=== PATIENT | female | born 1935 | race Caucasian/White ===

== ENCOUNTER → 2017-07-26 13:53 | Outpatient (CLI) | payer MEDICARE, OTHER, SELFPAY ==
--- NOTE | 2017-07-26 | DI.ECHO.S_ITS ---
[facility] +---------+ : : [address] : [address] : : : : [id number] : : : : Phone: [phone]+ Echocardiogram Report + + :Name: FREIDA VILLALBA Study Date: 07/26/2017 Height: 64 in : :[facility] Weight: 195 lb : : Gender: Female BSA: 1.9 m2 : :: 1935 Age: 81 yrs BP: 136/74 mmHg: :Reason For Study: Aortic valve stenosis : :Ordering Physician: Kwame : :Carter Performed By: Xochitl Hunt : :Referring: SUBHA Ohara : + + Interpretation Summary The left ventricle is normal in size, wall thickness, and systolic function without any focal wall motion abnormalities. The ejection fraction is estimated to be 60-65%. The right ventricle grossly appears normal in size with probable normal systolic function. The right ventricular systolic pressure is estimated at 40 mmHg assuming a right atrial pressure of 3 mm Hg. The left atrium is moderately dilated. Right atrial size is normal. The calculated aortic valve area is 1.1 cm2. The peak aortic velocity is 3.3 m/sec. The peak aortic velocity on the previous exam was 3.0 m/sec. There is no other significant valvular heart disease. The ascending aorta is mildly enlarged. Procedure: A two-dimensional transthoracic echocardiogram with color flow and Doppler was performed. The study quality was technically adequate. Comparison is made with the echocardiogram of 11-13-15. The patient was in normal sinus rhythm during the exam. Left Ventricle: The left ventricle is normal in size, wall thickness, and systolic function without any focal wall motion abnormalities. The ejection fraction is estimated to be 60-65%. Right Ventricle: The right ventricle grossly appears normal in size with probable normal systolic function. Atria: The left atrium is moderately dilated. Right atrial size is normal. The interatrial septum is intact with no evidence for an atrial septal defect. Mitral Valve: The mitral valve leaflets appear mildly thickened, but open well. There is trace mitral regurgitation. Aortic Valve: The calculated aortic valve area is 1.1 cm2. The peak aortic velocity is 3.3 m/sec. The peak aortic velocity on the previous exam was 3.0 m/sec. The aortic valve mean gradient is 23 mmHg. Severity ratio is 0.31. There is trace aortic regurgitation. Tricuspid Valve: The tricuspid valve leaflets are thin and pliable. There is mild tricuspid regurgitation. The right ventricular systolic pressure is estimated at 40 mmHg assuming a right atrial pressure of 3 mm Hg. Pulmonic Valve: The pulmonic valve is not well seen, but is grossly normal. There is no pulmonic valvular regurgitation. There is no other significant valvular heart disease. Great Vessels: The aortic root is normal size. The ascending aorta is mildly enlarged. The IVC is of normal diameter and collapses greater than 50% with a sniff. This suggests a low right atrial pressure of 3 mm Hg. Pericardium/ Pleura There is no pericardial effusion. There is no pleural effusion. MMode/2D Measurements & Calculations LVIDd: 4.3 cm LVOT diam: 2.0 cm LVIDs: 2.9 cm Ao root diam: 3.1 cm FS: 31.9 % Aortic Jxn: 2.6 cm IVSd: 0.91 cm asc Aorta Diam: 3.7 cm LVPWd: 0.97 cm Ao Arch Diam (Prox Trans): 2.6 cm LV moody. diameter/BSA (cm/m^2): 2.2 LV sys. diameter/BSA (cm/m^2): 1.5 LA dimension: 4.1 cm RA long axis: 5.0 cm LA A2 area: 24.8 cm2 RA area: 14.8 cm2 LA A4 area: 26.8 cm2 RA vol: 37.5 ml LA length (vol): 6.1 cm RA : 19.4 ml/m2 LA vol: 92.0 ml IVC diam: 1.5 cm LA vol index: 47.5 ml/m2 RVDd major: 4.5 cm RVD1 (basal): 4.0 cm CASSANDRA (plan): 1.2 cm2 Doppler Measurements & Calculations Ao V2 max: 327.4 cm/sec LVOT Max Matt: 107.4 cm/sec Ao V2 mean: 222.5 cm/sec LV V1 max P.9 mmHg Ao max P.9 mmHg LV V1 VTI: 24.2 cm Ao mean P.8 mmHg CASSANDRA(I,D): 1.0 cm2 Ao V2 VTI: 77.7 cm CASSANDRA(V,D): 1.1 cm2 sev ratio: 0.31 CASSANDRA indexed to BSA (cm^2/m^2): 0.52 TR max matt: 303.0 cm/sec TR max P.7 mmHg PA Accel Time: 0.13 sec Reading Physician:KRISTINE
== END ==
PROVIDERS: Family Provider Physician Assistant; PCP Physician Assistant; Visit Provider Internal Medicine Cardiovascular Disease
DX: I35.0 Nonrheumatic aortic (valve) stenosis (principal)
CPT/HCPCS: 93306

== ENCOUNTER → 2017-07-28 12:30 | Outpatient (CLI) | payer MEDICARE, OTHER, SELFPAY ==
[2017-07-28 12:53] LABS: Hematocrit 38.4 % (36-46); Hemoglobin 13.2 g/dL (12.0-16.0)
[2017-07-28 13:47] LABS: BUN Creatinine Ratio 23.6 (6-22); Blood Urea Nitrogen 33 mg/dL (7-17); Calcium 9.6 mg/dL (8.4-10.2); Carbon Dioxide 25 mmol/L (22-32); Chloride 105 mmol/L (98-107); Estimated Glomerular Filt Rate 36.3 mL/min (>60); Glucose 121 mg/dL (80-110); HEMOLYSIS < 15 (0-50); Potassium 4.8 mmol/L (3.4-5.1); Sodium 143 mmol/L (137-145)
[2017-07-28 14:17] LABS: Ferritin 99.7 ng/mL (11.1-264)
[2017-07-28 14:37] LABS: HEMOLYSIS < 15 (0-50); Iron 83 ug/dL (37-170)
[2017-07-28 14:48] LABS: Percent Iron Saturation 24 % (15-50); Total Iron Binding Capacity 347 ug/mL (265-497); Transferrin 271 mg/dL (206-381)
[2017-07-28 15:46] LABS: Creatinine Urine Random 90.9 mg/dL; Protein (Total) Urine Random 9 mg/dL (0-12); Protein Creatinine Ratio Urine 0.09 GRAM/24H
[2017-07-30 15:45] LABS: Parathyroid Hormone Int 44 pg/mL (14-64)
== END ==
PROVIDERS: Family Provider Physician Assistant; PCP Physician Assistant; Visit Provider Student in an Organized Health Care Education/Training Program
DX: N05.9 Unspecified nephritic syndrome with unspecified morphologic changes (principal); D50.0 Iron deficiency anemia secondary to blood loss (chronic); D64.9 Anemia, unspecified; N25.81 Secondary hyperparathyroidism of renal origin; R80.9 Proteinuria, unspecified
CPT/HCPCS: 36415; 80048; 82570; 82728; 83540; 83550; 83970; 84156; 85014; 85018

== ENCOUNTER 2017-09-05 07:32 | Day surgery (SDC) | payer MEDICARE, OTHER, SELFPAY ==
--- NOTE | 2017-09-05 | PATH_ITS ---
[facility] Accession Number: [id number] . 01 Material submitted: . COLON POLYP AT 60CM . 02 Diagnosis: Colon Polyp at 60 cm: Hyperplastic polyp. Additional step sections examined. V/09/08/2017 . 02 Electronically signed: . Akash Meyer MD, PhD, Pathologist NPI- [id number] . 01 Gross description: . COLON POLYP AT 60CM: Received in formalin is 1 fragment(s) of nascimento, soft tissue measuring 0.4 x 0.3 x 0.3 cm submitted entirely in 1 cassette(s) /CKI /CKI . 02 Pathologist provided ICD-10: K63.5 . 02 CPT . 488844 Performed at: 01 [facility] [address] [place] [address], [place], [place] [id number] MD Joseph Liz MD Phone: [phone] Performed at: 02 [facility] [address] [place], [place] [id number] MD Stephen Georges MD Phone: [phone]
[2017-09-05 07:45] VITALS: BMI 32.5
[2017-09-05 07:58] VITALS: BP 129/80; PULSE 87; RESP 16; TEMP 36; O2SAT 95
--- NOTE | 2017-09-05 08:01 | PM.HP.1 ---
History of Present Illness Date Patient Seen: 09/05/17 Time Patient Seen: 08:01 Chief complaint: [id number] Narrative: 82-year-old female with personal history of colon cancer status post right colectomy 3-4 years ago who presents now for colorectal screening. On further history today, she denies any recent change in bowel habits or other issues. She has no nausea, vomiting, abdominal pain, loss of appetite, unexplained weight loss, distention, change in bowel habits, diarrhea, constipation, melena, hematochezia, or bright red blood per rectum. Patient History Medical History Anxiety (Acute) Chronic edema (Acute) Chronic renal insufficiency (Acute) Chronic sinusitis (Acute) Diverticulosis (Acute) Gastroesophageal reflux disease (Acute) Heart murmur (Acute) History of anemia (Acute) History of colon cancer (Acute) History of diverticulitis (Acute) History of hysterectomy (Acute) Hypercholesterolemia (Acute) Hypertension (Acute) Osteoarthritis (Acute) Peripheral neuropathy (Acute) Surgical History History of carpal tunnel release of both wrists (Acute) History of left hip replacement (Acute) History of left knee replacement (Acute) History of right hip replacement (Acute) History of tonsillectomy (Acute) S/P left colectomy (Acute) S/P right colectomy (Acute) S/P tendon repair (Acute) Family & Social History Family History: Reviewed 09/05/17 by Homer Watters MD Social History: household members spouse Meds Home Medications Medication Instructions Recorded Confirmed Type oxcarbazepine [Trileptal] 300 mg PO BID #0 05/26/11 History spironolactone 25 mg PO QDAY #0 05/26/11 History diltiazem HCl 180 mg PO DAILY 09/05/17 09/05/17 History lorazepam 0.5 mg BUCCAL BID-TID PRN 09/05/17 09/05/17 History Allergies Allergy/AdvReac Type Severity Reaction Status Date / Time DEEDEE Inhibitors Allergy Severe ANGIOEDEMA Unverified 09/05/17 07:40 [DEDEEE INHIBITORS] Sulfa (Sulfonamide Allergy Severe RASH Unverified 09/05/17 07:40 Antibiotics) [SULFA (SULFONAMIDE ANTIBIOTICS)] hydromorphone [From DILAUDID] Allergy Mild HALLUCINATI Unverified 09/05/17 07:40 ONS codeine [CODEINE] AdvReac Mild FEELING Unverified 09/05/17 07:40 OF DROP IN BP/WEAKNESS pseudoephedrine AdvReac Mild FEELS LIKE Unverified 09/05/17 07:40 [PSEUDOEPHEDRINE] BP GOES OUT FROM UNDERNEATH ME. Review of Systems Review of Systems All systems reviewed & are unremarkable except as noted in HPI and below Exam Vital Signs (past 8 hours): - 09/05/17 07:58 Temperature 96.8 F L Pulse Rate 87 Respiratory Rate 16 Blood Pressure 129/80 H Pulse Oximetry 95 Oxygen Delivery Method Room Air Narrative Exam Narrative: Well-nourished well-developed elderly female in no acute distress who actually appears somewhat younger than her stated age. Alert oriented x3 Sclera nonicteric Neck supple Chest clear to auscultation bilaterally without crackles or wheezes. Regular rate and rhythm. Grade 2 systolic ejection murmur is present. No rubs Abdomen is soft, nondistended, nontender, no masses Extremities show no clubbing or cyanosis. +1 bipedal edema Objective Labs Labs: No recent laboratory radiographic studies review Assessment & Plan Plan: Assessment/Plan Narrative: 82-year-old female with personal history of colon cancer who requires colorectal surveillance for such. Her surgery was nearly 4 years ago now. Recommend colonoscopy currently. Risks, benefits, and alternatives were explained. Technical details of the operation were also discussed at length. Risks including but not limited to sedation, aspiration, bleeding, pain, missed lesion, incomplete examination, need for further radiographic studies, colonic perforation, need for major abdominal surgery, and all attendant risks of major surgery were explained in detail. All questions were answered to her satisfaction, and consent was placed on the chart. We will proceed as above.
--- NOTE | 2017-09-05 08:10 | PM.PREOP ---
Pre-operative Note Interval Note Pre-op Check: History & Physical Reviewed by Physician, Exam Performed and History & Physical exam performed today H&P completed within 30 days and has changed as indicated here:: Patient seen and examined today. History physical examination placed on the chart. Patient has personal history of colon cancer. Proceed with colonoscopy today as planned. ASA Class (for procedural sedation): II
[2017-09-05] MEDS: SODIUM CHLORIDE 0.9% 1,000 ML 200 ML IV (08:14)
[2017-09-05] MEDS: MIDAZOLAM 5 MG/5 ML VIAL IV (08:27)
[2017-09-05] MEDS: fentaNYL 250 MCG/5 ML INJ IV (08:28)
[2017-09-05] MEDS: ONDANSETRON 4 MG/2 ML INJ IV (08:30)
--- NOTE | 2017-09-05 08:32 | PM.OP.ENDO ---
Operative Date/Time/Diagnoses Date of procedure: 09/05/17 Time of procedure: 08:32 Pre-op diagnosis: Personal history of colon cancer Post-op diagnosis: other (Colon polyp and diverticulosis) Procedure & Clinicians Study performed: 1. Sedation per surgeon 2. Colonoscopy with cold forceps polypectomy Same procedure as scheduled: Yes Indications: 82-year-old female with personal history of colon cancer status post right colectomy who presented for colorectal screening. Colonoscopy is once again recommended. Surgeon: Homer Watters Procedure Notes SCOAP/Timeout: Yes Procedure in detail: After obtaining informed consent, the patient was brought to the GI suite and placed in the left lateral decubitus position on the examination table. After placement of appropriate monitors, the patient was given incremental doses of Versed and Fentanyl until an appropriate level of sedation was achieved. A time out was held per SCOAP protocol. A digital rectal examination was performed and did not reveal any masses or obstructing lesions. External hemorrhoids were enlarged but not inflamed or thrombosed. The colonoscope was gently passed into the patient's anus and the entire colon navigated to the level of the ileocolic anastomosis with minimal difficulty. Once in the anastomosis, the terminal ileum was intubated and noted to be grossly normal. Anastomosis was located at 70 cm from the anal verge. The scope was withdrawn being sure to go before and beyond all mucosal folds and prominences and get an excellent examination. The findings are noted above. Bowel preparation was excellent. At the level of the rectal vault, the scope was retroflexed and the internal anal canal was examined. Internal hemorrhoids were normal. The scope was straightened and air aspirated from the colon. The instrument was removed from the patient's body and the procedure was concluded. The patient was allowed to awaken from sedation without difficulty and taken to the post-anesthesia care unit in good condition. Scope withdrawal time: 9:37 min Sedation minutes: 14 Findings: diverticulosis, polyp (Colon polyp at 60 cm) and other findings (1. Ileocolic anastomosis at 70 cm widely patent 2. Colocolonic anastomosis at 35 cm widely patent) Specimen(s): other (Colon polyp at 60 cm) Complications: none Recommendations: Colonscopy in 3 years, High fiber diet and Will call with biopsy results Plan for aftercare: 1. Discharge to home Follow up: as needed Disposition: same day surgery
[2017-09-05 08:35] VITALS: BP 140/70; PULSE 96; RESP 15; TEMP 36.2; O2SAT 93
[2017-09-05 08:40] VITALS: BP 113/68; PULSE 78; RESP 16; TEMP 36.2; O2SAT 94
[2017-09-05 08:45] VITALS: BP 113/68; PULSE 77; RESP 16; TEMP 36.2; O2SAT 92
[2017-09-05 08:51] VITALS: BP 116/69; PULSE 79; RESP 16; TEMP 36.3; O2SAT 95
[2017-09-05 09:20] VITALS: BP 110/70; PULSE 80; RESP 16; TEMP 36.3; O2SAT 95
== END 2017-09-05 09:25 | disposition home or self-care (01) ==
PROVIDERS: Family Provider Physician Assistant; PCP Physician Assistant; Visit Provider Surgery
PROC: 0DJD8ZZ Inspection of Lower Intestinal Tract, Via Natural or Artificial Opening Endoscopic (ICD-10-PCS; CPT 45378; principal; 2017-09-05 08:45)
DX: Z85.038 Personal history of other malignant neoplasm of large intestine (principal); K57.30 Diverticulosis of large intestine without perforation or abscess without bleeding; Z90.49 Acquired absence of other specified parts of digestive tract; F41.9 Anxiety disorder, unspecified; R01.1 Cardiac murmur, unspecified; N18.9 Chronic kidney disease, unspecified; I12.9 Hypertensive chronic kidney disease with stage 1 through stage 4 chronic kidney disease, or unspecified chronic kidney disease; G62.9 Polyneuropathy, unspecified; K63.5 Polyp of colon
CPT/HCPCS: 45380; 88305; 99152; J2250; J2405; J3010

== ENCOUNTER → 2018-04-24 12:15 | Outpatient (CLI) | payer MEDICARE, OTHER, SELFPAY ==
--- NOTE | 2018-04-24 | DI.US.S_ITS ---
PROCEDURE: US RENAL COMPLETE INDICATIONS: COMPLEX RIGHT RENAL CYST CKD III TECHNIQUE: Real-time scanning was performed of the kidneys and bladder, with image documentation. COMPARISON: [facility], US, ABDOMEN COMPLETE, 06/17/2016, 14:57. [facility], MR, ABDOMEN WITHOUT CONTRAST, 10/14/2016, 14:20. FINDINGS: Kidneys: Kidneys are normal in size. Right kidney measures 12.6 cm long; left kidney measures 9.3 cm long. Right renal cortical thickness is 1.7 cm; left renal cortical thickness is 1.4 cm. Renal cortical echotexture is normal. No hydronephrosis or nephrolithiasis. No suspicious solid mass lesions. Several bilateral renal cysts are seen. The largest cyst on the right is seen at the inferior pole the right kidney, with internal septations seen that measures 4.1 x 3.5 x 2.9 cm, which previously measured 4.5 x 3.2 x 3.5 cm. The largest cyst on the left measures 4.9 x 5 x 5.3 cm it demonstrates a simple appearance. Bladder: The bladder is not well prepped and not well seen. Miscellaneous: No free pelvic fluid. IMPRESSION: A septated cyst is again seen at the inferior pole of the right kidney, which is similar to the prior ultrasound. Numerous simple cysts are seen elsewhere within both kidneys. Dictated by: Roque Estrella M.D. on 04/24/2018 at 12:02 Approved by: Roque Estrella M.D. on 04/24/2018 at 12:05
[2018-04-24 13:56] LABS: HEMOLYSIS < 15 (0-50); Iron 83 ug/dL (37-170)
[2018-04-24 14:07] LABS: Percent Iron Saturation 24 % (15-50); Total Iron Binding Capacity 340 ug/dL (265-497); Transferrin 259 mg/dL (206-381)
[2018-04-24 15:29] LABS: Creatinine Urine Random 64.5 mg/dL; Protein (Total) Urine Random 10 mg/dL (0-12); Protein Creatinine Ratio Urine 0.15 GRAM/24H
[2018-04-26 15:35] LABS: Parathyroid Hormone Int 76 pg/mL (14-64)
== END ==
PROVIDERS: Family Provider Physician Assistant; PCP Physician Assistant; Visit Provider Student in an Organized Health Care Education/Training Program
DX: N28.1 Cyst of kidney, acquired (principal); N18.3 Chronic kidney disease, stage 3 (moderate); D50.0 Iron deficiency anemia secondary to blood loss (chronic); R80.9 Proteinuria, unspecified; N25.81 Secondary hyperparathyroidism of renal origin
CPT/HCPCS: 36415; 76770; 82570; 82728; 83540; 83550; 83970; 84156

== ENCOUNTER → 2018-10-16 12:30 | Outpatient (CLI) | payer MEDICARE, OTHER, SELFPAY ==
--- NOTE | 2018-10-16 | DI.RAD.S_ITS ---
PROCEDURE: XR CHEST 2V INDICATIONS: ACTIVITY INTOLERANCE RELATED OT FATIGUE TECHNIQUE: 2 views of the chest were acquired. COMPARISON: [facility], , CHEST 1 VIEW, 10/28/2016, 13:24. FINDINGS: Surgical changes and devices: None. Lungs and pleura: Mild prominent interstitial markings similar to the prior exam from 2017. No consolidation. No pleural effusions or pneumothorax. Mediastinum: Mediastinal contours are normal. Trace aortic arch calcification. Heart size is normal. Bones and chest wall: No suspicious bony abnormalities. Soft tissues appear unremarkable. IMPRESSION: No acute cardiopulmonary abnormality. Mild prominence of the interstitial markings which may be related to emphysematous change. Dictated by: Vargas Cobb M.D. on 10/16/2018 at 12:59 Approved by: Vargas Cobb M.D. on 10/16/2018 at 13:14
== END ==
PROVIDERS: PCP Internal Medicine; Visit Provider Internal Medicine
DX: R53.83 Other fatigue (principal)
CPT/HCPCS: 71046

== ENCOUNTER → 2018-11-13 15:03 | Outpatient (CLI) | payer MEDICARE, OTHER, SELFPAY ==
--- NOTE | 2018-11-13 | DI.ECHO.S_ITS ---
[facility]---------+ [facility] +---------+ : : [address] : : : : [phone] : : : : Phone: [phone]+ Echocardiogram Report + + :Name: FREIDA VILLALBA Study Date: 11/13/2018 Height: 64 in : :[facility] Weight: 182 lb : : Gender: Female BSA: 1.9 m2 : :: 1935 Age: 83 yrs BP: 110/60 mmHg: :Reason For Study: : :Ordering Physician: Gretchen : :Carter Rodriguez Performed By: Karen Maurer : :Referring: GRETCHEN MACHADO : + + Interpretation Summary The left ventricle is normal in size, wall thickness, and systolic function without any focal wall motion abnormalities. The ejection fraction is estimated to be 60-65%. The right ventricle is normal in size and function. The right ventricular systolic pressure is estimated to be at least 30 mmHg based on an estimated right atrial pressure of 3 mm Hg. The left atrium is severely dilated. Right atrial size is normal. The aortic valve is moderately calcified. There is mild to moderately reduced leaflet mobility. There is moderate aortic stenosis. The calculated aortic valve area is 1.00 cm2. The peak aortic velocity is 3.7 m/sec. The peak aortic velocity on the previous exam was 3.3 m/sec. The aortic valve mean gradient is 29 mmHg. There is no other significant valvular heart disease. The aortic root is normal size. Procedure: A two-dimensional transthoracic echocardiogram with color flow and Doppler was performed. The study quality was technically adequate. Comparison is made with the echocardiogram of 07/26/17. SSS. Left Ventricle: The left ventricle is normal in size, wall thickness, and systolic function without any focal wall motion abnormalities. The ejection fraction is estimated to be 60-65%. Diastolic function could not be accurately assessed due to unobtainable data. Right Ventricle: The right ventricle is normal in size and function. Atria: The left atrium is severely dilated. Right atrial size is normal. There is no Doppler evidence for an interatrial shunt. Mitral Valve: The mitral valve leaflets appear mildly thickened, but open well. There is mild mitral annular calcification. There is mild mitral regurgitation. Aortic Valve: The aortic valve is trileaflet. The aortic valve is moderately calcified. There is mild to moderately reduced leaflet mobility. There is moderate aortic stenosis. The calculated aortic valve area is 1.00 cm2. The peak aortic velocity is 3.7 m/sec. The peak aortic velocity on the previous exam was 3.3 m/sec. The aortic valve mean gradient is 29 mmHg. There is trace aortic regurgitation. Tricuspid Valve: The tricuspid valve is normal. There is mild tricuspid regurgitation. The right ventricular systolic pressure is estimated to be at least 30 mmHg based on an estimated right atrial pressure of 3 mm Hg. Pulmonic Valve: The pulmonic valve is not well visualized. There is a trace or physiologic amount of pulmonic regurgitation. There is no other significant valvular heart disease. Great Vessels: The aortic root is normal size. The ascending aorta is normal in size. The aortic arch is normal in size. The pulmonary is not well visualized. The IVC is of normal diameter and collapses greater than 50% with a sniff. This suggests a low right atrial pressure of 3 mm Hg. Pericardium/ Pleura There is no pericardial effusion. There is no pleural effusion. MMode/2D Measurements & Calculations LVIDd: 4.7 cm LVOT diam: 2.0 cm LVIDs: 2.7 cm Ao root diam: 3.1 cm FS: 42.9 % asc Aorta Diam: 3.5 cm EPSS: 0.40 cm Ao Arch Diam (Prox Trans): 2.9 cm IVSd: 0.70 cm LVPWd: 1.0 cm LV moody. diameter/BSA (cm/m^2): 2.5 LV sys. diameter/BSA (cm/m^2): 1.4 LA A2 area: 24.8 cm2 RA long axis: 4.7 cm LA A4 area: 24.7 cm2 RA area: 16.5 cm2 LA length (vol): 5.5 cm RA vol: 49.0 ml LA vol: 94.4 ml RA : 26.1 ml/m2 LA vol index: 50.2 ml/m2 IVC diam: 1.9 cm RVD1 (basal): 3.7 cm RVD2 (mid): 2.3 cm TAPSE: 1.4 cm Doppler Measurements & Calculations Ao V2 max: 371.1 cm/sec LVOT Max Matt: 116.7 cm/sec Ao V2 mean: 252.9 cm/sec LV V1 max P.5 mmHg Ao max P.2 mmHg LV V1 VTI: 24.9 cm Ao mean P.1 mmHg CASSANDRA(I,D): 0.99 cm2 Ao V2 VTI: 78.4 cm CASSANDRA(V,D): 0.98 cm2 sev ratio: 0.32 CASSANDRA indexed to BSA (cm^2/m^2): 0.53 MV E max matt: 109.7 cm/sec TR max matt: 260.1 cm/sec Med Peak E' Matt: 5.9 cm/sec TR max P.1 mmHg E/E' med: 18.6 PA V2 max: 102.6 cm/sec Lat Peak E' Matt: 8.9 cm/sec PA V2 mean: 68.7 cm/sec E/E' lat: 12.3 PA mean P.1 mmHg E/e' average: 15.4 PA Accel Time: 0.09 sec SV(LVOT): 77.5 ml Reading Physician:05:02 PM
== END ==
PROVIDERS: PCP Internal Medicine; Visit Provider Internal Medicine Cardiovascular Disease
DX: I08.3 Combined rheumatic disorders of mitral, aortic and tricuspid valves (principal)
CPT/HCPCS: 93306

== ENCOUNTER → 2018-11-20 11:40 | Outpatient (CLI) | payer MEDICARE, OTHER, SELFPAY ==
--- NOTE | 2018-11-20 | DI.US.S_ITS ---
PROCEDURE: US RENAL COMPLETE INDICATIONS: CYST OF KIDNEY, ACQUIRED TECHNIQUE: Real-time scanning was performed of the kidneys and bladder, with image documentation. COMPARISON: [facility], , US RENAL COMPLETE, 04/24/2018, 12:28. FINDINGS: Kidneys: Kidneys are normal in size. Right kidney measures 11.1 cm long; left kidney measures 11.2 cm long. Right renal cortical thickness is 1.2 cm; left renal cortical thickness is 1.0 cm. Renal cortical echotexture is normal. No hydronephrosis or nephrolithiasis. No suspicious solid mass lesions. Multiple bilateral complex appearing renal cysts are seen and measures up to 4.2 x 3.1 x 3 cm in size in lower pole of right kidney. Not significantly changed in size from previous study. Bladder: Pre-void bladder volume is 198 mL. Post-void residual is 0 mL. Pre-void images demonstrate no intraluminal masses or stones. On pre-void images, right ureteral jets are noted with color Doppler interrogation. (Of note, ureteral jets may not be detectable in up to 25% of cases due to insufficient differences in specific gravity between ureteral and bladder urine). Miscellaneous: No free pelvic fluid. IMPRESSION: 1. Stable appearing bilateral renal cysts with complex appearing right renal cyst unchanged in size and appearance from previous study. No gross solid-appearing renal lesion. No hydronephrosis. 2. Normal appearing urinary bladder. Dictated by: Orlin Doherty M.D. on 11/20/2018 at 13:45 Approved by: Orlin Doherty M.D. on 11/20/2018 at 13:47
== END ==
PROVIDERS: PCP Internal Medicine; Visit Provider Student in an Organized Health Care Education/Training Program
DX: N28.1 Cyst of kidney, acquired (principal)
CPT/HCPCS: 76770

== ENCOUNTER → 2018-12-14 09:48 | Outpatient (CLI) | payer MEDICARE, OTHER, SELFPAY ==
--- NOTE | 2018-12-14 | DI.RAD.S_ITS ---
PROCEDURE: FL FLUOROSCOPY >1HR COMPARISON: None. INDICATIONS: R94.2 FINDINGS: There is normal diaphragmatic excursion bilaterally with symmetric appearance during real time fluoroscopic observation. No abnormal or paradoxical motion identified IMPRESSION: Normal examination. No evidence of diaphragmatic paralysis/paradoxical motion. Dictated by: Jasbir Morales M.D. on 12/14/2018 at 14:40 Approved by: Jasbir Morales M.D. on 12/14/2018 at 14:41
== END ==
PROVIDERS: PCP Internal Medicine; Visit Provider Internal Medicine
DX: R94.2 Abnormal results of pulmonary function studies (principal)
CPT/HCPCS: 76000

== ENCOUNTER → 2018-12-20 10:56 | Outpatient (CLI) | payer MEDICARE, OTHER, SELFPAY ==
--- NOTE | 2018-12-22 16:15 | PM.PFT.1 ---
Pulmonary Function Test Referral & Results Date Patient Seen: 12/20/18 Requesting provider: Candido Minaya Results: The spirometry demonstrates an FVC of 1.78 L which is 69% of predicted. The FEV1 was measured at 1.42 L which is 75% of predicted. The FEV1/FVC ratio was 80 which is 108 % of predicted. Following the administration of bronchodilator there was no appreciable change. Lung volumes show an SVC of 2.11 L which is 80% of predicted. The diffusing capacity was measured at 15.26 which is 62% of predicted. No hemoglobin value was provided, so no correction for potential anemia could be made, if appropriate. The maximum voluntary ventilation was reduced Interpretation: This study demonstrates moderate obstructive lung disease with no evidence of benefit following bronchodilator There is also mild- restrictive lung disease based on slight reduction in lung volumes There is also a moderate reduction in diffusing capacity suggesting some element of disease at the capillary alveolar level Clinical correlation suggested
== END ==
PROVIDERS: PCP Internal Medicine; Visit Provider Internal Medicine
DX: R94.2 Abnormal results of pulmonary function studies (principal)
CPT/HCPCS: 94060; 94726; 94729

== ENCOUNTER → 2019-03-12 11:37 | Outpatient (CLI) | payer MEDICARE, OTHER, SELFPAY ==
--- NOTE | 2019-03-12 11:40 | DI.RAD.S_ITS ---
PROCEDURE: XR LUMBAR SPINE MIN 4V INDICATIONS: L4-5 spondylolisthesis TECHNIQUE: 5 views of the lumbar spine were acquired. COMPARISON: None. FINDINGS: Bones: 5 nonrib-bearing vertebrae are present. There is abnormal bony alignment with grade 1 anterolisthesis of L4 on L5 associated with moderately severe degenerative disc disease and moderate facet osteoarthritis at this level allowing ligamentous laxity. No vertebral body compression fractures. No suspicious bony lesions. In addition to the L4-L5 degenerative changes there is a slightly less prominent degree of degenerative disc disease and facet osteoarthritis at L5-S1, without subluxation. Soft tissues: Overlying bowel gas pattern is normal. No suspicious soft tissue calcifications. Oblique images: No pars defects. IMPRESSION: Moderately severe degenerative disc disease and facet osteoarthritis and L4-L5, with secondary grade one anterolisthesis of L4 on L5 due to ligamentous laxity. No compression fracture found. Dictated by: Barrett Cadena M.D. on 03/12/2019 at 12:36 Approved by: Barrett Cadena M.D. on 03/12/2019 at 12:38
--- NOTE | 2019-03-12 11:40 | DI.MRI.S_ITS ---
PROCEDURE: MR LUMBAR SPINE WO CON INDICATIONS: L4-5 spondylolisthesis .. TECHNIQUE: Noncontrast sagittal T1 spin echo and T2 fast echo, sagittal STIR, axial T1 and T2 fast spin echo through the lumbar spine. In cases with scoliosis, additional coronal T2 fast spin echo may be performed. COMPARISON: [facility], MR, L-SPINE WITHOUT CONTRAST, 06/06/2013, 14:39. [facility], CR, XR LUMBAR SPINE MIN 4V, 03/12/2019, 11:39. [facility], MR, L-SPINE WITHOUT CONTRAST, 01/01/2008, 12:48. FINDINGS: Image quality: Excellent. Alignment and Curvature: Mild grade 1 anterolisthesis is seen at the L4-L5 level. The degree of displacement is slightly worsened compared to the 2014 examination. Bone Marrow: Marrow is of normal overall signal. No acute vertebral body compression fractures. Spinal Cord: Conus medullaris terminates at the L1 level. Visualized cord demonstrates normal signal and size. Paraspinous Soft Tissues: No paravertebral masses. Bilateral kidney cysts are partially seen. T12-L1: Normal appearance. L1-L2: Normal appearance. L2-L3: The disc height is well-preserved. Loss of disc signal is seen at this level. Mild to moderate disc bulge is seen, which is eccentric to the right. Mild bilateral neural foraminal narrowing is seen. These imaging findings have progressed compared to the prior study. L3-L4: Mild loss of disc height is seen. Loss of disc signal is seen. Moderate generalized disc bulge is seen. Moderate bilateral neural foraminal narrowing can be seen, left worse than right. Moderate central canal narrowing is seen. These imaging findings have progressed compared to the prior study. L4-L5: Moderate loss of disc height is seen. Loss of disc signal is seen. Arch carotid disc bulge is seen. Moderate to prominent facet hypertrophy is seen. There is moderate to severe bilateral neural foraminal narrowing seen. There is a degree of compression seen upon the exiting nerve roots. Moderate to severe central canal narrowing is seen. These changes have progressed compared to 2014. L5-S1: The disc height is well-preserved. Loss of disc signal is seen at this level. There is a faintly seen annular fissure present posteriorly, as on series 4 image 8. Mild to moderate disc bulge is seen, which is eccentric to the right side. There is moderate left-sided and moderate to severe right-sided neural foraminal narrowing seen. There is compression seen upon the exiting right L5 nerve root. Moderate central canal narrowing is seen. These imaging findings have progressed compared to the prior study. IMPRESSION: Lumbar spine degenerative changes are seen, which are most prominent at L4-L5. These degenerative changes have progressed compared to 2014. Dictated by: Roque Estrella M.D. on 03/12/2019 at 14:08 Approved by: Roque Estrella M.D. on 03/12/2019 at 14:13
== END ==
PROVIDERS: Family Provider Internal Medicine; PCP Internal Medicine; Visit Provider Physical Medicine & Rehabilitation
DX: M43.16 Spondylolisthesis, lumbar region (principal); M47.816 Spondylosis without myelopathy or radiculopathy, lumbar region; M47.817 Spondylosis without myelopathy or radiculopathy, lumbosacral region; M51.36 Other intervertebral disc degeneration, lumbar region; M51.37 Other intervertebral disc degeneration, lumbosacral region
CPT/HCPCS: 72110; 72148

== ENCOUNTER 2019-04-26 10:00 | Outpatient (RCR) | payer MEDICARE, OTHER, SELFPAY ==
[2019-03-27 10:54] VITALS: BP 124/60; BP 134/64; RESP 12; O2SAT 96; BMI 30.9
--- NOTE | 2019-03-27 14:04 | PR.IEVALNOTE ---
Current Diagnoses Chronic obstructive pulmonary disease, unspecified (03/13/19) Past Medical History (Last Updated 03/05/19 @ 09:14 by Joey Willingham DO) Anxiety (Acute) Chronic edema (Acute) Chronic renal insufficiency (Acute) Chronic sinusitis (Acute) Diverticulosis (Acute) Facet arthropathy, lumbar (Acute) Gastroesophageal reflux disease (Acute) Heart murmur (Acute) History of anemia (Acute) History of colon cancer (Acute) History of diverticulitis (Acute) Hypercholesterolemia (Acute) Hypertension (Acute) Osteoarthritis (Acute) Peripheral neuropathy (Acute) Visit Care Team Role Provider Type Candido Minaya MD Attending Provider Physician Family Provider Primary Care Provider Specialty: Internal Medicine Address: [address] [place] [address], [facility] Email: Pulmonary Rehab Initial Evaluation [place] Pulmonary Rehab Inital Assessment Start: 03/27/19 10:53 Freq: Status: Active Protocol: Document 03/27/19 10:54 ALESSANDRA (Rec: 03/27/19 14:04 ALESSANDRA [id number]) NH Exercise Assessment Dx: COPD Comment reduced DLCO Primary Language LATVIAN Shoe Cleaner Required No Hearing Ability Normal Visual Impairment No Limitations Visual Difficutly None Musculoskeletal Symptoms Numbness Comment peripheral neuropathy uses braces with foot pad d/t foot drop History of Falling (Immediate or Yes Previous) Secondary Diagnosis (More Than 2 Medical Yes Diagnoses) Ambulatory Aid Crutches/cane/walker Gait/Transfer Weak Mental Status Oriented to own ability Plan to Decrease Fall Risk resistance exercise on stability balls for balance and core muscle strength Comment no current exercise NH Vital Signs Pulse Oximetry (91-100 %) 96 Nasal Cannula No Respiratory Rate (12-24 breaths/min) 12 Respiratory Effort Non-Labored Respiratory Depth Normal Assessment clear to auscultations no wheezes rales or rhonchi patient reports audible wheezes in evening-clears with cough Right Arm Blood Pressure (90/60-140/90 mmHg) 124/60 Blood Pressure Method Manual Cuff/Auscultation Blood Pressure Position Sitting Left Arm Blood Pressure (90/60-140/90 mmHg) 134/64 Blood Pressure Method Manual Cuff/Auscultation Blood Pressure Position Sitting Ankle Comment +1 NH Six Minute Walk Test Oxygen Delivery Method Room Air Respiratory Rate (breaths/min) 14 Pulse Rate (beats/min) 76 O2 Saturation by Pulse Oximetry (%) 96 Pulse Rate (beats/min) 86 Ambulation Distance (feet) 150 O2 Saturation by Pulse Oximetry (%) 96 Pulse Rate (beats/min) 94 Ambulation Distance (feet) 150 O2 Saturation by Pulse Oximetry (%) 96 Pulse Rate (beats/min) 103 Ambulatory Distance (feet) 100 O2 Saturation by Pulse Oximetry (%) 96 Pulse Rate (beats/min) 99 Ambulation Distance (feet) 105 O2 Saturation by Pulse Oximetry (%) 96 Pulse Rate (beats/min) 99 Ambulation Distance (feet) 150 O2 Saturation by Pulse Oximetry (%) 96 PUlse Rate (beats/min) 106 Ambulation Distance (feet) 160 O2 Saturation by Pulse Oximetry (%) 96 Respiratory Rate (breaths/min) 14 Pulse Rate (beats/min) 77 O2 Saturation by Pulse Oximetry (%) 96 Activity Tolerance Fair Adverse Reactions Increased Shortness of Breath Distance 860 Naeem RPE Scale 12 Oriented to RPE Scale Yes Dyspnea 3.5 Oriented to Dyspnea Scale Yes NH Exercise Goals Exercise Goals progression of exercise training volume will result from increases in time, intensity, and frequency. Initial emphasis will be on increasing time. Exercise Goals improve strength and balance DASI Number and Comment 4.39 Short Term learn breathing techniques to prevent early onset of dyspnea and fatigue Inventory Specialist Manager develop exercise routine and skills to maintain regular exercise regimen NH Pulmonary Rehab Orientation Complete Complete Yes NH Nutrition Assessment PFT Date 12/20/18 Forced Vital Capacity (FVC) 1.78 69% Slow Vital Capacity (SVC) 1.42 75% Forced Exp. Volume/Forced Vital Cap 80 108% Ratio (FEV1/FVC Ratio) Forced Expiratory Volume in 1 sec. 1.42 75% Diffusing Capacity of the Lung (DLCO) 62% History of Diabetes No Admit Height 162.56 cm Admit Weight 81.647 kg Admit Body Mass Index (BMI) 30.9 NH Education Pre-Test Score 93% Tobacco Use Former, Quit >6 Months Tobacco Product Used cigarettes Total Years Used 8 Packs Per Day 1 Use Yes Type wine, oscar Amount 2 Frequency monthly Concerns None Education Topics Breathing Retraining Discussed Education Requirements on Yes Intake NH Psychosocial Initial Assess HADS Score 5 HADS Score 2 Marital Status Referral Needed No Target Goals patient will meet or exceed DASI score at completion of Pulmonary rehab Physician Comment Ready for Pulmonary Rehabilitation Cooperative,Motivated
--- NOTE | 2019-04-26 15:29 | PR.REVALNOTE ---
Current Diagnoses Chronic obstructive pulmonary disease, unspecified (04/26/19) Past Medical History (Last Updated 04/10/19 @ 11:32 by SUAD Tavarez) Anxiety (Acute) Chronic edema (Acute) Chronic renal insufficiency (Acute) Chronic sinusitis (Acute) Diverticulosis (Acute) Facet arthropathy, lumbar (Acute) Gastroesophageal reflux disease (Acute) Heart murmur (Acute) History of anemia (Acute) History of colon cancer (Acute) History of diverticulitis (Acute) Hypercholesterolemia (Acute) Hypertension (Acute) Osteoarthritis (Acute) Peripheral neuropathy (Acute) Renal insufficiency (Chronic) Visit Care Team Role Provider Type Candido Minaya MD Attending Provider Physician Family Provider Primary Care Provider Specialty: Internal Medicine Address: [address] [place] [address], [facility] Email: [email or web address] Pulmonary Rehab Re-Evaluation [place] Pulmonary Rehab. Re-Assessment Start: 03/27/19 10:53 Freq: Status: Active Protocol: Document 04/26/19 15:18 [facility] (Rec: 04/26/19 15:29 [facility] [id number]) [place] Exercise Re-Assessment New Session Number 1-12 Type Nustep,BioDex METs (resistance level) NS 2.90 STRDR 4.60 % Improvement NS 10% STRDR 67% Interval Training No Shortness of Breath with Exercise Yes Desaturation with Exercise No Free Weight Yes: 3# 12R 2S Band Level Yes: #3 BAND Intervention Pt requires frequent reminders to initiate PLB Toward Target Goals Increased participation in physical activities including domestic activities Improved functional activities with improved endurance and strength HI Nutrition Re-Assessment Goals Pt will continue focusing on weight loss,Pt will continue to learn tips HI Education Re-Assessment Topics Benefits of Exercise, Activities of daily living/ Leisure Activities,Eating Right,Irritant Avoidance/ Prevention of Respiratory Infections Goals Pt will Master PLB and Diaphragmatic Breathing,Pt will Master Energy Conserving Techniques,Pt will learn exercise safety,Pt will continue ED topics until completion HI Psychosocial Re-Assessment Patient in Class Regularly Yes Interventions Pt attending class regularly Goals Pt will continue to attend classes 3x wk,Participate in social and educational discussion,Received emotional support from family/friends
== END 2019-04-26 11:00 ==
LOC: PUL 10:00
PROVIDERS: Family Provider Internal Medicine; PCP Internal Medicine; Visit Provider Internal Medicine
DX: J44.9 Chronic obstructive pulmonary disease, unspecified (principal)
CPT/HCPCS: G0424

== ENCOUNTER → 2019-05-10 11:29 | Outpatient (CLI) | payer MEDICARE, OTHER, SELFPAY ==
[2019-03-27 10:54] VITALS: BMI 30.9
[2019-05-10 12:33] LABS: Influenza A - CEPHEID Flu A NEGATIVE (NEGATIVE); Influenza B - CEPHEID Flu B NEGATIVE (NEGATIVE)
[2019-05-17 04:36] LABS: COVID19 Sendout Not Detected (Not Detected)
--- NOTE | 2019-05-23 11:21 | PR.REVALNOTE ---
Current Diagnoses Cough (05/10/19) Other general symptoms and signs (05/10/19) Past Medical History (Last Updated 04/10/19 @ 11:32 by SUAD Tavarez) Anxiety (Acute) Chronic edema (Acute) Chronic renal insufficiency (Acute) Chronic sinusitis (Acute) Diverticulosis (Acute) Facet arthropathy, lumbar (Acute) Gastroesophageal reflux disease (Acute) Heart murmur (Acute) History of anemia (Acute) History of colon cancer (Acute) History of diverticulitis (Acute) Hypercholesterolemia (Acute) Hypertension (Acute) Osteoarthritis (Acute) Peripheral neuropathy (Acute) Renal insufficiency (Chronic) Visit Care Team Role Provider Type Candido Minaya MD Family Provider Physician Primary Care Provider Specialty: Internal Medicine Address: [address] [place] [address], [id number] Email: [email or web address] SUAD Conley Attending Provider Advanced Dishwasher Preparer Specialty: EM Address: [address] [place] [address], [id number] Email: Pulmonary Rehab Re-Evaluation [place] Pulmonary Rehab. Re-Assessment Start: 05/23/19 11:18 Freq: Status: Active Protocol: Document 05/23/19 11:19 ALESSANDRA (Rec: 05/23/19 11:21 ALESSANDRA [id number]) [place] Psychosocial Re-Assessment Additional Comment unable to assess patient at this time due to closure of Pulmonary Rehabilitation due to Covid-19 pandemic.
== END ==
PROVIDERS: Family Provider Internal Medicine; PCP Internal Medicine; Visit Provider Nurse Practitioner
DX: R68.89 Other general symptoms and signs (principal); R05 Cough
CPT/HCPCS: 87502; DELETED

== ENCOUNTER 2019-05-30 00:43 | Inpatient (IN) | payer MEDICARE, OTHER, SELFPAY ==
[2019-03-27 10:54] VITALS: BMI 30.9
[2019-05-30] VITALS (12 sets, daily range): BP systolic 114–153; BP diastolic 60–101; PULSE 61–92; RESP 16–24; TEMP 36.1–37.7; O2SAT 93–99; BMI 32.4
--- NOTE | 2019-05-30 00:40 | ED_ITS ---
HPI - Abdominal Pain General Chief Complaint: Abdominal Pain Stated Complaint: ABD Pain Time Seen by Provider: 05/30/19 00:54 Source: patient and EMS Mode of arrival: EMS Limitations: no limitations History of Present Illness HPI narrative: This is a 83-year-old female who comes to the emergency department with complaint of abdominal that started this evening about an hour prior to arrival. Patient states that she has recently had pneumonia. She was seen on 05/09 she was evaluated for wilson virus and had a negative swab as well as influenza swab at that time and is on her 2nd round of antibiotics. She stat es she has not had fevers. She has had a productive cough. She does not have any chest pain currently. She has had shortness of breath which has been improving. She states that her abdominal pain is sort of epigastric bright also a little bit lower. She states that it does radiate around towards the. She does have a history of chronic back pain but states that this feels different and does not feel like her back pain. She denies any nausea or vomiting. She states she has IBS and has had intermittent diarrhea and constipation regularly. She has not had new changes to her bowel movements and denies any black or bloody stools. She denies any frequency, dysuria urgency. She denies any flank pain. She denies any fevers or chills. Patient states she does take medication for blood pressure, dyslipidemia, hypothyroid, she states she has sick sinus syndrome. She states she does take a blood thinner. She denies any history of cardiac stents, heart attacks or strokes. She was told she had COPD or asthma saw a professional poker player and was told that she does not but was sent to pulmonary rehab because she had abnormalities in some of her tests. Related Data Home Medications Medication Instructions Recorded Confirmed oxcarbazepine [Trileptal] 300 mg PO BID #0 05/26/11 05/30/19 spironolactone 25 mg PO QDAY #0 05/26/11 05/10/19 diltiazem HCl 180 mg PO DAILY 09/05/17 05/30/19 lorazepam 0.5 mg BUCCAL BID-TID PRN 09/05/17 05/30/19 levothyroxine PO 03/05/19 05/10/19 multivitamin 1 cap PO DAILY 03/05/19 05/30/19 vitamin A & D PO DAILY 03/05/19 05/10/19 rosuvastatin 5 mg tablet 5 mg PO DAILY 04/10/19 05/10/19 Previous Rx's Medication Instructions Recorded albuterol sulfate 90 mcg/actuation 2 puff INHALATION Q4-6H PRN #8.5 05/10/19 aerosol inhaler gram inhalational spacing device #1 each 05/10/19 Allergies Allergy/AdvReac Type Severity Reaction Status Date / Time DEEDEE Inhibitors Allergy Severe ANGIOEDEMA Verified 05/10/19 10:54 [DEEDEE INHIBITORS] Sulfa (Sulfonamide Allergy Severe RASH Verified 05/10/19 10:54 Antibiotics) [SULFA (SULFONAMIDE ANTIBIOTICS)] hydromorphone [From DILAUDID] Allergy Mild HALLUCINATI Verified 05/10/19 10:54 ONS codeine [CODEINE] AdvReac Mild FEELING Verified 05/10/19 10:54 OF DROP IN BP/WEAKNESS pseudoephedrine AdvReac Mild FEELS LIKE Verified 05/10/19 10:54 [PSEUDOEPHEDRINE] BP GOES OUT FROM UNDERNEATH ME. Review of Systems Review of Systems ROS Unobtainable: All systems reviewed & are unremarkable except as noted in HPI and below Patient History Medical History Anxiety (Acute) Chronic edema (Acute) Chronic renal insufficiency (Acute) Chronic sinusitis (Acute) Diverticulosis (Acute) Facet arthropathy, lumbar (Acute) Gastroesophageal reflux disease (Acute) Heart murmur (Acute) History of anemia (Acute) History of colon cancer (Acute) History of diverticulitis (Acute) Hypercholesterolemia (Acute) Hypertension (Acute) Osteoarthritis (Acute) Peripheral neuropathy (Acute) Renal insufficiency (Chronic) Surgical History History of carpal tunnel release of both wrists (Acute) History of hysterectomy (Acute) History of left hip replacement (Acute) History of left knee replacement (Acute) History of right hip replacement (Acute) History of tonsillectomy (Acute) S/P left colectomy (Acute) S/P right colectomy (Acute) S/P tendon repair (Acute) Family History Father Heart attack Brother Heart attack Social History household members: none Smoking Status: Former smoker Tobacco: How many years used: 8 Smoking Status: Former smoker Exam Narrative Exam Narrative: GENERAL: Alert and oriented x three, moderately obese female in moderate distress. HEENT: Head normocephalic, atraumatic, EOMI, pupils reactive, face symmetric, moist mucous membranes NECK: Supple, full range of motion CARDIOVASCULAR: Regular rate and rhythm without murmurs, rubs or gallops. RESPIRATORY: Breath sounds equal bilaterally, no wheezes rales or rhonchi. ABDOMEN: Soft, positive for epigastric tenderness and left upper quadrant tenderness. Normoactive bowel sounds all 4 quadrants. No guarding or rebound, rigidity, no mass, no bruit or pulsatile mass. : No CVA tenderness EXTREMITIES: Normal range of motion, no clubbing or edema. 2+ pulses bilateral lower extremities. Neurovascularly intact NEUROLOGICAL: Cranial nerves II through XII grossly intact. Moving all extremities SKIN: Warm, dry, no petechiae, no rashes or lesions. Initial Vital Signs Initial Vital Signs: Vital Signs Pulse Rate 66 05/30/19 00:50 Respiratory Rate 24 05/30/19 00:50 Blood Pressure 124/97 H 05/30/19 00:50 Pulse Oximetry 97 05/30/19 00:50 Course Orders Ordered: ED Orders 05/30/19 00:48 EKG-12 Lead Stat 05/30/19 00:49 CT abdomen pelvis wo con Stat 05/30/19 00:50 Complete Blood Count AUTO DIFF Stat Comprehensive Metabolic Panel Stat Lipase Stat Troponin & CK Cardiac Panel Stat Discontinued Medications Sodium Chloride (Normal Saline 0.9%) 1,000 mls @ 1,000 mls/hr IV BOLUS ONE Stop: 05/30/19 01:47 Last Infusion: 05/30/19 04:05 Dose: 0 mls/hr Documented by: Infusion: 05/30/19 02:01 Dose: 1,000 mls/hr Documented by: Admin: 05/30/19 01:04 Dose: 1,000 mls/hr Documented by: GRACIA Morphine Sulfate (Morphine) 2 mg IV NOW ONE Stop: 05/30/19 00:49 Last Admin: 05/30/19 01:06 Dose: 2 mg Documented by: CTR.VERNA Morphine Sulfate (Morphine) 2 mg IV NOW ONE Stop: 05/30/19 02:39 Last Admin: 05/30/19 03:17 Dose: 2 mg Documented by: [email or web address] Morphine Sulfate (Morphine) 2 mg IV NOW ONE Stop: 05/30/19 04:13 Last Admin: 05/30/19 04:17 Dose: 2 mg Documented by: [email or web address] Ondansetron HCl (Zofran) 4 mg IV NOW ONE Stop: 05/30/19 00:49 Last Admin: 05/30/19 01:04 Dose: 4 mg Documented by: CTR.VERNA Vital Signs Vital signs: Vital Signs - 8 hr 05/30/19 00:50 05/30/19 00:52 05/30/19 01:10 Temperature 97 F L Pulse Rate 66 66 69 Respiratory Rate 24 18 20 Blood Pressure 135/101 H Blood Pressure [Right Arm] 124/97 H 127/60 Pulse Oximetry 97 99 97 05/30/19 01:34 05/30/19 02:49 05/30/19 03:03 Temperature 97.8 F Pulse Rate 61 77 86 Respiratory Rate 18 21 16 Blood Pressure Blood Pressure [Right Arm] 149/67 H 140/73 153/76 H Pulse Oximetry 99 93 97 05/30/19 03:42 Temperature Pulse Rate 77 Respiratory Rate 22 Blood Pressure Blood Pressure [Right Arm] 141/64 H Pulse Oximetry 94 MDM - Abdominal Pain Lab Data Attestation: I reviewed the patient's lab results. Result diagrams: 05/30/19 00:50 05/30/19 00:50 Labs: Lab Results 05/30/19 05/30/19 Range/Units 00:50 00:50 WBC 11.4 H (4.5-11.0) X10^3/uL RBC 4.33 (4.0-5.2) X10^6/uL Hgb 12.9 (12.0-16.0) g/dL Hct 38.8 (36-46) % MCV 89.7 (80-100) fL MCH 29.8 (26-34) PG MCHC 33.3 (30-36) % RDW 13.0 (11.6-14.8) % Plt Count 215 (150-400) X10^3/uL Neut % (Auto) 70.9 (50-75) % Lymph % (Auto) 14.2 L (25-40) % [place] % (Auto) 9.0 (3-14) % Eos % (Auto) 3.6 (2-4) % Baso % (Auto) 2.3 H (0-2) % Neut # (Auto) 8100 H (4942-4661) /uL Lymph # (Auto) 1600 (4974-1115) /uL [place] # (Auto) 1000 H (0-900) /uL Eos # (Auto) 400 (0-450) /uL Baso # (Auto) 300 H (0-100) /uL Sodium 139 (137-145) mmol/L Potassium 4.6 (3.4-5.1) mmol/L Chloride 105 (98-107) mmol/L Carbon Dioxide 25 (22-32) mmol/L BUN 46 H (7-17) mg/dL Creatinine 1.55 H (0.52-1.04) mg/dL Estimated GFR 32.1 L (>60) mL/min BUN/Creatinine Ratio 29.7 H (6-22) Glucose 107 (80-110) mg/dL Calcium 9.7 (8.4-10.2) mg/dL Total Bilirubin 0.4 (0.2-1.3) mg/dL AST 33 (14-36) IU/L ALT 22 (<35) IU/L Alkaline Phosphatase 214 H (38-126) U/L Total Creatine Kinase 82 (30-135) U/L CK-MB (CK-2) TNP CK-MB (CK-2) Rel Index TNP Troponin I < 0.012 (0.01-0.034) ng/mL Total Protein 7.9 (6.3-8.2) g/dL Albumin 4.4 (3.5-5.0) g/dL Globulin 3.5 (1.7-4.1) g/dL Albumin/Globulin Ratio 1.3 (1.0-2.8) Lipase 167 (23-300) U/L ECG Data Attestation: I personally reviewed and interpreted this ECG as follows: Prior ECG tracings: available for review Interpretation: AFib with a rate of 61, QRS 88, QTC of 438. No ST elevation appreciated. No depression. Q-wave in lead 2. I and avL as well as avR appear changed from prior from 10/28/16. MDM Narrative Medical decision making narrative: Patient's labs show an elevation in her c reatinine, priors were at 1.4 with a GFR today of 32 and prior at 36 in 2018. BUN is elevated as well at 46 although typically in the 30s to 40s and the past 4 years. Electrolytes and LFTs are normal except for an alk-phos that is 214 and appears to be chronically elevated the highest in the past was 201 in 2016 and most recently 177 in September of 2016. Lipase is negative with a normal troponin. EKG shows AFib with no new ST elevation or depression but does have some nonspecific changes from prior EKGs from 3 years ago. Patient is feeling better after some pain medication and Zofran. Plan for oral contrast to skip the IV contrast with her renal function. She is receiving fluids and feeling much better at this time. CT shows possible bowel obstruction, patient did have some vomiting here in the department. On re-evaluation she states she has not had a bowel movements from yesterday and has had decreased flatus over the last 12 hours. Discussed this could be a very early bowel obstruction. She did have some improvement in her pain but then recurrence and was given a 2nd dose of pain medication. I did discuss the case with Dr. Crooks when she is going to review images plan for admission to the hospitalist. Spoke with Dr. Huddleston who accepts. We did discuss that patient has had a recent pneumonia she did have Covid testing on May 09 has not had any worsening symptoms but has not had resolution and defers any additional testing at this time. Discharge Plan Departure Patient Disposition: Admitted as Observation Clinical Impression: Partial bowel obstruction Discharge Date/Time: 05/30/19 04:05 Referrals: Candido Minaya MD [Primary Care Provider] - Admit Date/Time: 05/30/19 03:57 Admit Provider: Khoi Huddleston
--- NOTE | 2019-05-30 00:49 | DI.CT.S_ITS ---
PROCEDURE: CT ABDOMEN PELVIS WO CON INDICATIONS: epigastric, Left upper quadrant pain, acute onset. recent pneumonia, covid neg3/12 TECHNIQUE: Noncontrast 5 mm thick sections acquired from the diaphragms to the symphysis. 5 mm coronal and sagittal reformats were then performed. For radiation dose reduction, the following was used: automated exposure control, adjustment of mA and/or kV according to patient size. COMPARISON: [facility], , ABDOMEN WITHOUT CONTRAST, 10/14/2016, 14:20. FINDINGS: Image quality: There is metallic streak artifact from bilateral hip prostheses and multiple surgical clips in the pelvis. ABDOMEN: Lung bases: There is subpleural scarring and atelectasis in the lung bases. Heart size is mildly enlarged. Solid organs: Noncontrast evaluation of the liver demonstrates no focal hepatic lesions. There is a calcified gallstone without wall thickening or pericholecystic fluid. Pancreas is normal in contours without peripancreatic fat stranding or fluid collections. Spleen is normal in size. No adrenal nodules. Kidneys demonstrate no hydronephrosis. Multiple bilateral renal cysts are demonstrated. Peritoneum and bowel: There is mild fluid distention of multiple small bowel loops with air-fluid levels. An associated relative transition point is demonstrated anteriorly in the lower abdomen with a small bowel feces sign. Findings are compatible with a small bowel obstruction. There is colonic diverticulosis. No free fluid or air. Nodes and vessels: No retroperitoneal or mesenteric adenopathy by size criteria. Aorta and inferior vena cava are normal in caliber. Miscellaneous: No ventral hernias. PELVIS: Genitourinary: Bladder wall thickness is normal. Miscellaneous: No inguinal hernias or adenopathy. Bones: There are bilateral hip prostheses with associated streak artifact. No suspicious bony lesions. No vertebral body compression fractures. IMPRESSION: 1. Findings compatible with a small bowel obstruction with a transition point in the anterior lower abdomen. 2. Cholelithiasis. 3. Colonic diverticulosis. Concordant with preliminary report. Dictated by: Joseph Lagunas M.D. on 05/30/2019 at 9:01 Approved by: Joseph Lagunas M.D. on 05/30/2019 at 9:52
[2019-05-30] MEDS: SODIUM CHLORIDE 0.9% 1,000 ML 1000 ML IV (01:04)
[2019-05-30] MEDS: ONDANSETRON 4 MG/2 ML INJ IV ×2 (01:04→10:25)
[2019-05-30 01:06] LABS: Add Manual Diff / Slide Review NO; Basophils Absolute Auto 300 /uL (0-100); Basophils Percent Auto 2.3 % (0-2); Eosinophils Absolute Auto 400 /uL (0-450); Eosinophils Percent Auto 3.6 % (2-4); Hematocrit 38.8 % (36-46); Hemoglobin 12.9 g/dL (12.0-16.0); Lymphocytes Absolute Auto 1600 /uL (1100-4500); Lymphocytes Percent Auto 14.2 % (25-40); Mean Corpuscular HGB Conc 33.3 % (30-36); Mean Corpuscular Hemoglobin 29.8 PG (26-34); Mean Corpuscular Volume 89.7 fL (80-100); Monocytes Absolute Auto 1000 /uL (0-900); Neutrophils Absolute Auto 8100 /uL (1500-7000); Neutrophils Percent Auto 70.9 % (50-75); Platelet Count 215 X10^3/uL (150-400); Red Blood Cell Count 4.33 X10^6/uL (4.0-5.2); White Blood Cell Count 11.4 X10^3/uL (4.5-11.0)
[2019-05-30] MEDS: MORPHINE 2 MG/ML INJ IV ×6 (01:06→17:31)
[2019-05-30 01:13] LABS: Alanine Aminotransferase 22 IU/L (<35); Albumin 4.4 g/dL (3.5-5.0); Albumin Globulin Ratio 1.3 (1.0-2.8); Alkaline Phosphatase 214 U/L (38-126); Aspartate Aminotransferase 33 IU/L (14-36); BUN Creatinine Ratio 29.7 (6-22); Bilirubin Total 0.4 mg/dL (0.2-1.3); Blood Urea Nitrogen 46 mg/dL (7-17); Calcium 9.7 mg/dL (8.4-10.2); Carbon Dioxide 25 mmol/L (22-32); Chloride 105 mmol/L (98-107); Creatine Kinase 82 U/L (30-135); Estimated Glomerular Filt Rate 32.1 mL/min (>60); Globulin 3.5 g/dL (1.7-4.1); Glucose 107 mg/dL (80-110); HEMOLYSIS 31 (0-50); Lipase 167 U/L (23-300); Potassium 4.6 mmol/L (3.4-5.1); Sodium 139 mmol/L (137-145); Total Protein 7.9 g/dL (6.3-8.2)
[2019-05-30 01:25] LABS: Troponin I < 0.012 ng/mL (0.01-0.034)
--- NOTE | 2019-05-30 01:40 | PC.NURSE ---
special systems technician here to give pt oral contrast for CT.
--- NOTE | 2019-05-30 04:19 | PC.NURSE ---
As She was being prepared to transport to floor,she c/o her abd. pain returning,I notified DR Kat,received new order and medicated her for pain.I notified her RN Kayli before she was taken to her room about the new pain medication I just gave her.
--- NOTE | 2019-05-30 05:38 | PC.NURSE ---
Pt. admitted to room 206 diagnosed with partial SBO. Alert & oriented x4, oriented to her room call light. TV & bed controls. Requested to turn off bed for now the bed is pumping air to the mattress & every time it does that it makes me sick. Bed is unplugged at this time. Pain level 2/10 & she vomited x1. Will cont. POC & monitor.
[2019-05-30] MEDS: DEXTROSE 5%-0.9% NS 1,000 ML 100 ML IV ×2 (05:52→17:31)
--- NOTE | 2019-05-30 06:15 | PC.NURSE ---
Pt. also reported taking some antibiotics but not sure what kind of antibiotics she's taking. Will reprot to day RN to followup with MD.
[2019-05-30 08:11] LABS: Appearance Urine UA CLEAR; Bilirubin Urine UA NEGATIVE (NEGATIVE); Color Urine UA YELLOW; Glucose Urine UA NEGATIVE (Negative); Ketones Urine UA NEGATIVE (NEGATIVE); Leukocyte Esterase Urine UA NEGATIVE (NEGATIVE); Nitrite Urine UA NEGATIVE (Negative); Occult Blood Urine UA NEGATIVE (Negative); Protein Urine UA TRACE (Negative); Urobilinogen Urine UA 0.2 E.U./dL (0.2)
[2019-05-30 08:28] LABS: Bacteria Urine Few (2-10); Culture Indicated Urine Cult Not Indicated; RBC Urine 0-1/HPF (0-5/HPF); Squamous Epithelial Cell Urine 1-5 /HPF (0-5/HPF); WBC Urine 1-5/HPF (0-5/HPF)
[2019-05-30 08:47] LABS: Procalcitonin 0.14 ng/mL (<0.5)
--- NOTE | 2019-05-30 09:04 | DI.RAD.S_ITS ---
PROCEDURE: XR CHEST 1V INDICATIONS: Resolving pneumonia TECHNIQUE: One view of the chest was acquired. COMPARISON: [facility], CT, CT ABDOMEN PELVIS WO CON, 05/30/2019, 1:49. [facility], CR, XR CHEST 2V, 10/16/2018, 12:34. [facility], CR, CHEST 1 VIEW, 10/28/2016, 13:24. FINDINGS: Surgical changes and devices: None. Lungs and pleura: Lungs appear clear and unchanged. No consolidation. Mild prominence of the pulmonary markings which could be due to emphysematous change. No pleural effusions or pneumothorax. Mediastinum: Mediastinal contours appear normal. Aortic arch atherosclerotic calcifications. Heart size is within normal limits. Bones and chest wall: No suspicious bony lesions. Overlying soft tissues appear unremarkable. IMPRESSION: No acute cardiopulmonary abnormality. Question of emphysematous change. Dictated by: Vargas Cobb M.D. on 05/30/2019 at 9:25 Approved by: Vargas Cobb M.D. on 05/30/2019 at 9:27
--- NOTE | 2019-05-30 09:35 | P.CONS_ITS ---
History of Present Illness Consult details Date Patient Seen: 05/30/19 Time Patient Seen: 08:36 Chief complaint: ABD Pain Requesting provider: Kalpana Magana Narrative: This is an 83 yo woman with history of obesity (BMI 32), sick sinus syndrome, LE edema, CRI, diverticulosis, diverticulitis s/p sigmoid colectomy, colon cancer s/p right hemicolectomy, HTN, OA, peripheral neuropathy, and hypothyroid. The patient came to the emergency department during the night and was admitted to the hospitalist service. She c/o about one day of abdominal pain, obstipation, and nausea. She says her last BM was yesterday, and she does not remember her last flatus. She denies any history of bowel obstruction. She c/o pain in her mid abdomen which is sharp and crampy in nature. She denies melena or hematochezia. Looks like her last colonoscopy may have been in 2013, but I will have to request her records. ROS: Recently treated for pneumonia and still has a persistent cough. On 05/09 she was evaluated for wilson virus and had a negative swab as well as influenza swab at that time and is on her 2nd round of antibiotics. Denies fevers. Reports a productive cough. Denies chest pain currently. Reports shortness of breath, improving. Reports chronic back pain. Reports that she has IBS and has had intermittent diarrhea and constipation regularly. Denies any urinary frequency, dysuria, or urgency. Denies any flank pain. Denies any fevers or chills. She denies any history of cardiac stents, heart attacks or strokes. She was told she had COPD or asthma and was sent to pulmonary rehab. Thirteen system review is otherwise negative other than as mentioned below and in HPI. PE: GENERAL: Alert, mild distress due to abdominal pain and persistent cough. Appears younger than stated age. Answers questions promptly and appropriately. Vital signs noted. HENT: Normocephalic, atraumatic. Hearing intact. Oral mucosa is pink and moist. EYES: Conjunctiva pink, sclera white, no periorbital swelling. CARDIOVASCULAR: Regular rate. No pedal edema. RESPIRATORY: Non-tachypneic, breathing comfortably on room air. Dry cough, coarse breath sounds BL. GASTROINTESTINAL: Abdomen soft, mildly distended, focally tender in the supraumbilical/mid espigastrium; no masses or hernias felt; well healed midline incisional scar GENITALURINARY: No flank tenderness. MUSCULOSKELETAL: Equal tone and mass bilaterally. SKIN: Warm, dry, soft, appropriate color for ethnicity. No other lesions, rashes, or wounds. NEURO: Alert and Oriented X 3. No gross sensory deficits, or cognitive issues. PSYCH: Appropriate affect and mood. Meds Home Medications and Allergies Home Medications Medication Instructions Recorded Confirmed Type oxcarbazepine [Trileptal] 300 mg PO BID #0 05/26/11 05/30/19 History spironolactone 25 mg PO QDAY #0 05/26/11 05/30/19 History diltiazem HCl 180 mg PO DAILY 09/05/17 05/30/19 History lorazepam 0.5 mg BUCCAL BID-TID PRN 09/05/17 05/30/19 History levothyroxine PO 03/05/19 05/10/19 History multivitamin 1 cap PO DAILY 03/05/19 05/30/19 History vitamin A & D 1 PO DAILY 03/05/19 05/10/19 History rosuvastatin 5 mg tablet 5 mg PO DAILY 04/10/19 05/30/19 History albuterol sulfate 90 mcg/actuation 2 puff INHALATION Q4-6H PRN #8.5 05/10/19 05/30/19 Rx aerosol inhaler gram inhalational spacing device #1 each 05/10/19 05/10/19 Rx Allergies Allergy/AdvReac Type Severity Reaction Status Date / Time DEEDEE Inhibitors Allergy Severe ANGIOEDEMA Verified 05/10/19 10:54 [DEEDEE INHIBITORS] Sulfa (Sulfonamide Allergy Severe RASH Verified 05/10/19 10:54 Antibiotics) [SULFA (SULFONAMIDE ANTIBIOTICS)] hydromorphone [From DILAUDID] Allergy Mild HALLUCINATI Verified 05/10/19 10:54 ONS codeine [CODEINE] AdvReac Mild FEELING Verified 05/10/19 10:54 OF DROP IN BP/WEAKNESS pseudoephedrine AdvReac Mild FEELS LIKE Verified 05/10/19 10:54 [PSEUDOEPHEDRINE] BP GOES OUT FROM UNDERNEATH ME. Exam Vital Signs (past 8 hours): - 05/30/19 02:49 05/30/19 03:03 05/30/19 03:42 Temperature 97.8 F Pulse Rate 77 86 77 Respiratory Rate 21 16 22 Blood Pressure Blood Pressure [Right Arm] 140/73 153/76 H 141/64 H Pulse Oximetry 93 97 94 05/30/19 04:52 05/30/19 07:45 Temperature 97.6 F 98.4 F Pulse Rate 90 89 Respiratory Rate 16 17 Blood Pressure 114/68 141/69 H Blood Pressure [Right Arm] Pulse Oximetry 95 96 Oxygen Delivery Method Room Air Oxygen Flow Rate [address] scan - abdomen: My impression: mild to moderately dilated small bowel loops; fecalized small bowel; gas and stool in colon Radiologist's impression: Night read: SBO, transition point mid abdomen; fecalization of small bowel Over read pending. Labs Result Diagrams: 05/30/19 00:50 05/30/19 00:50 Labs: Laboratory Results - last 24 hr 05/30/19 05/30/19 05/30/19 00:50 00:50 00:59 WBC 11.4 H RBC 4.33 Hgb 12.9 Hct 38.8 MCV 89.7 MCH 29.8 MCHC 33.3 RDW 13.0 Plt Count 215 Neut % (Auto) 70.9 Lymph % (Auto) 14.2 L [place] % (Auto) 9.0 Eos % (Auto) 3.6 Baso % (Auto) 2.3 H Neut # (Auto) 8100 H Lymph # (Auto) 1600 [place] # (Auto) 1000 H Eos # (Auto) 400 Baso # (Auto) 300 H Sodium 139 Potassium 4.6 Chloride 105 Carbon Dioxide 25 BUN 46 H Creatinine 1.55 H Estimated GFR 32.1 L BUN/Creatinine Ratio 29.7 H Glucose 107 Calcium 9.7 Total Bilirubin 0.4 AST 33 ALT 22 Alkaline Phosphatase 214 H Total Creatine Kinase 82 CK-MB (CK-2) TNP CK-MB (CK-2) Rel Index TNP Troponin I < 0.012 Total Protein 7.9 Albumin 4.4 Globulin 3.5 Albumin/Globulin Ratio 1.3 Lipase 167 Procalcitonin 0.14 Urine Color Urine Appearance Urine pH Ur Specific [place] Urine Protein Urine Glucose (UA) Urine Ketones Urine Occult Blood Urine Nitrate Urine Bilirubin Urine Urobilinogen Ur Leukocyte Esterase Urine RBC Urine WBC Ur Squamous Epith Cells Urine Bacteria Ur Culture Indicated? 05/30/19 06:50 WBC RBC Hgb Hct MCV MCH MCHC RDW Plt Count Neut % (Auto) Lymph % (Auto) [place] % (Auto) Eos % (Auto) Baso % (Auto) Neut # (Auto) Lymph # (Auto) [place] # (Auto) Eos # (Auto) Baso # (Auto) Sodium Potassium Chloride Carbon Dioxide BUN Creatinine Estimated GFR BUN/Creatinine Ratio Glucose Calcium Total Bilirubin AST ALT Alkaline Phosphatase Total Creatine Kinase CK-MB (CK-2) CK-MB (CK-2) Rel Index Troponin I Total Protein Albumin Globulin Albumin/Globulin Ratio Lipase Procalcitonin Urine Color Yellow Urine Appearance Clear Urine pH 5.0 Ur Specific [place] 1.020 Urine Protein Trace H Urine Glucose (UA) Negative Urine Ketones Negative Urine Occult Blood Negative Urine Nitrate Negative Urine Bilirubin Negative Urine Urobilinogen 0.2 Ur Leukocyte Esterase Negative Urine RBC 0-1/hpf Urine WBC 1-5/hpf Ur Squamous Epith Cells 1-5 /hpf Urine Bacteria Few (2-10) H Ur Culture Indicated? Cult not indicated Assessment & Plan Assessment and plan (1) Partial bowel obstruction: Current visit: Yes Status: Acute (2) Bronchitis: Current visit: No Status: Acute (3) Renal insufficiency: Current visit: No Status: Chronic (4) Transient atrial fibrillation or flutter: Current visit: No Status: Acute (5) Atypical chest pain: Current visit: No Status: Acute (6) Persistent dry cough: Current visit: Yes Status: Acute Assessment & Plan narrative: This is an 83 yo woman with history of colon resection x 2 for diverticulitis and for colon cancer. She is now presenting with symptoms and imaging consistent with early SBO. She also has a persistent cough, and has been treated with two rounds of antibiotics for pneumonia. She was reportedly tested negative for CV19, but that was at least two weeks ago. She is symptomatic and actively coughing even after two rounds of antibiotics. 15 minutes were spent face to face with the patient. Both the patient and I wore masks. More than 50% of the time was spent in counseling and co-ordination of care regarding her bowel obstruction symptoms, treatment recommendations, and expected outcomes. Explained to her that looks like she has an early/partial SBO, and while she may recover from this with simple hydration and bowel rest, as well as repletion of her electrolytes, she may ultimately need surgery in order to remove adhesions, or to remove a threatened segment of bowel should her symptoms progress. We will watch her closely, and recommend NG tube if she has intractable vomiting. Plan: NG tube if intractable vomiting occurs NPO except for sips of water and ice chips for comfort, around 4 oz per shift Ambulate 20 minutes t.i.d. or more as tolerated, patient may need PT consult as she has peripheral neuropathy which limits her mobility Correct electrolytes to keep potassium greater than 4 and magnesium greater than 2 Hydrate with IV fluids I do not see any need for antibiotics right now Daily labs including BMP, and magnesium level Time Spent With Patient Time with patient: 15-24 minutes
--- NOTE | 2019-05-30 09:37 | P.HP_ITS ---
History of Present Illness History of Present Illness Date Patient Seen: 05/30/19 Chief complaint: ABD Pain Narrative: Clara Delatorre is an 83-year-old female with a past medical history significant for hypertension, hyperlipidemia, chronic kidney disease stage 3, chronic atrial fibrillation (patient unaware of diagnosis but EKGs that date back to 2012 appear to be atrial fibrillation), sick sinus syndrome, aortic stenosis, mild interstitial restrictive lung disease, hypothyroidism, diverticulitis and colon cancer status post partial colon resections x2, trigeminal neuralgia, anxiety, and peripheral neuropathy with bilateral footdrop who presented to the ED with abrupt onset sharp crampy abdominal pain. The patient reports that she ate a yogurt late last night and approximately 1 hour later had sharp crampy abdominal pain. The abdominal pain was located in her mid abdomen and radiated to low abdomen. She reports that the pain was progressive and gradually worsened becoming quite severe. She has never had a pain like this before. She tried calling her doctor's office and was instructed that it would be approximately 1 hour wait time and decided to call 911 due to significant pain. She had an episode of nausea with vomiting in the ED but believes this was related to narcotic administration. She reports her pain is now controlled with morphine. She recently had pneumonia and was treated as an outpatient by her PCP with 2 courses of antibiotics including Augmentin and levofloxacin. She was tested for COVID19 on 05/10/2019 which was negative. She continues to have dry nonproductive cough. Plan to recheck for COVID19. She endorses IBS and has intermittent constipation and loose stool. She has no other complaints and denies headache, chest pain, shortness of breath, nausea, vomiting, fever, chills, dysuria, diarrhea or constipation. CT abdomen and pelvis with contrast demonstrated small bowel obstruction with a transition point in the anterior low er abdomen. She was admitted inpatient for small-bowel obstruction with bowel rest and pain control. PCP Dr. Minaya Patient History Medical History Anxiety (Acute) Chronic edema (Acute) Chronic renal insufficiency (Acute) Chronic sinusitis (Acute) Diverticulosis (Acute) Facet arthropathy, lumbar (Acute) Gastroesophageal reflux disease (Acute) Heart murmur (Acute) History of anemia (Acute) History of colon cancer (Acute) History of diverticulitis (Acute) Hypercholesterolemia (Acute) Hypertension (Acute) Osteoarthritis (Acute) Peripheral neuropathy (Acute) Renal insufficiency (Chronic) Surgical History (Updated 05/30/19 @ 19:00 by Kalpana Magana DO) History of carpal tunnel release of both wrists (Acute) History of hysterectomy (Acute) History of left hip replacement (Acute) History of left knee replacement (Acute) History of right hip replacement (Acute) History of tonsillectomy (Acute) Hx of appendectomy (Acute) S/P left colectomy (Acute) S/P right colectomy (Acute) S/P tendon repair (Acute) Family & Social History Family History Father Heart attack Brother Heart attack Social History: household members none Prior Living Arrangements House Safety & Behavioral: Feels Safe in Current Yes Environment Been Physically Hurt or No Threatened By a Person Suicidal Ideation Description None Suicide Plan Description No Plan Tobacco & Substance use: Smoking Status Former smoker, 0.5 ppd x 15 years alcohol intake frequency holiday/special occasion Substance Use Type does not use Patient is and was to her for 39 years. She has 3 children total and 2 of which are biological. 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 Meds Home Medications and Allergies Home Medications Medication Instructions Recorded Confirmed Type oxcarbazepine [Trileptal] 300 mg PO BID #0 05/26/11 05/30/19 History spironolactone 25 mg PO QDAY #0 05/26/11 05/30/19 History diltiazem HCl 180 mg PO DAILY 09/05/17 05/30/19 History lorazepam 0.5 mg BUCCAL BID-TID PRN 09/05/17 05/30/19 History levothyroxine 25 mcg PO 0700 03/05/19 05/30/19 History multivitamin 1 cap PO DAILY 03/05/19 05/30/19 History vitamin A & D 1 PO DAILY 03/05/19 05/10/19 History rosuvastatin 5 mg tablet 5 mg PO DAILY 04/10/19 05/30/19 History albuterol sulfate 90 mcg/actuation 2 puff INHALATION Q4-6H PRN #8.5 05/10/19 05/30/19 Rx aerosol inhaler gram inhalational spacing device #1 each 05/10/19 05/30/19 Rx amoxicillin-pot clavulanate 1 tab PO BID 05/30/19 05/30/19 History Allergies Allergy/AdvReac Type Severity Reaction Status Date / Time DEEDEE Inhibitors Allergy Severe ANGIOEDEMA Verified 05/10/19 10:54 [DEEDEE INHIBITORS] Sulfa (Sulfonamide Allergy Severe RASH Verified 05/10/19 10:54 Antibiotics) [SULFA (SULFONAMIDE ANTIBIOTICS)] hydromorphone [From DILAUDID] Allergy Mild HALLUCINATI Verified 05/10/19 10:54 ONS codeine [CODEINE] AdvReac Mild FEELING Verified 05/10/19 10:54 OF DROP IN BP/WEAKNESS pseudoephedrine AdvReac Mild FEELS LIKE Verified 05/10/19 10:54 [PSEUDOEPHEDRINE] BP GOES OUT FROM UNDERNEATH ME. Review of Systems Review of Systems Narrative: A 10 system comprehensive review of systems was conducted with the patient and found to be negative except as above in the History of Present Illness. Exam Vital Signs (past 8 hours): - 05/30/19 02:49 05/30/19 03:03 05/30/19 03:42 Temperature 97.8 F Pulse Rate 77 86 77 Respiratory Rate 21 16 22 Blood Pressure Blood Pressure [Right Arm] 140/73 153/76 H 141/64 H Pulse Oximetry 93 97 94 05/30/19 04:52 05/30/19 07:45 Temperature 97.6 F 98.4 F Pulse Rate 90 89 Respiratory Rate 16 17 Blood Pressure 114/68 141/69 H Blood Pressure [Right Arm] Pulse Oximetry 95 96 Oxygen Delivery Method Room Air Oxygen Flow Rate 0 Narrative Exam Narrative: General: Elderly female sitting in bed and in no acute distress, appears ill, well-developed, well-nourished, appropriately interactive HEENT: Normocephalic, atraumatic. External ears without defect. Pupils equal, ro und, and reactive to light . Anicteric sclerae, moist conjunctivae, and no lid lag. Oropharynx free of erythema and cobble stoning with moist mucosa. Neck: Supple with full range of motion. Submandibular lymphadenopathy. No thyromegaly. Cardiovascular: Irregularly irregular with holosystolic murmur at LSB. No rubs or gallops appreciated. Pulmonary: Clear to auscultation bilaterally without crackles, wheezes, or rhonchi. Normal respiratory effort with no use of accessory muscles. Abdomen: Soft, mild tenderness to palpation in mid abdomen, mild distention, bowel sounds present. No hepatosplenomegaly or masses appreciated. Extremities: No clubbing, cyanosis, or edema. Skin: Normal temperature, turgor, and texture; no rash, ulcers, or subcutaneous nodules appreciated. Neurological: Cranial nerves grossly intact. Psychiatric: Normal mood and affect. Alert and oriented to person, place, and time. Mild cognitive impairment. Objective Labs Result Diagrams: 05/30/19 00:50 05/30/19 00:50 Labs: Laboratory Results - last 24 hr 05/30/19 05/30/19 05/30/19 00:50 00:50 00:59 WBC 11.4 H RBC 4.33 Hgb 12.9 Hct 38.8 MCV 89.7 MCH 29.8 MCHC 33.3 RDW 13.0 Plt Count 215 Neut % (Auto) 70.9 Lymph % (Auto) 14.2 L [place] % (Auto) 9.0 Eos % (Auto) 3.6 Baso % (Auto) 2.3 H Neut # (Auto) 8100 H Lymph # (Auto) 1600 [place] # (Auto) 1000 H Eos # (Auto) 400 Baso # (Auto) 300 H Sodium 139 Potassium 4.6 Chloride 105 Carbon Dioxide 25 BUN 46 H Creatinine 1.55 H Estimated GFR 32.1 L BUN/Creatinine Ratio 29.7 H Glucose 107 Calcium 9.7 Total Bilirubin 0.4 AST 33 ALT 22 Alkaline Phosphatase 214 H Total Creatine Kinase 82 CK-MB (CK-2) TNP CK-MB (CK-2) Rel Index TNP Troponin I < 0.012 Total Protein 7.9 Albumin 4.4 Globulin 3.5 Albumin/Globulin Ratio 1.3 Lipase 167 Procalcitonin 0.14 Urine Color Urine Appearance Urine pH Ur Specific [place] Urine Protein Urine Glucose (UA) Urine Ketones Urine Occult Blood Urine Nitrate Urine Bilirubin Urine Urobilinogen Ur Leukocyte Esterase Urine RBC Urine WBC Ur Squamous Epith Cells Urine Bacteria Ur Culture Indicated? 05/30/19 06:50 WBC RBC Hgb Hct MCV MCH MCHC RDW Plt Count Neut % (Auto) Lymph % (Auto) [place] % (Auto) Eos % (Auto) Baso % (Auto) Neut # (Auto) Lymph # (Auto) [place] # (Auto) Eos # (Auto) Baso # (Auto) Sodium Potassium Chloride Carbon Dioxide BUN Creatinine Estimated GFR BUN/Creatinine Ratio Glucose Calcium Total Bilirubin AST ALT Alkaline Phosphatase Total Creatine Kinase CK-MB (CK-2) CK-MB (CK-2) Rel Index Troponin I Total Protein Albumin Globulin Albumin/Globulin Ratio Lipase Procalcitonin Urine Color Yellow Urine Appearance Clear Urine pH 5.0 Ur Specific [place] 1.020 Urine Protein Trace H Urine Glucose (UA) Negative Urine Ketones Negative Urine Occult Blood Negative Urine Nitrate Negative Urine Bilirubin Negative Urine Urobilinogen 0.2 Ur Leukocyte Esterase Negative Urine RBC 0-1/hpf Urine WBC 1-5/hpf Ur Squamous Epith Cells 1-5 /hpf Urine Bacteria Few (2-10) H Ur Culture Indicated? Cult not indicated Assessment & Plan Assessment & Plan narrative: Clara Delatorre is an 83-year-old female with a past medical history significant for hypertension, hyperlipidemia, chronic kidney disease stage 3, chronic atrial fibrillation (patient unaware of diagnosis but EKGs that date back to 2012 appear to be atrial fibrillation), sick sinus syndrome, aortic stenosis, mild interstitial restrictive lung disease, hypothyroidism, diverticulitis and colon cancer status post partial colon resections x2, trigeminal neuralgia, anxiety, and peripheral neuropathy with bilateral footdrop who presented to the ED with abrupt onset sharp crampy abdominal pain. 1. Small-bowel obstruction, present on admission. Active. -Patient presented after abrupt onset progressive severe sharp and crampy abdominal pain. Patient has history of multiple abdominal surgeries including colon resection x2, hysterectomy, and appendectomy making her high risk for SBO. -CT abdomen and pelvis with contrast demonstrated small bowel obstruction with a transition point in the anterior lower abdomen. -Continue IV fluids with D5 normal saline at 100 mL/hr. -Continue bowel rest and NPO status except for medications. If patient begins to have vomiting will need to place NG tube. -Continue pain control with morphine 2 mg every 2 hours as needed for moderate pain. -Ordered Zofran 4 mg every 4 hours and Reglan 10 mg every 6 hours as needed for nausea. -Encourage ambulation 3 times daily with nursing staff as patient is high fall risk due to peripheral neuropathy with bilateral footdrop. 2. Chronic atrial fibrillation and sick sinus syndrome, chronic, present on admission. Stable. -Patient is followed by Cardiology, Dr. Machado. -Patient is not on anticoagulation. 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 -Continue diltiazem 180 mg daily. 3. Hypertension, chronic, present on admission. Stable. -Continue diltiazem 180 mg daily and spironolactone 25 mg daily. 4. Hyperlipidemia, chronic, present on admission. Stable. -Held rosuvastatin 5 mg daily. 5. Trigeminal neuralgia, chronic, present on admission. Stable. -Continue oxcarbazepine 300 mg daily in the morning and 150 mg daily in the evening. 6. Hypothyroidism, chronic, present on admission. Stable. -Ordered TSH with reflex, pending. -Continue levothyroxine 25 mcg daily. 7. Anxiety, chronic, present on admission. Stable. -Continue lorazepam 0.5 mg 3 times daily as needed for anxiety. 8. Mild interstitial restrictive lung disease, chronic, present on admission. Stable. -Chest x-ray did not demonstrate any acute cardiopulmonary process. -Patient was recently treated outpatient by her PCP with a course of Augmentin and another course of levofloxacin for pneumonia. -Patient was tested for COVID19 on 05/10/2019 which was negative. Re-sent COVID19 as this was several weeks ago and pending. Continue droplet isolation precautions. -Continue albuterol inhaler 2 puffs every 4 hours as needed for shortness of breath or wheezing. Code status: Full code VTE prophylaxis: SQ Heparin Patient is admitted under inpatient status with expected length of stay greater than 2 midnights due to severity of presenting symptoms, risk of adverse event, and complexity of treatment plan. Quality VTE Deep Vein Thrombosis/Pulmonary Embolism Present on Admission: No
[2019-05-30] MEDS: dilTIAZem CD 180 MG CAP PO (09:55)
[2019-05-30] MEDS: OXcarbazepine 150 MG TABLET 300 MG PO (09:55)
--- NOTE | 2019-05-30 10:19 | CM.DANOTE ---
DCP: Case received, EMR reviewed. Have not met with patient at this time, she is on droplet precautions and rule out for COVID-19. Obtained some information from patient's EMR, as well as history. DCP assessment completed with information currently available. Patient is an 83 year old female who admitted early this morning to the care of the hospitalist team. PCP: Dr. Minaya. Payer: confirmed: Medicare/[employer]. Patient came to the hospital via ambulance secondary to abdominal pain and vomiting. Patient had been seen on 05/09 with primary provider and diagnosed with pneumonia. She was evaluated at that time for COVID-19, which turned out to be negative. Patient holds current diagnosis of small bowel obstruction, and may be getting a surgery consult. She is also being tested again for COVID-19, for patient has been continuing to cough. Did not meet with patient, but looking at chart notes, patient resides alone, is a , and resides in [place]. She is alert and oriented x3, according to ER notes. She has a daughter that lives in [place], and a son that lives in [place] as well. P: DCP to continue to follow closely. Patient does have an order for P.T. Will see how she functions with therap team. Patient does have Medicare, and if she is inpatient, can qualify for a [facility] facility if needed. Vanessa Smith RN/Home Health Physical Therapist
--- NOTE | 2019-05-30 12:09 | PC.NURSE ---
Pt continued to cough, wore her own mask in the room. Swabbed pt for covid-19. Pt moved to room 223, placed on contact/droplet precautions.
--- NOTE | 2019-05-30 12:45 | PC.NURSE ---
Addendum entered by Sabrina Selby R.N. 05/30/19 15:12: Patient given 2mg of IV morphine around 1415, helpful for abdominal pain. Patient up to commode again and is a 1 person assist. Original Note: Patient given morphine and zofran for nausea and discomfort. She is resting comfortably and denies pain or discomfort. Pain medication working for abdominal pain. Up to void, pt is incontinent of urine after she coughs. Voices no complains at this time.
--- NOTE | 2019-05-30 16:16 | PT.IIE ---
Current Diagnoses Bronchitis, not specified as acute or chronic (05/30/19) Partial intestinal obstruction, unspecified as to cause (05/30/19) Disorder of kidney and ureter, unspecified (05/30/19) Cough (05/30/19) Other chest pain (05/30/19) Surgical History (Last Reviewed 05/30/19 @ 09:46 by Sobeida Crooks MD) History of carpal tunnel release of both wrists (Acute) History of hysterectomy (Acute) History of left hip replacement (Acute) History of left knee replacement (Acute) History of right hip replacement (Acute) History of tonsillectomy (Acute) S/P left colectomy (Acute) S/P right colectomy (Acute) S/P tendon repair (Acute) Medical History (Last Reviewed 05/30/19 @ 09:46 by Sobeida Crooks MD) Anxiety (Acute) Chronic edema (Acute) Chronic renal insufficiency (Acute) Chronic sinusitis (Acute) Diverticulosis (Acute) Facet arthropathy, lumbar (Acute) Gastroesophageal reflux disease (Acute) Heart murmur (Acute) History of anemia (Acute) History of colon cancer (Acute) History of diverticulitis (Acute) Hypercholesterolemia (Acute) Hypertension (Acute) Osteoarthritis (Acute) Peripheral neuropathy (Acute) Renal insufficiency (Chronic) Physical Therapy Inpatient Evaluation/Re-Eval M1 PT/OT-IP Prior Functional Status Start: 05/30/19 15:37 Freq: NEEDED Status: Active Protocol: Document 05/30/19 15:38 [facility] (Rec: 05/30/19 16:16 [facility] [id number]) Medical Review Prior Functional Status Medical History Reviewed Yes Communication communication with nursing prior to starting PT Mobility and Gait pt has history of perpherial neuropath, she wears AFO's bilaterally and uses a cane for house hold ambulation. For community ambulation she uses a walker. Social History Household Members none Living Arrangements House Number of Floors (Floors) One Floor Home Equipment Front Wheel Walker,Straight Cane M2 PT-IP Current Condition Start: 05/30/19 15:37 Freq: NEEDED Status: Active Protocol: Document 05/30/19 15:38 [facility] (Rec: 05/30/19 16:16 [facility] [id number]) Physical Therapy Current Condition Current Condition Evaluation Date 05/30/19 Treatment Diagnosis abdominal pain with early partial small bowel obstruction Onset Date 3/31/20 Precautions Other Precautions pt does not have her AFO's with her for ambulation Weight Bearing Status Weight Bearing Status Full Weight Bearing M3 PT-IP Subjective Start: 05/30/19 15:37 Freq: NEEDED Status: Active Protocol: Document 05/30/19 15:38 [facility] (Rec: 05/30/19 16:16 [facility] [id number]) Subjective Physical Therapy Visit Type Type Initial Evaluation Visit Start Time 15:00 Visit Stop Time 15:30 Total Visit Minutes 30 Physical Therapy Visit Comments Patient Comments Dr. Magana was present discussing care with patient and encouraging her to walk. She did agree to PT although states she really doesn't feel up to it. Reports she needs to use the commode Patient Goals Pt's goals include reducing abdominal pain and returning home. Therapy Pain Assessment Pain When Pain Assessed At Rest Pain Present Pain Present Pain Reported Location abd. Intensity 4 Scale Used Numeric (1 - 10) M4 PT-IP Mobility and Gait Start: 05/30/19 15:37 Freq: NEEDED Status: Active Protocol: Document 05/30/19 15:38 [facility] (Rec: 05/30/19 16:16 [facility] [id number]) PT-Bed Mobility Assessment Rolling Type of Rolling Bilateral Level of Assist Independent Supine to Sit Supine to Sit Standby Assistance Sit to Supine Sit to Supine Standby Assistance Scooting Scooting to Edge of Bed Standby Assistance Scooting Up and Down in Bed Independent PT-Transfer Assessment Sit to and From Stand Sit to and from Stand Contact Guard Assistance Equipment Transfer Assistive Device Gait Belt,Front Wheeled Walker Orthotic/Prosthetic Devices or Brace: No Transfers Transfer Destination Bedside Commode Transfer Technique pt ambulated 6 feet to beside commode Transfer Ability Level of Assist Contact Guard Assistance Comments Mobility Comments pt has bilateral AFO's which are not with her today for her history of perpherial neuropathy. She was able to use the fww for ambulation with CGA. She does present with limited DF and decreased strength B ankles. She requires use of the fww for balance. Gait Assessment Gait Gait Assistance Required: Contact Guard Assist Distance (Feet) 12 Able to Maintain Weight Bearing Status Yes During Gait Assistive Devices Assistive Device Gait Belt,Front Wheeled Walker Orthotic/Prosthetic Devices or Brace: No Gait Deviations General Gait Pattern Decreased Stride Length,Step- to Gait Factors Limiting Gait Function Factors Limiting Gait Function Decreased Strength,Limited Range of Motion,Pain,Poor Balance Comments Gait Comments after using the commode the patient stated that she needed to go back to bed due to abdominal pain and feeling shakey. She ambulated 12 feet total to the commode and back . Pt does not have her AFO's with her so gait is antalgic due to loss of DF and ankle strength as well as neuropathy . She requires use of fww and CGA. PT-Balance Assessment Sitting Balance and Reactions Static Sitting Balance Ability Good Dynamic Sitting Balance Ability Good Standing Balance and Reactions Static Standing Balance Ability Good Dynamic Standing Balance Ability Fair Device Used FWW M5 PT-IP Objective Assessments Start: 05/30/19 15:37 Freq: NEEDED Status: Active Protocol: Document 05/30/19 15:38 [facility] (Rec: 05/30/19 16:16 [facility] [id number]) Orientation Orientation/Cognition Level of Alertness Alert Orientation Name,Age,Birthday,Month,Date, Year,Day of Week,Place, Situation Language Function Ability No Deficits Noted Safety Awareness Understands Safety Issues Memory Description No Deficits Noted Gross Range of Motion Upper Extremity ROM Assessment Within Functional Limits Lower Extremity ROM Assessment Bilaterally Impaired Impairments impaired ankle AROM B, DF limited to a few degrees only AROM Strength Upper Extremity Strength Assessment Within Functional Limits Lower Extremity Strength Assessment Within Functional Limits Comments Strength Comments DF 2+/5, PF 3/5, eversion 3/5, inversion 3/5 B Coordination Assessment Gross Coordination Gross Coordination WNL Sensation Assessment Sensation Gross Sensation Right LE Impaired,Left LE Impaired Light Touch Impaired Proprioception (Position) Impaired Comments Sensation Comments perpherial neuropathy bilateral LE Muscle Tone Muscle Tone WNL Yes M7 PT-IP Assessment and Plan Start: 05/30/19 15:37 Freq: NEEDED Status: Active Protocol: Document 05/30/19 15:38 [facility] (Rec: 05/30/19 16:16 [facility] [id number]) PT Summary Assessment and Plan Potential Rehabilitation Potential Good Status of Condition at Evaluation Stable Summary Impairments Pain,ROM,Strength,Balance, Transfers,Gait Assessment Summary Clara is a 83 year old female with new onset of abdominal pain and most likely a partial small bowel obstruction. She has history of colon resection x 2 for diverticulitis and colon cancer, B perpherial neuropathy and uses AFO's B for ambulation. She was admitted to the ER today with nausea and abdominal pain. She was tested for Covid 19 and had a negative test May 09 but due to her persistant cough and treatment for pneumonia she has been re- tested today and awaiting results. With examination today Clara agrees to PT. She ambulated to the bed side commode with fww and CGA, she noted while sitting that she was becoming shaky and didn't feel she could ambulate further than back to bed at this time. I discussed the importance of walking with her and that PT would be in again in the am for mobility. Goals Bed Mobility Goal Independent Transfer Goal Standby Assistance Gait Goal Standby Assistance Gait Distance 50 feet Other Goals If the patient can have her AFO's brought in it would help her walking distance Days to Meet Goals 2 Frequency of Treatment Frequency Of Treatment Once a Day Treatment Plan Physical Therapy Treatment Plan Transfer Training,Gait Training,Therapeutic Exercise Recommendations To Nursing Amount of Assist Needed 1 Person Assist Discharge Recommendations PT Discharge Recommendations Home
[2019-05-30] MEDS: METOCLOPRAMIDE 10 MG/2 ML INJ IV (17:31)
[2019-05-30] MEDS: OXcarbazepine 150 MG TABLET PO (20:40)
[2019-05-30] MEDS: HEPARIN 5,000 UNIT/ML VIAL 5000 UNIT SUBCUT (20:40)
[2019-05-31] VITALS (7 sets, daily range): BP systolic 111–153; BP diastolic 58–76; PULSE 63–83; RESP 16–18; TEMP 36.4–37.6; O2SAT 92–98
--- NOTE | 2019-05-31 02:04 | PC.NURSE ---
Covid-19 report: negative. Report in patient's red chart, special precautions removed.
--- NOTE | 2019-05-31 02:09 | PC.NURSE ---
Results from [facility] SARS-Co-2 { COVID-19} results are NEGATIVE. Patient removed from isolation.
[2019-05-31] MEDS: DEXTROSE 5%-0.9% NS 1,000 ML 100 ML IV ×3 (03:31→23:37)
[2019-05-31 05:25] LABS: Add Manual Diff / Slide Review NO; Basophils Absolute Auto 0 /uL (0-100); Basophils Percent Auto 0.5 % (0-2); Eosinophils Absolute Auto 300 /uL (0-450); Eosinophils Percent Auto 2.7 % (2-4); Hematocrit 35.5 % (36-46); Hemoglobin 11.8 g/dL (12.0-16.0); Lymphocytes Absolute Auto 1400 /uL (1100-4500); Lymphocytes Percent Auto 13.8 % (25-40); Mean Corpuscular HGB Conc 33.2 % (30-36); Mean Corpuscular Hemoglobin 29.9 PG (26-34); Mean Corpuscular Volume 90.3 fL (80-100); Monocytes Absolute Auto 1000 /uL (0-900); Monocytes Percent Auto 10.3 % (3-14); Neutrophils Absolute Auto 7100 /uL (1500-7000); Neutrophils Percent Auto 72.7 % (50-75); Platelet Count 190 X10^3/uL (150-400); Red Blood Cell Count 3.94 X10^6/uL (4.0-5.2); Red Cell Distribution Width 12.9 % (11.6-14.8); White Blood Cell Count 9.8 X10^3/uL (4.5-11.0)
[2019-05-31 05:36] LABS: Blood Urea Nitrogen 26 mg/dL (7-17); Calcium 9.1 mg/dL (8.4-10.2); Carbon Dioxide 27 mmol/L (22-32); Chloride 108 mmol/L (98-107); Estimated Glomerular Filt Rate 39.3 mL/min (>60); Glucose 127 mg/dL (80-110); HEMOLYSIS < 15 (0-50); Magnesium 1.9 mg/dL (1.6-2.3); Potassium 4.7 mmol/L (3.4-5.1); Sodium 139 mmol/L (137-145)
[2019-05-31] MEDS: LEVOTHYROXINE 25 MCG TABLET PO (06:03)
[2019-05-31 06:05] LABS: TSH w/ Reflex to FT4 4.45 uIU/mL (0.47-4.68)
[2019-05-31] MEDS: SPIRONOLACTONE 25 MG TABLET PO (08:21)
[2019-05-31] MEDS: HEPARIN 5,000 UNIT/ML VIAL 5000 UNIT SUBCUT ×2 (08:21→20:53)
[2019-05-31] MEDS: OXcarbazepine 150 MG TABLET 300 MG PO (08:21)
[2019-05-31] MEDS: dilTIAZem CD 180 MG CAP PO (08:21)
--- NOTE | 2019-05-31 08:58 | DI.RAD.S_ITS ---
PROCEDURE: XR KUB INDICATIONS: Bowel obstruction, interval change TECHNIQUE: One view of the abdomen acquired. COMPARISON: [facility], CR, XR LUMBAR SPINE MIN 4V, 03/12/2019, 11:39. [facility], CT, CT ABDOMEN PELVIS WO CON, 05/30/2019, 1:49. FINDINGS: Surgical changes and devices: Surgical clips project in the pelvis. Bilateral hip arthroplasties. Bowel: Scattered air-fluid levels. There are dilated appearing small bowel loops. No specific transition point. The appearance is compatible with small bowel obstruction and grossly unchanged since the bed machine operator image on the CT from yesterday.. Soft tissues: No suspicious abdominal calcifications. Visualized solid organ contours appear normal in size. Diffuse spondylosis and facet arthropathy. IMPRESSION: Overall, no definite change in bowel gas pattern since yesterday accounting for differences in imaging modality Dictated by: aJsbir Morales M.D. on 05/31/2019 at 9:29 Approved by: Jasbir Morales M.D. on 05/31/2019 at 9:32
--- NOTE | 2019-05-31 08:59 | P.PN_ITS ---
Subjective Subjective Date Patient Seen: 05/31/19 Time Patient Seen: 08:59 Interval history: Pt tested negative for CV19, has a persistent cough which is her main complaint. Denies flatus. Denies vomiting. Reports burping and nausea. Reports a decrease in her pain. Exam Vital Signs (past 8 hours): - 05/31/19 05:07 05/31/19 08:00 Temperature 97.5 F L 99.2 F Pulse Rate 68 83 Respiratory Rate 16 18 Blood Pressure 132/66 153/73 H Pulse Oximetry 92 94 Oxygen Delivery Method Room Air Oxygen Flow Rate 0 Narrative Exam Narrative: GENERAL: Alert, uncomfortable. Appears stated age. Answers questions promptly and appropriately. Vital signs noted. HENT: Normocephalic, atraumatic. Hearing intact. Oral mucosa is pink and moist. EYES: Conjunctiva pink, sclera white, no periorbital swelling. CARDIOVASCULAR: Regular rate. No pedal edema. RESPIRATORY: Non-tachypneic, breathing comfortably on room air. Persistent nonproductive cough GASTROINTESTINAL: Abdomen soft, mildly distended, well-healed midline incisional scar, focal tenderness in the supraumbilical midline, no peritonitis GENITALURINARY: No flank tenderness. MUSCULOSKELETAL: Equal tone and mass bilaterally. SKIN: Warm, dry, soft, appropriate color for ethnicity. No other lesions, rashes, or wounds. NEURO: Alert and Oriented X 3. No gross sensory deficits, or cognitive issues. PSYCH: Appropriate affect and mood. Objective Labs Result Diagrams: 05/31/19 05:00 05/31/19 05:00 Labs: Laboratory Results - last 24 hr 05/31/19 05/31/19 05/31/19 05:00 05:00 05:00 WBC 9.8 RBC 3.94 L Hgb 11.8 L Hct 35.5 L MCV 90.3 MCH 29.9 MCHC 33.2 RDW 12.9 Plt Count 190 Neut % (Auto) 72.7 Lymph % (Auto) 13.8 L [place] % (Auto) 10.3 Eos % (Auto) 2.7 Baso % (Auto) 0.5 Neut # (Auto) 7100 H Lymph # (Auto) 1400 [place] # (Auto) 1000 H Eos # (Auto) 300 Baso # (Auto) 0 Sodium 139 Potassium 4.7 Chloride 108 H Carbon Dioxide 27 BUN 26 H Creatinine 1.30 H Estimated GFR 39.3 L BUN/Creatinine Ratio 20.0 Glucose 127 H Calcium 9.1 Magnesium 1.9 TSH 4.45 Assessment & Plan Assessment and plan (1) Partial bowel obstruction: Current visit: Yes Status: Acute (2) Bronchitis: Current visit: No Status: Acute (3) Renal insufficiency: Current visit: No Status: Chronic (4) Transient atrial fibrillation or flutter: Current visit: No Status: Acute (5) Atypical chest pain: Current visit: No Status: Acute (6) Persistent dry cough: Current visit: Yes Status: Acute Assessment & Plan narrative: This is an 83 yo woman with history of colon resection x 2 for diverticulitis and for colon cancer. She is now presenting with symptoms and imaging consistent with early SBO. She also has a persistent cough, and has been treated with two rounds of antibiotics for pneumonia. She has been ruled out twice for CV 19. 15 minutes were spent face to face with the patient. More than 50% of the time was spent in counseling and co-ordination of care regarding her bowel obstruction symptoms, treatment recommendations, and expected outcomes. We discussed the risks and benefits of an NG tube, and the possible need for surgery. I explained that she really needs to ambulate as much as possible. We will get an x-ray today to see if there is any indication of an improvement. Plan: NG tube if intractable vomiting occurs NPO except for sips of water and ice chips for comfort, around 4 oz per shift Ambulate 20 minutes t.i.d. or more as tolerated Correct electrolytes to keep potassium greater than 4 and magnesium greater than 2 Hydrate with IV fluids I do not see any need for antibiotics right now Daily labs including BMP, and magnesium level Upright and flat KUB, ordered Time Spent With Patient Time with patient: 15-24 minutes Quality VTE Deep Vein Thrombosis/Pulmonary Embolism Present on Admission: No
[2019-05-31] MEDS: METOCLOPRAMIDE 10 MG/2 ML INJ IV (09:23)
[2019-05-31] MEDS: MORPHINE 2 MG/ML INJ IV ×2 (09:23→14:35)
[2019-05-31 09:26] LABS: COVID19 Sendout Not Detected
--- NOTE | 2019-05-31 11:26 | P.PN_ITS ---
Subjective Subjective Date Patient Seen: 05/31/19 Interval history: Clara Delatorre is an 83-year-old female with a past medical history significant for hypertension, hyperlipidemia, chronic kidney disease stage 3, chronic atrial fibrillation (patient unaware of diagnosis but EKGs that date back to 2012 appear to be atrial fibrillation), sick sinus syndrome, aortic stenosis, mild interstitial restrictive lung disease, hypothyroidism, diverticulitis and colon cancer status post partial colon resections x2, trigeminal neuralgia, anxiety, and peripheral neuropathy with bilateral footdrop who presented to the ED with abrupt onset sharp crampy abdominal pain. The patient is resting in bed comfortably. The patient denies significant abdominal pain and her abdominal pain has been amenable to pain medication. She has had no nausea or vomiting. She has not passed any flatus. Her last BM was the day prior to admission. She now has NG tube in place with approximately 250 cc bilious drainage. Her cough has improved since NG tube placement. She has no other complaints and denies headache, shortness of breath, chest pain, abdominal pain, nausea, vomiting, fever, chills, dysuria, diarrhea or constipation. She is voiding without difficulty. She is up ambulating with assistance. Exam Vital Signs (past 8 hours): - 05/31/19 05:07 05/31/19 08:00 Temperature 97.5 F L 99.2 F Pulse Rate 68 83 Respiratory Rate 16 18 Blood Pressure 132/66 153/73 H Pulse Oximetry 92 94 Oxygen Delivery Method Room Air Oxygen Flow Rate 0 Narrative Exam Narrative: General: Elderly female sitting in bed and in no acute distress, appears ill, well-developed, well-nourished, appropriately interactive. HEENT: Normocephalic, atraumatic. External ears without defect. Pupils equal, round, and reactive to light . Anicteric sclerae, moist conjunctivae, and no lid lag. NG tube in place. Neck: Supple with full range of motion. Submandibular lymphadenopathy. No thyromegaly. Cardiovascular: Irregularly irregular with holosystolic murmur at LSB. No rubs or gallops appreciated. Pulmonary: Clear to auscultation bilaterally without crackles, wheezes, or rhonchi. Normal respiratory effort with no use of accessory muscles. Abdomen: Soft, nontender, mild distention in upper abdomen, hypoactive but present bowel sounds. Extremities: No clubbing, cyanosis, or edema. Skin: Normal temperature, turgor, and texture; no rash, ulcers, or subcutaneous nodules appreciated. Neurological: Cranial nerves grossly intact. Psychiatric: Normal mood and affect. Alert and oriented to person, place, and t migue. Mild cognitive impairment. Objective Labs Result Diagrams: 05/31/19 05:00 05/31/19 05:00 Labs: Laboratory Results - last 24 hr 05/30/19 05/31/19 05/31/19 11:56 05:00 05:00 WBC 9.8 RBC 3.94 L Hgb 11.8 L Hct 35.5 L MCV 90.3 MCH 29.9 MCHC 33.2 RDW 12.9 Plt Count 190 Neut % (Auto) 72.7 Lymph % (Auto) 13.8 L [place] % (Auto) 10.3 Eos % (Auto) 2.7 Baso % (Auto) 0.5 Neut # (Auto) 7100 H Lymph # (Auto) 1400 [place] # (Auto) 1000 H Eos # (Auto) 300 Baso # (Auto) 0 Sodium Potassium Chloride Carbon Dioxide BUN Creatinine Estimated GFR BUN/Creatinine Ratio Glucose Calcium Magnesium TSH 4.45 COVID-19 PCR Not detected 05/31/19 05:00 WBC RBC Hgb Hct MCV MCH MCHC RDW Plt Count Neut % (Auto) Lymph % (Auto) [place] % (Auto) Eos % (Auto) Baso % (Auto) Neut # (Auto) Lymph # (Auto) [place] # (Auto) Eos # (Auto) Baso # (Auto) Sodium 139 Potassium 4.7 Chloride 108 H Carbon Dioxide 27 BUN 26 H Creatinine 1.30 H Estimated GFR 39.3 L BUN/Creatinine Ratio 20.0 Glucose 127 H Calcium 9.1 Magnesium 1.9 TSH COVID-19 PCR Assessment & Plan Assessment & Plan narrative: Clara Delatorre is an 83-year-old female with a past medical history significant for hypertension, hyperlipidemia, chronic kidney disease stage 3, chronic atrial fibrillation (patient unaware of diagnosis but EKGs that date back to 2012 appear to be atrial fibrillation), sick sinus syndrome, aortic stenosis, mild interstitial restrictive lung disease, hypothyroidism, diverticulitis and colon cancer status post partial colon resections x2, trigeminal neuralgia, anxiety, and peripheral neuropathy with bilateral footdrop who presented to the ED with abrupt onset sharp crampy abdominal pain. 1. Small-bowel obstruction, present on admission. Active. -Patient presented after abrupt onset progressive severe sharp and crampy abdominal pain. Patient has history of multiple abdominal surgeries including colon resection x2, hysterectomy, and appendectomy making her high risk for SBO. -CT abdomen and pelvis with contrast demonstrated small bowel obstruction with a transition point in the anterior lower abdomen. -KUB x-ray did not demonstrate any change in bowel gas pattern. -Continue IV fluids with D5 normal saline at 100 mL/hr. -Continue bowel rest and NPO status except for medications. If patient begins to have vomiting will need to place NG tube. -Continue pain control with morphine 2 mg every 2 hours as needed for moderate pain. -Ordered Zofran 4 mg every 4 hours and Reglan 10 mg every 6 hours as needed for nausea. -Encourage ambulation 3 times daily with nursing staff as patient is high fall risk due to peripheral neuropathy with bilateral footdrop. Continue physical therapy evaluation and treatment. -Consulted general surgery, Dr. Garcia, and we appreciate her time and care of the patient. 2. Chronic atrial fibrillation and sick sinus syndrome, chronic, present on admission. Stable. -Patient is followed by Cardiology, Dr. Machado. -Patient is not on anticoagulation. 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 -Continue diltiazem 180 mg daily. 3. Hypertension, chronic, present on admission. Stable. -Continue diltiazem 180 mg daily and spironolactone 25 mg daily. 4. Hyperlipidemia, chronic, present on admission. Stable. -Held rosuvastatin 5 mg daily. 5. Trigeminal neuralgia, chronic, present on admission. Stable. -Continue oxcarbazepine 300 mg daily in the morning and 150 mg daily in the evening. 6. Hypothyroidism, chronic, present on admission. Stable. -Ordered TSH with reflex, pending. -Continue levothyroxine 25 mcg daily. 7. Anxiety, chronic, present on admission. Stable. -Continue lorazepam 0.5 mg 3 times daily as needed for anxiety. 8. Mild interstitial restrictive lung disease, chronic, present on admission. Stable. -Chest x-ray did not demonstrate any acute cardiopulmonary process. -Patient was recently treated outpatient by her PCP with a course of Augmentin and another course of levofloxacin for pneumonia. -Patient was tested for COVID19 on 05/10/2019 which was negative. Re-sent COVID19 as this was several weeks ago and pending. Continue droplet isolation precautions. -Continue albuterol inhaler 2 puffs every 4 hours as needed for shortness of breath or wheezing. Code status: Full code VTE prophylaxis: SQ Heparin Disposition: Patient remains hospitalized pending resolution of SBO. Quality VTE Deep Vein Thrombosis/Pulmonary Embolism Present on Admission: No
[2019-05-31] MEDS: MAGNESIUM SULFATE 2 GM/50 ML PIGGYBACK IV (12:20)
[2019-05-31 12:31] LABS: Adenovirus Not Detected (Not Detect); Bordetella pertussis Not Detected (Not Detect); Chlamydophila pneumoniae Not Detected (Not Detect); Coronavirus 229E Not Detected (Not Detect); Coronavirus HKU1 Not Detected (Not Detect); Coronavirus NL 63 Not Detected (Not Detect); Coronavirus OC43 Not Detected (Not Detect); Human Metapneumovirus Not Detected (Not Detect); Human Rhinovirus/Enterovirus Not Detected (Not Detect); Influenza A Not Detected (Not Detect); Influenza B Not Detected (Not Detect); Mycoplasma pneumoniae Not Detected (Not Detect); Parainfluenza Virus 1 Not Detected (Not Detect); Parainfluenza Virus 2 Not Detected (Not Detect); Parainfluenza Virus 3 Not Detected (Not Detect); Parainfluenza Virus 4 Not Detected (Not Detect); Respiratory Syncytial Virus Not Detected (Not Detect)
--- NOTE | 2019-05-31 14:28 | DI.RAD.S_ITS ---
PROCEDURE: XR ABDOMEN 1V INDICATIONS: ng tube placement TECHNIQUE: One view of the abdomen acquired. COMPARISON: [facility], CT, CT ABDOMEN PELVIS WO CON, 05/30/2019, 1:49. [facility], CR, XR KUB, 05/31/2019, 8:53. FINDINGS: Surgical changes and devices: A gastric tube is seen, with the tip overlying the mid to distal stomach. The sidehole is seen below the level of the diaphragm. Bowel: Mild prominence of upper abdominal bowel loops can be seen. Soft tissues: No suspicious abdominal calcifications. Visualized solid organ contours appear normal in size. No amilcar pulmonary abnormality can be seen. Bones: No suspicious bony lesions. Age-appropriate bony degenerative changes are seen. IMPRESSION: The tip of the gastric tube is seen overlying the mid to distal stomach. Dictated by: Roque Estrella M.D. on 05/31/2019 at 14:02 Approved by: Roque Estrella M.D. on 05/31/2019 at 14:03
[2019-05-31] MEDS: ONDANSETRON 4 MG/2 ML INJ IV (14:34)
[2019-05-31] MEDS: LIDOCAINE JELLY 2% 5 ML 1 APPLIC TOP (14:36)
--- NOTE | 2019-05-31 14:37 | PT.IPTN ---
Current Diagnoses Bronchitis, not specified as acute or chronic (05/30/19) Partial intestinal obstruction, unspecified as to cause (05/30/19) Disorder of kidney and ureter, unspecified (05/30/19) Cough (05/30/19) Other chest pain (05/30/19) Physical Therapy Treatment Note M2 PT-IP Current Condition Start: 05/30/19 15:37 Freq: NEEDED Status: Active Protocol: Document 05/30/19 15:38 [facility] (Rec: 05/30/19 16:16 [facility] [id number]) Physical Therapy Current Condition Current Condition Evaluation Date 05/30/19 Treatment Diagnosis abdominal pain with early partial small bowel obstruction Onset Date 05/29/19 Precautions Other Precautions pt does not have her AFO's with her for ambulation Weight Bearing Status Weight Bearing Status Full Weight Bearing M3 PT-IP Subjective Start: 05/30/19 15:37 Freq: NEEDED Status: Active Protocol: Document 05/31/19 14:27 [facility] (Rec: 05/31/19 14:37 [facility] [id number]) Subjective Physical Therapy Visit Type Type Treatment Note Visit Start Time 11:50 Visit Stop Time 12:15 Total Visit Minutes 25 Physical Therapy Visit Comments Patient Comments Pt is resting in bed when I arrived but agrees to PT and ambulation Patient Goals Pt's goals include reducing abdominal pain and returning home. Therapy Pain Assessment Pain When Pain Assessed At Rest Pain Present Pain Present Pain Reported Location abd. Intensity 4 Scale Used Numeric (1 - 10) M4 PT-IP Mobility and Gait Start: 05/30/19 15:37 Freq: NEEDED Status: Active Protocol: Document 05/30/19 15:38 [facility] (Rec: 05/30/19 16:16 [facility] [id number]) PT-Bed Mobility Assessment Rolling Type of Rolling Bilateral Level of Assist Independent Supine to Sit Supine to Sit Standby Assistance Sit to Supine Sit to Supine Standby Assistance Scooting Scooting to Edge of Bed Standby Assistance Scooting Up and Down in Bed Independent PT-Transfer Assessment Sit to and From Stand Sit to and from Stand Contact Guard Assistance Equipment Transfer Assistive Device Gait Belt,Front Wheeled Walker Orthotic/Prosthetic Devices or Brace: No Transfers Transfer Destination Bedside Commode Transfer Technique pt ambulated 6 feet to beside commode Transfer Ability Level of Assist Contact Guard Assistance Comments Mobility Comments pt has bilateral AFO's which are not with her today for her history of perpherial neuropathy. She was able to use the fww for ambulation with CGA. She does present with limited DF and decreased strength B ankles. She requires use of the fww for balance. Gait Assessment Gait Gait Assistance Required: Contact Guard Assist Distance (Feet) 12 Able to Maintain Weight Bearing Status Yes During Gait Assistive Devices Assistive Device Gait Belt,Front Wheeled Walker Orthotic/Prosthetic Devices or Brace: No Gait Deviations General Gait Pattern Decreased Stride Length,Step- to Gait Factors Limiting Gait Function Factors Limiting Gait Function Decreased Strength,Limited Range of Motion,Pain,Poor Balance Comments Gait Comments after using the commode the patient stated that she needed to go back to bed due to abdominal pain and feeling shakey. She ambulated 12 feet total to the commode and back . Pt does not have her AFO's with her so gait is antalgic due to loss of DF and ankle strength as well as neuropathy . She requires use of fww and CGA. PT-Balance Assessment Sitting Balance and Reactions Static Sitting Balance Ability Good Dynamic Sitting Balance Ability Good Standing Balance and Reactions Static Standing Balance Ability Good Dynamic Standing Balance Ability Fair Device Used FWW M5 PT-IP Objective Assessments Start: 05/30/19 15:37 Freq: NEEDED Status: Active Protocol: Document 05/30/19 15:38 [facility] (Rec: 05/30/19 16:16 [facility] [id number]) Orientation Orientation/Cognition Level of Alertness Alert Orientation Name,Age,Birthday,Month,Date, Year,Day of Week,Place, Situation Language Function Ability No Deficits Noted Safety Awareness Understands Safety Issues Memory Description No Deficits Noted Gross Range of Motion Upper Extremity ROM Assessment Within Functional Limits Lower Extremity ROM Assessment Bilaterally Impaired Impairments impaired ankle AROM B, DF limited to a few degrees only AROM Strength Upper Extremity Strength Assessment Within Functional Limits Lower Extremity Strength Assessment Within Functional Limits Comments Strength Comments DF 2+/5, PF 3/5, eversion 3/5, inversion 3/5 B Coordination Assessment Gross Coordination Gross Coordination WNL Sensation Assessment Sensation Gross Sensation Right LE Impaired,Left LE Impaired Light Touch Impaired Proprioception (Position) Impaired Comments Sensation Comments perpherial neuropathy bilateral LE Muscle Tone Muscle Tone WNL Yes M6 PT-IP Treatment Start: 05/30/19 15:37 Freq: NEEDED Status: Active Protocol: Document 05/31/19 14:27 [facility] (Rec: 05/31/19 14:37 [facility] [id number]) Physical Therapy Treatment Exercises Exercises Ankle Pumps,Short Arc Quads Other Treatments Other Treatment Performed The patient sat at the EOB x 4 minutes for seated exercises, she then ambulated with fww in the hallway SBA with a mask on ( after getting clearance to do this from nursing). PT ambulated 150 feet in hallway. She did become fatigued mostly due to her ankles as she usually has AFO's on but does not have them here at the hospital. Pt then returned to bed. M7 PT-IP Assessment and Plan Start: 05/30/19 15:37 Freq: NEEDED Status: Active Protocol: Document 05/31/19 14:27 [facility] (Rec: 05/31/19 14:37 [facility] [id number]) PT Summary Assessment and Plan Potential Rehabilitation Potential Good Status of Condition at Evaluation Stable Summary Impairments Pain,ROM,Strength,Balance, Transfers,Gait Assessment Summary The patient was more willing to ambulate this afternoon. She sat at the edge of bed for exercises prior to ambulating in the hallway with SBA and fww. I had clearance to walk with her in the hallway and the patient and I both wore masks. She tolerated 150 feet of ambulation prior to her ankles becoming sore. She wears B AFO's and without them here it is much more difficult for her to walk. I did talk to her about having her daughter bring in her AFO' s so that we could use them during gait. Goals Bed Mobility Goal Independent Transfer Goal Standby Assistance Gait Goal Standby Assistance Gait Distance 50 feet Other Goals If the patient can have her AFO's brought in it would help her walking distance Days to Meet Goals 2 Frequency of Treatment Frequency Of Treatment Once a Day Treatment Plan Physical Therapy Treatment Plan Transfer Training,Gait Training,Therapeutic Exercise Recommendations To Nursing Amount of Assist Needed 1 Person Assist Discharge Recommendations PT Discharge Recommendations Home
--- NOTE | 2019-05-31 14:50 | PC.NURSE ---
NGT TUBE PLACED IN LEFT NARE TO LIS , OBVIOUS GREEN BILE DRAINING- CXR PENDING AT PRESENT
[2019-05-31] MEDS: OXcarbazepine 150 MG TABLET PO (16:15)
[2019-05-31] MEDS: TETRACAINE/BENZOCAINE/BUTAMBEN (CETACAINE) BOTTLE 1 SPRAY TOP (18:58)
--- NOTE | 2019-05-31 23:46 | PC.NURSE ---
Patient is alert and oriented. Breath sounds with inspiratory crackles in bilateral bases; RA sat 92%. States she does get SOB with exertion which is chronic. Has persistent moist/congested sounding cough with clear sputum production. HR irregular; hx of afib and last tele reading was afib CVR. Has heart murmur. BP elevated at 142/75. Denies nausea. NG patent and to LIS with bile colored contents returning. BT hypoactive; denies flatus. Denies pain. Stress incontinence but denies dysuria, frequency or urgency. Able to turn self in bed. Reportedly gets up to [facility] with walker and 1 assist. Has chronic neuropathy in bilateral LE mid calf down. Also has chronic bilateral foot drop. Fall risk score is high (reports fall in past 3 months) and bed alarm is activated.
--- NOTE | 2019-06-01 | PATH_ITS ---
[facility] Accession Number: [id number] . 01 Material submitted: . small bowel - SMALL BOWEL . 01 Clinical history: . ABD PAIN . 02 Diagnosis: Small Bowel, Resection: Self-adherent segment of small bowel with active mural inflammation and serositis. Negative for features of chronic enteritis. Negative for granulomata, dysplasia or malignancy. [facility] 06/06/2019 1211 Local . 02 Electronically signed: . Akash Meyer MD, PhD, Pathologist NPI- [id number] . 01 Gross description: . Received in formalin, labeled small bowel, is an unoriented densely adhesed and twisted segment of small bowel (13.5 x 8.0 x 6.0 cm, resection margin #1 diameter-3.0 cm, resection margin #2 diameter-3.6 cm) with attached adipose tissue (up to 2.2 cm in depth). The resection margins are received stapled. The serosa is edward-nascimento, smooth and shiny. The mucosa is nascimento with normal folds. No nodules, masses or lesions are identified. The resection margins are inked blue and the serosa is green. Section code: (A1) resection margin #1, longitudinal product sales representative; (A2) resection margin #2, longitudinal product sales representative; (A3-A8) product sales representative serial sections submitted from resection margin #1 to #2. ([id number]) /MRV 06/05/2019 1345 Local . 02 Pathologist provided ICD-10: K56.50 . 02 CPT . 136309 Performed at: [address], [place], [place] [id number] MD Joseph Liz MD Phone: [phone] Performed at: 02 [facility] [place] [address] [address] [place] [id number] MD Olga Arreola MD Phone: [phone]
[2019-06-01] MEDS: TETRACAINE/BENZOCAINE/BUTAMBEN (CETACAINE) BOTTLE 1 SPRAY TOP ×2 (01:32→15:20)
[2019-06-01 04:47] VITALS: BP 140/78; PULSE 62; RESP 16; TEMP 36.9; O2SAT 92
[2019-06-01 05:07] LABS: Add Manual Diff / Slide Review NO; Basophils Absolute Auto 100 /uL (0-100); Basophils Percent Auto 0.7 % (0-2); Eosinophils Absolute Auto 400 /uL (0-450); Hematocrit 34.1 % (36-46); Hemoglobin 11.2 g/dL (12.0-16.0); Lymphocytes Absolute Auto 1400 /uL (1100-4500); Lymphocytes Percent Auto 18.5 % (25-40); Mean Corpuscular HGB Conc 32.9 % (30-36); Mean Corpuscular Hemoglobin 29.8 PG (26-34); Mean Corpuscular Volume 90.8 fL (80-100); Monocytes Absolute Auto 800 /uL (0-900); Monocytes Percent Auto 11.1 % (3-14); Neutrophils Absolute Auto 4800 /uL (1500-7000); Neutrophils Percent Auto 64.7 % (50-75); Platelet Count 168 X10^3/uL (150-400); Red Blood Cell Count 3.75 X10^6/uL (4.0-5.2); White Blood Cell Count 7.5 X10^3/uL (4.5-11.0)
[2019-06-01 05:09] LABS: BUN Creatinine Ratio 14.6 (6-22); Blood Urea Nitrogen 18 mg/dL (7-17); Calcium 8.8 mg/dL (8.4-10.2); Carbon Dioxide 28 mmol/L (22-32); Chloride 108 mmol/L (98-107); Estimated Glomerular Filt Rate 41.9 mL/min (>60); Glucose 120 mg/dL (80-110); HEMOLYSIS < 15 (0-50); Magnesium 2.1 mg/dL (1.6-2.3); Potassium 4.1 mmol/L (3.4-5.1); Sodium 140 mmol/L (137-145)
[2019-06-01] MEDS: LEVOTHYROXINE 25 MCG TABLET PO (05:28)
--- NOTE | 2019-06-01 07:57 | PM.PN.1 ---
Subjective Subjective Date Patient Seen: 06/01/19 Interval history: Clara Delatorre is an 83-year-old female with a past medical history significant for hypertension, hyperlipidemia, chronic kidney disease stage 3, chronic atrial fibrillation (patient unaware of diagnosis but EKGs that date back to 2012 appear to be atrial fibrillation), sick sinus syndrome, aortic stenosis, mild interstitial restrictive lung disease, hypothyroidism, diverticulitis and colon cancer status post partial colon resections x2, trigeminal neuralgia, anxiety, and peripheral neuropathy with bilateral footdrop who presented to the ED with abrupt onset sharp crampy abdominal pain. The patient is resting in bed comfortably. She is tearful and reports that she is scared. Discussed small-bowel follow-through and the possibility of surgical intervention in detail. The patient has had no significant change in her abdominal exam and does not have abdominal pain unless palpated in mid abdomen. The patient has not passed any flatus. She does have bowel tones. Her NG tube had approximately 200 cc out overnight and is now rust colored. Plan to start IV PPI twice daily. She has no other complaints and denies headache, shortness of breath, chest pain, abdominal pain, nausea, vomiting, fever, chills, dysuria, diarrhea or constipation. She is voiding without difficulty. She is up ambulating with assistance. Exam Vital Signs (past 8 hours): - 06/01/19 04:47 Temperature 98.4 F Pulse Rate 62 Respiratory Rate 16 Blood Pressure 140/78 Pulse Oximetry 92 Oxygen Delivery Method Room Air Oxygen Flow Rate 0 Narrative Exam Narrative: General: Elderly female sitting in bed and in no acute distress, appears ill, well-developed, well-nourished, appropriately interactive. HEENT: Normocephalic, atraumatic. External ears without defect. Pupils equal, round, and reactive to light . Anicteric sclerae, moist conjunctivae, and no lid lag. NG tube in place. Neck: Supple with full range of motion. Submandibular lymphadenopathy. No thyromegaly. Cardiovascular: Regular rhythm and rate with holosystolic murmur at LSB. No rubs or gallops appreciated. Pulmonary: Clear to auscultation bilaterally without crackles, wheezes, or rhonchi. Normal respiratory effort with no use of accessory muscles. Abdomen: Soft, mild point tenderness to palpation in mid left abdomen, mild distention in upper abdomen, bowel sounds present. Extremities: No clubbing, cyanosis, or edema. Skin: Normal temperature, turgor, and texture; no rash, ulcers, or subcutaneous nodules appreciated. Neurological: Cranial nerves grossly intact. Psychiatric: Depressed mood and affect. Alert and oriented to person, place, and time. Mild cognitive impairment. Objective Labs Result Diagrams: 06/01/19 04:45 06/01/19 04:45 Labs: Laboratory Results - last 24 hr 05/30/19 05/31/19 06/01/19 11:56 10:55 04:45 WBC 7.5 RBC 3.75 L Hgb 11.2 L Hct 34.1 L MCV 90.8 MCH 29.8 MCHC 32.9 RDW 13.0 Plt Count 168 Neut % (Auto) 64.7 Lymph % (Auto) 18.5 L [place] % (Auto) 11.1 Eos % (Auto) 5.0 H Baso % (Auto) 0.7 Neut # (Auto) 4800 Lymph # (Auto) 1400 [place] # (Auto) 800 Eos # (Auto) 400 Baso # (Auto) 100 Sodium Potassium Chloride Carbon Dioxide BUN Creatinine Estimated GFR BUN/Creatinine Ratio Glucose Calcium Magnesium Chlamy pneumoniae PCR Not detected Adenovirus (PCR) Not detected B.parapertussis DNA PCR Not detected Coronavirus OC43 (PCR) Not detected Coronavirus HKU1 (PCR) Not detected Coronavirus 229E (PCR) Not detected COVID-19 PCR Not detected Coronavirus NL63 (PCR) Not detected Human Metapneumovir PCR Not detected Influenza Type A (PCR) Not detected Influenza Type B (PCR) Not detected M. pneumoniae (PCR) Not detected Parainfluenza 1 (PCR) Not detected Parainfluenza 2 (PCR) Not detected Parainfluenza 3 (PCR) Not detected Parainfluenza 4 (PCR) Not detected RSV (PCR) Not detected Entero/Rhino (PCR) Not detected 06/01/19 04:45 WBC RBC Hgb Hct MCV MCH MCHC RDW Plt Count Neut % (Auto) Lymph % (Auto) [place] % (Auto) Eos % (Auto) Baso % (Auto) Neut # (Auto) Lymph # (Auto) [place] # (Auto) Eos # (Auto) Baso # (Auto) Sodium 140 Potassium 4.1 Chloride 108 H Carbon Dioxide 28 BUN 18 H Creatinine 1.23 H Estimated GFR 41.9 L BUN/Creatinine Ratio 14.6 Glucose 120 H Calcium 8.8 Magnesium 2.1 Chlamy pneumoniae PCR Adenovirus (PCR) B.parapertussis DNA PCR Coronavirus OC43 (PCR) Coronavirus HKU1 (PCR) Coronavirus 229E (PCR) COVID-19 PCR Coronavirus NL63 (PCR) Human Metapneumovir PCR Influenza Type A (PCR) Influenza Type B (PCR) M. pneumoniae (PCR) Parainfluenza 1 (PCR) Parainfluenza 2 (PCR) Parainfluenza 3 (PCR) Parainfluenza 4 (PCR) RSV (PCR) Entero/Rhino (PCR) Assessment & Plan Assessment & Plan narrative: Clara Delatorre is an 83-year-old female with a past medical history significant for hypertension, hyperlipidemia, chronic kidney disease stage 3, chronic atrial fibrillation (patient unaware of diagnosis but EKGs that date back to 2012 appear to be atrial fibrillation), sick sinus syndrome, aortic stenosis, mild interstitial restrictive lung disease, hypothyroidism, diverticulitis and colon cancer status post partial colon resections x2, trigeminal neuralgia, anxiety, and peripheral neuropathy with bilateral footdrop who presented to the ED with abrupt onset sharp crampy abdominal pain. 1. Small-bowel obstruction, present on admission. Active. -Patient presented after abrupt onset progressive severe sharp and crampy abdominal pain. Patient has history of multiple abdominal surgeries including colon resection x2, hysterectomy, and appendectomy making her high risk for SBO. -CT abdomen and pelvis with contrast demonstrated small bowel obstruction with a transition point in the anterior lower abdomen. -KUB x-ray did not demonstrate any change in bowel gas pattern. -Continue IV fluids with D5 normal saline at 100 mL/hr. -Continue bowel rest and NPO status except for medications. Continue NG tube to suction unless administering medications. Clamp NG tube for 1 hour after medications. -Continue pain control with morphine 2 mg every 2 hours as needed for moderate pain. -Ordered Zofran 4 mg every 4 hours and Reglan 10 mg every 6 hours as needed for nausea. -Encourage ambulation 3 times daily with nursing staff as patient is high fall risk due to peripheral neuropathy with bilateral footdrop. Continue physical therapy evaluation and treatment. -Consulted general surgery, Dr. Garcia, and we appreciate her time and care of the patient. Plan for small-bowel follow-through today. 2. Chronic atrial fibrillation and sick sinus syndrome, chronic, present on admission. Stable. -Patient is followed by Cardiology, Dr. Machado. -Patient is not on anticoagulation. 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 -Continue diltiazem 180 mg daily. 3. Hypertension, chronic, present on admission. Stable. -Continue diltiazem 180 mg daily and spironolactone 25 mg daily. 4. Hyperlipidemia, chronic, present on admission. Stable. -Held rosuvastatin 5 mg daily. 5. Trigeminal neuralgia, chronic, present on admission. Stable. -Continue oxcarbazepine 300 mg daily in the morning and 150 mg daily in the evening. 6. Hypothyroidism, chronic, present on admission. Stable. -TSH normal at 4.45. -Continue levothyroxine 25 mcg daily. 7. Anxiety, chronic, present on admission. Stable. -Continue lorazepam 0.5 mg 3 times daily as needed for anxiety. 8. Mild interstitial restrictive lung disease, chronic, present on admission. Stable. -Chest x-ray did not demonstrate any acute cardiopulmonary process. -Patient was recently treated outpatient by her PCP with a course of Augmentin and another course of levofloxacin for pneumonia. -Patient was tested for COVID19 on 05/10/2019 which was negative. Re-sent COVID19 as this was several weeks ago and pending. Continue droplet isolation precautions. -Continue albuterol inhaler 2 puffs every 4 hours as needed for shortness of breath or wheezing. Code status: Full code VTE prophylaxis: SQ Heparin Disposition: Patient remains hospitalized pending resolution of SBO. Quality VTE Deep Vein Thrombosis/Pulmonary Embolism Present on Admission: No
[2019-06-01 08:00] VITALS: BP 146/67; PULSE 68; RESP 18; TEMP 36.7; O2SAT 92
--- NOTE | 2019-06-01 09:07 | DI.RAD.S_ITS ---
PROCEDURE: FL SMALL BOWEL FOLLOW THROUGH INDICATIONS: SBO COMPARISON: [facility], CR, XR ABDOMEN 1V, 05/31/2019, 14:39. [facility], CR, XR KUB, 05/31/2019, 8:53. [facility], CR, XR CHEST 1V, 05/30/2019, 9:12. [facility], CT, CT ABDOMEN PELVIS WO CON, 05/30/2019, 1:49. FINDINGS: KUB: Preprocedural president and chief operating officer film demonstrates a normal bowel gas pattern. No suspicious abdominal calcifications. Visualized solid organ contours appear normal. No suspicious bony abnormalities. Small bowel: There is abnormally prolonged transit time of oral contrast through the small bowel. Small bowel loops are of abnormally increased caliber throughout that opacified. The ileocecal valve is not seen. Contrast within the colon is not identified. No transit over the last 2 hours. Mucosal folds are smooth and of normal thickness. No strictures, intraluminal masses, or extrinsic mass effects are noted. The terminal ileum is identified, and is normal in morphology. IMPRESSION: High-grade small bowel obstruction at the level of the upper pelvis, with no opacification of colon loops identified, in this patient with esophagogastric tube in place. Given the absence of transit further within the small bowel over the prior 2 hours the study would be terminated and the patient will be placed to suction through the pre-existing esophagogastric tube. Dictated by: Barrett Cadena M.D. on 06/01/2019 at 14:43 Approved by: Barrett Cadena M.D. on 06/01/2019 at 14:45
--- NOTE | 2019-06-01 09:07 | PM.PN.1 ---
Subjective Subjective Date Patient Seen: 06/01/19 Time Patient Seen: 09:08 Interval history: Pt had NGT placed last evening, with nearly 1L output since then. Pt denies flatus. Says her pain is better. Exam Vital Signs (past 8 hours): - 06/01/19 04:47 06/01/19 08:00 Temperature 98.4 F 98.1 F Pulse Rate 62 68 Respiratory Rate 16 18 Blood Pressure 140/78 146/67 H Pulse Oximetry 92 92 Oxygen Delivery Method Room Air Oxygen Flow Rate 0 Narrative Exam Narrative: GENERAL: Alert, comfortable. Appears stated age. Answers questions promptly and appropriately. Vital signs noted. HENT: Normocephalic, atraumatic. Hearing intact. Oral mucosa is pink and moist. NGT in place with rust colored output, actively sumping air and fluid EYES: Conjunctiva pink, sclera white, no periorbital swelling. CARDIOVASCULAR: Regular rate. No pedal edema. RESPIRATORY: Non-tachypneic, breathing comfortably on room air. Persistent nonproductive cough GASTROINTESTINAL: Abdomen soft, mildly distended, well-healed midline incisional scar, focal tenderness in the supraumbilical midline, no gross peritonitis GENITALURINARY: No flank tenderness. MUSCULOSKELETAL: Equal tone and mass bilaterally. SKIN: Warm, dry, soft, appropriate color for ethnicity. No other lesions, rashes, or wounds. NEURO: Alert and Oriented X 3. No gross sensory deficits, or cognitive issues. PSYCH: Appropriate affect and mood. Objective Labs Result Diagrams: 06/01/19 04:45 06/01/19 04:45 Labs: Laboratory Results - last 24 hr 05/30/19 05/31/19 06/01/19 11:56 10:55 04:45 WBC 7.5 RBC 3.75 L Hgb 11.2 L Hct 34.1 L MCV 90.8 MCH 29.8 MCHC 32.9 RDW 13.0 Plt Count 168 Neut % (Auto) 64.7 Lymph % (Auto) 18.5 L [place] % (Auto) 11.1 Eos % (Auto) 5.0 H Baso % (Auto) 0.7 Neut # (Auto) 4800 Lymph # (Auto) 1400 [place] # (Auto) 800 Eos # (Auto) 400 Baso # (Auto) 100 Sodium Potassium Chloride Carbon Dioxide BUN Creatinine Estimated GFR BUN/Creatinine Ratio Glucose Calcium Magnesium Chlamy pneumoniae PCR Not detected Adenovirus (PCR) Not detected B.parapertussis DNA PCR Not detected Coronavirus OC43 (PCR) Not detected Coronavirus HKU1 (PCR) Not detected Coronavirus 229E (PCR) Not detected COVID-19 PCR Not detected Coronavirus NL63 (PCR) Not detected Human Metapneumovir PCR Not detected Influenza Type A (PCR) Not detected Influenza Type B (PCR) Not detected M. pneumoniae (PCR) Not detected Parainfluenza 1 (PCR) Not detected Parainfluenza 2 (PCR) Not detected Parainfluenza 3 (PCR) Not detected Parainfluenza 4 (PCR) Not detected RSV (PCR) Not detected Entero/Rhino (PCR) Not detected 06/01/19 04:45 WBC RBC Hgb Hct MCV MCH MCHC RDW Plt Count Neut % (Auto) Lymph % (Auto) [place] % (Auto) Eos % (Auto) Baso % (Auto) Neut # (Auto) Lymph # (Auto) [place] # (Auto) Eos # (Auto) Baso # (Auto) Sodium 140 Potassium 4.1 Chloride 108 H Carbon Dioxide 28 BUN 18 H Creatinine 1.23 H Estimated GFR 41.9 L BUN/Creatinine Ratio 14.6 Glucose 120 H Calcium 8.8 Magnesium 2.1 Chlamy pneumoniae PCR Adenovirus (PCR) B.parapertussis DNA PCR Coronavirus OC43 (PCR) Coronavirus HKU1 (PCR) Coronavirus 229E (PCR) COVID-19 PCR Coronavirus NL63 (PCR) Human Metapneumovir PCR Influenza Type A (PCR) Influenza Type B (PCR) M. pneumoniae (PCR) Parainfluenza 1 (PCR) Parainfluenza 2 (PCR) Parainfluenza 3 (PCR) Parainfluenza 4 (PCR) RSV (PCR) Entero/Rhino (PCR) Assessment & Plan Assessment and plan (1) Partial bowel obstruction: Current visit: Yes Status: Acute (2) Bronchitis: Current visit: No Status: Acute (3) Renal insufficiency: Current visit: No Status: Chronic (4) Transient atrial fibrillation or flutter: Current visit: No Status: Acute (5) Atypical chest pain: Current visit: No Status: Acute (6) Persistent dry cough: Current visit: Yes Status: Acute Assessment & Plan narrative: This is an 83 yo woman with history of colon resection x 2 for diverticulitis and for colon cancer. She is now presenting with symptoms and imaging consistent with early SBO. She also has a persistent cough, and has been treated with two rounds of antibiotics for pneumonia. She has been ruled out twice for CV 19. 15 minutes were spent face to face with the patient. More than 50% of the time was spent in counseling and co-ordination of care regarding her bowel obstruction symptoms, treatment recommendations, and expected outcomes. We discussed the risks and benefits of a small bowel follow through, and the possible need for surgery. She is not improving with non surgical interventions. We will go ahead with SBFT. It may be therapeutic. If not, we will likely go ahead with surgical intervention. Plan: SBFT today, ordered PPI BID ordered for rust colored NGT output NGT to LIWS; clamp for SBFT NPO except for sips of water and ice chips for comfort, around 4 oz per shift Ambulate 20 minutes t.i.d. or more as tolerated Continue to correct electrolytes to keep potassium greater than 4 and magnesium greater than 2 Hydrate with IV fluids I do not see any need for antibiotics right now Daily labs including BMP, and magnesium level Time Spent With Patient Time with patient: 15-24 minutes Quality VTE Deep Vein Thrombosis/Pulmonary Embolism Present on Admission: No
[2019-06-01] MEDS: LORazepam 2 MG/ML INJ 0.5 MG IV (09:32)
[2019-06-01] MEDS: HEPARIN 5,000 UNIT/ML VIAL 5000 UNIT SUBCUT (09:33)
[2019-06-01] MEDS: OXcarbazepine 150 MG TABLET 300 MG PO (09:33)
[2019-06-01] MEDS: PANTOPRAZOLE 40 MG VIAL IV (09:33)
[2019-06-01] MEDS: SPIRONOLACTONE 25 MG TABLET PO (09:33)
[2019-06-01] MEDS: dilTIAZem CD 180 MG CAP PO (09:33)
[2019-06-01] MEDS: ONDANSETRON 4 MG/2 ML INJ IV (11:25)
[2019-06-01] MEDS: MORPHINE 2 MG/ML INJ IV (11:25)
[2019-06-01 12:32] VITALS: BP 140/72; PULSE 84; RESP 18; TEMP 37; O2SAT 93
--- NOTE | 2019-06-01 14:10 | PT-IP ANOTE ---
Attempted to see patient at 14:10, pt refused therapy and then imaging arrived to look at small bowel obstruction. Will attempt to see pt again tomorrow.
[2019-06-01 16:07] VITALS: BP 147/79; PULSE 88; RESP 17; TEMP 37.2; O2SAT 93
[2019-06-01] MEDS: OXcarbazepine 150 MG TABLET PO (16:13)
[2019-06-01 18:32] VITALS: BP 163/89; PULSE 93; RESP 15; TEMP 37.4; O2SAT 95; BMI 32.4
[2019-06-01] MEDS: LACTATED RINGERS 1,000 ML 42 ML IV ×2 (18:36→21:39)
[2019-06-01 18:42] VITALS: BMI 32.4
[2019-06-01] MEDS: PIPERACILLIN-TAZO 3.375 GM/50 ML FROZ.PIGGY IV (19:07)
--- NOTE | 2019-06-01 19:21 | SUR.OPER ---
Supine on padded OR bed, head on pillow, arms secured on padded arm boards at <90 degrees abduction, legs uncrossed, safety belt at thigh, tape over blanket over lower legs.
[2019-06-01] MEDS: BUPIVACAINE LIPOSOME 266 MG/20 ML VIAL INJ (19:44)
[2019-06-01] MEDS: BUPIVACAINE 0.25% W/ EPI 30 ML VIAL INJ (19:45)
--- NOTE | 2019-06-01 23:24 | PM.OP.1 ---
Operative Date/Time/Diagnoses Date of procedure: 06/01/19 Time of procedure: 23:25 Pre-op diagnosis: Small bowel obstruction Post-op diagnosis: same Procedure & Clinicians Procedure: 1) Small bowel resection 2) Small bowel strictureoplasty 3) Exploratory laparotomy 4) Extensive lysis of adhesions for three hours Same procedure as scheduled: Yes Indications: 83 yo woman with bowel obstruction not responding to non-surgical management Surgeon: Sobeida Crooks Click Yes if Unassisted: Yes Anesthesia Type: General Operative Notes Findings: Congested 8 inch segment of mid small bowel which was twisted on itself and densely adhered together; second area of tightly narrowed segment of distal ileum Specimen(s): other (mid small bowel) Blood products transfused: none Procedure in detail: The patient was brought into the operating room, and placed in supine position on the OR table. Sequential compression devices were placed on both legs and turned on. Appropriate pre operative antibiotics were given. General anesthesia was induced and the patient was intubated by Dr. Mayo. Jarquin catheter was placed in the bladder sterilely by the nurse. The abdomen was then prepped and draped in sterile fashion. Surgical timeout was conducted. Local anesthetic was given in the midline overlying the healed prior midline scar. Incision was made in the midline using a 10 blade. Dissection was carried down through the dermis and subcutaneous tissue using a 10 blade. The fascia was opened sharply. I then extended the fascial opening proximal and distal for the full length of the skin incision, approximately 25cm. Dense adhesions of the omentum were seen to the abdominal wall. Tedious dissection was undertaken to lyse adhesions of omentum to the abdominal wall and intra-loop adhesions of bowel to bowel. It took nearly three hours to take down all of the adhesions and identify the obstructing area. A 22 modifier should be included for increased level of difficulty, and increased risk, as well as increased operative time to double the normal operative time. This was due to the severity of the patient's disease. In the mid abdomen there was a densely adhesed and twisted segment of mid small bowel. These adhesions were not easily divided without injury to the bowel. Several attempts to divided the adhesions from multiple directions resulted in serosal injury and ultimately the decision was made to resect this segment of bowel. I continued to divide adhesions until the entire small bowel was freed. There was a clear transition point between the dilated bowel and decompressed bowel, just proximal to the twisted segment of bowel. The twisted segment of small bowel was then resected using two loads of blue BRANDO stapler, and the associated mesentery was divided using Ligasure. The bowel was anastomosed side by side with an additional blue load, and the ends were oversewn with PDS, and a second layer of Lembert sutures. The anastomsis was tested by compressing each side of the anastomosis and pushing bowel contents and air across the anastomosis, and it was found to be without leak. Distal to the anastomosis in the distal ileum there was a tightly narrowed area. I took down all of the associated adhesions and found that there was a scar at this location causing a tight stenosis. Rather than resecting another segment of bowel, I decided to do a stricturoplasty in order to open the lumen. A 2cm longitudinal incision was then made on the antimesenteric side of the bowel using cautery. This was then closed transversely using 3-0 PDS, and a second layer of 3-0 silk Lemberts. The stricturoplasty anastomosis was checked and was found to be widely patent. Bowel contents and air were pressed across the anastomosis with good patency and no leak. The bowel was all decompressed at this point. Hard stool was seen in the colon without obstruction. The small bowel was then replaced in the abdomen. Omentum was then used to cover the bowel again. The fascia was injected with 60mL of 0.25% marcaine with epinephrine, and 20mL of Exparel. The fascia was closed with runing 0 Prolene suture and a second layer of interrupted 0 vicryl. The skin was closed with skin abi and monocryl at the umbilicus. The incision was dressed with 4x4 gauze secured with tape. Needle, sponge and instrument counts were correct x 2 at the end of the procedure. The patient remained stable throughout the procedure. Per the anesthesiologist she was not passing parameters to extubate, and so the decision was made to transfer her to the ICU on a ventilator. The patient was transferred to the ICU in stable condition. Complications: none Post-operative Condition: stable Disposition: ICU
[2019-06-02] VITALS (31 sets, daily range): BP systolic 98–179; BP diastolic 51–84; PULSE 61–106; RESP 9–20; TEMP 36.5–37.2; O2SAT 92–98
--- NOTE | 2019-06-02 00:10 | DI.RAD.S_ITS ---
PROCEDURE: XR CHEST 1V INDICATIONS: Intubated patient TECHNIQUE: One view of the chest was acquired. COMPARISON: [facility], CR, XR CHEST 1V, 05/30/2019, 9:12. FINDINGS: Surgical changes and devices: The endotracheal tube is identified with the tip positioned approximately 4 cm above the level of the alhaji. A nasogastric tube is seen extending below the diaphragm. Lungs and pleura: Subtle developing areas of consolidation are seen within the right infrahilar region in the left lung base. There may also be an area of consolidation developing within the left hilar region. No large effusion or pneumothorax is evident. Mediastinum: Mediastinal contours appear normal. Heart size is normal. There is aortic atherosclerosis. Bones and chest wall: No suspicious bony lesions. Overlying soft tissues appear unremarkable. IMPRESSION: 1. Tubes and lines, as described. 2. Developing areas of bibasilar consolidation are suspicious for atelectasis versus pneumonia. Dictated by: Nereaj Estrada M.D. on 06/02/2019 at 7:46 Approved by: Neeraj Estrada M.D. on 06/02/2019 at 7:47
[2019-06-02] MEDS: propofoL 1,000 MG/100 ML VIAL 7.47 MG IV (00:40)
--- NOTE | 2019-06-02 00:56 | PM.EVENT ---
Event Note Date Patient Seen: 06/02/19 Time Patient Seen: 12:15 Event Note: Received call from Dr. Crooks. Patient is status post surgery for a bowel obstruction. Patient is being transferred to the ICU due to her not being able to be weaned off the vent in the PACU. Patient was started on a propofol and fentanyl drip. Prior to the propofol taking effect the patient became more awake as she was being wheeled into the room and started to attempt to pull out lines. So I have had order soft restraints on her. Recheck on her and she seems more comfortable and somnolent at this point. Oxygenating well on the vent, 97%. Patient has a history of atrial fibrillation and normally takes diltiazem as a home medication. EKG indicated atrial flutter though it appears more like AFib to me. Patient will need to be started on a weaning trial on the morning. I will monitor overnight.
[2019-06-02] MEDS: fentaNYL 1,000 MCG in DEXTROSE 5% IN WATER 250 ML 15.687 ML IV (01:20)
[2019-06-02 01:54] LABS: Fractionated Inspired Oxygen 35; HCO3 ABG 24 mmol/L (22-26); Oxygen Saturation ABG 96 % (95-100); PCO2 ABG 35.7 mmHg (35-45); PO2 ABG 79 mmHg (80-100); TCO2 ABG 25 mmol/L (21-31); pH ABG 7.44 (7.35-7.45)
--- NOTE | 2019-06-02 02:05 | PC.NURSE ---
Addendum entered by Pearl Hendricks R.N. 06/02/19 05:31: Patient moved up in bed and attempted to turn. Did not tolerate well. RASS +2 attempting to pull at ETT, sitting straight up in bed biting the ETT. Desaturations down to 85%. 02 breathes given, RT at bedside. Suction for minimal secretions. Propofol increased to 15 mcg/kg/min. Restraints continued to maintain airway. Original Note: Patient arrived from OR around 0000 intubated. Patient in NAD, VSS (initially hypertensive), afebrile. Tele Afib CVR. Sp02 maintained with vent settings Fi02 35% initially now at 25%, PEEP 5, TV 450, Rate 14. Sp02 96%. Propofol and fentanyl GTT's initiated per orders and protocol. Wrist restraint initiated due to increased agitation with multiple attempts to pull at ETT despite sedation and reorientation. NGT connected to LIWS per verbal order from Dr. Crooks. Jarquin patent with adequate UO in bag. IVF D5NS @ 100mL/hour infusing. Dressing to ML ABD CDI. Plan to extubate later today.
[2019-06-02 05:29] LABS: Add Manual Diff / Slide Review NO; Basophils Absolute Auto 0 /uL (0-100); Basophils Percent Auto 0.1 % (0-2); Eosinophils Absolute Auto 0 /uL (0-450); Hematocrit 33.3 % (36-46); Hemoglobin 11.3 g/dL (12.0-16.0); Lymphocytes Absolute Auto 400 /uL (1100-4500); Lymphocytes Percent Auto 3.6 % (25-40); Mean Corpuscular HGB Conc 33.8 % (30-36); Mean Corpuscular Hemoglobin 30.6 PG (26-34); Mean Corpuscular Volume 90.5 fL (80-100); Monocytes Absolute Auto 700 /uL (0-900); Monocytes Percent Auto 6.3 % (3-14); Neutrophils Absolute Auto 9500 /uL (1500-7000); Platelet Count 166 X10^3/uL (150-400); Red Blood Cell Count 3.69 X10^6/uL (4.0-5.2); Red Cell Distribution Width 13.1 % (11.6-14.8); White Blood Cell Count 10.6 X10^3/uL (4.5-11.0)
[2019-06-02 06:13] LABS: BUN Creatinine Ratio 14.3 (6-22); Blood Urea Nitrogen 20 mg/dL (7-17); Calcium 8.6 mg/dL (8.4-10.2); Carbon Dioxide 24 mmol/L (22-32); Chloride 108 mmol/L (98-107); Estimated Glomerular Filt Rate 36.1 mL/min (>60); Glucose 196 mg/dL (80-110); HEMOLYSIS < 15 (0-50); Magnesium 1.8 mg/dL (1.6-2.3); Potassium 3.9 mmol/L (3.4-5.1); Sodium 140 mmol/L (137-145)
[2019-06-02] MEDS: PANTOPRAZOLE 40 MG VIAL IV ×2 (08:13→21:22)
[2019-06-02] MEDS: MAGNESIUM SULFATE 2 GM/50 ML PIGGYBACK IV (08:13)
[2019-06-02] MEDS: HEPARIN 5,000 UNIT/ML VIAL 5000 UNIT SUBCUT ×2 (08:20→21:22)
[2019-06-02 11:10] LABS: Hemoglobin A1C% w Est Avg Glu 5.7 % (4.0-6.0)
--- NOTE | 2019-06-02 11:40 | PM.PN.1 ---
Subjective Subjective Date Patient Seen: 06/02/19 Interval history: Patient is a 83-year-old female with history of chronic AFib, hypertension, trigeminal neuralgia postop day 1. Exploratory laparotomy with small-bowel resection and lysis of extensive adhesions for SBO. She was unable to extubate in PACU and was kept on vent overnight. We have stopped sedation and she is slowly starting to wake up to participate with CPAP trial. Likely will be able to extubate today. Exam Vital Signs (past 8 hours): - 06/02/19 04:00 06/02/19 04:40 06/02/19 04:57 Temperature Pulse Rate 76 66 Respiratory Rate 14 14 Blood Pressure 124/61 124/60 118/58 L Pulse Oximetry 95 94 06/02/19 05:31 06/02/19 06:30 06/02/19 06:56 Temperature 99.0 F Pulse Rate 101 H 67 62 Respiratory Rate 14 14 14 Blood Pressure 143/65 H 101/55 L 98/51 L Pulse Oximetry 95 94 94 06/02/19 06:59 06/02/19 07:00 06/02/19 08:00 Temperature 97.8 F 97.8 F Pulse Rate 73 65 75 Respiratory Rate 14 16 16 Blood Pressure 104/52 L 100/55 L 142/63 H Pulse Oximetry 94 94 96 06/02/19 09:00 06/02/19 10:00 06/02/19 10:29 Temperature 97.8 F 97.9 F Pulse Rate 61 85 86 Respiratory Rate 16 14 14 Blood Pressure 109/55 L 128/60 Pulse Oximetry 94 96 92 06/02/19 11:00 Temperature Pulse Rate 104 H Respiratory Rate Blood Pressure 144/70 H Pulse Oximetry 98 Fraction of Inspired Oxygen 25 Oxygen Delivery Method Mechanical Ventilation Oxygen Flow Rate 0 Narrative Exam Narrative: General: Drowsy female appearing comfortable Lungs: Clear to auscultate Heart: Regular rhythm Extremities: No edema, SCDs on Objective Labs Result Diagrams: 06/02/19 05:02 06/02/19 05:02 Labs: Laboratory Results - last 24 hr 06/02/19 06/02/19 06/02/19 01:00 01:30 05:02 WBC 10.6 RBC 3.69 L Hgb 11.3 L Hct 33.3 L MCV 90.5 MCH 30.6 MCHC 33.8 RDW 13.1 Plt Count 166 Neut % (Auto) 90.0 H D Lymph % (Auto) 3.6 L [place] % (Auto) 6.3 Eos % (Auto) 0.0 L Baso % (Auto) 0.1 Neut # (Auto) 9500 H Lymph # (Auto) 400 L [place] # (Auto) 700 Eos # (Auto) 0 Baso # (Auto) 0 ABG pH 7.44 ABG pCO2 35.7 ABG pO2 79 L ABG HCO3 24 ABG Total CO2 25 ABG O2 Saturation 96 ABG Base Excess 0.0 FiO2 35 Sodium Potassium Chloride Carbon Dioxide BUN Creatinine Estimated GFR BUN/Creatinine Ratio Glucose Hemoglobin A1c Calcium Magnesium Nasal Screen MRSA (PCR) Negative for mrsa 06/02/19 06/02/19 05:02 05:02 WBC RBC Hgb Hct MCV MCH MCHC RDW Plt Count Neut % (Auto) Lymph % (Auto) [place] % (Auto) Eos % (Auto) Baso % (Auto) Neut # (Auto) Lymph # (Auto) [place] # (Auto) Eos # (Auto) Baso # (Auto) ABG pH ABG pCO2 ABG pO2 ABG HCO3 ABG Total CO2 ABG O2 Saturation ABG Base Excess FiO2 Sodium 140 Potassium 3.9 Chloride 108 H Carbon Dioxide 24 BUN 20 H Creatinine 1.40 H Estimated GFR 36.1 L BUN/Creatinine Ratio 14.3 Glucose 196 H Hemoglobin A1c 5.7 Calcium 8.6 Magnesium 1.8 Nasal Screen MRSA (PCR) Assessment & Plan Assessment & Plan narrative: Patient is a 83-year-old female with history of chronic AFib, hypertension, trigeminal neuralgia postop day 1. Exploratory laparotomy with small-bowel resection and lysis of extensive adhesions for SBO 1. Partial small-bowel obstruction, present on admission, active -status post exploratory laparotomy with small-bowel resection and lysis of extensive adhesions on 06/01/[address] Crooks -extubate today -continue bowel rest and NPO except for medications -surgery follow-up 2. Chronic atrial fibrillation and sick sinus syndrome, chronic, present on admission. Stable. -Patient is followed by Cardiology, Dr. Machado. -Patient is not on anticoagulation. 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 -Continue diltiazem 180 mg daily. 3. Hypertension, chronic, present on admission. Stable. -Continue diltiazem 180 mg daily and spironolactone 25 mg daily. 4. Hyperlipidemia, chronic, present on admission. Stable. -Held rosuvastatin 5 mg daily. 5. Trigeminal neuralgia, chronic, present on admission. Stable. -Continue oxcarbazepine 300 mg daily in the morning and 150 mg daily in the evening. 6. Hypothyroidism, chronic, present on admission. Stable. -TSH normal at 4.45. -Continue levothyroxine 25 mcg daily. 7. Anxiety, chronic, present on admission. Stable. -Continue lorazepam 0.5 mg 3 times daily as needed for anxiety. 8. Mild interstitial restrictive lung disease, chronic, present on admission. Stable. -Chest x-ray did not demonstrate any acute cardiopulmonary process. -Patient was recently treated outpatient by her PCP with a course of Augmentin and another course of levofloxacin for pneumonia. -COVID-19 negative on 05/31/2019 -Continue albuterol inhaler 2 puffs every 4 hours as needed for shortness of breath or wheezing. 9. Chronic kidney disease stage 3, stable -admit creatinine 1.30, lytes stable -monitor renal function periodically Code status: Full code VTE prophylaxis: SQ Heparin Quality VTE Deep Vein Thrombosis/Pulmonary Embolism Present on Admission: No
--- NOTE | 2019-06-02 12:31 | P.PN_ITS ---
Subjective Subjective Date Patient Seen: 06/02/19 Time Patient Seen: 12:32 Interval history: The patient is a woman who underwent an adhesiolysis and small-bowel resection in stricture plasty last night. She was left intubated and has been weaned to an FiO2 25%. She is presently alert and wide awake. She is drawing good tidal volumes and will probably be extubated soon. Her O2 sats are in the upper 90s. Exam Vital Signs (past 8 hours): - 06/02/19 04:40 06/02/19 04:57 06/02/19 05:31 Temperature 99.0 F Pulse Rate 66 101 H Respiratory Rate 14 14 Blood Pressure 124/60 118/58 L 143/65 H Pulse Oximetry 94 95 06/02/19 06:30 06/02/19 06:56 06/02/19 06:59 Temperature Pulse Rate 67 62 73 Respiratory Rate 14 14 14 Blood Pressure 101/55 L 98/51 L 104/52 L Pulse Oximetry 94 94 94 06/02/19 07:00 06/02/19 08:00 06/02/19 09:00 Temperature 97.8 F 97.8 F 97.8 F Pulse Rate 65 75 61 Respiratory Rate 16 16 16 Blood Pressure 100/55 L 142/63 H 109/55 L Pulse Oximetry 94 96 94 06/02/19 10:00 06/02/19 10:29 06/02/19 11:00 Temperature 97.9 F Pulse Rate 85 86 104 H Respiratory Rate 14 14 Blood Pressure 128/60 144/70 H Pulse Oximetry 96 92 98 06/02/19 11:58 Temperature Pulse Rate 92 H Respiratory Rate 14 Blood Pressure Pulse Oximetry 95 Fraction of Inspired Oxygen 25 Oxygen Delivery Method Mechanical Ventilation Oxygen Flow Rate 0 Narrative Exam Narrative: Lungs good effort. No rales or rhonchi. Heart irregularly irregular. Little tachycardic. Abdomen is distended and her dressing is dry and intact Objective Labs Result Diagrams: 06/02/19 05:02 06/02/19 05:02 Labs: Laboratory Results - last 24 hr 06/02/19 06/02/19 06/02/19 01:00 01:30 05:02 WBC 10.6 RBC 3.69 L Hgb 11.3 L Hct 33.3 L MCV 90.5 MCH 30.6 MCHC 33.8 RDW 13.1 Plt Count 166 Neut % (Auto) 90.0 H D Lymph % (Auto) 3.6 L [place] % (Auto) 6.3 Eos % (Auto) 0.0 L Baso % (Auto) 0.1 Neut # (Auto) 9500 H Lymph # (Auto) 400 L [place] # (Auto) 700 Eos # (Auto) 0 Baso # (Auto) 0 ABG pH 7.44 ABG pCO2 35.7 ABG pO2 79 L ABG HCO3 24 ABG Total CO2 25 ABG O2 Saturation 96 ABG Base Excess 0.0 FiO2 35 Sodium Potassium Chloride Carbon Dioxide BUN Creatinine Estimated GFR BUN/Creatinine Ratio Glucose Hemoglobin A1c Calcium Magnesium Nasal Screen MRSA (PCR) Negative for mrsa 06/02/19 06/02/19 05:02 05:02 WBC RBC Hgb Hct MCV MCH MCHC RDW Plt Count Neut % (Auto) Lymph % (Auto) [place] % (Auto) Eos % (Auto) Baso % (Auto) Neut # (Auto) Lymph # (Auto) [place] # (Auto) Eos # (Auto) Baso # (Auto) ABG pH ABG pCO2 ABG pO2 ABG HCO3 ABG Total CO2 ABG O2 Saturation ABG Base Excess FiO2 Sodium 140 Potassium 3.9 Chloride 108 H Carbon Dioxide 24 BUN 20 H Creatinine 1.40 H Estimated GFR 36.1 L BUN/Creatinine Ratio 14.3 Glucose 196 H Hemoglobin A1c 5.7 Calcium 8.6 Magnesium 1.8 Nasal Screen MRSA (PCR) Assessment & Plan Post-op Postoperative Procedures: Procedures Operation Date: 06/01/19 18:30 Actual Procedures Side Surgeon p Exploratory Laparotomy, Stricturoplasty, Small bowel resection Sobeida Crooks MD Postoperative day: 1 Postoperative status narrative: Patient doing very well this soon after operation. Postoperative plan narrative: Continue IV fluids. Ventilator management per her hospitalist. NPO when extubated Quality VTE Deep Vein Thrombosis/Pulmonary Embolism Present on Admission: No
[2019-06-02] MEDS: DEXTROSE 5%-0.9% NS 1,000 ML 100 ML IV (12:41)
--- NOTE | 2019-06-02 14:07 | PT-IP ANOTE ---
Checked with nurse and stated that pt is still on ventilation and will attempt extubation within 30 min. Checked on pt after ~ 1 hour but RT stated that pt is still on ventilation and they will be trying to extubate soon. PT on hold at the moment until pt is extubated.
--- NOTE | 2019-06-02 15:02 | CM.DPC ---
DCP: continued: case discussed in Team Rounds. Pt is now post op day one for small bowel resection, extensive WHIT (3 hours) and remains on ventilator support. Surgeon: Dr. Crooks. Hospitalist is consulting. Weaning will be attempted later today. Dr. Lind is following for surgery team this weekend. PT is on hold for now until pt is weaned from ventilator support. DCP team will be following.
--- NOTE | 2019-06-02 15:22 | PC.NURSE ---
Am shift Pt is on propofol and fentanyl gtt, alert and able to answer questions with nod. Denies pain. RT following closely for extubation plan for today. Turned off sedation at 1000. Pt finally able to extubate at 1400. 2L nc, Tolerated well and able to vocalize needs, ice chips allowed per Dr Lind, limit to 2 cups/shift. Update to Daughter x2 this shift. Pt declines any phone calls this afternoon, fatigued. Resting comfortably at end of shift. Ice pack given for pain, Pt lorrie reported 100mls at end of shift. Repositioned, with additional 50mls immediately. Update to Agueda RUSSO. d5ns @ 100. PIV x2. Using call light for needs. BT remain absent, NG to LIS 150mls out.
[2019-06-02] MEDS: LACTATED RINGERS 1,000 ML 500 ML IV (16:00)
[2019-06-02] MEDS: MORPHINE 2 MG/ML INJ IV ×3 (16:01→21:22)
[2019-06-02] MEDS: ONDANSETRON 4 MG/2 ML INJ IV (16:01)
[2019-06-02] MEDS: OXcarbazepine 150 MG TABLET PO (18:04)
[2019-06-02] MEDS: LACTATED RINGERS 1,000 ML 150 ML IV (18:39)
--- NOTE | 2019-06-02 23:06 | PC.NURSE ---
2100 - Pt out of bed. Ambulate around bed. Pre-medicated prior to activity. Sat up on edge of bed to perform self care. Sat up for approximately 45mins. Assist back to bed. Dr. Lind called to check patient status, I and O reviewed. 250cc urine output. Order obtained for gentle fluid bolus. Monitor. Call light in reach.
[2019-06-02] MEDS: LACTATED RINGERS 250 ML IV (23:22)
[2019-06-03] VITALS (8 sets, daily range): BP systolic 143–177; BP diastolic 63–86; PULSE 70–87; RESP 16–18; TEMP 36.2–37.6; O2SAT 94–100
[2019-06-03] MEDS: LORazepam 2 MG/ML INJ 0.5 MG IV (02:29)
[2019-06-03] MEDS: LACTATED RINGERS 1,000 ML 150 ML IV ×2 (02:29→08:48)
[2019-06-03] MEDS: HEPARIN 5,000 UNIT/ML VIAL 5000 UNIT SUBCUT ×2 (08:41→20:20)
[2019-06-03] MEDS: PANTOPRAZOLE 40 MG VIAL IV ×2 (08:41→20:20)
--- NOTE | 2019-06-03 10:22 | PC.NURSE ---
Addendum entered by Blanca Cunha R.N. 06/03/19 13:54: Pt up ambulating in [place] for 2nd time this shift. 1PA Fww. Reports pain is managed with ice and splinting. No nausea, BT remain hypoactive. No flatus. NG to LIS when in bed. Productive cough. Using call light for needs. BA active. Update provided to Daughter re: improved status to acute care and d/c planning progress. Original Note: Am shift Pt is A/ox4 this AM. Transitioned to RA without difficulty. Lungs are clear, dim to both bases, productive cough, splinting with pillow to ABD. Midline incision in CDI. Denies nausea, denies flatus. BT hypoactive. 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 Pt denies pain, except with coughing, but that is managable. Discussed options for pain control, ice pack applied. Afebrile. Up to chair. Ice chips per request. NG to LIS. PIV X2. LR @ 150mls/hr.
--- NOTE | 2019-06-03 10:59 | PT.IPTN ---
Current Diagnoses Bronchitis, not specified as acute or chronic (05/30/19) Partial intestinal obstruction, unspecified as to cause (05/30/19) Disorder of kidney and ureter, unspecified (05/30/19) Cough (05/30/19) Other chest pain (05/30/19) Surgery Performed Operation Date: 06/01/19 18:30 Actual Procedures p Exploratory Laparotomy, Stricturoplasty, Small bowel resection - Sobeida Crooks MD Physical Therapy Treatment Note M2 PT-IP Current Condition Start: 05/30/19 15:37 Freq: NEEDED Status: Active Protocol: Document 05/30/19 15:38 [facility] (Rec: 05/30/19 16:16 [facility] [id number]) Physical Therapy Current Condition Current Condition Evaluation Date 05/30/19 Treatment Diagnosis abdominal pain with early partial small bowel obstruction Onset Date 05/29/19 Precautions Other Precautions pt does not have her AFO's with her for ambulation Weight Bearing Status Weight Bearing Status Full Weight Bearing M3 PT-IP Subjective Start: 05/30/19 15:37 Freq: NEEDED Status: Active Protocol: Document 06/03/19 12:46 [facility] (Rec: 06/03/19 12:53 [facility] [id number]) Subjective Physical Therapy Visit Type Type Treatment Note Visit Start Time 10:31 Visit Stop Time 10:59 Total Visit Minutes 28 Number of MANAGER REIMBURSEMENT Visits 0 Physical Therapy Visit Comments Patient Comments Pt excited to work with PT Patient Goals To get home [facility] Therapy Pain Assessment Pain When Pain Assessed During Mobility Pain Present Pain Present Pain Reported Location abd. Pain Management Techniques Apply Cold,Re-positioning M4 PT-IP Mobility and Gait Start: 05/30/19 15:37 Freq: NEEDED Status: Active Protocol: Document 06/03/19 12:46 [facility] (Rec: 06/03/19 12:53 [facility] [id number]) PT-Transfer Assessment Sit to and From Stand Sit to and from Stand Contact Guard Assistance,Use of Upper Extremities Equipment Transfer Assistive Device Gait Belt,Front Wheeled Walker Comments Mobility Comments Pt was seated in chair upon PT arrival. Pt was able to do sit<>stand with CGA. Gait Assessment Gait Gait Assistance Required: Contact Guard Assist Distance (Feet) 200 Able to Maintain Weight Bearing Status Yes During Gait Assistive Devices Assistive Device Gait Belt,Front Wheeled Walker Orthotic/Prosthetic Devices or Brace: No Gait Deviations General Gait Pattern Antalgic,Decreased Stride Length,Flexed Trunk Factors Limiting Gait Function Factors Limiting Gait Function Decreased Activity Tolerance, Decreased Strength,Pain,Poor Balance Comments Gait Comments Pt did well with ambulation today and was able to ambulate with smaller steps and slight trunk flex likely d/t pain. PT-Balance Assessment Sitting Balance and Reactions Static Sitting Balance Ability Good Dynamic Sitting Balance Ability Good Standing Balance and Reactions Static Standing Balance Ability Fair Dynamic Standing Balance Ability Fair Device Used FWW M5 PT-IP Objective Assessments Start: 05/30/19 15:37 Freq: NEEDED Status: Active Protocol: Document 06/03/19 12:46 [facility] (Rec: 06/03/19 12:53 [facility] [id number]) Orientation Orientation/Cognition Level of Alertness Alert Language Function Ability No Deficits Noted Safety Awareness Understands Safety Issues Memory Description No Deficits Noted Strength Lower Extremity Strength Assessment Bilaterally Impaired M6 PT-IP Treatment Start: 05/30/19 15:37 Freq: NEEDED Status: Active Protocol: Document 06/03/19 12:46 [facility] (Rec: 06/03/19 12:53 [facility] [email or web address]) Physical Therapy Treatment Education Education Provided Safety M7 PT-IP Assessment and Plan Start: 05/30/19 15:37 Freq: NEEDED Status: Active Protocol: Document 06/03/19 12:46 [facility] (Rec: 06/03/19 12:53 [place] [id number]) PT Summary Assessment and Plan Summary Impairments Pain,ROM,Strength,Balance, Transfers,Gait Assessment Summary Pt was very motivated to participate in PT and for ambulation. She will require assistance at home and is aware of this so discussed pt talking to family and friends that can assist her. Today was the first days hew as able to amb since surgery and since removal of vent and pt did well with all activities. Goals Bed Mobility Goal Independent Transfer Goal Standby Assistance Gait Goal Standby Assistance Gait Distance 250 feet Other Goals If the patient can have her AFO's brought in it would help her walking distance Days to Meet Goals 5 Frequency of Treatment Frequency Of Treatment Once a Day Treatment Plan Physical Therapy Treatment Plan Bed Mobility Training,Transfer Training,Gait Training, Therapeutic Exercise,Balance Retraining,Post Op Education, Discharge Planning, Neuromuscular Re-ed Recommendations To Nursing Amount of Assist Needed 1 Person Assist Discharge Recommendations PT Discharge Recommendations Home with Assistance
[2019-06-03] MEDS: OXcarbazepine 150 MG TABLET 300 MG PO (11:02)
[2019-06-03] MEDS: dilTIAZem CD 180 MG CAP PO (11:02)
[2019-06-03] MEDS: SPIRONOLACTONE 25 MG TABLET PO (11:03)
--- NOTE | 2019-06-03 11:27 | CM.DPC ---
DCP: continued: Case discussed in Team Rounds, PT and OT ordered. Dr. Queen confirmed that pt has successfully weaned off of the vent. She is currently doing well on room air. EMR reviewed. Met then with pt and introduced self and role. Pt was found lying in bedside chair, resting after mobilizing about unit with PT. NG to Suction in place. Ice chips on tray. 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 She plans to talk with her daughter about having family stay with her for about a week while she recovers from the surgery. She also can utilize a caregiver who helped when her was ill (she is now .) Pt used a walker with PT today and does have a FWW and a 4ww at home if she needs this. KARAN Rios confirms surgical wound/midline incision is clean, dry and intact. Covered with a dry dressing. P: at this point: home when stable from a hospitalist and a surgical standpoint. and GI function has returned. Family to provide supportive care prn. Pt says she will talk with her family and make these arrangements herself. DCP team will follow prn as pt continues her recovery.
--- NOTE | 2019-06-03 12:55 | PM.PN.1 ---
Subjective Subjective Date Patient Seen: 06/03/19 Interval history: Patient is a 83-year-old female with history of chronic AFib, hypertension, trigeminal neuralgia who is postop day 2 s/p exploratory laparotomy with small-bowel resection and lysis of extensive adhesions for SBO. Patient states only has abdominal pain if she coughs. She did well walking with PT standby assist. Exam Vital Signs (past 8 hours): - 06/03/19 06:37 06/03/19 08:00 06/03/19 08:08 Temperature 98.8 F 97.2 F L Pulse Rate 81 85 Respiratory Rate 16 16 Blood Pressure 169/77 H 156/86 H Pulse Oximetry 100 98 95 06/03/19 12:00 Temperature 97.7 F Pulse Rate 87 Respiratory Rate 16 Blood Pressure 177/80 H Pulse Oximetry 94 Fraction of Inspired Oxygen 25 Oxygen Delivery Method Room Air Oxygen Flow Rate 0 Narrative Exam Narrative: General: Alert interacting female in no acute distress Lungs: Clear to auscultate Heart: Regular rhythm Extremities: No edema, SCDs on Neurological: Sensorium intact, nonfocal Objective Labs Result Diagrams: 06/02/19 05:02 06/02/19 05:02 Assessment & Plan Assessment & Plan narrative: Patient is a 83-year-old female with history of chronic AFib, hypertension, trigeminal neuralgia postop day 1. Exploratory laparotomy with small-bowel resection and lysis of extensive adhesions for SBO 1. Partial small-bowel obstruction, present on admission, active -patient is stable -status post exploratory laparotomy with small-bowel resection and lysis of extensive adhesions on 06/01/[address] Crooks -extubated following day on 06/02/2019 -continue bowel rest and NPO except for medications -surgery following 2. Chronic atrial fibrillation and sick sinus syndrome, chronic, present on admission. Stable. -Patient is followed by Cardiology, Dr. Machado. -Patient is not on anticoagulation. 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 -Continue diltiazem 180 mg daily. 3. Hypertension, chronic, present on admission. Stable. -Continue diltiazem 180 mg daily and spironolactone 25 mg daily. 4. Hyperlipidemia, chronic, present on admission. Stable. -Held rosuvastatin 5 mg daily. 5. Trigeminal neuralgia, chronic, present on admission. Stable. -Continue oxcarbazepine 300 mg daily in the morning and 150 mg daily in the evening. 6. Hypothyroidism, chronic, present on admission. Stable. -TSH normal at 4.45. -Continue levothyroxine 25 mcg daily. 7. Anxiety, chronic, present on admission. Stable. -Continue lorazepam 0.5 mg 3 times daily as needed for anxiety. 8. Mild interstitial restrictive lung disease, chronic, present on admission. Stable. -Chest x-ray did not demonstrate any acute cardiopulmonary process. -Patient was recently treated outpatient by her PCP with a course of Augmentin and another course of levofloxacin for pneumonia. -COVID-19 negative on 05/31/2019 -Continue albuterol inhaler 2 puffs every 4 hours as needed for shortness of breath or wheezing. 9. Chronic kidney disease stage 3, stable -admit creatinine 1.30, lytes stable -monitor renal function periodically Code status: Full code VTE prophylaxis: SQ Heparin Quality VTE Deep Vein Thrombosis/Pulmonary Embolism Present on Admission: No
[2019-06-03] MEDS: DEXTROSE 5%-LACTATED RINGERS 1,000 ML 125 ML IV ×2 (14:58→22:06)
[2019-06-03] MEDS: MORPHINE 2 MG/ML INJ IV (15:07)
--- NOTE | 2019-06-03 15:17 | PM.PNPO.1 ---
Subjective Subjective Date Patient Seen: 06/03/19 Time Patient Seen: 15:17 Interval history: Pt feels OK. Working on breathing. Mild abdominal complaints of pain. First pain med in 24 hrs just given Exam Vital Signs (past 8 hours): - 06/03/19 08:00 06/03/19 08:08 06/03/19 12:00 Temperature 97.2 F L 97.7 F Pulse Rate 85 87 Respiratory Rate 16 16 Blood Pressure 156/86 H 177/80 H Pulse Oximetry 98 95 94 Fraction of Inspired Oxygen 25 Oxygen Delivery Method Room Air Oxygen Flow Rate 0 Narrative Exam Narrative: Lungs moving air in bases. No rales or rhonchi. abdomen: dressing dry and intact. No unusual tenderness. Objective Labs Result Diagrams: 06/02/19 05:02 06/02/19 05:02 Assessment & Plan Post-op Postoperative Procedures: Procedures Operation Date: 06/01/19 18:30 Actual Procedures Side Surgeon p Exploratory Laparotomy, Stricturoplasty, Small bowel resection Sobeida Crooks MD Postoperative status narrative: doing as expected. Urine output is up. Postoperative plan narrative: adjusted IV fluids. xrays in AM. Depending upon gas pattern may be abloe to D/C NGTube Quality VTE Deep Vein Thrombosis/Pulmonary Embolism Present on Admission: No
[2019-06-03] MEDS: OXcarbazepine 150 MG TABLET PO (18:03)
--- NOTE | 2019-06-03 20:51 | PC.NURSE ---
2030 -Pt up ambulate around the [place]. Ambulate to the bathroom and then back to bed. Pt NGT with 0 measurable output this shift. Taking minimal ice. BT hypoactive. Denies flatus. Denies nausea. Reports pain 3 of 10 and declines intervention beyond repositioning. Assist back to bed. SCD's in place. Call light in reach. 1800 - Pt out of bed. Ambulate to bathroom and then down the hallway. Reports increased pain with cough, splinting with pillow, declines Medication intervention. Set up in chair. Reinforced IS use. Call light in reach.
[2019-06-04 02:00] VITALS: BP 154/70; PULSE 78; RESP 16; TEMP 37.1
[2019-06-04] MEDS: MORPHINE 2 MG/ML INJ IV (02:59)
[2019-06-04 05:18] LABS: Add Manual Diff / Slide Review NO; Basophils Absolute Auto 0 /uL (0-100); Basophils Percent Auto 0.4 % (0-2); Eosinophils Absolute Auto 100 /uL (0-450); Eosinophils Percent Auto 1.8 % (2-4); Hematocrit 28.1 % (36-46); Hemoglobin 9.5 g/dL (12.0-16.0); Lymphocytes Absolute Auto 900 /uL (1100-4500); Lymphocytes Percent Auto 11.8 % (25-40); Mean Corpuscular HGB Conc 33.8 % (30-36); Mean Corpuscular Hemoglobin 30.4 PG (26-34); Mean Corpuscular Volume 90.2 fL (80-100); Monocytes Absolute Auto 1000 /uL (0-900); Monocytes Percent Auto 12.9 % (3-14); Neutrophils Absolute Auto 5600 /uL (1500-7000); Neutrophils Percent Auto 73.1 % (50-75); Platelet Count 144 X10^3/uL (150-400); Red Blood Cell Count 3.12 X10^6/uL (4.0-5.2); White Blood Cell Count 7.7 X10^3/uL (4.5-11.0)
[2019-06-04 05:30] LABS: Blood Urea Nitrogen 18 mg/dL (7-17); Calcium 8.3 mg/dL (8.4-10.2); Carbon Dioxide 28 mmol/L (22-32); Chloride 105 mmol/L (98-107); Estimated Glomerular Filt Rate 39.7 mL/min (>60); Glucose 139 mg/dL (80-110); HEMOLYSIS < 15 (0-50); Potassium 3.6 mmol/L (3.4-5.1); Sodium 139 mmol/L (137-145)
[2019-06-04] MEDS: DEXTROSE 5%-LACTATED RINGERS 1,000 ML 125 ML IV (05:44)
[2019-06-04 06:00] VITALS: BP 144/67; PULSE 63; RESP 16; TEMP 37.3; O2SAT 93
[2019-06-04 08:00] VITALS: BP 146/72; PULSE 59; RESP 15; TEMP 37.1; O2SAT 93
--- NOTE | 2019-06-04 08:00 | DI.RAD.S_ITS ---
PROCEDURE: XR ABDOMEN MIN 2V INDICATIONS: evaluate gas pattern TECHNIQUE: 2 views of the abdomen were acquired. COMPARISON: [facility], CR, XR KUB, 05/31/2019, 8:53. [facility], CR, XR ABDOMEN 1V, 05/31/2019, 14:39. FINDINGS: Surgical changes and devices: Nasogastric tube is present. Bilateral hip arthroplasties and pelvic clips are noted. Bowel: No pneumoperitoneum. Contrast is noted within a small portion of the colon. No contrast is identified within the rectum. Remaining bowel loops remain unopacified. There is overall improvement of previously dilated fluid-filled small bowel loops. Soft tissues: No masses; visualized solid organ contours appear normal in size. No suspicious abdominal calcifications. Bones: No suspicious bony abnormalities. IMPRESSION: Improved appearance of previous partial small bowel obstruction. Dictated by: Dorothea Greene M.D. on 06/04/2019 at 8:48 Approved by: Dorothea Greene M.D. on 06/04/2019 at 8:49
[2019-06-04] MEDS: LEVOTHYROXINE 25 MCG TABLET PO (09:24)
[2019-06-04] MEDS: OXcarbazepine 150 MG TABLET 300 MG PO (09:25)
[2019-06-04] MEDS: dilTIAZem CD 180 MG CAP PO (09:25)
[2019-06-04] MEDS: SPIRONOLACTONE 25 MG TABLET PO (09:31)
[2019-06-04] MEDS: PANTOPRAZOLE 40 MG VIAL IV ×2 (09:31→20:26)
[2019-06-04] MEDS: HEPARIN 5,000 UNIT/ML VIAL 5000 UNIT SUBCUT ×2 (09:31→20:26)
--- NOTE | 2019-06-04 10:10 | PC.NURSE ---
Addendum entered by Perlita Ordonez R.N. 06/04/19 12:59: DR JANE ROUNDED AND REMOVED NGT AT APPROX 1045- TOLERATING CLEAR LIQUID DIET WITHOUT COMPLAINTS OF N/V Original Note: pt denies need for pain rx- she says pain is worse upon movement - like standing up but then it decreases to approx 2-3/10 - very few bowel tones heard bilat lower quads - she denies flatus but does report rumblings in her lower abd- she got up from chair and went to br and then she ambulated around the nurses desk- ngt clamped from 0830 ( to go to xr) and then after taking po rx - denies nausea
--- NOTE | 2019-06-04 11:11 | OT.IP.TRT ---
Current Diagnoses Bronchitis, not specified as acute or chronic (05/30/19) Partial intestinal obstruction, unspecified as to cause (05/30/19) Disorder of kidney and ureter, unspecified (05/30/19) Cough (05/30/19) Other chest pain (05/30/19) Surgery Performed Operation Date: 06/01/19 18:30 Actual Procedures p Exploratory Laparotomy, Stricturoplasty, Small bowel resection - Sobeida Crooks MD Occupational Therapy Treatment Note M3 OT- IP Subjective and Pain Start: 06/04/19 11:20 Freq: Status: Active Protocol: Document 06/04/19 12:52 [facility] (Rec: 06/04/19 13:02 [facility] [id number]) OT- Subjective Occupational Therapy Visit Type Type Treatment Note Visit Start Time 11:03 Visit Stop Time 11:11 Total Visit Minutes 8 Occupational Therapy Visit Comments Patient Comments Pt not wanting to get up at this time and does not feel that she needs OT at this time as looking to have family member stay with her to assist . OT able to answer some of pt's questions and give suggestions for OT needs at home. Patient/Caregiver Goals To go home. OT Pain Assessment Pain When Pain Assessed At Rest Pain Present Pain Present Denied Pain M4 OT- IP ADL's Start: 06/04/19 11:20 Freq: Status: Active Protocol: Document 06/04/19 12:52 [facility] (Rec: 06/04/19 13:02 [facility] [id number]) OT ADL-Dressing Comments OT Dressing Comments Pt states to have family member assist with compression stockings and aware of use of plastic bag to increase ease to kaitlin stockings. OT ADL-Toileting Comments OT Toileting Comments Pt states has plenty of surfaces and grab bars to use. OT ADL-Bathing Comments OT Bathing Comments Recommended that pt get a shower chair for the walk in shower and initially have someone there while doing her first shower at home. This shayne help to determine whether she will continued to need assist or not for showering needs. M9 OT- IP Assessment and Plan Start: 06/04/19 11:20 Freq: Status: Active Protocol: Document 06/04/19 12:52 [facility] (Rec: 06/04/19 13:02 [facility] [id number]) OT Summary Assessment and Plan Summary Assessment Summary Pt here for abdominal pain with partial small bowel obstruction and mainly working on trying to upgrade her diet and improve with activity tolerance. Pt is concerned about COVID 19 and wants to be sure anyone entering her home is negative and asked if family members are able to be tested. Spoke to case management and she states best for family member to wear a mask and follow CDC guidelines . Therefore, Pt not wanting anymore OT at this time and discharge pt from OT services. Pt to continue to follow for mobility needs. Discharge Recommendations OT Discharge Recommendations Home with Assistance
--- NOTE | 2019-06-04 11:11 | PM.PNPO.1 ---
Subjective Subjective Date Patient Seen: 06/04/19 Time Patient Seen: 11:11 Interval history: No acute overnight events. Pain is well controlled. No fever nausea. Positive flatus. Exam Vital Signs (past 8 hours): - 06/04/19 06:00 06/04/19 08:00 Temperature 99.2 F 98.7 F Pulse Rate 63 59 L Respiratory Rate 16 15 Blood Pressure 144/67 H 146/72 H Pulse Oximetry 93 93 Fraction of Inspired Oxygen 25 Oxygen Delivery Method Room Air Oxygen Flow Rate 0 Narrative Exam Narrative: General adult female alert oriented no acute distress nasogastric tube in place. Abdomen soft appropriately tender to palpation midline incision with abi clean dry intact. Extremities warm well perfused Objective Labs Result Diagrams: 06/04/19 04:52 06/04/19 04:52 Labs: Laboratory Results - last 24 hr 06/04/19 06/04/19 04:52 04:52 WBC 7.7 RBC 3.12 L Hgb 9.5 L Hct 28.1 L MCV 90.2 MCH 30.4 MCHC 33.8 RDW 13.0 Plt Count 144 L Neut % (Auto) 73.1 Lymph % (Auto) 11.8 L [place] % (Auto) 12.9 Eos % (Auto) 1.8 L Baso % (Auto) 0.4 Neut # (Auto) 5600 Lymph # (Auto) 900 L [place] # (Auto) 1000 H Eos # (Auto) 100 Baso # (Auto) 0 Sodium 139 Potassium 3.6 Chloride 105 Carbon Dioxide 28 BUN 18 H Creatinine 1.29 H Estimated GFR 39.7 L BUN/Creatinine Ratio 14.0 Glucose 139 H Calcium 8.3 L Assessment & Plan Post-op Postoperative Procedures: Procedures Operation Date: 06/01/19 18:30 Actual Procedures Side Surgeon p Exploratory Laparotomy, Stricturoplasty, Small bowel resection Sobeida Crooks MD Postoperative status narrative: 83-year-old female postoperative day 3 status post small bowel resection and stricturoplasty for a small-bowel obstruction. She is doing well and recovering appropriately. I reviewed her abdominal x-ray which shows resolving postoperative ileus with contrast within the rectum. -Nasogastric tube removed, may start clear liquid diet -out of bed and ambulate. Quality VTE Deep Vein Thrombosis/Pulmonary Embolism Present on Admission: No
[2019-06-04 12:14] VITALS: BP 144/64; PULSE 60; RESP 17; TEMP 37.6; O2SAT 93
--- NOTE | 2019-06-04 12:17 | DIET.PN ---
Dietary Progress Note Assessment: Ms. Delatorre is an 83-year-old female postoperative day 3 status post small bowel resection and stricturoplasty for a small-bowel obstruction. Nasogastric tube removed and is starting a clear liquid diet. Pt reports no N/V. HT: 160.02cm WT: 90.7kg BMI: 35.4 Labs: BUN: 18 Cr: 1.29 eGFR: 39.7 Gluc: 120-196 MNA: 12 [place]: 20 Nutrition Diagnosis: Inadequate oral intake r/t GI complications aeb day 3 S/P small bowel resection for SBO, NPO x 3 days. Interventions: 1. Discussed post-surgery transitional diet with patient including clears to fulls to low fiber/soft foods. Pt with good understanding. 2. Discussed ONS ensure clear progresses to enlive with meals for added protein. Pt agreeable. Diet Order: Clear Liquid EER: 1600kcal @ 30cal/kg IBW 80g pro @ 1.5g/kg IBW or ~1g/kg ABW Monitoring/Evaluations: Wt, PO's, diet tolerance/progression. Rec post-surg transitional diet as diet progresses.
--- NOTE | 2019-06-04 15:14 | PT.IPTN ---
Current Diagnoses Bronchitis, not specified as acute or chronic (05/30/19) Partial intestinal obstruction, unspecified as to cause (05/30/19) Disorder of kidney and ureter, unspecified (05/30/19) Cough (05/30/19) Other chest pain (05/30/19) Surgery Performed Operation Date: 06/01/19 18:30 Actual Procedures p Exploratory Laparotomy, Stricturoplasty, Small bowel resection - Sboeida Crooks MD Physical Therapy Treatment Note M2 PT-IP Current Condition Start: 05/30/19 15:37 Freq: NEEDED Status: Active Protocol: Document 05/30/19 15:38 [facility] (Rec: 05/30/19 16:16 [facility] [id number]) Physical Therapy Current Condition Current Condition Evaluation Date 05/30/19 Treatment Diagnosis abdominal pain with early partial small bowel obstruction Onset Date 05/29/19 Precautions Other Precautions pt does not have her AFO's with her for ambulation Weight Bearing Status Weight Bearing Status Full Weight Bearing M3 PT-IP Subjective Start: 05/30/19 15:37 Freq: NEEDED Status: Active Protocol: Document 06/04/19 14:47 [facility] (Rec: 06/04/19 15:12 [facility] [id number]) Subjective Physical Therapy Visit Type Type Treatment Note Visit Start Time 13:14 Visit Stop Time 13:38 Total Visit Minutes 24 Number of CONSERVATION PLANNER Visits 0 Physical Therapy Visit Comments Patient Comments Pt agreeable to walk and wants to shower with JEWELRY BEARING MAKER after Therapy Pain Assessment Pain When Pain Assessed During Mobility Pain Present Pain Present Pain Reported M4 PT-IP Mobility and Gait Start: 05/30/19 15:37 Freq: NEEDED Status: Active Protocol: Document 06/04/19 14:47 [facility] (Rec: 06/04/19 15:12 [facility] [id number]) PT-Bed Mobility Assessment Rolling Type of Rolling Roll to Left Level of Assist Standby Assistance Supine to Sit Supine to Sit Minimal Assistance,Bedrails Scooting Scooting to Edge of Bed Independent PT-Transfer Assessment Sit to and From Stand Sit to and from Stand Standby Assistance,Use of Upper Extremities Equipment Transfer Assistive Device Gait Belt,Front Wheeled Walker Transfers Transfer Destination Bedside Commode Transfer Technique Stand Step Pivot Transfer Ability Level of Assist Standby Assistance Comments Mobility Comments Pt able to sit to stand from bed today with SBA to FWW. She transfered in bathroom SBA from toilet to commode for shower SBA. She stood from commode about 4x SBA while getting everything set up for her to shower. Gait Assessment Gait Gait Assistance Required: Standby Assistance Distance (Feet) 225 Assistive Devices Assistive Device Gait Belt,Front Wheeled Walker Orthotic/Prosthetic Devices or Brace: No Gait Deviations General Gait Pattern Flexed Trunk Factors Limiting Gait Function Factors Limiting Gait Function Decreased Activity Tolerance, Pain Comments Gait Comments Pt did very well with ambulation today in hallway with good step length and improved gait pattern but still had slightly flexed trunk at FWW. Pt amb into bathroom aftrer walk and was able to pull down briefs and use toilet SBA with assist only to get brief off feet while seated M5 PT-IP Objective Assessments Start: 05/30/19 15:37 Freq: NEEDED Status: Active Protocol: Document 06/03/19 12:46 [facility] (Rec: 06/03/19 12:53 [facility] [id number]) Orientation Orientation/Cognition Level of Alertness Alert Language Function Ability No Deficits Noted Safety Awareness Understands Safety Issues Memory Description No Deficits Noted Strength Lower Extremity Strength Assessment Bilaterally Impaired M6 PT-IP Treatment Start: 05/30/19 15:37 Freq: NEEDED Status: Active Protocol: Document 06/04/19 14:47 [facility] (Rec: 06/04/19 15:12 [facility] [id number]) Physical Therapy Treatment Education Education Provided Safety Other Treatments Other Treatment Performed discussed why to do log roll M7 PT-IP Assessment and Plan Start: 05/30/19 15:37 Freq: NEEDED Status: Active Protocol: Document 06/04/19 14:47 [facility] (Rec: 06/04/19 15:12 [facility] [id number]) PT Summary Assessment and Plan Summary Impairments Pain,ROM,Strength,Balance, Transfers,Gait Assessment Summary Pt was very cooperative and showed improved gait speed and form today. She was educated on log roll but did require some help and use of rails which she does not have at home. She will require further training on this Goals Bed Mobility Goal Independent Transfer Goal Standby Assistance Gait Goal Standby Assistance Gait Distance 250 feet Days to Meet Goals 5 Frequency of Treatment Frequency Of Treatment Once a Day Treatment Plan Physical Therapy Treatment Plan Bed Mobility Training,Transfer Training,Gait Training, Therapeutic Exercise,Balance Retraining,Post Op Education, Discharge Planning, Neuromuscular Re-ed Other Recommendations and Next Treatment gait & work on log roll for Focus supine<>sit Recommendations To Nursing Amount of Assist Needed Standby Assistance Discharge Recommendations PT Discharge Recommendations Home with Assistance
[2019-06-04 15:28] VITALS: BP 135/60; PULSE 60; RESP 17; TEMP 37.6; O2SAT 94
--- NOTE | 2019-06-04 16:29 | PM.PN.1 ---
Subjective Subjective Date Patient Seen: 06/04/19 Interval history: The patient is an 83-year-old female with a history of atrial fibrillation, who is status post exploratory laparotomy for lysis of adhesion. Patient had her NG tube removed today. She continues to have a cough with green productive sputum. She denies any shortness of breath. She has no pain except for coughing. She try clear liquids but did not tolerate them. She denies any nausea vomiting or abdominal pain. Exam Vital Signs (past 8 hours): - 06/04/19 12:14 06/04/19 15:28 Temperature 99.7 F H 99.6 F Pulse Rate 60 60 Respiratory Rate 17 17 Blood Pressure 144/64 H 135/60 Pulse Oximetry 93 94 Fraction of Inspired Oxygen 25 Oxygen Delivery Method Room Air Oxygen Flow Rate 0 Narrative Exam Narrative: Pleasant female lying in bed in no obvious distress Lungs: Decreased breath sounds with scattered crackles bilaterally Cardiac exam: Irregularly irregular, normal S1-S2, 2/6 systolic ejection murmur Abdomen: Soft nontender nondistended, without hepatosplenomegaly, midline sutures in place, no erythema or exudates noted Extremities: No edema Objective Labs Result Diagrams: 06/04/19 04:52 06/04/19 04:52 Labs: Laboratory Results - last 24 hr 06/04/19 06/04/19 04:52 04:52 WBC 7.7 RBC 3.12 L Hgb 9.5 L Hct 28.1 L MCV 90.2 MCH 30.4 MCHC 33.8 RDW 13.0 Plt Count 144 L Neut % (Auto) 73.1 Lymph % (Auto) 11.8 L [place] % (Auto) 12.9 Eos % (Auto) 1.8 L Baso % (Auto) 0.4 Neut # (Auto) 5600 Lymph # (Auto) 900 L [place] # (Auto) 1000 H Eos # (Auto) 100 Baso # (Auto) 0 Sodium 139 Potassium 3.6 Chloride 105 Carbon Dioxide 28 BUN 18 H Creatinine 1.29 H Estimated GFR 39.7 L BUN/Creatinine Ratio 14.0 Glucose 139 H Calcium 8.3 L Assessment & Plan Assessment & Plan narrative: Partial small-bowel obstruction, present on admission, active --status post exploratory laparotomy with small-bowel resection and lysis of extensive adhesions on 06/01/[address] Crooks -extubated following day on 06/02/2019 -NG tube removed, patient's diet has advanced to clear liquids -surgery following 2. Chronic atrial fibrillation and sick sinus syndrome, chronic, present on admission. Stable. -Patient is followed by Cardiology, Dr. Machado. -Patient is not on anticoagulation. 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 -Continue diltiazem 180 mg daily. -rate currently controlled 3. Hypertension, chronic, present on admission. Stable. -Continue diltiazem 180 mg daily and spironolactone 25 mg daily. 4. Hyperlipidemia, chronic, present on admission. Stable. -Held rosuvastatin 5 mg daily. 5. Trigeminal neuralgia, chronic, present on admission. Stable. -Continue oxcarbazepine 300 mg daily in the morning and 150 mg daily in the evening. 6. Hypothyroidism, chronic, present on admission. Stable. -TSH normal at 4.45. -Continue levothyroxine 25 mcg daily. 7. Anxiety, chronic, present on admission. Stable. -Continue lorazepam 0.5 mg 3 times daily as needed for anxiety. 8. Mild interstitial restrictive lung disease, chronic, present on admission. Stable. -Chest x-ray did not demonstrate any acute cardiopulmonary process. -Patient was recently treated outpatient by her PCP with a course of Augmentin and another course of levofloxacin for pneumonia. -COVID-19 negative on 05/31/2019 -Continue albuterol inhaler 2 puffs every 4 hours as needed for shortness of breath or wheezing. 9. Chronic kidney disease stage 3, stable -admit creatinine 1.30, lytes stable -monitor renal function periodically Code status: Full code VTE prophylaxis: SQ Heparin Quality VTE Deep Vein Thrombosis/Pulmonary Embolism Present on Admission: No
[2019-06-04] MEDS: OXcarbazepine 150 MG TABLET PO (17:10)
[2019-06-04] MEDS: LACTATED RINGERS 1,000 ML 84 ML IV (19:12)
[2019-06-04 20:22] VITALS: BP 142/65; PULSE 64; RESP 18; TEMP 37.4
[2019-06-05] VITALS: BP 149/63; PULSE 70; RESP 16; TEMP 37.8; O2SAT 94
[2019-06-05] MEDS: LORazepam 2 MG/ML INJ 0.5 MG IV (01:20)
[2019-06-05 04:00] VITALS: BP 163/82; PULSE 70; RESP 18; TEMP 37; O2SAT 91
[2019-06-05 05:44] LABS: Add Manual Diff / Slide Review NO; Basophils Absolute Auto 0 /uL (0-100); Basophils Percent Auto 0.3 % (0-2); Eosinophils Absolute Auto 200 /uL (0-450); Eosinophils Percent Auto 3.5 % (2-4); Hemoglobin 9.3 g/dL (12.0-16.0); Lymphocytes Absolute Auto 700 /uL (1100-4500); Lymphocytes Percent Auto 12.5 % (25-40); Mean Corpuscular HGB Conc 33.2 % (30-36); Mean Corpuscular Volume 90.4 fL (80-100); Monocytes Absolute Auto 700 /uL (0-900); Monocytes Percent Auto 11.8 % (3-14); Neutrophils Absolute Auto 4300 /uL (1500-7000); Neutrophils Percent Auto 71.9 % (50-75); Platelet Count 136 X10^3/uL (150-400); Red Cell Distribution Width 13.1 % (11.6-14.8)
[2019-06-05 05:47] LABS: BUN Creatinine Ratio 11.4 (6-22); Blood Urea Nitrogen 14 mg/dL (7-17); Calcium 8.2 mg/dL (8.4-10.2); Carbon Dioxide 28 mmol/L (22-32); Chloride 102 mmol/L (98-107); Estimated Glomerular Filt Rate 41.9 mL/min (>60); Glucose 104 mg/dL (80-110); HEMOLYSIS < 15 (0-50); Magnesium 1.6 mg/dL (1.6-2.3); Potassium 3.4 mmol/L (3.4-5.1); Sodium 138 mmol/L (137-145)
[2019-06-05 07:35] VITALS: BP 170/77; PULSE 82; RESP 17; TEMP 37.6; O2SAT 92
[2019-06-05] MEDS: HEPARIN 5,000 UNIT/ML VIAL 5000 UNIT SUBCUT ×2 (08:38→20:40)
[2019-06-05] MEDS: dilTIAZem CD 180 MG CAP PO (08:38)
[2019-06-05] MEDS: SPIRONOLACTONE 25 MG TABLET PO (08:39)
[2019-06-05] MEDS: PANTOPRAZOLE 40 MG VIAL IV ×2 (08:39→20:40)
[2019-06-05] MEDS: OXcarbazepine 150 MG TABLET 300 MG PO (08:39)
[2019-06-05] MEDS: LEVOTHYROXINE 25 MCG TABLET PO (11:18)
[2019-06-05] MEDS: ALBUTEROL INH (11:37)
--- NOTE | 2019-06-05 11:52 | P.PN_ITS ---
Subjective Subjective Date Patient Seen: 06/05/19 Time Patient Seen: 11:52 Interval history: Pt denies passing flatus. Denies nausea. She is having trouble with how sweet and tart the clear liquid diet is. She had some hallucinations after receiving lorazapam last night. She has passed some small stools. She says she is ambulating frequently. Exam Vital Signs (past 8 hours): - 06/05/19 04:00 06/05/19 07:35 Temperature 98.6 F 99.7 F H Pulse Rate 70 82 Respiratory Rate 18 17 Blood Pressure 163/82 H 170/77 H Pulse Oximetry 91 92 Fraction of Inspired Oxygen 25 Oxygen Delivery Method Room Air Oxygen Flow Rate 0 Narrative Exam Narrative: GENERAL: Alert, comfortable, sitting up in a chair. Answers questions promptly and appropriately. Vital signs noted. HENT: Normocephalic, atraumatic. Hearing intact. Oral mucosa is pink and moist. EYES: Conjunctiva pink, sclera white, no periorbital swelling. CARDIOVASCULAR: Regular rate. No pedal edema. RESPIRATORY: Non-tachypneic, breathing comfortably on room air. GASTROINTESTINAL: Skin incision c/d/i with abi and steri strips present; mildly distended, appropriate TTP GENITALURINARY: No flank tenderness. MUSCULOSKELETAL: Equal tone and mass bilaterally. SKIN: Warm, dry, soft, appropriate color for ethnicity. No other lesions, rashes, or wounds. NEURO: Alert and Oriented X 3. No gross sensory deficits, or cognitive issues. PSYCH: Appropriate affect and mood. Objective Labs Result Diagrams: 06/05/19 05:10 06/05/19 05:10 Labs: Laboratory Results - last 24 hr 06/05/19 06/05/19 05:10 05:10 WBC 6.0 RBC 3.10 L Hgb 9.3 L Hct 28.0 L MCV 90.4 MCH 30.0 MCHC 33.2 RDW 13.1 Plt Count 136 L Neut % (Auto) 71.9 Lymph % (Auto) 12.5 L [place] % (Auto) 11.8 Eos % (Auto) 3.5 Baso % (Auto) 0.3 Neut # (Auto) 4300 Lymph # (Auto) 700 L [place] # (Auto) 700 Eos # (Auto) 200 Baso # (Auto) 0 Sodium 138 Potassium 3.4 Chloride 102 Carbon Dioxide 28 BUN 14 Creatinine 1.23 H Estimated GFR 41.9 L BUN/Creatinine Ratio 11.4 Glucose 104 Calcium 8.2 L Magnesium 1.6 Assessment & Plan Assessment and plan (1) Partial bowel obstruction: Current visit: Yes Status: Acute (2) Bronchitis: Current visit: No Status: Acute (3) Renal insufficiency: Current visit: No Status: Chronic (4) Transient atrial fibrillation or flutter: Current visit: No Status: Acute (5) Atypical chest pain: Current visit: No Status: Acute (6) Persistent dry cough: Current visit: Yes Status: Acute Assessment & Plan narrative: This is an 83 yo woman with history of colon resection x 2 for diverticulitis and for colon cancer. She is POD#3 s/p laparotomy, SBR, and stricturoplasty. She may be having some early signs of return of bowel function, but I would not push forward until she passes gas rectally, which she has not done yet. Plan: Replete K to 4 and Mag to 2 (ordered) PO clears as tolerated, do not push, do not advance until approved by surgeon Ambulate as much as possible IV fluids if pt not able to take adequate PO for hydration Time Spent With Patient Time with patient: 15-24 minutes Quality VTE Deep Vein Thrombosis/Pulmonary Embolism Present on Admission: No
[2019-06-05 12:02] VITALS: BP 155/73; PULSE 79; RESP 20; TEMP 37; O2SAT 95
--- NOTE | 2019-06-05 12:21 | CM.DPC ---
DCP Cont: Was able to meet with patient this morning. She was sitting up in her bed, alert and oriented, pleasant. 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 Stated that she has worked at [employer] in [place], as well as [place]. 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 She is well known in her community. Patient has lived in [place] for approximately 8 years. Patient does have a daughter that lives in [place], that will be able to assist her. Daughter has been working out of home, she works for [employer]. Patient was concerned about not knowing if family members have the virus. Encouraged her to have them wear masks, as CDC recommends. Patient is having her diet advanced. She stated, she is starting to feel peristalis in her abdomen, but no BM or passing flatus as of yet. She has been up ambulating independently. P: DCP to continue to follow. Plan is for patient to go home once she is able to tolerate diet, and bowel function is restored. Vanessa Smith RN/[employer]
[2019-06-05] MEDS: POTASSIUM CHLORIDE 20 MEQ TAB 40 MEQ PO (12:22)
[2019-06-05] MEDS: MAGNESIUM SULFATE 2 GM/50 ML PIGGYBACK IV (12:22)
[2019-06-05] MEDS: SODIUM CHLORIDE 0.9% 250 ML 21 ML IV (12:55)
--- NOTE | 2019-06-05 13:36 | PT.IPTN ---
Current Diagnoses Bronchitis, not specified as acute or chronic (05/30/19) Partial intestinal obstruction, unspecified as to cause (05/30/19) Disorder of kidney and ureter, unspecified (05/30/19) Cough (05/30/19) Other chest pain (05/30/19) Surgery Performed Operation Date: 06/01/19 18:30 Actual Procedures p Exploratory Laparotomy, Stricturoplasty, Small bowel resection - Sobeida Crooks MD Physical Therapy Treatment Note M2 PT-IP Current Condition Start: 05/30/19 15:37 Freq: NEEDED Status: Active Protocol: Document 05/30/19 15:38 [facility] (Rec: 05/30/19 16:16 [facility] [id number]) Physical Therapy Current Condition Current Condition Evaluation Date 05/30/19 Treatment Diagnosis abdominal pain with early partial small bowel obstruction Onset Date 05/29/19 Precautions Other Precautions pt does not have her AFO's with her for ambulation Weight Bearing Status Weight Bearing Status Full Weight Bearing M3 PT-IP Subjective Start: 05/30/19 15:37 Freq: NEEDED Status: Active Protocol: Document 06/05/19 13:27 [facility] (Rec: 06/05/19 13:36 [facility] [id number]) Subjective Physical Therapy Visit Type Type Treatment Note Visit Start Time 11:40 Visit Stop Time 11:54 Total Visit Minutes 14 Number of AIR CONDITIONING UNIT ASSEMBLER Visits 0 Physical Therapy Visit Comments Patient Comments Pt just went for a walk with SUPERVISOR BLASTING and she thinks she is ready to be d.c from therapy but willing to do steps assessment. Therapy Pain Assessment Pain When Pain Assessed During Mobility M4 PT-IP Mobility and Gait Start: 05/30/19 15:37 Freq: NEEDED Status: Active Protocol: Document 06/05/19 13:27 [facility] (Rec: 06/05/19 13:36 [facility] [id number]) PT-Transfer Assessment Sit to and From Stand Sit to and from Stand Standby Assistance,Use of Upper Extremities Equipment Transfer Assistive Device Gait Belt,Front Wheeled Walker Transfers Transfer Destination Bedside Commode Transfer Technique Stand Step Pivot Transfer Ability Level of Assist Standby Assistance Comments Mobility Comments Pt was up in chair who just returned from a walk with SUPERVISOR BLASTING. Denies any discomfort. She agreed to attempt steps assessment. Pt stood up with SBA with FWW. She then amb towards sink counter which a platform step stool was placed on the floor. She then use the grab bar next to sink counter and walker on her left side to mimic her B hand rails at home. She was able to ascend by leading with R LE, and descend with LLE. Pt demonstrates safe step climbing x 3 times. She then amb back to chair and sat down with call light within reach Gait Assessment Gait Gait Assistance Required: Standby Assistance Distance (Feet) 10 Assistive Devices Assistive Device Gait Belt,Front Wheeled Walker Orthotic/Prosthetic Devices or Brace: No Gait Deviations General Gait Pattern Flexed Trunk Factors Limiting Gait Function Factors Limiting Gait Function Decreased Activity Tolerance, Pain Comments Gait Comments see mobility comments Stair Climbing Assessment Evaluation Level of Assist On Stairs Contact Guard Assistance Devices Stair Climbing Assistive Devices Left Railing,Right Railing Technique/Endurance Stair Climbing Direction Ascend and Descend Stair Climbing Technique Step to Step Number of Steps Climbed 1 Stair Climbing Set # Repetitions (reps) 3 Comments Stair Climbing Comments see mobility comments M5 PT-IP Objective Assessments Start: 05/30/19 15:37 Freq: NEEDED Status: Active Protocol: Document 06/03/19 12:46 [facility] (Rec: 06/03/19 12:53 [facility] [id number]) Orientation Orientation/Cognition Level of Alertness Alert Language Function Ability No Deficits Noted Safety Awareness Understands Safety Issues Memory Description No Deficits Noted Strength Lower Extremity Strength Assessment Bilaterally Impaired M6 PT-IP Treatment Start: 05/30/19 15:37 Freq: NEEDED Status: Active Protocol: Document 06/04/19 14:47 [facility] (Rec: 06/04/19 15:12 [facility] [id number]) Physical Therapy Treatment Education Education Provided Safety Other Treatments Other Treatment Performed discussed why to do log roll M7 PT-IP Assessment and Plan Start: 05/30/19 15:37 Freq: NEEDED Status: Active Protocol: Document 06/05/19 13:27 (Rec: 06/05/19 13:36 [id number]) PT Summary Assessment and Plan Summary Impairments Pain,ROM,Strength,Balance, Transfers,Gait Progress Towards Goals Safe For Discharge Assessment Summary steps climbing assessment today for d/c planning. Pt was able to complete 1 step x 3 with B support safely. Pt also has been ambulating independently multiple times a day and demonstrates no safety concern. Pt will be safe to d/c home at this point regarding mobility standpoint . Per note, Patient does have a daughter that lives in [place], that will be able to assist her. Daughter has been working out of home, she works for [employer] Frequency of Treatment Frequency Of Treatment Discharge Recommendations To Nursing Amount of Assist Needed Standby Assistance Discharge Recommendations PT Discharge Recommendations Home with Assistance Transportation Needs at Discharge Private Vehicle
--- NOTE | 2019-06-05 14:36 | PC.NURSE ---
Pt up in chair most of day, ambulated x 2 around nurse's station. No nausea, bowel tones present, denies passing flatus. Taking po fluids slowly, states things tast too sweet or too tart. Dr Crooks in to see pt, consulted tire worker to help with po fluid choices. Pain meds offered though out shift, pt refused. PO potassium and IV magnesium given as ordered.
[2019-06-05 16:00] VITALS: BP 158/70; PULSE 74; RESP 18; TEMP 36.6; O2SAT 98
[2019-06-05] MEDS: OXcarbazepine 150 MG TABLET PO (17:30)
--- NOTE | 2019-06-05 17:46 | PM.PN.1 ---
Subjective Subjective Date Patient Seen: 06/05/19 Interval history: Patient is 83-year-old female status post exploratory laparotomy for lysis of adhesions. She is moving gas. She has advanced to a clear liquid diet but does not like the diet. She continues to have a productive cough she denies any shortness of breath. Exam Vital Signs (past 8 hours): - 06/05/19 12:02 06/05/19 16:00 Temperature 98.6 F 97.8 F Pulse Rate 79 74 Respiratory Rate 20 18 Blood Pressure 155/73 H 158/70 H Pulse Oximetry 95 98 Fraction of Inspired Oxygen 25 Oxygen Delivery Method Room Air Oxygen Flow Rate 0 Narrative Exam Narrative: Pleasant female resting comfortably in no obvious distress Lungs: Decreased breath sounds but clear to auscultation Cardiac exam: Regular rate and rhythm normal S1-S2 with a 2/6 systolic ejection murmur Abdomen: Soft, nontender, positive bowel tones midline abi in place there is no erythema or exudates no board-like rigidity, no rebound tenderness no palpable mass Extremities: No edema Objective Labs Result Diagrams: 06/05/19 05:10 06/05/19 05:10 Labs: Laboratory Results - last 24 hr 06/05/19 06/05/19 05:10 05:10 WBC 6.0 RBC 3.10 L Hgb 9.3 L Hct 28.0 L MCV 90.4 MCH 30.0 MCHC 33.2 RDW 13.1 Plt Count 136 L Neut % (Auto) 71.9 Lymph % (Auto) 12.5 L [place] % (Auto) 11.8 Eos % (Auto) 3.5 Baso % (Auto) 0.3 Neut # (Auto) 4300 Lymph # (Auto) 700 L [place] # (Auto) 700 Eos # (Auto) 200 Baso # (Auto) 0 Sodium 138 Potassium 3.4 Chloride 102 Carbon Dioxide 28 BUN 14 Creatinine 1.23 H Estimated GFR 41.9 L BUN/Creatinine Ratio 11.4 Glucose 104 Calcium 8.2 L Magnesium 1.6 Assessment & Plan Assessment & Plan narrative: Partial small-bowel obstruction, present on admission, active --status post exploratory laparotomy with small-bowel resection and lysis of extensive adhesions on 06/01/[address] Crooks -extubated following day on 06/02/2019 -NG tube removed, patient's diet has advanced to clear liquids -surgery following -surgery request slow advance of her diet, hopefully she will advance to full liquids tomorrow, it is a home and 1-2 days 2. Chronic atrial fibrillation and sick sinus syndrome, chronic, present on admission. Stable. -Patient is followed by Cardiology, Dr. Machado. -Patient is not on anticoagulation. 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 -Continue diltiazem 180 mg daily. -rate currently controlled 3. Hypertension, chronic, present on admission. Stable. -Continue diltiazem 180 mg daily and spironolactone 25 mg daily. 4. Hyperlipidemia, chronic, present on admission. Stable. -Held rosuvastatin 5 mg daily. 5. Trigeminal neuralgia, chronic, present on admission. Stable. -Continue oxcarbazepine 300 mg daily in the morning and 150 mg daily in the evening. 6. Hypothyroidism, chronic, present on admission. Stable. -TSH normal at 4.45. -Continue levothyroxine 25 mcg daily. 7. Anxiety, chronic, present on admission. Stable. -Continue lorazepam 0.5 mg 3 times daily as needed for anxiety. 8. Mild interstitial restrictive lung disease, chronic, present on admission. Stable. -Chest x-ray did not demonstrate any acute cardiopulmonary process. -Patient was recently treated outpatient by her PCP with a course of Augmentin and another course of levofloxacin for pneumonia. -COVID-19 negative on 05/31/2019 -Continue albuterol inhaler 2 puffs every 4 hours as needed for shortness of breath or wheezing. 9. Chronic kidney disease stage 3, stable -admit creatinine 1.30, lytes stable -monitor renal function periodically Code status: Full code VTE prophylaxis: SQ Heparin Quality VTE Deep Vein Thrombosis/Pulmonary Embolism Present on Admission: No
[2019-06-05 20:00] VITALS: BP 155/72; PULSE 75; RESP 20; TEMP 36.9; O2SAT 95
[2019-06-05] MEDS: MORPHINE 2 MG/ML INJ IV (20:41)
[2019-06-06] MEDS: ALBUTEROL INH (01:28)
[2019-06-06 01:30] VITALS: BP 171/80; PULSE 82; RESP 22; TEMP 37.2; O2SAT 93
[2019-06-06 04:50] VITALS: BP 153/70; PULSE 80; RESP 18; TEMP 37.2; O2SAT 91
[2019-06-06] MEDS: LEVOTHYROXINE 25 MCG TABLET PO (04:51)
[2019-06-06 05:17] LABS: Add Manual Diff / Slide Review NO; Basophils Absolute Auto 0 /uL (0-100); Basophils Percent Auto 0.5 % (0-2); Eosinophils Absolute Auto 300 /uL (0-450); Eosinophils Percent Auto 4.9 % (2-4); Hematocrit 28.1 % (36-46); Hemoglobin 9.5 g/dL (12.0-16.0); Lymphocytes Absolute Auto 800 /uL (1100-4500); Mean Corpuscular HGB Conc 33.7 % (30-36); Mean Corpuscular Hemoglobin 30.3 PG (26-34); Mean Corpuscular Volume 89.9 fL (80-100); Monocytes Absolute Auto 800 /uL (0-900); Monocytes Percent Auto 12.7 % (3-14); Neutrophils Absolute Auto 4000 /uL (1500-7000); Neutrophils Percent Auto 67.9 % (50-75); Platelet Count 151 X10^3/uL (150-400); Red Blood Cell Count 3.12 X10^6/uL (4.0-5.2); Red Cell Distribution Width 12.8 % (11.6-14.8); White Blood Cell Count 5.9 X10^3/uL (4.5-11.0)
[2019-06-06 05:45] LABS: BUN Creatinine Ratio 9.6 (6-22); Blood Urea Nitrogen 12 mg/dL (7-17); Calcium 8.5 mg/dL (8.4-10.2); Carbon Dioxide 27 mmol/L (22-32); Chloride 102 mmol/L (98-107); Estimated Glomerular Filt Rate 41.1 mL/min (>60); Glucose 93 mg/dL (80-110); HEMOLYSIS < 15 (0-50); Magnesium 1.9 mg/dL (1.6-2.3); Potassium 3.7 mmol/L (3.4-5.1); Sodium 138 mmol/L (137-145)
[2019-06-06] MEDS: POTASSIUM CHLORIDE 20 MEQ TAB PO (06:28)
[2019-06-06 08:41] VITALS: BP 169/73; PULSE 96; RESP 18; TEMP 37; O2SAT 97
[2019-06-06] MEDS: HEPARIN 5,000 UNIT/ML VIAL 5000 UNIT SUBCUT ×2 (10:40→21:42)
[2019-06-06] MEDS: PANTOPRAZOLE 40 MG VIAL IV (10:41)
[2019-06-06] MEDS: SODIUM CHLORIDE 0.9% FLUSH 10 ML IV ×2 (10:41→21:43)
--- NOTE | 2019-06-06 11:43 | PC.NURSE ---
Addendum entered by Perlita Ordonez R.N. 06/06/19 15:31: another bout of loose stool and small emesis- pt reports feeling much better- has not taken any of her po meds yet this date- dread shift aware Addendum entered by Perlita Ordonez R.N. 06/06/19 12:58: PT HAD LARGE BM BOTH LIQUID AND SOME SOFT FORMED CIRCULAR BALLS - GOT BACK IN BED TO REST - DECLINING FULL LIQUIDS AT THIS TIME- WILL TAKE PO MEDS WHEN SHE AWAKENS SHE STATES Original Note: PT WITH ABD CRAMPING AND NO BM - HAS BEEN PASSING LOTS OF GAS BOTH FROM BOTTOM AND MOUTH- INTERMITTENT ATTEMPTS AT HAVING BM- APPEARS UNCOMFORTABLE AND IS AMBULATING FEW TIMES EACH SHIFT OUT OF ROOM- ADVANCED TO FULL LIQUIDS ENCOURAGED USE OF PO PAIN RX- SHE HAS DECLINED THUS FAR
--- NOTE | 2019-06-06 12:16 | P.PN_ITS ---
Subjective Subjective Date Patient Seen: 06/06/19 Time Patient Seen: 12:16 Interval history: No acute events overnight. Pt tolerating PO clears. Passing gas and stool. c/o significant discomfort from crampy abdominal pain. Denies nausea. C/o burping. Exam Vital Signs (past 8 hours): - 06/06/19 04:50 06/06/19 08:41 Temperature 99.0 F 98.6 F Pulse Rate 80 96 H Respiratory Rate 18 18 Blood Pressure 153/70 H 169/73 H Pulse Oximetry 91 97 Fraction of Inspired Oxygen 25 Oxygen Delivery Method Room Air Oxygen Flow Rate 0 Narrative Exam Narrative: GENERAL: Lying in bed with eyes closed. Answers questions promptly and appropriately. Vital signs noted. HENT: Normocephalic, atraumatic. Hearing intact. Oral mucosa is pink and moist. EYES: Conjunctiva pink, sclera white, no periorbital swelling. CARDIOVASCULAR: Regular rate. No pedal edema. RESPIRATORY: Non-tachypneic, breathing comfortably on room air. GASTROINTESTINAL: Skin incision c/d/i with abi and steri strips present; mildly distended, appropriate TTP GENITALURINARY: No flank tenderness. MUSCULOSKELETAL: Equal tone and mass bilaterally. SKIN: Warm, dry, soft, appropriate color for ethnicity. No other lesions, rashes, or wounds. NEURO: Alert and Oriented X 3. No gross sensory deficits, or cognitive issues. PSYCH: Appropriate affect and mood. Objective Labs Result Diagrams: 06/06/19 04:52 06/06/19 04:52 Labs: Laboratory Results - last 24 hr 06/06/19 06/06/19 04:52 04:52 WBC 5.9 RBC 3.12 L Hgb 9.5 L Hct 28.1 L MCV 89.9 MCH 30.3 MCHC 33.7 RDW 12.8 Plt Count 151 Neut % (Auto) 67.9 Lymph % (Auto) 14.0 L [place] % (Auto) 12.7 Eos % (Auto) 4.9 H Baso % (Auto) 0.5 Neut # (Auto) 4000 Lymph # (Auto) 800 L [place] # (Auto) 800 Eos # (Auto) 300 Baso # (Auto) 0 Sodium 138 Potassium 3.7 Chloride 102 Carbon Dioxide 27 BUN 12 Creatinine 1.25 H Estimated GFR 41.1 L BUN/Creatinine Ratio 9.6 Glucose 93 Calcium 8.5 Magnesium 1.9 Assessment & Plan Assessment and plan (1) Partial bowel obstruction: Problem details: Resolved s/p ex lap and resection of bowel, stricturoplasty Current visit: Yes Status: Acute (2) Bronchitis: Current visit: No Status: Acute (3) Renal insufficiency: Current visit: No Status: Chronic (4) Transient atrial fibrillation or flutter: Current visit: No Status: Acute (5) Atypical chest pain: Current visit: No Status: Acute (6) Persistent dry cough: Current visit: Yes Status: Acute Assessment & Plan narrative: This is an 83 yo woman with history of colon resection x 2 for diverticulitis and for colon cancer. She is POD#4 s/p lapar otomy, SBR, and stricturoplasty. She is passing gas and stool. She c/o crampy abdominal pain and burping. Plan: Advance diet to full liquid as tolerated PO pain med, tylenol and oxydocone PRN Replete K to 4 and Mag to 2 (ordered) Ambulate as much as possible Dispo pending pain control with PO pain med, pt tolerating a diet, and labs stable Time Spent With Patient Time with patient: 15-24 minutes Quality VTE Deep Vein Thrombosis/Pulmonary Embolism Present on Admission: No
--- NOTE | 2019-06-06 12:36 | DIET.PN ---
Dietary Progress Note Assessment: Pt resting during assessment. Reports she just had a large BM and was not really up for eating. Diet progressed to full liquid. Pt complained of difficulty with clear liquid diet as foods were either too tart or too sweet. She is relieved at this progression. HT: 160.02cm WT: 87.1kg PO's: few bites - 50% Interventions: 1. Discussed full liquid diet with patient. Pt with good understanding. 2. Pt agrees to high pro smoothies as she does not like ensure supplements. Diet Order: full liquid Monitoring/Evaluations: diet tolerance, PO intake, diet advance w/ low fiber education
--- NOTE | 2019-06-06 13:49 | PM.PN.1 ---
Subjective Subjective Date Patient Seen: 06/06/19 Time Patient Seen: 08:50 Interval history: Patient is 83-year-old female status post exploratory laparotomy for lysis of adhesions. She is moving gas. She feels like she has to go to the bathroom but has not yet had a bowel movement. She has had some bloating. Per surgery she was advanced to full liquid diet. Currently awaiting return of bowel function. She denies any fevers, chills, chest pain, worsening shortness of breath, cough. She has chronic dyspnea on exertion which is unchanged. Exam Vital Signs (past 8 hours): - 06/06/19 08:41 Temperature 98.6 F Pulse Rate 96 H Respiratory Rate 18 Blood Pressure 169/73 H Pulse Oximetry 97 Fraction of Inspired Oxygen 25 Oxygen Delivery Method Room Air Oxygen Flow Rate 0 Narrative Exam Narrative: GENERAL APPEARANCE: Well developed, well nourished, in no acute distress. Sitting upright in hospital chair. SKIN: Inspection of the skin reveals no rashes, ulcerations or petechiae. HEENT: Normocephalic atraumatic, extraocular muscles are intact, oropharynx is clear and mucous membranes are moist, neck is supple without adenopathy NECK: Supple and symmetric. There was no thyroid enlargement, and no tenderness, or masses were felt. CHEST: Normal AP diameter and normal contour without any kyphoscoliosis. LUNGS: Auscultation of the lungs revealed no wheezes, rhonchi, or rales. CARDIOVASCULAR: There was a regular rate and rhythm without any gallops, rubs. There is a 2 to 3/6 systolic murmur. Peripheral pulses were 2+ and symmetric. ABDOMEN: Midline lower abdominal incision is clear dry and intact with abi. No erythema or induration. Her abdomen is nondistended and appropriately tender. MUSCULOSKELETAL: There was no tenderness or effusions noted. Muscle strength and tone were normal. EXTREMITIES: No cyanosis, clubbing or edema. NEUROLOGIC: Alert and oriented x 3. Normal affect. Gait was normal. Strength is +5/5 in the Upper Extremities and Lower Extremities Bilaterally. Sensation to touch was normal. Objective Labs Result Diagrams: 06/06/19 04:52 06/06/19 04:52 Labs: Laboratory Results - last 24 hr 06/06/19 06/06/19 04:52 04:52 WBC 5.9 RBC 3.12 L Hgb 9.5 L Hct 28.1 L MCV 89.9 MCH 30.3 MCHC 33.7 RDW 12.8 Plt Count 151 Neut % (Auto) 67.9 Lymph % (Auto) 14.0 L [place] % (Auto) 12.7 Eos % (Auto) 4.9 H Baso % (Auto) 0.5 Neut # (Auto) 4000 Lymph # (Auto) 800 L [place] # (Auto) 800 Eos # (Auto) 300 Baso # (Auto) 0 Sodium 138 Potassium 3.7 Chloride 102 Carbon Dioxide 27 BUN 12 Creatinine 1.25 H Estimated GFR 41.1 L BUN/Creatinine Ratio 9.6 Glucose 93 Calcium 8.5 Magnesium 1.9 Assessment & Plan Assessment & Plan narrative: Clara Delatorre is an 83-year-old female with past medical history of chronic atrial fibrillation, sick sinus syndrome, hypertension, hyperlipidemia, hypothyroidism, restrictive lung disease, and CKD 3 who was admitted with a partial small-bowel obstruction now status post laparotomy with small-bowel resection and lysis of adhesions. She is being advanced to full liquid diet today and we are currently awaiting return of bowel function prior to likely discharge home. 1. Partial small-bowel obstruction, present on admission, active -status post exploratory laparotomy with small-bowel resection and lysis of extensive adhesions on 06/01/[address] Crooks -extubated following day on 06/02/2019 -NG tube removed, patient's diet has advanced to clear liquids -surgery following, appreciate recommendations. -surgery request slow advance of her diet, she was advanced to full liquids today. 2. Chronic atrial fibrillation and sick sinus syndrome, chronic, present on admission. Stable. -Patient is followed by Cardiology, Dr. Machado. -Patient is not on anticoagulation. 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 -Continue diltiazem 180 mg daily. -rate currently controlled 3. Hypertension, chronic, present on admission. Stable. -Continue diltiazem 180 mg daily and spironolactone 25 mg daily. 4. Hyperlipidemia, chronic, present on admission. Stable. -Held rosuvastatin 5 mg daily. 5. Trigeminal neuralgia, chronic, present on admission. Stable. -Continue oxcarbazepine 300 mg daily in the morning and 150 mg daily in the evening. 6. Hypothyroidism, chronic, present on admission. Stable. -TSH normal at 4.45. -Continue levothyroxine 25 mcg daily. 7. Anxiety, chronic, present on admission. Stable. -Continue lorazepam 0.5 mg 3 times daily as needed for anxiety. 8. Mild interstitial restrictive lung disease, chronic, present on admission. Stable. -Chest x-ray did not demonstrate any acute cardiopulmonary process. -Patient was recently treated outpatient by her PCP with a course of Augmentin and another course of levofloxacin for pneumonia. -COVID-19 negative on 05/31/2019 -Continue albuterol inhaler 2 puffs every 4 hours as needed for shortness of breath or wheezing. 9. Chronic kidney disease stage 3, stable -admit creatinine 1.30, lytes stable -monitor renal function periodically Code status: Full code VTE prophylaxis: SQ Heparin Dispo: Awaiting return of bowel function prior to discharge home. Anticipate discharge in the next 24-48 hours given current progression. Quality VTE Deep Vein Thrombosis/Pulmonary Embolism Present on Admission: No
[2019-06-06 15:57] VITALS: BP 165/85; PULSE 112; RESP 22; TEMP 37.8; O2SAT 95
[2019-06-06] MEDS: ONDANSETRON 4 MG/2 ML INJ IV (16:40)
[2019-06-06] MEDS: ACETAMINOPHEN 325 MG TABLET 650 MG PO (17:01)
[2019-06-06] MEDS: OXcarbazepine 150 MG TABLET PO (17:01)
[2019-06-06] MEDS: dilTIAZem CD 180 MG CAP PO (17:01)
--- NOTE | 2019-06-06 17:52 | PC.NURSE ---
Addendum entered by Agueda Sky R.N. 06/06/19 22:14: 2100 - Pt with significant large inc liquid stool. Linen change. Up to BSC. Reports intermittent abd cramping. Hospitalist notified of multiple liquid stools, low grade temp and hx of multiple abx prior to admission r/t pneumonia. Order obtained to send stool sample. Pt on enteric precautions pending results. Addendum entered by Agueda Sky R.N. 06/06/19 19:15: 1900 - Pt requesting nausea medication. Upon further discussion, pt reports not currently being nauseated, however she is concerned that repositioning with cause return of nausea. Encouraged slow movement, assisted pt to reposition. Assist with comfort measures. Pt denies return of nausea and need for additional nausea medication. Monitor. Call light in reach. Original Note: 1700 - Pt reports need to use the bathroom. Up to BSC, inc of liquid stool. Pt states I just feel drained. C/o nausea and discomfort. Zofran given. Educated to pain control, reinforced IS use and discussed ambulation. APAP given for temp and discomfort. Assist to position for comfort in bed. Call light in reach. Pt requested that this RN update her daughter. Just let her know I am not feeling well, and not up for talking. Call placed to Shannan.
[2019-06-06 19:00] VITALS: TEMP 37.7
[2019-06-06] MEDS: PANTOPRAZOLE 20 MG TABLET PO (21:45)
[2019-06-07 00:50] VITALS: TEMP 37.1
[2019-06-07 02:00] VITALS: BP 94/50; PULSE 87; RESP 18; TEMP 37.1; O2SAT 92
[2019-06-07 03:16] LABS: Clostridium Difficile Tox PCR Negative for C. diff
[2019-06-07 05:42] LABS: BUN Creatinine Ratio 11.6 (6-22); Blood Urea Nitrogen 17 mg/dL (7-17); Carbon Dioxide 25 mmol/L (22-32); Chloride 101 mmol/L (98-107); Estimated Glomerular Filt Rate 34.4 mL/min (>60); Glucose 97 mg/dL (80-110); HEMOLYSIS < 15 (0-50); Magnesium 1.6 mg/dL (1.6-2.3); Potassium 3.4 mmol/L (3.4-5.1); Sodium 135 mmol/L (137-145)
[2019-06-07 05:46] LABS: Hematocrit 29.4 % (36-46); Mean Corpuscular Hemoglobin 30.5 PG (26-34); Mean Corpuscular Volume 89.8 fL (80-100); Platelet Count 181 X10^3/uL (150-400); Red Blood Cell Count 3.28 X10^6/uL (4.0-5.2); White Blood Cell Count 3.4 X10^3/uL (4.5-11.0)
[2019-06-07 05:48] LABS: Add Manual Diff / Slide Review YES
--- NOTE | 2019-06-07 06:09 | DI.RAD.S_ITS ---
PROCEDURE: XR KUB INDICATIONS: eval ileus after small bowel obstruction surgery TECHNIQUE: One view of the abdomen acquired. COMPARISON: [facility], CR, XR ABDOMEN 1V, 05/31/2019, 14:39. [facility], CR, XR CHEST 1V, 06/02/2019, 0:14. [facility], RF, [place] SMALL BOWEL FOLLOW THROUGH, 06/01/2019, 9:19. [facility], CR, XR ABDOMEN MIN 2V, 06/04/2019, 8:12. [facility], CR, XR KUB, 05/31/2019, 8:53. FINDINGS: Surgical changes and devices: Skin abi are seen. There are surgical clips in pelvis. Bilateral hip arthroplasties. Bowel: Bowel gas pattern is nonobstructive. Soft tissues: No suspicious abdominal calcifications. Visualized solid organ contours appear normal in size. Bones: No suspicious bony lesions. IMPRESSION: Nonobstructive bowel gas pattern. Dictated by: Naresh Ga M.D. on 06/07/2019 at 8:49 Approved by: Naresh Ga M.D. on 06/07/2019 at 8:54
[2019-06-07] MEDS: PANTOPRAZOLE 20 MG TABLET PO (06:27)
[2019-06-07] MEDS: LEVOTHYROXINE 25 MCG TABLET PO (06:27)
[2019-06-07] MEDS: MAGNESIUM SULFATE 2 GM/50 ML PIGGYBACK IV (06:29)
[2019-06-07 06:46] VITALS: BP 106/56; RESP 18; O2SAT 97
[2019-06-07 07:20] LABS: Neutrophils Absolute Manual 1428 /uL (3000-5900); Total Cells Counted 100
[2019-06-07 07:21] LABS: Dohle Bodies 2+; Polychromasia 1+; Toxic Vacuolation Present
[2019-06-07 07:45] VITALS: BP 106/57; PULSE 68; RESP 18; TEMP 36.8; O2SAT 93
[2019-06-07] MEDS: OXcarbazepine 150 MG TABLET 300 MG PO (08:46)
[2019-06-07] MEDS: SPIRONOLACTONE 25 MG TABLET PO (08:47)
--- NOTE | 2019-06-07 09:11 | CM.DPC ---
Addendum entered by Kanika Monk LPN 06/07/19 10:34: Discussed POC in Team Rounds. Dr. Hernandez stated c-diff had returned: - result Pt will d/c to home today to continue her recovery. Appt is set up with Dr. Crooks on 06/13. Original Note: DCP: continued: Case again received and EMR for last 4 days is reviewed. Note that pt as of last night is having copious liquid stools and stool specimens has been sent for testing. Pt is now transitioning to full liquid diet. [employer] is following. Hospitalist and surgical teams continue to follow pt. Today she is post of day 6 for small bowel resection and extensive WHIT. P: remains home with daughter to stay with her when she is stable for same.
[2019-06-07] MEDS: dilTIAZem CD 180 MG CAP PO (10:00)
[2019-06-07] MEDS: POTASSIUM CHLORIDE 20 MEQ TAB PO (10:00)
[2019-06-07] MEDS: MAGNESIUM OXIDE 400 MG TABLET PO (10:01)
--- NOTE | 2019-06-07 10:05 | P.DS_ITS ---
History of Present Illness History of Present Illness Date Patient Seen: 06/07/19 Time Patient Seen: 08:30 Chief complaint: ABD Pain Narrative: As per Dr. Magana: Clara Delatorre is an 83-year-old female with a past medical history significant for hypertension, hyperlipidemia, chronic kidney disease stage 3, chronic atrial fibrillation (patient unaware of diagnosis but EKGs that date back to 2012 appear to be atrial fibrillation), sick sinus syndrome, aortic stenosis, mild interstitial restrictive lung disease, hypothyroidism, diverticulitis and colon cancer status post partial colon resections x2, trigeminal neuralgia, anxiety, and peripheral neuropathy with bilateral footdrop who presented to the ED with abrupt onset sharp crampy abdominal pain. The patient reports that she ate a yogurt late last night and approximately 1 hour later had sharp crampy abdominal pain. The abdominal pain was located in her mid abdomen and radiated to low abdomen. She reports that the pain was progressive and gradually worsened becoming quite severe. She has never had a pain like this before. She tried calling her doctor's office and was instructed that it would be approximately 1 hour wait time and decided to call 911 due to significant pain. She had an episode of nausea with vomiting in the ED but believes this was related to narc otic administration. She reports her pain is now controlled with morphine. She recently had pneumonia and was treated as an outpatient by her PCP with 2 courses of antibiotics including Augmentin and levofloxacin. She was tested for COVID19 on 05/10/2019 which was negative. She continues to have dry nonproductive cough. Plan to recheck for COVID19. She endorses IBS and has intermittent constipation and loose stool. She has no other complaints and denies headache, chest pain, shortness of breath, nausea, vomiting, fever, chills, dysuria, diarrhea or constipation. CT abdomen and pelvis with contrast demonstrated small bowel obstruction with a transition point in the anterior lower abdomen. She was admitted inpatient for small-bowel obstruction with bowel rest and pain control. PCP Dr. Minaya Discharge Providers Provider Date of admission: 05/30/19 03:57 Discharge Date: 06/07/19 Primary care physician: Candido Minaya MD Consults: 05/30/19 07:49 Consult to General Surgery Routine Comment: Consulting Provider: Sobeida Crooks Reason for consultation: SBO Has provider been notified: Yes 05/30/19 09:03 Consult to Physical Therapy Evaluate & Treat Comment: Physician Instructions: Evaluate and Treat 06/02/19 00:10 Consult to Dietitian, Adult Routine Comment: Reason For Exam: Patient on Ventilator and NPO 06/03/19 11:07 Consult to Occupational Therapy Evaluate & Treat Comment: Physician Instructions: Evaluate and treat 06/05/19 11:59 Consult to Dietitian, Adult Routine Comment: Pt not tolerating sweet and tart flavored clears Reason For Exam: any clear supplements that are not sweet/tart? Discharge provider: Minh Hernandez DO Summary Hospital Course Discharge Diagnosis: Please see hospital course by problem list noted below. Hospital Course: Clara Delatorre is an 83-year-old female with past medical history of chronic atrial fibrillation, sick sinus syndrome, hypertension, hyperlipidemia, hypothyroidism, restrictive lung disease, and CKD 3 who was admitted with a partial small-bowel obstruction now status post laparotomy with small-bowel resection and lysis of adhesions. She did well after surgery and h ad return of bowel function on postoperative day 5. She was tolerating a diet and ambulating well with adequate pain control and was discharged home after return of bowel function. She will follow-up with her surgeon, Dr. Crooks, next week 1. Partial small-bowel obstruction, present on admission, active -status post exploratory laparotomy with small-bowel resection and lysis of extensive adhesions on 06/01/[address] Crooks -extubated following day on 06/02/2019 -patient slowly recovered and had a relatively uneventful postoperative course. She had return of bowel function on postoperative day 5, and was tolerating a diet, ambulating well and was deemed stable for discharge home. 2. Chronic atrial fibrillation and sick sinus syndrome, chronic, present on admission. Stable. -Patient is followed by Cardiology, Dr. Machado. -Patient is not on anticoagulation. 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 -Continue diltiazem 180 mg daily. -rate currently controlled, no medication changes were made during this hospitalization. 3. Hypertension, chronic, present on admission. Stable. -Continue diltiazem 180 mg daily and spironolactone 25 mg daily. 4. Hyperlipidemia, chronic, present on admission. Stable. -Held rosuvastatin 5 mg daily during her admission, which can be resumed as an outpatient. 5. Trigeminal neuralgia, chronic, present on admission. Stable. -Continue oxcarbazepine 300 mg daily in the morning and 150 mg daily in the evening. 6. Hypothyroidism, chronic, present on admission. Stable. -TSH normal at 4.45. -Continue levothyroxine 25 mcg daily. 7. Anxiety, chronic, present on admission. Stable. -Continue lorazepam 0.5 mg 3 times daily as needed for anxiety. 8. Mild interstitial restrictive lung disease, chronic, present on admission. Stable. -Chest x-ray did not demonstrate any acute cardiopulmonary process. -Patient was recently treated outpatient by her PCP with a course of Augmentin and another course of levofloxacin for pneumonia. -COVID-19 negative on 05/31/2019 -Continue albuterol inhaler 2 puffs every 4 hours as needed for shortness of breath or wheezing. 9. Chronic kidney disease stage 3, stable -admit creatinine 1.30 10. Hypokalemia, acute -hypokalemia likely secondary to decreased p.o. intake given small-bowel obstruction. Patient was repleted multiple times during her hospital stay. 11. Hypomagnesemia, acute -likely secondary to decreased p.o. intake and small-bowel obstruction. Patient was repleted multiple times during her hospital stay. Dispo: Discharge home Status at Discharge Cognitive/behavioral status at discharge: oriented Functional status at discharge: independent ambulation Overall status at discharge: patient is progressing back to baseline Time Spent with Patient Time spent: Greater than 30 minutes Exam Vital Signs (past 8 hours): - 06/07/19 06:46 06/07/19 07:45 Temperature 98.3 F Pulse Rate 68 Respiratory Rate 18 18 Blood Pressure 106/56 L 106/57 L Pulse Oximetry 97 93 Fraction of Inspired Oxygen 25 Oxygen Delivery Method Room Air Oxygen Flow Rate 0 Narrative Exam Narrative: GENERAL APPEARANCE: Well developed, well nourished, in no acute distress. Sitting upright in hospital chair. SKIN: Inspection of the skin reveals no rashes, ulcerations or petechiae. HEENT: Normocephalic atraumatic, extraocular muscles are intact, oropharynx is clear and mucous membranes are moist, neck is supple without adenopathy NECK: Supple and symmetric. There was no thyroid enlargement, and no tenderness, or masses were felt. CHEST: Normal AP diameter and normal contour without any kyphoscoliosis. LUNGS: Auscultation of the lungs revealed no wheezes, rhonchi, or rales. CARDIOVASCULAR: There was a regular rate and rhythm without any gallops, rubs. There is a 2 to 3/6 systolic murmur. Peripheral pulses were 2+ and symmetric. ABDOMEN: Midline lower abdominal incision is clear dry and intact with abi. No erythema or induration. Her abdomen is nondistended and appropriately tender. MUSCULOSKELETAL: There was no tenderness or effusions noted. Muscle strength and tone were normal. EXTREMITIES: No cyanosis, clubbing or edema. NEUROLOGIC: Alert and oriented x 3. Normal affect. Gait was normal. Strength is +5/5 in the Upper Extremities and Lower Extremities Bilaterally. Sensation to touch was normal. Objective Labs Result Diagrams: 06/07/19 04:45 06/07/19 04:45 Labs: Laboratory Results - last 24 hr 06/07/19 06/07/19 06/07/19 02:20 04:45 04:45 WBC 3.4 L RBC 3.28 L Hgb 10.0 L Hct 29.4 L MCV 89.8 MCH 30.5 MCHC 34.0 RDW 13.0 Plt Count 181 Neut % (Auto) Not Reportable Lymph % (Auto) Not Reportable [place] % (Auto) Not Reportable Eos % (Auto) Not Reportable Baso % (Auto) Not Reportable Lymph # (Auto) Not Reportable [place] # (Auto) Not Reportable Baso # (Auto) Not Reportable Total Counted 100 Seg Neutrophils % 9.0 L Band Neutrophils % 33.0 H Lymphocytes % (Manual) 26.0 Atypical Lymphs % 1.0 H Monocytes % (Manual) 22.0 H Eosinophils % (Manual) 9.0 H Neutrophils # (Manual) 1428 L Toxic Vacuolation Present H Dohle Bodies 2+ H Plt Morphology Comment RBC Morphology See below Polychromasia 1+ H Sodium 135 L Potassium 3.4 Chloride 101 Carbon Dioxide 25 BUN 17 Creatinine 1.46 H Estimated GFR 34.4 L BUN/Creatinine Ratio 11.6 Glucose 97 Calcium 8.0 L Magnesium 1.6 C. difficile Tox (PCR) Negative for c. diff Discharge Plan Discharge Plan Patient Disposition: Home Discharge comment: You were admitted to the hospital with a small bowel obstruction. You underwent surgery and had some bowel resected. You did well following surgery and you started to regain bowel function. You have a follow up with Dr. Crooks next week, 06/14/2019 at 10am. Continue tylenol for pain control at home. Discharge orders & Medications Prescriptions: Continued albuterol sulfate 90 mcg/actuation HFA aerosol inhaler 2 puff INHALATION Q4-6H PRN (Reason: shortness of breath or wheezing) Qty: 8.5 RF: 0 (DME) Aerochamber Plus Z Stat Spacer See Rx Instructions .ROUTE .MEDSUPPLY Qty: 1 RF: 0 spironolactone 25 MG tablet 25 mg PO QDAY Qty: 0 RF: 0 oxcarbazepine [Trileptal] 300 MG tablet 300 mg PO BID Qty: 0 RF: 0 diltiazem HCl 180 mg Capsule,Extended Release 24 Hr 180 mg PO DAILY RF: 0 lorazepam 0.5 mg Tablet 0.5 mg BUCCAL BID-TID PRN (Reason: Anxiety) RF: 0 vitamin A & D gel 1 PO DAILY RF: 0 multivitamin Capsule 1 cap PO DAILY RF: 0 levothyroxine 25 mcg PO 0700 RF: 0 rosuvastatin [Crestor] 5 mg tablet 5 mg PO DAILY RF: 0 Discontinued amoxicillin-pot clavulanate 875-125 mg tablet 1 tab PO BID RF: 0 Follow up/Referrals: Candido Minaya MD [Primary Care Provider] - Sobeida Crooks MD [Physician] - 06/14/19 10:00 am (appt:06/13 @ 10:[address] crooks [phone]) Discharge Health Status Health Concerns: small bowel obstruction Diet/Activity/Treatments Diet: Diet as Tolerated Diet comment: Advance diet as tolerated from Full liquids Activity: As tolerated, no heavy lifting after abdominal surgery. No lifting more than 10 lbs, no strenuous activity for six weeks after surgery. Skin/Wound/Dressing Care Other wound treatment: Staple removal at surgical follow up. Okay to shower. Visit Report/Discharge Packet Instructions: DI for Small Bowel Obstruction, DI for Lysis of Adhesions Discharge Data Primary Care Provider: Candido Minaya V Quality VTE Deep Vein Thrombosis/Pulmonary Embolism Present on Admission: No
--- NOTE | 2019-06-07 10:39 | P.PN_ITS ---
Subjective Subjective Date Patient Seen: 06/07/19 Time Patient Seen: 10:46 Interval history: Pt says she feels much better and would like to go home. Pain is improved and she denies nausea. Passing gas and stool. Ambulating well. Exam Vital Signs (past 8 hours): - 06/07/19 06:46 06/07/19 07:45 Temperature 98.3 F Pulse Rate 68 Respiratory Rate 18 18 Blood Pressure 106/56 L 106/57 L Pulse Oximetry 97 93 Fraction of Inspired Oxygen 25 Oxygen Delivery Method Room Air Oxygen Flow Rate 0 Narrative Exam Narrative: GENERAL: Ambulating in the unit, smiling HENT: Normocephalic, atraumatic. Hearing intact. Oral mucosa is pink and moist. EYES: Conjunctiva pink, sclera white, no periorbital swelling. CARDIOVASCULAR: Regular rate. No pedal edema. RESPIRATORY: Non-tachypneic, breathing comfortably on room air. GASTROINTESTINAL: Skin incision c/d/i with abi and steri strips present; mildly distended, appropriate TTP GENITALURINARY: No flank tenderness. MUSCULOSKELETAL: Equal tone and mass bilaterally. SKIN: Warm, dry, soft, appropriate color for ethnicity. No other lesions, rashes, or wounds. NEURO: Alert and Oriented X 3. No gross sensory deficits, or cognitive issues. PSYCH: Appropriate affect and mood. Objective Imaging Abdominal x-ray: My impression: IMproved, normal gas pattern Labs Result Diagrams: 06/07/19 04:45 06/07/19 04:45 Labs: Laboratory Results - last 24 hr 06/07/19 06/07/19 06/07/19 02:20 04:45 04:45 WBC 3.4 L RBC 3.28 L Hgb 10.0 L Hct 29.4 L MCV 89.8 MCH 30.5 MCHC 34.0 RDW 13.0 Plt Count 181 Neut % (Auto) Not Reportable Lymph % (Auto) Not Reportable [place] % (Auto) Not Reportable Eos % (Auto) Not Reportable Baso % (Auto) Not Reportable Lymph # (Auto) Not Reportable [place] # (Auto) Not Reportable Baso # (Auto) Not Reportable Total Counted 100 Seg Neutrophils % 9.0 L Band Neutrophils % 33.0 H Lymphocytes % (Manual) 26.0 Atypical Lymphs % 1.0 H Monocytes % (Manual) 22.0 H Eosinophils % (Manual) 9.0 H Neutrophils # (Manual) 1428 L Toxic Vacuolation Present H Dohle Bodies 2+ H Plt Morphology Comment RBC Morphology See below Polychromasia 1+ H Sodium 135 L Potassium 3.4 Chloride 101 Carbon Dioxide 25 BUN 17 Creatinine 1.46 H Estimated GFR 34.4 L BUN/Creatinine Ratio 11.6 Glucose 97 Calcium 8.0 L Magnesium 1.6 C. difficile Tox (PCR) Negative for c. diff Assessment & Plan Assessment and plan (1) Partial bowel obstruction: Problem details: Resolved s/p ex lap and resection of bowel, stricturoplasty Current visit: Yes Status: Acute (2) Bronchitis: Current visit: No Status: Acute (3) Renal insufficiency: Current visit: No Status: Chronic (4) Transient atrial fibrillation or flutter: Current visit: No Status: Acute (5) Atypical chest pain: Current visit: No Status: Acute (6) Persistent dry cough: Current visit: Yes Status: Acute Assessment & Plan narrative: This is an 83 yo woman with history of colon resection x 2 for diverticulitis and for colon cancer. She is POD#5 s/p laparotomy, SBR, and stricturoplasty. She is passing gas and stool. Pain has improved and she is passing gas and stool well. Plan: Advance diet as tolerated PO pain med, tylenol and oxydocone PRN Replete K to 4 and Mag to 2 (ordered) Ambulate as much as possible Dispo pending pain control with PO pain med, pt tolerating a diet, and labs stable Time Spent With Patient Time with patient: 15-24 minutes Quality VTE Deep Vein Thrombosis/Pulmonary Embolism Present on Admission: No
== END 2019-06-07 14:19 | disposition home or self-care (01) | DRG 330 ==
LOC: ED 03:47 → AC 08:56 → ICU 06-01 23:52
PROVIDERS: Internal Medicine; Nurse Practitioner Adult Health; Surgery; Admitting Provider Family Medicine; Emergency Provider Emergency Medicine; Family Provider Internal Medicine; PCP Internal Medicine; Referring Provider Emergency Medicine; Visit Provider Family Medicine
PROC: 0DB80ZZ Excision of Small Intestine, Open Approach (ICD-10-PCS; CPT 49000; principal; 2019-06-01 18:30)
DX: K91.31 Postprocedural partial intestinal obstruction (principal); I48.20 Chronic atrial fibrillation, unspecified; J84.9 Interstitial pulmonary disease, unspecified; I49.5 Sick sinus syndrome; N18.3 Chronic kidney disease, stage 3 (moderate); I12.9 Hypertensive chronic kidney disease with stage 1 through stage 4 chronic kidney disease, or unspecified chronic kidney disease; E78.5 Hyperlipidemia, unspecified; I35.0 Nonrheumatic aortic (valve) stenosis; E03.9 Hypothyroidism, unspecified; F41.9 Anxiety disorder, unspecified; G50.0 Trigeminal neuralgia; G62.9 Polyneuropathy, unspecified; E87.6 Hypokalemia; E83.42 Hypomagnesemia; M21.372 Foot drop, left foot; M21.371 Foot drop, right foot; Z85.038 Personal history of other malignant neoplasm of large intestine; Z87.891 Personal history of nicotine dependence; Z03.818 Encounter for observation for suspected exposure to other biological agents ruled out
CPT/HCPCS: 36415; 36600; 44120; 71045; 74018; 74019; 74176; 74250; 80048; 80053; 81001; 82550; 82805; 82962; 83036; 83690; 83735; 84145; 84443; 84484; 85025; 87070; 87205; 87493; 87633; 87635; 87797; 93005; 94002; 94760; 94762; 94770; 94799; 96361; 96374; 96375; 96376; 97116; 97162; 97530; 97535; 99231; 99232; 99284; C9113; C9290; J0330; J1100; J1644; J2060; J2250; J2270; J2405; J2543; J2704; J2765; J3010; J7121

== ENCOUNTER → 2019-10-15 21:33 | Outpatient (ROUT) | payer MEDICARE, OTHER, SELFPAY ==
[2019-05-30 04:33] VITALS: BMI 32.4
[2019-06-02 14:10] VITALS: PULSE 88; RESP 9; O2SAT 96
[2019-10-15 22:01] LABS: Add Manual Diff / Slide Review NO; Basophils Absolute Auto 100 /uL (0-100); Basophils Percent Auto 1.3 % (0-2); Eosinophils Absolute Auto 200 /uL (0-450); Eosinophils Percent Auto 2.9 % (2-4); Hematocrit 36.1 % (36-46); Hemoglobin 12.1 g/dL (12.0-16.0); Lymphocytes Absolute Auto 1000 /uL (1100-4500); Lymphocytes Percent Auto 17.7 % (25-40); Mean Corpuscular HGB Conc 33.5 % (30-36); Mean Corpuscular Hemoglobin 30.3 PG (26-34); Mean Corpuscular Volume 90.3 fL (80-100); Monocytes Absolute Auto 500 /uL (0-900); Monocytes Percent Auto 8.8 % (3-14); Neutrophils Absolute Auto 4000 /uL (1500-7000); Neutrophils Percent Auto 69.3 % (50-75); Platelet Count 168 X10^3/uL (150-400); Red Cell Distribution Width 13.4 % (11.6-14.8); White Blood Cell Count 5.8 X10^3/uL (4.5-11.0)
[2019-10-15 22:26] LABS: Aspartate Aminotransferase 29 IU/L (14-36); BUN Creatinine Ratio 23.5 (6-22); Blood Urea Nitrogen 40 mg/dL (7-17); Calcium 9.6 mg/dL (8.4-10.2); Carbon Dioxide 26 mmol/L (22-32); Chloride 103 mmol/L (98-107); Cholesterol 106 mg/dL (140-199); Estimated Glomerular Filt Rate 28.8 mL/min (>60); Glucose 105 mg/dL (80-110); HDL Cholesterol 42 mg/dL (40-60); HEMOLYSIS < 15 (0-50); LDL Cholesterol Calculated 37 mg/dL (<100); Potassium 4.6 mmol/L (3.4-5.1); Sodium 138 mmol/L (137-145); Triglycerides 134 mg/dL (35-150); Uric Acid 8.6 mg/dL (2.5-6.2)
[2019-10-15 22:55] LABS: Ferritin 142 ng/mL (11-264)
[2019-10-16 04:35] LABS: HEMOLYSIS < 15 (0-50); Iron 82 ug/dL (37-170)
[2019-10-16 04:46] LABS: Percent Iron Saturation 24 % (15-50); Total Iron Binding Capacity 339 ug/dL (265-497); Transferrin 254 mg/dL (206-381)
== END ==
PROVIDERS: Family Provider Internal Medicine; PCP Internal Medicine; Visit Provider Internal Medicine
DX: I10 Essential (primary) hypertension (principal); E78.2 Mixed hyperlipidemia; M10.9 Gout, unspecified
CPT/HCPCS: 80048; 80061; 82728; 83540; 83550; 84443; 84450; 84550; 85025

== ENCOUNTER → 2020-02-04 15:32 | Outpatient (CLI) | payer MEDICARE, OTHER, SELFPAY ==
[2019-05-30 04:33] VITALS: BMI 32.4
[2019-06-02 14:10] VITALS: PULSE 88; RESP 9; O2SAT 96
[2020-02-04 17:50] LABS: COVID19 -Nasal RAPID Negative (Negative)
== END ==
PROVIDERS: PCP Internal Medicine; Visit Provider Physician Assistant
DX: Z11.59 Encounter for screening for other viral diseases (principal)
CPT/HCPCS: 87635

== ENCOUNTER 2020-02-06 09:20 | Day surgery (SDC) | payer MEDICARE, OTHER, SELFPAY ==
[2019-05-30 04:33] VITALS: BMI 32.4
[2019-06-02 14:10] VITALS: PULSE 88; RESP 9; O2SAT 96
--- NOTE | 2020-02-05 18:30 | P.OP_ITS ---
Operative Date/Time/Diagnoses Date of procedure: 02/05/20 Procedure & Clinicians Procedure: Preoperative diagnoses: 1. Right nuclear sclerotic and cortical cataract. 2. Trigeminal neuralgia 3. Peripheral neuropathy 4. Sick sinus syndrome Postoperative diagnoses: 1. Cataract removed by phacoemulsification with placement of posterior chamber intraocular lens. 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 She is especially bothered by her lack of reading vision and wants a myopic target of -2.00. The patient wants surgery to improve vision. The patient was taken to the operating room and given IV sedation. A retrobulbar block consisting of 6 cc of 2% xylocaine without epinephrine mixed half and half with 0.5% Marcaine with 1 cc of hyaluronidase added is placed between the medial and lateral 1/3 of the inferior orbital rim. The eye is manually massaged for 30 sec, prepped using Betadine solution, and draped in the usual sterile fashion. Temporal approach was made, a 1 mm side-port incision was made 90? from the proposed clear corneal incision position. Phenylephrine 1.5% mixed with 1% xylocaine 0.2 cc was placed into the anterior chamber. Viscoat followed by Healon was then placed. A 2.6 mm clear incision with a 2.6 mm blade was placed. A 360 degree capsulorrhexis style capsulotomy was then performed with a cystitome needle on a Healon. Hydrodelineation and hydrodissection were performed. The phacoemulsification unit is introduced, and sculpting notice used to groove the central lens. It is then removed in chopping mode. Epi nucleus is removed with epinuclear mode and irrigation aspiration was used to remove the peripheral cortex. The posterior capsule is polished. The intraocular lens is selected, inspected, power confirmed, and placed in the posterior chamber. The wound was stromally hydrated and tested for leaks, there was none and it was left sutureless. Vigamox 0.1 cc was placed into the anterior chamber. Kenalog 0.2 cc was placed in the superior subconjunctival space. A drop of antibiotic and was placed and the eye was patched and shielded. The patient was stable and returned to the recovery room in excellent condition. Dictated by: Sheila Mercado MD Copy to: [facility] Same procedure as scheduled: Yes
--- NOTE | 2020-02-05 18:30 | PM.PREOP ---
Pre-operative Note COVID-19 COVID-19 status: Negative Interval Note History & Physical reviewed/Exam performed by Physician: Yes Changes to H&P: No
[2020-02-06 10:24] VITALS: BP 138/68; PULSE 76; RESP 16; TEMP 37; O2SAT 100; BMI 28.5
[2020-02-06] MEDS: PROPARACAINE 0.5% OPHTH SOL 2 DROPS EYE-OP (10:31)
[2020-02-06] MEDS: CATARACT EYE COMPOUND (10 DROPS/SYRINGE) 3 DROPS EYE-OP (10:40)
--- NOTE | 2020-02-06 10:59 | SUR.OPER ---
Supine on eye stretcher, head on extension cradle secured with tape. Arms tucked at sides with blanket. Pillow under knees.
[2020-02-06] MEDS: PHENYLEPHRINE/LIDOCAINE VIAL (OR) 0.2 ML EYE-OP (11:58)
[2020-02-06] MEDS: MOXIFLOXACIN INJ 5 MG/ML VIAL EYE-OP (11:59)
[2020-02-06] MEDS: TRIAMCINOLONE 50 MG/5 ML VIAL INJ (12:00)
[2020-02-06] MEDS: LIDOCAINE 2% 4 ML, BUPIVACAINE 0.5% (PF) 4 ML, HYALURONIDASE 150 UNIT INJ (12:00)
[2020-02-06] MEDS: CHONDROIDTIN/SOD HYALURONATE 1.05 ML SYRINGE INTRAOCULA (12:03)
[2020-02-06] MEDS: BALANCED SALT IRRIG SOLN NO.2 500 ML, EPINEPHrine 1 MG IRR (12:03)
[2020-02-06] MEDS: HYALURONATE SODIUM 10 MG/ML SYRINGE INJ (12:03)
[2020-02-06] MEDS: ERYTHROMYCIN OPHTH 1 GM OINT 1 APPLIC EYE-RIGHT (12:04)
[2020-02-06 12:35] VITALS: BP 134/58; PULSE 54; RESP 16; TEMP 36.6; O2SAT 98
== END 2020-02-06 12:55 | disposition home or self-care (01) ==
PROVIDERS: PCP Internal Medicine; Referring Provider Ophthalmology; Visit Provider Ophthalmology
PROC: (CPT 66984; principal; 2020-02-06 10:45)
DX: H25.811 Combined forms of age-related cataract, right eye (principal); G50.0 Trigeminal neuralgia; G62.9 Polyneuropathy, unspecified; I49.5 Sick sinus syndrome
CPT/HCPCS: 66984; J0171; J2704; J3301; J3470

== ENCOUNTER → 2020-02-16 12:40 | Outpatient (CLI) | payer MEDICARE, OTHER, SELFPAY ==
[2019-05-30 04:33] VITALS: BMI 32.4
[2019-06-02 14:10] VITALS: PULSE 88; RESP 9; O2SAT 96
--- NOTE | 2020-02-16 12:43 | DI.MG.S_ITS ---
BILATERAL DIGITAL SCREENING MAMMOGRAM 3D/2D WITH CAD: 02/16/2020 CLINICAL: Routine screening. Comparison is made to exams dated: 04/28/2017 mammogram, 11/17/2012 mammogram, and 05/10/2008 mammogram - [facility]. There are scattered fibroglandular elements in both breasts. Current study was also evaluated with a Computer Aided Detection (CAD) system. No significant masses, calcifications, or other findings are seen in either breast. There has been no significant interval change. IMPRESSION: NEGATIVE There is no mammographic evidence of malignancy. A 1 year screening mammogram is recommended. This exam was interpreted at Station ID: [id number]. NOTE: For mammograms, a report in lay terms will be sent to the patient. Approximately 15% of breast malignancies will not be visualized mammographically. In the management of a palpable breast mass, a negative mammogram must not discourage biopsy of a clinically suspicious lesion. Electronically Signed By: Luke andres/dorothy:02/18/2020 07:49:03 letter sent: Normal Exam ACR BI-RADS Category 1: Negative [id number]
== END ==
PROVIDERS: PCP Internal Medicine; Referring Provider Internal Medicine; Visit Provider Internal Medicine
DX: Z12.31 Encounter for screening mammogram for malignant neoplasm of breast (principal)
CPT/HCPCS: 77063; 77067

== ENCOUNTER → 2020-05-07 14:23 | Outpatient (CLI) | payer MEDICARE, OTHER, SELFPAY ==
[2020-03-31 12:47] VITALS: PULSE 88; RESP 9; O2SAT 96; BMI 32.4
--- NOTE | 2020-05-07 14:25 | DI.RAD.S_ITS ---
PROCEDURE: XR HIP W PEL IF DONE HEIDI MIN 4V INDICATIONS: BILATERAL HIP PAIN TECHNIQUE: AP pelvis with lateral view(s) of the bilateral hip(s). COMPARISON: [facility], CR, XR KUB, 05/31/2019, 8:53. FINDINGS: Bones: No fractures or dislocations. Pelvic ring appears intact. No suspicious bony lesions. Bilateral hip arthroplasties are present. Hardware is intact without evidence of periprosthetic fracture or lucency. Degenerative changes are present within the lower lumbar spine. Soft tissues: The visualized bowel gas pattern is normal. No suspicious soft tissue calcifications. IMPRESSION: Bilateral hip arthroplasties as above. Dictated by: Dorothea Greene M.D. on 05/07/2020 at 17:14 Approved by: Dorothea Greene M.D. on 05/07/2020 at 17:15
--- NOTE | 2020-05-07 14:25 | DI.RAD.S_ITS ---
PROCEDURE: XR LUMBAR SPINE MIN 4V INDICATIONS: BACK PAIN TECHNIQUE: 5 views of the lumbar spine were acquired, including bilateral oblique views. COMPARISON: [facility], , XR LUMBAR SPINE MIN 4V, 03/12/2019, 11:39. FINDINGS: Bones: 5 nonrib-bearing vertebrae are present. There is grade 1 anterolisthesis of L4 on L5 measuring 6 mm, unchanged. Multilevel degenerative disc space narrowing is present most severe at L4-5 and L5-S1. Severe foraminal narrowing is noted at L5-S1, moderate L4-5.. No vertebral body compression fractures. No suspicious bony lesions. Soft tissues: Overlying bowel gas pattern is normal. No suspicious soft tissue calcifications. Oblique images: No pars defects. IMPRESSION: Degenerative changes most notable at L4-5 and L5-S1. Dictated by: Dorothea Greene M.D. on 05/07/2020 at 17:15 Approved by: Dorothea Greene M.D. on 05/07/2020 at 17:16
== END ==
PROVIDERS: PCP Internal Medicine; Referring Provider Physical Medicine & Rehabilitation; Visit Provider Physical Medicine & Rehabilitation
DX: M47.816 Spondylosis without myelopathy or radiculopathy, lumbar region (principal); M47.817 Spondylosis without myelopathy or radiculopathy, lumbosacral region; M43.16 Spondylolisthesis, lumbar region; M25.551 Pain in right hip; M25.552 Pain in left hip; M70.62 Trochanteric bursitis, left hip; M21.371 Foot drop, right foot; M21.372 Foot drop, left foot; G60.8 Other hereditary and idiopathic neuropathies; R26.81 Unsteadiness on feet; Z96.643 Presence of artificial hip joint, bilateral
CPT/HCPCS: 72110; 73522; 99213

== ENCOUNTER 2020-07-30 01:54 | Emergency (ER) | payer MEDICARE, OTHER, SELFPAY ==
[2020-03-31 12:47] VITALS: PULSE 88; RESP 9; O2SAT 96; BMI 32.4
[2020-07-30] VITALS (14 sets, daily range): BP systolic 133–169; BP diastolic 63–74; PULSE 60–87; RESP 17; TEMP 36.9; O2SAT 92–100; BMI 28.3
--- NOTE | 2020-07-30 02:00 | DI.RAD.S_ITS ---
PROCEDURE: XR ABDOMEN MIN 2V INDICATIONS: severe pain, prior obstruction TECHNIQUE: 2 views of the abdomen were acquired. COMPARISON: [facility], , XR ABDOMEN MIN 2V, 06/04/2019, 8:12. FINDINGS: Surgical changes and devices: Clips are present pelvis. Partially visualized bilateral arthroplasties are noted. Bowel: No pneumoperitoneum. The bowel gas pattern is normal. Moderate stool. Soft tissues: No masses; visualized solid organ contours appear normal in size. No suspicious abdominal calcifications. Bones: No suspicious bony abnormalities. IMPRESSION: Moderate stool without obstruction The above findings are concordant with preliminary report. Dictated by: Dorothea Greene M.D. on 07/30/2020 at 8:53 Approved by: Dorothea Greene M.D. on 07/30/2020 at 8:55
--- NOTE | 2020-07-30 02:02 | ED.ABDPAIN ---
HPI - Abdominal Pain General Chief Complaint: Abdominal Pain Stated Complaint: Lower abd pain Time Seen by Provider: 07/30/20 01:55 Source: patient Mode of arrival: Ambulatory Limitations: no limitations History of Present Illness HPI narrative: 84F nonsmoker with history of SBO, diverticulitis, bowel cancer presents by EMS for evaluation of a sudden and severe lower abdominal pain that started about an hour prior to her arrival. It was associated with nausea and vomiting and very reminiscent of prior bowel obstructions. She states her last bowel movement was on Tuesday but it is not abnormal vertigo a few days without going. She has had no fever chills. She denies recent antibiotics or dietary change. She denies any dysuria, frequency or urgency. When her pain was intense she denied any obvious radiation of her pain. It was made worse by motion and improves with rest. The paramedics gave fentanyl and Zofran and on arrival patient was feeling much better. MD complaint: abdominal pain Onset (ago): hour(s) Pain Consistency: constant and now resolved Location: suprapubic Severity: severe Severity scale (1-10): 10 Quality: cramping and stabbing Radiation: none Relieving factors: rest Exacerbating factors: movement Associated symptoms: nausea and vomiting Related Data Home Medications Medication Instructions Recorded Confirmed oxcarbazepine [Trileptal] 300 mg PO BID #0 05/26/11 02/06/20 spironolactone 25 mg PO QDAY #0 05/26/11 02/06/20 diltiazem HCl 180 mg PO DAILY 09/05/17 02/06/20 levothyroxine 25 mcg PO 0700 03/05/19 02/06/20 multivitamin 1 cap PO DAILY 03/05/19 02/06/20 vitamin A & D 1 PO DAILY 03/05/19 06/13/19 Previous Rx's Medication Instructions Recorded albuterol sulfate 90 mcg/actuation 2 puff INHALATION Q4-6H PRN #8.5 05/10/19 aerosol inhaler gram inhalational spacing device #1 each 05/10/19 hydrocodone-acetaminophen 1 tab PO Q4-6H PRN #10 tab 07/30/20 ondansetron 4 mg PO TID-QID PRN #10 tab 07/30/20 Allergies Allergy/AdvReac Type Severity Reaction Status Date / Time DEEDEE Inhibitors Allergy Severe ANGIOEDEMA Verified 05/07/20 16:15 [DEEDEE INHIBITORS] Sulfa (Sulfonamide Allergy Severe RASH Verified 05/07/20 16:15 Antibiotics) [SULFA (SULFONAMIDE ANTIBIOTICS)] hydromorphone [From DILAUDID] Allergy Mild HALLUCINATI Verified 05/07/20 16:15 ONS codeine [CODEINE] AdvReac Mild FEELING Verified 05/07/20 16:15 OF DROP IN BP/WEAKNESS pseudoephedrine AdvReac Mild FEELS LIKE Verified 05/07/20 16:15 [PSEUDOEPHEDRINE] BP GOES OUT FROM UNDERNEATH ME. Review of Systems Constitutional Constitutional: Denies chills, Denies fatigue, Denies fever(s), Denies frequent falls, Denies lethargy and Denies weakness Eyes Eyes: Denies change in vision, Denies eye discharge, Denies irritation and Denies loss of vision ENT Ears, Nose, Mouth, and Throat: Denies change in voice, Denies dizziness, Denies neck pain, Denies sore throat and Denies throat swelling Cardiovascular Cardiovascular: Denies chest pain, Denies irregular heart rhythm, Denies lightheadedness, Denies palpitations, Denies dyspnea, Denies dyspnea on exertion and Denies orthopnea Respiratory Respiratory: Denies cough, Denies dyspnea, Denies dyspnea on exertion and Denies wheezing Gastrointestinal Gastrointestinal: Reports abdominal pain, Denies change in bowel habits, Denies diarrhea, Reports nausea and Reports vomiting Musculoskeletal Musculoskeletal: Denies neck pain and Denies numbness Integumentary/Breasts Skin/Breast: Denies pruritus, Denies erythema, Denies rash and Denies wounds Neurologic Neurologic: Denies behavioral changes, Denies confusion, Denies dizziness, Denies frequent falls, Denies loss of vision, Denies numbness and Denies weakness Psychiatric Psychiatric: Denies anxiety, Denies behavioral changes, Denies confusion, Denies depression, Denies homicidal ideation and Denies suicidal ideation Endocrine Endocrine: Denies fatigue, Denies flushing and Denies palpitations Hematologic/Lymphatic Hematologic/Lymphatic: Denies easy bruising Allergic/Immunologic Allergic/Immunologic: Denies urticaria, Denies throat swelling and Denies wheezing Patient History Medical History Anxiety Chronic edema Chronic renal insufficiency Chronic sinusitis Diverticulosis Facet arthropathy, lumbar Gastroesophageal reflux disease Greater trochanteric bursitis of left hip Heart murmur History of anemia History of colon cancer History of diverticulitis Hypercholesterolemia Hypertension Osteoarthritis Peripheral neuropathy Renal insufficiency Trigeminal neuralgia of right side of face Surgical History History of carpal tunnel release of both wrists History of hysterectomy History of left hip replacement History of left knee replacement History of right hip replacement History of tonsillectomy Hx of appendectomy S/P left colectomy S/P right colectomy S/P tendon repair Family History Father Heart attack Brother Heart attack Social History household members: none Smoking Status: Former smoker Tobacco: How many years used: 8 Smoking Status: Former smoker alcohol intake frequency: holidays/special occasions only Substance Use Type: does not use Exam Narrative Exam Narrative: GENERAL: [84] year old patient appears stated age. Well-nourished, well-developed patient, in mild distress. HEAD: Atraumatic. Normocephalic. EYES: Pupils equal round and reactive. Extraocular motions intact. No scleral icterus. No injection or drainage. ENT: Nose without bleeding, purulent drainage. Throat without erythema, tonsillar hypertrophy or exudate. Airway patent. NECK: Trachea midline. Non tender CARDIOVASCULAR: Regular rate and rhythm without murmurs, gallops, or rubs. RESPIRATORY: Clear to auscultation. Breath sounds equal bilaterally. No wheezes, rales, or rhonchi. GASTROINTESTINAL: Abdomen soft, non-tender, nondistended. Decreased bowel sounds in all 4 quadrants EXTREMITIES: No edema or joint tenderness. BACK: Nontender without deformity or crepitance. No flank tenderness. NEURO: AOx3. SKIN: No rash or erythema of visible areas Initial Vital Signs Initial Vital Signs: Vital Signs Temperature 98.4 F 07/30/20 01:50 Pulse Rate 66 07/30/20 01:50 Respiratory Rate 17 07/30/20 01:50 Blood Pressure 169/70 H 07/30/20 01:50 Pulse Oximetry 98 07/30/20 01:50 Course Orders Ordered: ED Orders 07/30/20 01:40 Complete Blood Count AUTO DIFF Stat Comprehensive Metabolic Panel Stat Lipase Stat 07/30/20 02:00 XR abdomen min 2V Stat 07/30/20 02:15 Lactate (Lactic Acid) Stat 07/30/20 02:27 CT abdomen pelvis wo con Stat 07/30/20 02:55 COVID19 - ADMIT (REFRIGERATION SPECIALIST swab/PCR) Stat 07/30/20 04:09 US abdomen limited Stat Sodium Chloride (Normal Saline 0.9%) 1,000 mls @ 125 mls/hr IV CONT BENI Last Infusion: 07/30/20 03:30 Dose: 0 mls/hr Documented by: Infusion: 07/30/20 02:17 Dose: 1,000 mls/hr Documented by: Admin: 07/30/20 02:09 Dose: 125 mls/hr Documented by: XAVIER Discontinued Medications Hydrocodone Bitart/Acetaminophen (Hydrocodone/Acet 5/325 Prepack) 1 bottle MISC SEEINSTR ONE Stop: 07/30/20 06:10 Ondansetron HCl (Ondansetron 4 Mg Odt Prepack) 1 bottle MISC SEEINSTR ONE Stop: 07/30/20 06:10 Reevaluation(s) Reevaluation #1: Patient continues to be asymptomatic. She has had no pain for the entirety of her visit. Consultations Consultation #1: Case discussed with on-call surgeon given the mention of possible air within the lumen of the gallbladder and the presence of stones. We discussed the case at length and the patient has no ongoing pain, has never complained of epigastric, right upper quadrant or back pain, no fever, no elevated white blood cell count, LFTs and bilirubin are normal. He does recommend an ultrasound for completeness sake but states that that appears normal she can be discharged home with return precautions. Vital Signs Vital signs: Vital Signs - 8 hr 07/30/20 01:50 07/30/20 02:15 07/30/20 02:29 Temperature 98.4 F Pulse Rate 66 71 66 Respiratory Rate 17 Blood Pressure 169/70 H Pulse Oximetry 98 100 100 07/30/20 02:30 07/30/20 02:40 07/30/20 03:00 Temperature Pulse Rate 73 78 Respiratory Rate Blood Pressure 164/74 H Pulse Oximetry 99 97 07/30/20 03:30 07/30/20 04:00 07/30/20 04:23 Temperature Pulse Rate 79 87 77 Respiratory Rate Blood Pressure 162/69 H Pulse Oximetry 97 97 96 07/30/20 04:30 07/30/20 05:00 07/30/20 05:30 Temperature Pulse Rate 74 68 60 Respiratory Rate Blood Pressure 133/63 138/66 Pulse Oximetry 95 98 94 07/30/20 05:31 Temperature Pulse Rate 69 Respiratory Rate Blood Pressure 135/63 Pulse Oximetry 94 MDM - Abdominal Pain Lab Data Result diagrams: 07/30/20 01:40 07/30/20 01:40 Labs: Lab Results 07/30/20 07/30/20 07/30/20 Range/Units 01:40 01:40 02:15 WBC 9.5 (4.5-11.0) X10^3/uL RBC 3.97 L (4.0-5.2) X10^6/uL Hgb 12.1 (12.0-16.0) g/dL Hct 36.4 (36-46) % MCV 91.8 (80-100) fL MCH 30.5 (26-34) PG MCHC 33.2 (30-36) % RDW 13.6 (11.6-14.8) % Plt Count 201 (150-400) X10^3/uL Neut % (Auto) 65.8 (50-75) % Lymph % (Auto) 22.4 L (25-40) % [place] % (Auto) 8.0 (3-14) % Eos % (Auto) 2.8 (2-4) % Baso % (Auto) 1.0 (0-2) % Neut # (Auto) 6300 (7816-3414) /uL Lymph # (Auto) 2100 (0879-1480) /uL [place] # (Auto) 800 (0-900) /uL Eos # (Auto) 300 (0-450) /uL Baso # (Auto) 100 (0-100) /uL Sodium 142 (137-145) mmol/L Potassium 4.6 (3.4-5.1) mmol/L Chloride 109 H (98-107) mmol/L Carbon Dioxide 22 (22-32) mmol/L BUN 49 H (7-17) mg/dL Creatinine 1.71 H (0.52-1.04) mg/dL Estimated GFR 28.6 L (>60) mL/min BUN/Creatinine Ratio 28.7 H (6-22) Glucose 118 H (80-110) mg/dL Lactate 1.2 (0.7-2.1) mmol/L Calcium 9.9 (8.4-10.2) mg/dL Total Bilirubin 0.3 (0.2-1.3) mg/dL AST 36 (14-36) IU/L ALT 26 (<35) IU/L Alkaline Phosphatase 245 H (38-126) U/L Total Protein 7.6 (6.3-8.2) g/dL Albumin 4.4 (3.5-5.0) g/dL Globulin 3.2 (1.7-4.1) g/dL Albumin/Globulin Ratio 1.4 (1.0-2.8) Lipase 228 (23-300) U/L SARS-CoV-2 (PCR) (Negative) 07/30/20 Range/Units 02:55 WBC (4.5-11.0) X10^3/uL RBC (4.0-5.2) X10^6/uL Hgb (12.0-16.0) g/dL Hct (36-46) % MCV (80-100) fL MCH (26-34) PG MCHC (30-36) % RDW (11.6-14.8) % Plt Count (150-400) X10^3/uL Neut % (Auto) (50-75) % Lymph % (Auto) (25-40) % [place] % (Auto) (3-14) % Eos % (Auto) (2-4) % Baso % (Auto) (0-2) % Neut # (Auto) (5343-8602) /uL Lymph # (Auto) (3019-2986) /uL [place] # (Auto) (0-900) /uL Eos # (Auto) (0-450) /uL Baso # (Auto) (0-100) /uL Sodium (137-145) mmol/L Potassium (3.4-5.1) mmol/L Chloride (98-107) mmol/L Carbon Dioxide (22-32) mmol/L BUN (7-17) mg/dL Creatinine (0.52-1.04) mg/dL Estimated GFR (>60) mL/min BUN/Creatinine Ratio (6-22) Glucose (80-110) mg/dL Lactate (0.7-2.1) mmol/L Calcium (8.4-10.2) mg/dL Total Bilirubin (0.2-1.3) mg/dL AST (14-36) IU/L ALT (<35) IU/L Alkaline Phosphatase (38-126) U/L Total Protein (6.3-8.2) g/dL Albumin (3.5-5.0) g/dL Globulin (1.7-4.1) g/dL Albumin/Globulin Ratio (1.0-2.8) Lipase (23-300) U/L SARS-CoV-2 (PCR) Negative (Negative) Point of care testing: Urine Dip Bedside Urine Glucose Negative Bedside Urine Bilirubin - Negative Bedside Urine Ketone - Negative Urine Specific [place] 1.030 Bedside Urine Occult Blood - Negative Bedside Urine pH 6.0 Bedside Urine Protein - Negative Bedside Urine Urobilinogen - Negative Bedside Urine Nitrite - Negative Bedside Urine Leukocytes - Negative Esterase Imaging Data US - abdomen: Radiologist's Impression: Cholelithiasis and gallbladder sludge without wall thickening or biliary ductal dilatation, nor sonographic Sneed sign CT scan - abdomen/pelvis: Radiologist's Impression: Multiple mildly prominent loops of fluid-filled small bowel in the pelvis, this may reflect ileus or perhaps low-grade small bowel obstruction. No free air or free fluid. Gas is noted within the gallbladder lumen as well as gallstones. No biliary ductal dilatation noted MDM Narrative Medical decision making narrative: Patient with intense lower abdominal discomfort that was resolved with economic analysis director medications. She has had no return of symptoms for the duration of her visit. Labs are very reassuring and though imaging suggest perhaps air within the gallbladder lumen, she has no pain, no fever, no elevation in LFTs, bilirubin, lactate. I have discussed this with General surgery and recommendation for clear liquids, low-fat diet, pain control and antiemetics as well as follow-up and return precautions. Furthermore, though patient's symptoms initially presented like her previous experiences with bowel obstruction she has no obvious obstruction on imaging, and no symptoms for the duration of her visit. Return precautions given and questions answered to her apparent satisfaction Discharge Plan Departure Patient Disposition: Home Clinical Impression: Abdominal pain Qualifiers: Abdominal location: lower abdomen, unspecified Qualified Code(s): R10.30 - Lower abdominal pain, unspecified Instructions: DI for Abdominal Pain-Adult Activity Restrictions/Additional Instructions: *You have been diagnosed with [lower abdominal pain, resolved. Lab work is very reassuring. *What to do: *Please continue to take your regular medications as directed. [x ] New medication prescriptions sent to your pharmacy: [Tomasa Emerson ] [ ] New medication written as a paper prescription [ ] No new medications given *Please follow up with Dr. Gates of [facility] in 2-3 days, call for an appointment. Let them know you were seen in the Emergency Department and that we ask that you be seen in follow up. We will electronically transmit a record of today's note if your PCP is in our system *If you do not have a primary care provider please contact the [facility] Resource line at [phone]. They will ask some questions about your medical history and help get you set up with a doctor in the community. *Return to Emergency Department if you should have any new, worsening or concerning symptoms, such as [fever greater than 101 F, shaking chills, worsening pain, persistent vomiting or other bothersome symptoms] Please consider a clear liquid diet for the next 24-48 hours and then a low-fat diet from that point moving forward. Prescriptions: New hydrocodone-acetaminophen 5-325 mg tablet 1 tab PO Q4-6H PRN (Reason: pain) Qty: 10 RF: 0 ondansetron 4 mg tablet,disintegrating 4 mg PO TID-QID PRN (Reason: nausea and vomiting) Qty: 10 RF: 0 No Action albuterol sulfate 90 mcg/actuation HFA aerosol inhaler 2 puff INHALATION Q4-6H PRN (Reason: shortness of breath or wheezing) Qty: 8.5 RF: 0 (DME) Aerochamber Plus Z Stat Spacer See Rx Instructions .ROUTE .MEDSUPPLY Qty: 1 RF: 0 spironolactone 25 MG tablet 25 mg PO QDAY Qty: 0 RF: 0 oxcarbazepine [Trileptal] 300 MG tablet 300 mg PO BID Qty: 0 RF: 0 diltiazem HCl 180 mg Capsule,Extended Release 24 Hr 180 mg PO DAILY RF: 0 vitamin A & D gel 1 PO DAILY RF: 0 multivitamin Capsule 1 cap PO DAILY RF: 0 levothyroxine 25 mcg PO 0700 RF: 0 Referrals: Candido Minaya MD [Primary Care Provider] -
[2020-07-30] MEDS: SODIUM CHLORIDE 0.9% 1,000 ML 125 ML IV (02:09)
[2020-07-30 02:20] LABS: Alanine Aminotransferase 26 IU/L (<35); Albumin 4.4 g/dL (3.5-5.0); Albumin Globulin Ratio 1.4 (1.0-2.8); Alkaline Phosphatase 245 U/L (38-126); Aspartate Aminotransferase 36 IU/L (14-36); BUN Creatinine Ratio 28.7 (6-22); Bilirubin Total 0.3 mg/dL (0.2-1.3); Blood Urea Nitrogen 49 mg/dL (7-17); Calcium 9.9 mg/dL (8.4-10.2); Carbon Dioxide 22 mmol/L (22-32); Chloride 109 mmol/L (98-107); Estimated Glomerular Filt Rate 28.6 mL/min (>60); Globulin 3.2 g/dL (1.7-4.1); Glucose 118 mg/dL (80-110); HEMOLYSIS < 15 (0-50); Lipase 228 U/L (23-300); Potassium 4.6 mmol/L (3.4-5.1); Sodium 142 mmol/L (137-145); Total Protein 7.6 g/dL (6.3-8.2)
[2020-07-30 02:24] LABS: Add Manual Diff / Slide Review NO; Basophils Absolute Auto 100 /uL (0-100); Eosinophils Absolute Auto 300 /uL (0-450); Eosinophils Percent Auto 2.8 % (2-4); Hematocrit 36.4 % (36-46); Hemoglobin 12.1 g/dL (12.0-16.0); Lymphocytes Absolute Auto 2100 /uL (1100-4500); Lymphocytes Percent Auto 22.4 % (25-40); Mean Corpuscular HGB Conc 33.2 % (30-36); Mean Corpuscular Hemoglobin 30.5 PG (26-34); Mean Corpuscular Volume 91.8 fL (80-100); Monocytes Absolute Auto 800 /uL (0-900); Neutrophils Absolute Auto 6300 /uL (1500-7000); Neutrophils Percent Auto 65.8 % (50-75); Platelet Count 201 X10^3/uL (150-400); Red Blood Cell Count 3.97 X10^6/uL (4.0-5.2); Red Cell Distribution Width 13.6 % (11.6-14.8); White Blood Cell Count 9.5 X10^3/uL (4.5-11.0)
--- NOTE | 2020-07-30 02:27 | DI.CT.S_ITS ---
PROCEDURE: CT ABDOMEN PELVIS WO CON INDICATIONS: severe lower abdominal pain, low GFR, history of obstruction TECHNIQUE: Noncontrast 5 mm thick sections acquired from the diaphragms to the symphysis. 5 mm coronal and sagittal reformats were then performed. For radiation dose reduction, the following was used: automated exposure control, adjustment of mA and/or kV according to patient size. COMPARISON: [facility], CT, CT ABDOMEN PELVIS WO CON, 05/30/2019, 1:49. FINDINGS: Image quality: Excellent. ABDOMEN: Lung bases: Lung bases are clear. Heart size is normal. Aortic valvular calcification. Coronary artery calcifications. Small hiatal hernia. Solid organs: Liver is normal in size. Gallbladder is not distended. There are several calcified gallstones with possible stone at the gallbladder neck. No pericholecystic fluid. There is trace anti dependent gas at the gallbladder fundus, (2/43). Pancreas is atrophic. Spleen is normal in size. No adrenal nodules. Kidneys are normal in size, without hydronephrosis or nephrolithiasis. Bilateral renal cysts. A cyst at the inferior pole of the right kidney is minimally complex with a thin calcified septation, unchanged. Peritoneum and bowel: Rectosigmoid colon anastomosis. Diverticulosis. The appendix is absent. Suspect pill within the transverse colon and left small bowel. Prominent loop of small bowel in the lower midline abdomen adjacent to a surgical anastomosis. A few mildly dilated loops of small bowel in the pelvis. No free fluid or air. Nodes and vessels: No retroperitoneal or mesenteric adenopathy by size criteria. Aorta and inferior vena cava are normal in caliber. Miscellaneous: No ventral hernias. Lower abdominal wall scar. PELVIS: Genitourinary: Bladder is not well evaluated. Multiple surgical clips in the pelvis. Miscellaneous: No inguinal hernias or adenopathy. Bones: No suspicious bony lesions. DDD. No vertebral body compression fractures. Bilateral hip arthroplasties. IMPRESSION: 1. Mildly dilated loops of small bowel in the lower abdomen and pelvis. Findings could be due to adynamic ileus versus is low-grade small bowel obstruction. No pneumoperitoneum. No free fluid. 2. Trace amount of gas at the gallbladder fundus. This could be seen in prior sphincterotomy or emphysematous cholecystitis. Several calcified gallstones with possible stone at the gallbladder neck. Gallbladder is not distended. -Consider further evaluation with gallbladder ultrasound. This report is concordant with the overnight preliminary interpretation. Dictated by: Vargas Cobb M.D. on 07/30/2020 at 7:58 Approved by: Vargas Cobb M.D. on 07/30/2020 at 8:12
[2020-07-30 02:30] LABS: Lactate (Lactic Acid) 1.2 mmol/L (0.7-2.1)
[2020-07-30 03:55] LABS: COVID19 - ADMIT (NP swab/PCR) Negative (Negative)
--- NOTE | 2020-07-30 04:09 | DI.US.S_ITS ---
PROCEDURE: US ABDOMEN LIMITED INDICATIONS: CT SUGGESTS GAS IN LUMEN. REQUEST PER SURGERY. TECHNIQUE: Real-time scanning was performed of the right upper quadrant, with image documentation. COMPARISON: Located [facility], CT, ABDOMEN/PELVIS WITH CONTRAST, 11/20/2007, 8:47. Located Within [facility], CT, CT ABDOMEN PELVIS WO CON, 07/30/2020, 2:33. FINDINGS: Liver: Liver is normal in size and homogeneous in echotexture. Gallbladder: Not significantly distended. At least 2 small mobile gallstones. There is gallbladder sludge. Normal gallbladder wall thickness. No pericholecystic fluid. Negative sonographic Sneed's sign. Biliary ducts: Intrahepatic bile ducts are non-dilated. Extrahepatic bile duct caliber measures 6 mm. Normal is 6-7 mm or less in diameter, or 10 mm or less post-cholecystectomy. Pancreas: Not well seen. Kidneys: Incidental right renal cysts. Right kidney inferior pole cyst with a thin septation measures 4.1 x 3.7 x 2.8 cm. No suspicious vascularity. IMPRESSION: 1. Stone at the gallbladder neck. Additional mobile gallstones and sludge. However, no pericholecystic fluid or wall thickening. 2. Mildly complex right renal cyst with a thin calcified septation. This report is concordant with the overnight preliminary interpretation. Dictated by: Vargas Cobb M.D. on 07/30/2020 at 8:51 Approved by: Vargas Cobb M.D. on 07/30/2020 at 8:59
--- NOTE | 2020-07-30 04:17 | PC.NURSE ---
pt ambulated to the restroom with a steady gate assisted with a walker. she normally uses a cane but there was not one available so she used a department walker.
[2020-07-30] MEDS: HYDROCODONE/ACET 5/325 PREPACK 1 BOTTLE MISC (06:35)
[2020-07-30] MEDS: ONDANSETRON 4 MG ODT PREPACK 1 BOTTLE MISC (06:35)
== END 2020-07-30 07:02 | disposition home or self-care (01) ==
PROVIDERS: Emergency Provider Emergency Medicine; PCP Internal Medicine
DX: R10.30 Lower abdominal pain, unspecified (principal); R11.2 Nausea with vomiting, unspecified; Z20.822 Contact with and (suspected) exposure to COVID-19; Z68.29 Body mass index [BMI] 29.0-29.9, adult
CPT/HCPCS: 74019; 74176; 76705; 80053; 81003; 83605; 83690; 85025; 87635; 96360; 99213; 99284; C9803

== ENCOUNTER 2020-10-25 10:56 | Emergency (ER) | payer MEDICARE, OTHER, SELFPAY ==
[2020-07-30 11:21] VITALS: PULSE 88; RESP 9; O2SAT 96; BMI 32.4
[2020-10-25] VITALS (10 sets, daily range): BP systolic 151; BP diastolic 72; PULSE 60–85; RESP 13–32; TEMP 37.1; O2SAT 94–98; BMI 28.8
--- NOTE | 2020-10-25 11:08 | DI.RAD.S_ITS ---
PROCEDURE: XR CHEST 1V INDICATIONS: chest pain TECHNIQUE: One view of the chest was acquired. COMPARISON: [facility], CR, XR CHEST 1V, 06/02/2019, 0:14. FINDINGS: Surgical changes and devices: None. Lungs and pleura: No focal consolidation. Mild bronchial wall thickening. No pleural effusions or pneumothorax. Mediastinum: Mediastinal contours appear normal. Heart size is normal. Bones and chest wall: No suspicious bony lesions. Overlying soft tissues appear unremarkable. IMPRESSION: Non-specific lower airways inflammation. No focal consolidation. Dictated by: Francois Riggs M.D. on 10/25/2020 at 10:41 Approved by: Francois Riggs M.D. on 10/25/2020 at 10:43
--- NOTE | 2020-10-25 11:16 | ED.CHESTPAIN ---
HPI - Chest Pain General Chief Complaint: Chest Pain Stated Complaint: chest pain Time Seen by Provider: 10/25/20 11:08 History of Present Illness HPI narrative: 85-year-old woman with a history of aortic stenosis, atrial fibrillation anticoagulated on Eliquis. Hypertension, hypothyroidism, hyperlipidemia who presents after 30 seconds of severe chest pain radiating up to the right side of her jaw not associated with diaphoresis, dyspnea or orthopnea. It was severe enough and occurred at rest and she felt that having it further evaluated in light of her history of aortic stenosis was appropriate. She does not describe any recent fevers, cough, chills, increased edema. She does note that 3 days ago she had found the swelling under the angle of her jaw on the left side that was tender to palpation. She was seen by her physician yesterday and started on Augmentin for this. She has since taken 2 doses. Related Data Home Medications Medication Instructions Recorded Confirmed oxcarbazepine 300 mg tablet 300 mg PO BID #0 05/26/11 07/30/20 (Trileptal) spironolactone 25 mg tablet 25 mg PO QDAY #0 05/26/11 07/30/20 diltiazem HCl 180 mg capsule,24 180 mg PO DAILY 09/05/17 07/30/20 hr,extended release levothyroxine 25 mcg PO 0700 03/05/19 07/30/20 multivitamin 1 cap PO DAILY 03/05/19 07/30/20 vitamin A & D 1 PO DAILY 03/05/19 07/30/20 rosuvastatin 5 mg tablet 5 mg PO DAILY 07/30/20 07/30/20 Previous Rx's Medication Instructions Recorded albuterol sulfate 90 mcg/actuation 2 puff INHALATION Q4-6H PRN #8.5 05/10/19 aerosol inhaler gram inhalational spacing device #1 each 05/10/19 (Aerochamber Plus Z Stat) hydrocodone 5 mg-acetaminophen 325 1 tab PO Q4-6H PRN #10 tab 07/30/20 mg tablet ondansetron 4 mg disintegrating 4 mg PO TID-QID PRN #10 tab 07/30/20 tablet Allergies Allergy/AdvReac Type Severity Reaction Status Date / Time DEEDEE Inhibitors Allergy Severe ANGIOEDEMA Verified 07/30/20 15:50 [DEEDEE INHIBITORS] Sulfa (Sulfonamide Allergy Severe RASH Verified 07/30/20 15:50 Antibiotics) [SULFA (SULFONAMIDE ANTIBIOTICS)] hydromorphone [From DILAUDID] Allergy Mild HALLUCINATI Verified 07/30/20 15:50 ONS codeine [CODEINE] AdvReac Mild FEELING Verified 07/30/20 15:50 OF DROP IN BP/WEAKNESS pseudoephedrine AdvReac Mild FEELS LIKE Verified 07/30/20 15:50 [PSEUDOEPHEDRINE] BP GOES OUT FROM UNDERNEATH ME. Review of Systems Review of Systems Narrative: Remainder of complete review of systems is otherwise unremarkable except for that included in the HPI. Patient History Medical History Anxiety Aortic stenosis Chronic edema Chronic renal insufficiency Chronic sinusitis Diverticulosis Facet arthropathy, lumbar Gastroesophageal reflux disease Greater trochanteric bursitis of left hip History of anemia History of colon cancer History of diverticulitis Hypercholesterolemia Hypertension Osteoarthritis Peripheral neuropathy Renal insufficiency Trigeminal neuralgia of right side of face Surgical History History of carpal tunnel release of both wrists History of hysterectomy History of left hip replacement History of left knee replacement History of right hip replacement History of tonsillectomy Hx of appendectomy S/P left colectomy S/P right colectomy S/P tendon repair Family History Father Heart attack Hypertension Heart disease Brother Heart attack Mother Hypertension Ovarian cancer Social History marital status: unknown household members: none occupational status: previously employed Smoking Status: Former smoker Tobacco: How many years used: 8 Smoking Status: Former smoker alcohol intake frequency: holidays/special occasions only Substance Use Type: does not use Exam Narrative Exam Narrative: General: Healthy appearing, in no acute distress. Able to give a complete and coherent history. Well-nourished well-developed HEENT: Moist mucous membranes, normal sclera with reactive pupils, Neck: No JVD, supple, a 2 x 4 cm of fullness without fluctuance under the left angle of the jaw without cervical adenopathy. Respiratory: Lungs are clear to auscultation, no wheezing no rales no rhonchi. Full and symmetrical air movement Cardiac: Regular rate and rhythm, 4/6 systolic murmur, no bruits Abdomen: Soft, nontender, good bowel tones, no flank pain Skin: Warm and dry, no rashes Neurologic: Grossly neurologically intact with no obvious asymmetries or abnormalities Extremities: No trauma, well perfused Psych: Cooperative, appropriate insight and affect Initial Vital Signs Initial Vital Signs: Vital Signs Pulse Rate 79 10/25/20 11:02 Blood Pressure 151/72 H 10/25/20 11:02 Pulse Oximetry 98 10/25/20 11:02 Course Orders Ordered: ED Orders 10/25/20 11:08 XR chest 1V Stat EKG-12 Lead Stat 10/25/20 11:20 Complete Blood Count AUTO DIFF Stat Comprehensive Metabolic Panel Stat Lipase Stat Partial Thromboplastin Time Stat Prothrombin Time INR Stat Troponin & CK Cardiac Panel Stat 10/25/20 13:48 Troponin I Stat Vital Signs Vital signs: Vital Signs - 8 hr 10/25/20 11:02 10/25/20 11:05 10/25/20 11:30 Temperature 98.8 F Pulse Rate 79 85 70 Respiratory Rate 18 13 Blood Pressure 151/72 H 151/72 H Pulse Oximetry 98 96 97 10/25/20 12:00 10/25/20 12:30 10/25/20 13:00 Temperature Pulse Rate 61 60 61 Respiratory Rate 20 19 32 H Blood Pressure Pulse Oximetry 97 95 94 10/25/20 13:30 10/25/20 14:00 10/25/20 14:30 Temperature Pulse Rate 60 60 60 Respiratory Rate 24 22 23 Blood Pressure 151/72 H Pulse Oximetry 98 98 98 10/25/20 15:00 Temperature Pulse Rate 60 Respiratory Rate 25 H Blood Pressure Pulse Oximetry 98 MDM - Chest Pain Lab Data Result diagrams: 10/25/20 11:20 10/25/20 11:20 Labs: Lab Results 10/25/20 10/25/20 10/25/20 Range/Units 11:20 11:20 11:20 WBC 8.7 (4.5-11.0) X10^3/uL RBC 4.21 (4.0-5.2) X10^6/uL Hgb 12.6 (12.0-16.0) g/dL Hct 38.7 (36-46) % MCV 92.1 (80-100) fL MCH 30.0 (26-34) PG MCHC 32.6 (30-36) % RDW 13.8 (11.6-14.8) % Plt Count 161 (150-400) X10^3/uL Neut % (Auto) 67.7 (50-75) % Lymph % (Auto) 15.5 L (25-40) % [place] % (Auto) 14.7 H (3-14) % Eos % (Auto) 1.4 L (2-4) % Baso % (Auto) 0.7 (0-2) % Neut # (Auto) 5900 (6087-8740) /uL Lymph # (Auto) 1300 (9077-8584) /uL [place] # (Auto) 1300 H (0-900) /uL Eos # (Auto) 100 (0-450) /uL Baso # (Auto) 100 (0-100) /uL PT 17.2 H (10.1-12.7) SECONDS INR 1.5 H (0.9-1.3) APTT 38 H (26.4-36.2) SECONDS Sodium 137 (137-145) mmol/L Potassium 5.1 (3.4-5.1) mmol/L Chloride 108 H (98-107) mmol/L Carbon Dioxide 22 (22-32) mmol/L BUN 41 H (7-17) mg/dL Creatinine 1.63 H (0.52-1.04) mg/dL Estimated GFR 30.1 L (>60) mL/min BUN/Creatinine Ratio 25.2 H (6-22) Glucose 68 L (80-110) mg/dL Calcium 9.7 (8.4-10.2) mg/dL Total Bilirubin 0.6 (0.2-1.3) mg/dL AST 27 (14-36) IU/L ALT 29 (<35) IU/L Alkaline Phosphatase 195 H (38-126) U/L Total Creatine Kinase 42 (30-135) U/L CK-MB (CK-2) TNP CK-MB (CK-2) Rel Index TNP Troponin I 0.032 (0.01-0.034) ng/mL Total Protein 7.4 (6.3-8.2) g/dL Albumin 4.3 (3.5-5.0) g/dL Globulin 3.1 (1.7-4.1) g/dL Albumin/Globulin Ratio 1.4 (1.0-2.8) Lipase 116 (23-300) U/L 10/25/20 Range/Units 13:48 WBC (4.5-11.0) X10^3/uL RBC (4.0-5.2) X10^6/uL Hgb (12.0-16.0) g/dL Hct (36-46) % MCV (80-100) fL MCH (26-34) PG MCHC (30-36) % RDW (11.6-14.8) % Plt Count (150-400) X10^3/uL Neut % (Auto) (50-75) % Lymph % (Auto) (25-40) % [place] % (Auto) (3-14) % Eos % (Auto) (2-4) % Baso % (Auto) (0-2) % Neut # (Auto) (2141-0745) /uL Lymph # (Auto) (8129-7663) /uL [place] # (Auto) (0-900) /uL Eos # (Auto) (0-450) /uL Baso # (Auto) (0-100) /uL PT (10.1-12.7) SECONDS INR (0.9-1.3) APTT (26.4-36.2) SECONDS Sodium (137-145) mmol/L Potassium (3.4-5.1) mmol/L Chloride (98-107) mmol/L Carbon Dioxide (22-32) mmol/L BUN (7-17) mg/dL Creatinine (0.52-1.04) mg/dL Estimated GFR (>60) mL/min BUN/Creatinine Ratio (6-22) Glucose (80-110) mg/dL Calcium (8.4-10.2) mg/dL Total Bilirubin (0.2-1.3) mg/dL AST (14-36) IU/L ALT (<35) IU/L Alkaline Phosphatase (38-126) U/L Total Creatine Kinase (30-135) U/L CK-MB (CK-2) CK-MB (CK-2) Rel Index Troponin I 0.031 (0.01-0.034) ng/mL Total Protein (6.3-8.2) g/dL Albumin (3.5-5.0) g/dL Globulin (1.7-4.1) g/dL Albumin/Globulin Ratio (1.0-2.8) Lipase (23-300) U/L Imaging Data Chest x-ray: Radiologist's Impression: FINDINGS: Surgical changes and devices: None. Lungs and pleura: No focal consolidation. Mild bronchial wall thickening. No pleural effusions or pneumothorax. Mediastinum: Mediastinal contours appear normal. Heart size is normal. Bones and chest wall: No suspicious bony lesions. Overlying soft tissues appear unremarkable. IMPRESSION: Non-specific lower airways inflammation. No focal consolidation. Dictated by: Francois Riggs M.D. on 10/25/2020 at 10:41 ECG Data Interpretation: Atrial fibrillation at a rate of 75 Normal axis No acute ischemic changes MDM Narrative Medical decision making narrative: 85-year-old woman with brief episode of sharp left-sided chest pain radiating to the right neck. No evidence of coronary syndrome or STEMI. No evidence of significant infection, sepsis, pneumonia, pneumothorax or other life threatening etiology that might explain the brief episode of chest pain. Findings and concerns are reviewed with patient she is safe for home discharge Discharge Plan Departure Patient Disposition: Home Clinical Impression: Chest pain Qualifiers: Chest pain type: unspecified Qualified Code(s): R07.9 - Chest pain, unspecified Instructions: DI for Atypical Chest Pain Activity Restrictions/Additional Instructions: Thank you for coming in today I am not finding any evidence to suggest heart attack or heart attack like syndrome. There is no evidence of infection, collapsed lung, blood clots in your lungs, or other life-threatening indications that would require hospitalization today. Please follow-up with your primary care physician as well as your edge inker heels. If you have recurrent symptoms, it would be appropriate to return to the ER. Prescriptions: No Action albuterol sulfate 90 mcg/actuation HFA aerosol inhaler 2 puff INHALATION Q4-6H PRN (Reason: shortness of breath or wheezing) Qty: 8.5 RF: 0 (DME) Aerochamber Plus Z Stat Spacer See Rx Instructions .ROUTE .MEDSUPPLY Qty: 1 RF: 0 spironolactone 25 MG tablet 25 mg PO QDAY Qty: 0 RF: 0 oxcarbazepine [Trileptal] 300 MG tablet 300 mg PO BID Qty: 0 RF: 0 rosuvastatin 5 mg tablet 5 mg PO DAILY RF: 0 diltiazem HCl 180 mg Capsule,Extended Release 24 Hr 180 mg PO DAILY RF: 0 hydrocodone-acetaminophen 5-325 mg tablet 1 tab PO Q4-6H PRN (Reason: pain) Qty: 10 RF: 0 ondansetron 4 mg tablet,disintegrating 4 mg PO TID-QID PRN (Reason: nausea and vomiting) Qty: 10 RF: 0 vitamin A & D gel 1 PO DAILY RF: 0 multivitamin Capsule 1 cap PO DAILY RF: 0 levothyroxine 25 mcg PO 0700 RF: 0 Referrals: Candido Minaya MD [Primary Care Provider] -
[2020-10-25 11:36] LABS: Add Manual Diff / Slide Review NO; Basophils Absolute Auto 100 /uL (0-100); Basophils Percent Auto 0.7 % (0-2); Eosinophils Absolute Auto 100 /uL (0-450); Eosinophils Percent Auto 1.4 % (2-4); Hematocrit 38.7 % (36-46); Hemoglobin 12.6 g/dL (12.0-16.0); Lymphocytes Absolute Auto 1300 /uL (1100-4500); Lymphocytes Percent Auto 15.5 % (25-40); Mean Corpuscular HGB Conc 32.6 % (30-36); Mean Corpuscular Volume 92.1 fL (80-100); Monocytes Absolute Auto 1300 /uL (0-900); Monocytes Percent Auto 14.7 % (3-14); Neutrophils Absolute Auto 5900 /uL (1500-7000); Neutrophils Percent Auto 67.7 % (50-75); Platelet Count 161 X10^3/uL (150-400); Red Blood Cell Count 4.21 X10^6/uL (4.0-5.2); Red Cell Distribution Width 13.8 % (11.6-14.8); White Blood Cell Count 8.7 X10^3/uL (4.5-11.0)
[2020-10-25 11:40] LABS: INR 1.5 (0.9-1.3); Prothrombin Time 17.2 SECONDS (10.1-12.7)
[2020-10-25 11:42] LABS: PTT Partial Thromboplastin Tim 38 SECONDS (26.4-36.2)
[2020-10-25 11:50] LABS: Alanine Aminotransferase 29 IU/L (<35); Albumin 4.3 g/dL (3.5-5.0); Albumin Globulin Ratio 1.4 (1.0-2.8); Alkaline Phosphatase 195 U/L (38-126); Aspartate Aminotransferase 27 IU/L (14-36); BUN Creatinine Ratio 25.2 (6-22); Bilirubin Total 0.6 mg/dL (0.2-1.3); Blood Urea Nitrogen 41 mg/dL (7-17); Calcium 9.7 mg/dL (8.4-10.2); Carbon Dioxide 22 mmol/L (22-32); Chloride 108 mmol/L (98-107); Creatine Kinase 42 U/L (30-135); Estimated Glomerular Filt Rate 30.1 mL/min (>60); Globulin 3.1 g/dL (1.7-4.1); Glucose 68 mg/dL (80-110); HEMOLYSIS < 15 (0-50); Lipase 116 U/L (23-300); Potassium 5.1 mmol/L (3.4-5.1); Sodium 137 mmol/L (137-145); Total Protein 7.4 g/dL (6.3-8.2)
[2020-10-25 12:01] LABS: Troponin I 0.032 ng/mL (0.01-0.034)
--- NOTE | 2020-10-25 12:56 | PC.NURSE ---
Pt resting in bed, able to sleep intermittently. Remains pain free with stable vitals. Understands plan to recheck her second troponin when it is time.
[2020-10-25 14:19] LABS: Troponin I 0.031 ng/mL (0.01-0.034)
== END 2020-10-25 15:20 | disposition home or self-care (01) ==
PROVIDERS: Emergency Provider Emergency Medicine; PCP Internal Medicine
DX: R07.9 Chest pain, unspecified (principal); M54.2 Cervicalgia; Z79.01 Long term (current) use of anticoagulants
CPT/HCPCS: 36415; 71045; 80053; 82550; 83690; 84484; 85025; 85610; 85730; 93005; 93010; 99284

== ENCOUNTER → 2021-02-11 12:38 | Outpatient (CLI) | payer MEDICARE, SELFPAY ==
[2020-07-30 11:21] VITALS: PULSE 88; RESP 9; O2SAT 96; BMI 32.4
--- NOTE | 2021-02-11 12:43 | DI.ECHO.S_ITS ---
[place] [facility]---------+ [facility] +---------+ : : [address] : : : : [id number] : : : : Phone: [phone] Echocardiogram Report + + :Name: FREIDA VILLALBA Study Date: 02/11/2021 Height: 63.5 in: :[facility] ReadingLocation: Weight: 170 lb : : Gender: Female BSA: 1.8 m2 : :: 1935 Age: 85 yrs BP: 121/68 mmHg: :Reason For Study: AORTIC STENOSIS : :Ordering Physician: LUDIN, : :GUNNER Performed By: Carina Miller : :Referring: GUNNER NOLAND : + + Interpretation Summary The left ventricle is normal in size. Left ventricular systolic function appears normal without focal wall motion abnormalities. The ejection fraction is estimated to be 60-65%. The right ventricle is normal in size and function. The right ventricular systolic pressure is estimated to be at least 30 mmHg based on an estimated right atrial pressure of 3 mm Hg. The left atrium is moderately dilated. The right atrium is mildly dilated. A patent foramen ovale is suspected. There is mild aortic regurgitation. There is severe aortic stenosis. The peak aortic velocity is 4.29 m/sec. The calculated aortic valve area is 0.70 cm2. Compared to the prior echo study, there has been an increase in the severity of aortic stenosis. There is mild to moderate tricuspid regurgitation. There is no other significant valvular heart disease. The ascending aorta is mildly enlarged. Procedure: A two-dimensional transthoracic echocardiogram with color flow and Doppler was performed. The study quality was technically adequate. Comparison is made with the echocardiogram of 01/28/2020. The heart rate ranged between 53-70 bpm during the study. Left Ventricle: The left ventricle is normal in size. There is mild concentric left ventricular hypertrophy. Left ventricular systolic function appears normal without focal wall motion abnormalities. The ejection fraction is estimated to be 60-65%. Diastolic function could not be accurately assessed due to confounding valvular disease. Right Ventricle: The right ventricle is normal in size and function. Atria: The left atrium is moderately dilated. The right atrium is mildly dilated. A patent foramen ovale is suspected. Mitral Valve: The mitral valve leaflets appear mildly thickened, but open well. There is mild mitral annular calcification. There is mild mitral regurgitation. Aortic Valve: The aortic valve is severely calcified. There is severe aortic stenosis. The peak aortic velocity is 4.29 m/sec. The aortic valve mean gradient is 45 mmHg. The calculated aortic valve area is 0.70 cm2. Compared to the prior echo study, there has been an increase in the severity of aortic stenosis. There is mild aortic regurgitation. Tricuspid Valve: The tricuspid valve is normal in structure and function. There is mild to moderate tricuspid regurgitation. The right ventricular systolic pressure is estimated to be at least 30 mmHg based on an estimated right atrial pressure of 3 mm Hg. Pulmonic Valve: The pulmonic valve is not well seen, but is grossly normal. There is no pulmonic valvular regurgitation. There is no other significant valvular heart disease. Great Vessels: The aortic root is normal size. The ascending aorta is mildly enlarged. The IVC is of normal diameter and collapses greater than 50% with a sniff. This suggests a low right atrial pressure of 3 mm Hg. Pericardium/ Pleura There is no pericardial effusion. There is no pleural effusion. MMode/2D Measurements & Calculations LVIDd: 4.6 cm LVOT diam: 1.9 cm LVIDs: 3.0 cm asc Aorta Diam: 3.6 cm FS: 35.8 % Ao Arch Diam (Prox Trans): 2.6 cm IVSd: 1.1 cm LVPWd: 1.2 cm LV moody. diameter/BSA (cm/m^2): 2.6 LV sys. diameter/BSA (cm/m^2): 1.6 LA A2 area: 21.1 cm2 RA long axis: 4.8 cm LA A4 area: 24.0 cm2 RA area: 18.1 cm2 LA length (vol): 5.8 cm RA vol: 58.2 ml LA vol: 73.9 ml RA : 32.0 ml/m2 LA vol index: 40.7 ml/m2 IVC diam: 1.8 cm RVD1 (basal): 3.2 cm TAPSE: 1.7 cm Doppler Measurements & Calculations Ao V2 max: 397.3 cm/sec LVOT Max Matt: 105.9 cm/sec Ao V2 mean: 293.0 cm/sec LV V1 max P.5 mmHg Ao max P.4 mmHg LV V1 VTI: 25.7 cm Ao mean P.7 mmHg CASSANDRA(I,D): 0.79 cm2 Ao V2 VTI: 94.8 cm CASSANDRA(V,D): 0.77 cm2 sev ratio: 0.27 CASSANDRA indexed to BSA (cm^2/m^2): 0.43 MV E max matt: 119.6 cm/sec TR max matt: 259.6 cm/sec MV A max matt: 39.0 cm/sec TR max P.0 mmHg MV E/A: 3.1 PA V2 max: 133.1 cm/sec Med Peak E' Matt: 5.4 cm/sec PA V2 mean: 93.8 cm/sec E/E' med: 22.1 PA mean P.9 mmHg Lat Peak E' Matt: 7.5 cm/sec PA pr(Accel): 25.9 mmHg E/E' lat: 15.9 E/e' average: 19.0 MV dec time: 0.31 sec SV(LVOT): 74.7 ml Reading Physician:05:11 PM
== END ==
PROVIDERS: PCP Internal Medicine; Referring Provider Internal Medicine; Visit Provider Internal Medicine
DX: I08.3 Combined rheumatic disorders of mitral, aortic and tricuspid valves (principal); I77.89 Other specified disorders of arteries and arterioles
CPT/HCPCS: 93306

== ENCOUNTER 2021-04-07 00:04 | Emergency (ER) | payer MEDICARE, SELFPAY ==
[2020-07-30 11:21] VITALS: PULSE 88; RESP 9; O2SAT 96; BMI 32.4
[2021-04-07] VITALS (8 sets, daily range): BP systolic 131–150; BP diastolic 64–95; PULSE 86–111; RESP 16–31; TEMP 37.6; O2SAT 94–99
--- NOTE | 2021-04-07 00:09 | ED_ITS ---
HPI - General Adult General Chief complaint: Abdominal Pain Stated complaint: ABD Pain Time Seen by Provider: 04/07/21 00:09 History of Present Illness HPI narrative: 85-year-old woman with history coronary artery disease, valvular disease scheduled for a TAVR on April 28 in [place], chronic atrial fibrillation anticoagulated on Eliquis, bowel obstruction noted 2 years ago, hypertension, hyperlipidemia hypothyroidism presents with acute onset of left lower quadrant abdominal pain. She states that it started abruptly approximately 6 hours prior to presentation in the emergency department. She describes intermittent episodes of pain worse when she is moving. She states that she is continuing to pass gas and had a normal bowel movement this morning. Has not noticed any blo od in her around her stools. No nausea vomiting no diarrhea. She is not having any dyspnea however she does note that over the last 6 weeks she has been having 3-4 episodes of severe brief(lasting seconds) midsternal chest pain and has discussed this with her education spec. As part of her workup for the TAVR she had a heart catheterization in July with 1 stent placed and she now is also on Plavix. Related Data Home Medications Medication Instructions Recorded Confirmed oxcarbazepine 300 mg tablet 300 mg PO BID #0 05/26/11 07/30/20 (Trileptal) spironolactone 25 mg tablet 25 mg PO QDAY #0 05/26/11 07/30/20 diltiazem HCl 180 mg capsule,24 180 mg PO DAILY 09/05/17 07/30/20 hr,extended release levothyroxine 25 mcg PO 0700 03/05/19 07/30/20 multivitamin 1 cap PO DAILY 03/05/19 07/30/20 vitamin A & D 1 PO DAILY 03/05/19 07/30/20 rosuvastatin 5 mg tablet 5 mg PO DAILY 07/30/20 07/30/20 Previous Rx's Medication Instructions Recorded albuterol sulfate 90 mcg/actuation 2 puff INHALATION Q4-6H PRN #8.5 05/10/19 aerosol inhaler gram inhalational spacing device #1 each 05/10/19 (Aerochamber Plus Z Stat) hydrocodone 5 mg-acetaminophen 325 1 tab PO Q4-6H PRN #10 tab 07/30/20 mg tablet ondansetron 4 mg disintegrating 4 mg PO TID-QID PRN #10 tab 07/30/20 tablet ciprofloxacin HCl 500 mg tablet 500 mg PO BID #20 tab 04/07/21 (Cipro) metronidazole 500 mg tablet 500 mg PO TID #30 tab 04/07/21 oxycodone-acetaminophen 5 mg-325 1 tab PO Q6H PRN #12 tab 04/07/21 mg tablet Allergies Allergy/AdvReac Type Severity Reaction Status Date / Time DEEDEE Inhibitors Allergy Severe ANGIOEDEMA Verified 07/30/20 15:50 [DEEDEE INHIBITORS] Sulfa (Sulfonamide Allergy Severe RASH Verified 07/30/20 15:50 Antibiotics) [SULFA (SULFONAMIDE ANTIBIOTICS)] hydromorphone [From DILAUDID] Allergy Mild HALLUCINATI Verified 07/30/20 15:50 ONS codeine [CODEINE] AdvReac Mild FEELING Verified 07/30/20 15:50 OF DROP IN BP/WEAKNESS pseudoephedrine AdvReac Mild FEELS LIKE Verified 07/30/20 15:50 [PSEUDOEPHEDRINE] BP GOES OUT FROM UNDERNEATH ME. Review of Systems Review of Systems Narrative: Remainder of complete review of systems is otherwise unremarkable except for jhonny t included in the HPI. Patient History Medical History Anxiety Aortic stenosis Chronic edema Chronic renal insufficiency Chronic sinusitis Diverticulosis Facet arthropathy, lumbar Gastroesophageal reflux disease Greater trochanteric bursitis of left hip History of anemia History of colon cancer History of diverticulitis Hypercholesterolemia Hypertension Osteoarthritis Peripheral neuropathy Renal insufficiency Trigeminal neuralgia of right side of face Surgical History History of carpal tunnel release of both wrists History of hysterectomy History of left hip replacement History of left knee replacement History of right hip replacement History of tonsillectomy Hx of appendectomy S/P left colectomy S/P right colectomy S/P tendon repair Family History Father Heart attack Hypertension Heart disease Brother Heart attack Mother Hypertension Ovarian cancer Social History marital status: unknown household members: none occupational status: previously employed Smoking Status: Former smoker Tobacco: How many years used: 8 Smoking Status: Former smoker alcohol intake frequency: holidays/special occasions only Substance Use Type: does not use Exam Initial Vital Signs Initial Vital Signs: Vital Signs Pulse Rate 111 H 04/07/21 00:05 Blood Pressure 150/95 H 04/07/21 00:05 Pulse Oximetry 97 04/07/21 00:05 General: Healthy appearing, in no acute distress. Able to give a complete and coherent history. Well-nourished well-developed HEENT: Moist mucous membranes, normal sclera with reactive pupils, Neck: No JVD, supple Respiratory: Lungs are clear to auscultation, no wheezing no rales no rhonchi. Full and symmetrical air movement Cardiac: Regular rate and rhythm. 4/6 systolic murmur, no bruits Abdomen: Soft, mild tenderness in the left lower quadrant left middle quadrant and she notes that palpation in the right upper quadrant cause some left lower quadrant pain. There is no rebound or guarding. Good bowel tones, no flank pain Skin: Warm and dry, no rashes Neurologic: Grossly neurologically intact with no obvious asymmetries or abnormalities Extremities: No trauma, well perfused, no lower extremity edema Psych: Cooperative, appropriate insight and affect Course Orders Ordered: ED Orders 04/07/21 00:10 COVID19 -Nasal swab/Pre-Proc Stat Comprehensive Metabolic Panel Stat Lipase Stat Magnesium Stat 04/07/21 00:25 CT abdomen pelvis wo con Stat 04/07/21 00:30 Urinalysis and Microscopic Stat 04/07/21 00:48 Complete Blood Count AUTO DIFF Stat Fentanyl (Fentanyl 100 Mcg/2 Ml Inj) 50 mcg IV Q1H PRN PRN Reason: Pain, Severe (7-10) Last Admin: 04/07/21 01:34 Dose: 50 mcg Documented by: Discontinued Medications Ciprofloxacin (Ciprofloxacin 250 Mg Tablet) 500 mg PO NOW ONE Stop: 04/07/21 01:56 Hydromorphone HCl (Hydromorphone 0.5 Mg Inj) 0.5 mg IV Q15MIN PRN PRN Reason: Pain, Sodium Chloride (Normal Saline 0.9%) 1,000 mls @ 1,000 mls/hr IV BOLUS ONE Stop: 04/07/21 01:23 Last Admin: 04/07/21 00:33 Dose: 1,000 mls/hr Documented by: Metronidazole (Metronidazole 500 Mg Tablet) 500 mg PO NOW ONE Stop: 04/07/21 01:57 Ondansetron HCl (Ondansetron 4 Mg/2 Ml Inj) 4 mg IV NOW ONE Stop: 04/07/21 00:25 Last Admin: 04/07/21 00:33 Dose: 4 mg Documented by: Oxycodone/Acetaminophen (Oxycodone/Apap 5/325 Prepack) 1 bottle MISC SEEINSTR ONE Stop: 04/07/21 01:57 Vital Signs Vital signs: Vital Signs - 8 hr 04/07/21 00:05 04/07/21 00:21 04/07/21 00:30 Temperature 99.7 F H Pulse Rate 111 H 102 H 105 H Respiratory Rate 16 22 Blood Pressure 150/95 H 150/95 H Pulse Oximetry 97 98 98 04/07/21 01:01 04/07/21 01:10 04/07/21 01:28 Temperature Pulse Rate 93 H 88 89 Respiratory Rate 31 H 26 H 30 H Blood Pressure 131/83 143/64 H Pulse Oximetry 99 98 98 04/07/21 01:30 Temperature Pulse Rate 86 Respiratory Rate 25 H Blood Pressure Pulse Oximetry 99 Medical Decision Making Lab Data Result diagrams: 04/07/21 00:48 04/07/21 00:10 Labs: Lab Results 04/07/21 04/07/21 04/07/21 Range/Units 00:10 00:10 00:30 WBC (4.5-11.0) X10^3/uL RBC (4.0-5.2) X10^6/uL Hgb (12.0-16.0) g/dL Hct (36-46) % MCV (80-100) fL MCH (26-34) PG MCHC (30-36) % RDW (11.6-14.8) % Plt Count (150-400) X10^3/uL Neut % (Auto) (50-75) % Lymph % (Auto) (25-40) % Blair % (Auto) (3-14) % Eos % (Auto) (2-4) % Baso % (Auto) (0-2) % Neut # (Auto) (0195-3727) /uL Lymph # (Auto) (2573-0341) /uL Blair # (Auto) (0-900) /uL Eos # (Auto) (0-450) /uL Baso # (Auto) (0-100) /uL Sodium 138 (137-145) mmol/L Potassium 4.9 (3.4-5.1) mmol/L Chloride 110 H (98-107) mmol/L Carbon Dioxide 24 (22-32) mmol/L BUN 38 H (7-17) mg/dL Creatinine 1.69 H (0.52-1.04) mg/dL Estimated GFR 28.9 L (>60) mL/min BUN/Creatinine Ratio 22.5 H (6-22) Glucose 105 (80-110) mg/dL Calcium 9.6 (8.4-10.2) mg/dL Magnesium 2.0 (1.6-2.3) mg/dL Total Bilirubin 0.4 (0.2-1.3) mg/dL AST 30 (14-36) IU/L ALT 20 (<35) IU/L Alkaline Phosphatase 183 H (38-126) U/L Total Protein 7.3 (6.3-8.2) g/dL Albumin 4.1 (3.5-5.0) g/dL Globulin 3.2 (1.7-4.1) g/dL Albumin/Globulin Ratio 1.3 (1.0-2.8) Lipase 666 H (23-300) U/L Urine Color Yellow Urine Appearance Clear Urine pH 5.0 (4.5-8.0) Ur Specific [place] 1.015 (1.000-1.035) Urine Protein Negative (Negative) Urine Glucose (UA) Negative (Negative) g/dL Urine Ketones Negative (NEGATIVE) Urine Occult Blood Trace-intact (Negative) Urine Nitrate Negative (Negative) Urine Bilirubin Negative (NEGATIVE) Urine Urobilinogen 0.2 (0.2) E.U./dL Ur Leukocyte Esterase Negative (NEGATIVE) Urine RBC 0-1/hpf (0-5/HPF) Urine WBC None seen (0-5/HPF) Urine Bacteria None seen (None) Ur Culture Indicated? Cult not indicated SARS-CoV-2 (PCR) Negative (Negative) 04/07/21 Range/Units 00:48 WBC 8.9 (4.5-11.0) X10^3/uL RBC 3.39 L (4.0-5.2) X10^6/uL Hgb 10.0 L (12.0-16.0) g/dL Hct 29.5 L (36-46) % MCV 87.2 (80-100) fL MCH 29.4 (26-34) PG MCHC 33.7 (30-36) % RDW 14.2 (11.6-14.8) % Plt Count 176 (150-400) X10^3/uL Neut % (Auto) 77.6 H (50-75) % Lymph % (Auto) 9.5 L (25-40) % Blair % (Auto) 11.2 (3-14) % Eos % (Auto) 1.1 L (2-4) % Baso % (Auto) 0.6 (0-2) % Neut # (Auto) 6900 (2938-1320) /uL Lymph # (Auto) 800 L (5796-6932) /uL Blair # (Auto) 1000 H (0-900) /uL Eos # (Auto) 100 (0-450) /uL Baso # (Auto) 100 (0-100) /uL Sodium (137-145) mmol/L Potassium (3.4-5.1) mmol/L Chloride (98-107) mmol/L Carbon Dioxide (22-32) mmol/L BUN (7-17) mg/dL Creatinine (0.52-1.04) mg/dL Estimated GFR (>60) mL/min BUN/Creatinine Ratio (6-22) Glucose (80-110) mg/dL Calcium (8.4-10.2) mg/dL Magnesium (1.6-2.3) mg/dL Total Bilirubin (0.2-1.3) mg/dL AST (14-36) IU/L ALT (<35) IU/L Alkaline Phosphatase (38-126) U/L Total Protein (6.3-8.2) g/dL Albumin (3.5-5.0) g/dL Globulin (1.7-4.1) g/dL Albumin/Globulin Ratio (1.0-2.8) Lipase (23-300) U/L Urine Color Urine Appearance Urine pH (4.5-8.0) Ur Specific [place] (1.000-1.035) Urine Protein (Negative) Urine Glucose (UA) (Negative) g/dL Urine Ketones (NEGATIVE) Urine Occult Blood (Negative) Urine Nitrate (Negative) Urine Bilirubin (NEGATIVE) Urine Urobilinogen (0.2) E.U./dL Ur Leukocyte Esterase (NEGATIVE) Urine RBC (0-5/HPF) Urine WBC (0-5/HPF) Urine Bacteria (None) Ur Culture Indicated? SARS-CoV-2 (PCR) (Negative) Imaging Data CT scan - abdomen/pelvis: Radiologist's Impression: FINDINGS:? Image quality:? Excellent.? ? ABDOMEN:? Lung bases:? Lung bases are clear.? Heart size is normal.? ? Solid organs:? Liver is normal in size.? Gallbladder has multiple stones with no no evidence of cholecystitis.? Pancreas is normal in contours.? Spleen is normal in size.? No adrenal nodules.? Both kidneys have multiple stable simple cysts measuring up to 6 cm on the left.? No hydronephrosis or nephrolithiasis. ? Peritoneum and bowel:? There is a small hiatal hernia.? The stomach is normal.? No small bowel obstruction.? There is focal thickening of the junction of the left colon and sigmoid colon with surrounding inflammation consistent with diverticulitis.? T here is no evidence of perforation or abscess..? Anastomotic sutures are seen in the lower abdomen and rectosigmoid junction. ? Nodes and vessels:? No retroperitoneal or mesenteric adenopathy by size criteria.? Aorta and inferior vena cava are normal in caliber.? ? Miscellaneous:? No ventral hernias.? ? ? PELVIS:? Genitourinary:? The bladder is grossly normal but is not well visualized due to bilateral hip replacements. ? Miscellaneous:? No inguinal hernias or adenopathy.? ? Bones:? Degenerative changes with no focal abnormality. ? IMPRESSION:? 1. Acute diverticulitis at the left colon/sigmoid colon junction with no evidence of perforation or abscess. 2. Cholelithiasis without evidence of cholecystitis. ? ? Dictated by: Asa Herron M.D. on 04/07/2021 at 1:23? ?? ECG Data Interpretation: Atrial fibrillation at 100 beats per minute No acute ischemic findings MDM Narrative Medical decision making narrative: 85-year-old woman with acute onset left lower quadrant pain and tenderness. No elevated white blood cell count, fever, hypotension or signs of sepsis. Her lipase is slightly elevated however she has no clinical left upper quadrant pain nor evidence of pancreatitis on her CT scan. She has had a prior episode of diverticulitis with abscess and partial colectomy due to that. She has had no episodes for a number of years. His CT scan suggests uncomplicated diverticulitis without obstruction her abscess development. No evidence for perforation. She will be started on ciprofloxacin and Flagyl for outpatient 10 day treatment with a brief course of Percocet for pain should she need it. As she has had previous problems and complications she is well aware of symptoms that should bring her back to the emergency department. Questions are answered and patient is safe for home discharge Discharge Plan Departure Patient Disposition: Home Clinical Impression: Diverticulitis large intestine w/o perforation or abscess w/o bleeding Instructions: DI for Diverticulitis Activity Restrictions/Additional Instructions: Thank you for coming in tonight. You have an episode of an acute diverticulitis. You do not have an abscess, perforation, blockage or anything that requires hospitalization or surgical intervention this evening. As you have had diverticulitis with previous surgeries required, you are familiar with worsening signs and symptoms. Should you have any of these you do need to return to the ER I have electronically transmitted prescriptions for both ciprofloxacin and metronidazole to [facility] for you to begin tomorrow. Please complete the full 10 days If you do choose to use the Percocet to help with pain. Please make sure you are also taking a stool softener to avoid constipation. Prescriptions: New ciprofloxacin HCl [Cipro] 500 mg tablet 500 mg PO BID Qty: 20 0RF metronidazole 500 mg tablet 500 mg PO TID Qty: 30 0RF oxycodone-acetaminophen 5-325 mg tablet 1 tab PO Q6H PRN (Reason: pain) Qty: 12 0RF No Action albuterol sulfate 90 mcg/actuation HFA aerosol inhaler 2 puff INHALATION Q4-6H PRN (Reason: shortness of breath or wheezing) Qty: 8.5 0RF (DME) Aerochamber Plus Z Stat Spacer See Rx Instructions .ROUTE .MEDSUPPLY Qty: 1 0RF Rx Instructions: As directed spironolactone 25 MG tablet 25 mg PO QDAY Qty: 0 0RF oxcarbazepine [Trileptal] 300 MG tablet 300 mg PO BID Qty: 0 0RF Label Comments: Takes 1 tab. in Am & half in the afternnon rosuvastatin 5 mg tablet 5 mg PO DAILY 0RF diltiazem HCl 180 mg Capsule,Extended Release 24 Hr 180 mg PO DAILY 0RF hydrocodone-acetaminophen 5-325 mg tablet 1 tab PO Q4-6H PRN (Reason: pain) Qty: 10 0RF ondansetron 4 mg tablet,disintegrating 4 mg PO TID-QID PRN (Reason: nausea and vomiting) Qty: 10 0RF vitamin A & D gel 1 PO DAILY 0RF multivitamin Capsule 1 cap PO DAILY 0RF levothyroxine 25 mcg PO 0700 0RF Referrals: Candido Minaya MD [Primary Care Provider] -
--- NOTE | 2021-04-07 00:25 | DI.CT.S_ITS ---
PROCEDURE: CT ABDOMEN PELVIS WO CON INDICATIONS: Left lower quadrant abdominal pain TECHNIQUE: Noncontrast 5 mm thick sections acquired from the diaphragms to the symphysis. 5 mm coronal and sagittal reformats were then performed. For radiation dose reduction, the following was used: automated exposure control, adjustment of mA and/or kV according to patient size. COMPARISON: [facility], CT, CT ABDOMEN PELVIS WO CON, 07/30/2020, 2:33. FINDINGS: Image quality: Excellent. ABDOMEN: Lung bases: Lung bases are clear. Heart size is normal. Solid organs: Liver is normal in size. Gallbladder has multiple stones with no no evidence of cholecystitis. Pancreas is normal in contours. Spleen is normal in size. No adrenal nodules. Both kidneys have multiple stable simple cysts measuring up to 6 cm on the left. No hydronephrosis or nephrolithiasis. Peritoneum and bowel: There is a small hiatal hernia. The stomach is normal. No small bowel obstruction. There is focal thickening of the junction of the left colon and sigmoid colon with surrounding inflammation consistent with diverticulitis. There is no evidence of perforation or abscess.. Anastomotic sutures are seen in the lower abdomen and rectosigmoid junction. Nodes and vessels: No retroperitoneal or mesenteric adenopathy by size criteria. Aorta and inferior vena cava are normal in caliber. Miscellaneous: No ventral hernias. PELVIS: Genitourinary: The bladder is grossly normal but is not well visualized due to bilateral hip replacements. Miscellaneous: No inguinal hernias or adenopathy. Bones: Degenerative changes with no focal abnormality. IMPRESSION: 1. Acute diverticulitis at the left colon/sigmoid colon junction with no evidence of perforation or abscess. 2. Cholelithiasis without evidence of cholecystitis. Dictated by: Asa Herron M.D. on 04/07/2021 at 1:23 Approved by: Asa Herron M.D. on 04/07/2021 at 1:29
[2021-04-07] MEDS: ONDANSETRON 4 MG/2 ML INJ IV (00:33)
[2021-04-07] MEDS: SODIUM CHLORIDE 0.9% 1,000 ML 1000 ML IV (00:33)
[2021-04-07 00:38] LABS: Alanine Aminotransferase 20 IU/L (<35); Albumin 4.1 g/dL (3.5-5.0); Albumin Globulin Ratio 1.3 (1.0-2.8); Alkaline Phosphatase 183 U/L (38-126); Aspartate Aminotransferase 30 IU/L (14-36); BUN Creatinine Ratio 22.5 (6-22); Bilirubin Total 0.4 mg/dL (0.2-1.3); Blood Urea Nitrogen 38 mg/dL (7-17); Calcium 9.6 mg/dL (8.4-10.2); Carbon Dioxide 24 mmol/L (22-32); Chloride 110 mmol/L (98-107); Estimated Glomerular Filt Rate 28.9 mL/min (>60); Globulin 3.2 g/dL (1.7-4.1); Glucose 105 mg/dL (80-110); HEMOLYSIS < 15 (0-50); Lipase 666 U/L (23-300); Potassium 4.9 mmol/L (3.4-5.1); Sodium 138 mmol/L (137-145); Total Protein 7.3 g/dL (6.3-8.2)
[2021-04-07 00:42] LABS: Appearance Urine UA CLEAR; Bilirubin Urine UA NEGATIVE (NEGATIVE); Color Urine UA YELLOW; Glucose Urine UA NEGATIVE (Negative); Ketones Urine UA NEGATIVE (NEGATIVE); Leukocyte Esterase Urine UA NEGATIVE (NEGATIVE); Nitrite Urine UA NEGATIVE (Negative); Occult Blood Urine UA TRACE-INTACT (Negative); Protein Urine UA NEGATIVE (Negative); Specific Gravity Urine UA 1.015 (1.000-1.035); Urobilinogen Urine UA 0.2 E.U./dL (0.2)
[2021-04-07 00:46] LABS: COVID19 -Nasal RAPID Negative (Negative)
[2021-04-07 00:51] LABS: Bacteria Urine None Seen; Culture Indicated Urine Cult Not Indicated; RBC Urine 0-1/HPF (0-5/HPF); WBC Urine None Seen (0-5/HPF)
[2021-04-07 01:02] LABS: Add Manual Diff / Slide Review NO; Basophils Absolute Auto 100 /uL (0-100); Basophils Percent Auto 0.6 % (0-2); Eosinophils Absolute Auto 100 /uL (0-450); Eosinophils Percent Auto 1.1 % (2-4); Hematocrit 29.5 % (36-46); Lymphocytes Absolute Auto 800 /uL (1100-4500); Lymphocytes Percent Auto 9.5 % (25-40); Mean Corpuscular HGB Conc 33.7 % (30-36); Mean Corpuscular Hemoglobin 29.4 PG (26-34); Mean Corpuscular Volume 87.2 fL (80-100); Monocytes Absolute Auto 1000 /uL (0-900); Monocytes Percent Auto 11.2 % (3-14); Neutrophils Absolute Auto 6900 /uL (1500-7000); Neutrophils Percent Auto 77.6 % (50-75); Platelet Count 176 X10^3/uL (150-400); Red Blood Cell Count 3.39 X10^6/uL (4.0-5.2); Red Cell Distribution Width 14.2 % (11.6-14.8); White Blood Cell Count 8.9 X10^3/uL (4.5-11.0)
[2021-04-07] MEDS: fentaNYL 100 MCG/2 ML INJ 50 MCG IV (01:34)
[2021-04-07] MEDS: CIPROFLOXACIN 250 MG TABLET 500 MG PO (02:10)
[2021-04-07] MEDS: metroNIDAZOLE 500 MG TABLET PO (02:10)
[2021-04-07] MEDS: OXYCODONE/APAP 5/325 PREPACK 1 BOTTLE MISC (02:10)
== END 2021-04-07 02:21 | disposition home or self-care (01) ==
PROVIDERS: Emergency Provider Emergency Medicine; PCP Internal Medicine
DX: K57.32 Diverticulitis of large intestine without perforation or abscess without bleeding (principal); I48.91 Unspecified atrial fibrillation; Z79.01 Long term (current) use of anticoagulants; Z20.822 Contact with and (suspected) exposure to COVID-19
CPT/HCPCS: 36415; 74176; 80053; 81001; 83690; 83735; 85025; 87635; 93005; 93010; 96361; 96374; 96375; 99284; C9803; J2405; J3010

== ENCOUNTER → 2021-05-23 09:14 | Outpatient (CLI) | payer MEDICARE, SELFPAY ==
[2020-07-30 11:21] VITALS: PULSE 88; RESP 9; O2SAT 96; BMI 32.4
[2021-05-23 10:44] LABS: Add Manual Diff / Slide Review NO; Basophils Absolute Auto 100 /uL (0-100); Basophils Percent Auto 1.4 % (0-2); Eosinophils Absolute Auto 200 /uL (0-450); Eosinophils Percent Auto 4.2 % (2-4); Hematocrit 30.5 % (36-46); Hemoglobin 10.2 g/dL (12.0-16.0); Lymphocytes Absolute Auto 900 /uL (1100-4500); Lymphocytes Percent Auto 17.8 % (25-40); Mean Corpuscular HGB Conc 33.4 % (30-36); Mean Corpuscular Hemoglobin 28.9 PG (26-34); Mean Corpuscular Volume 86.5 fL (80-100); Monocytes Absolute Auto 500 /uL (0-900); Neutrophils Absolute Auto 3300 /uL (1500-7000); Neutrophils Percent Auto 66.6 % (50-75); Platelet Count 151 X10^3/uL (150-400); Red Blood Cell Count 3.53 X10^6/uL (4.0-5.2); Red Cell Distribution Width 15.3 % (11.6-14.8)
[2021-05-23 10:45] LABS: HEMOLYSIS < 15 (0-50); Iron 46 ug/dL (37-170)
[2021-05-23 10:50] LABS: Alanine Aminotransferase 20 IU/L (<35); Albumin Globulin Ratio 1.4 (1.0-2.8); Alkaline Phosphatase 169 U/L (38-126); Aspartate Aminotransferase 50 IU/L (14-36); BUN Creatinine Ratio 23.5 (6-22); Bilirubin Total 0.4 mg/dL (0.2-1.3); Blood Urea Nitrogen 36 mg/dL (7-17); Calcium 9.2 mg/dL (8.4-10.2); Carbon Dioxide 20 mmol/L (22-32); Chloride 114 mmol/L (98-107); Cholesterol 96 mg/dL (140-199); Estimated Glomerular Filt Rate 32.4 mL/min (>60); Globulin 2.9 g/dL (1.7-4.1); Glucose 97 mg/dL (80-110); HDL Cholesterol 35 mg/dL (40-60); HEMOLYSIS < 15 (0-50); LDL Cholesterol Calculated 35 mg/dL (<100); Potassium 4.9 mmol/L (3.4-5.1); Sodium 141 mmol/L (137-145); Total Protein 6.9 g/dL (6.3-8.2); Triglycerides 128 mg/dL (35-150)
[2021-05-23 10:56] LABS: Percent Iron Saturation 13 % (15-50); Total Iron Binding Capacity 346 ug/dL (265-497); Transferrin 284 mg/dL (206-381)
== END ==
PROVIDERS: PCP Internal Medicine; Referring Provider Internal Medicine Cardiovascular Disease; Visit Provider Internal Medicine Cardiovascular Disease
DX: D64.9 Anemia, unspecified (principal); I25.10 Atherosclerotic heart disease of native coronary artery without angina pectoris
CPT/HCPCS: 36415; 80053; 80061; 83540; 83550; 85025

== ENCOUNTER 2021-06-17 21:15 | Emergency (ER) | payer MEDICARE, SELFPAY ==
[2020-07-30 11:21] VITALS: PULSE 88; RESP 9; O2SAT 96; BMI 32.4
[2021-06-17 21:20] VITALS: BP 178/79; PULSE 65; RESP 20; TEMP 36.8; O2SAT 98; BMI 30.1
[2021-06-17 22:15] LABS: Alanine Aminotransferase 22 IU/L (<35); Albumin 4.3 g/dL (3.5-5.0); Albumin Globulin Ratio 1.3 (1.0-2.8); Alkaline Phosphatase 189 U/L (38-126); Aspartate Aminotransferase 34 IU/L (14-36); BUN Creatinine Ratio 24.2 (6-22); Bilirubin Total 0.5 mg/dL (0.2-1.3); Blood Urea Nitrogen 38 mg/dL (7-17); Calcium 8.9 mg/dL (8.4-10.2); Carbon Dioxide 19 mmol/L (22-32); Chloride 111 mmol/L (98-107); Estimated Glomerular Filt Rate 33 mL/min (>60); Globulin 3.3 g/dL (1.7-4.1); Glucose 127 mg/dL (80-110); HEMOLYSIS < 15 (0-50); Potassium 4.7 mmol/L (3.4-5.1); Sodium 141 mmol/L (137-145); Total Protein 7.6 g/dL (6.3-8.2)
[2021-06-17 22:23] LABS: Add Manual Diff / Slide Review NO; Basophils Absolute Auto 0 /uL (0-100); Basophils Percent Auto 0.5 % (0-2); Eosinophils Absolute Auto 100 /uL (0-450); Hematocrit 33.9 % (36-46); Hemoglobin 11.3 g/dL (12.0-16.0); Lymphocytes Absolute Auto 1000 /uL (1100-4500); Lymphocytes Percent Auto 10.5 % (25-40); Mean Corpuscular HGB Conc 33.3 % (30-36); Mean Corpuscular Hemoglobin 28.7 PG (26-34); Mean Corpuscular Volume 86.2 fL (80-100); Monocytes Absolute Auto 600 /uL (0-900); Monocytes Percent Auto 6.2 % (3-14); Neutrophils Absolute Auto 7600 /uL (1500-7000); Neutrophils Percent Auto 81.8 % (50-75); Platelet Count 161 X10^3/uL (150-400); Red Blood Cell Count 3.93 X10^6/uL (4.0-5.2); Red Cell Distribution Width 15.5 % (11.6-14.8); White Blood Cell Count 9.2 X10^3/uL (4.5-11.0)
--- NOTE | 2021-06-17 22:44 | ED_ITS ---
HPI - General Adult General Chief complaint: Abdominal Pain Stated complaint: back pain, moving to front Time Seen by Provider: 06/17/21 22:30 Source: patient Mode of arrival: Wheelchair History of Present Illness HPI narrative: Patient is an 85-year-old female. Was traveling back from [facility] this afternoon when while she was on the airplane started to get right-sided back and flank and abdominal discomfort. She initially thought it was just muscle soreness from the flight however this evening she started to get more discomfort also nausea. No vomiting. No fevers. She has had a bowel obstruction in the past and has had abdominal surgery secondary to this. She states she was concerned about potential bowel obstruction. She has never had a kidney stone in the past. She denies any urinary symptoms. She also has had diverticulitis in the past but this feels different than her prior episodes of that per her report. Related Data Home Medications Medication Instructions Recorded Confirmed oxcarbazepine 300 mg tablet 300 mg PO BID #0 05/26/11 07/30/20 (Trileptal) spironolactone 25 mg tablet 25 mg PO QDAY #0 05/26/11 07/30/20 diltiazem HCl 180 mg capsule,24 180 mg PO DAILY 09/05/17 07/30/20 hr,extended release levothyroxine 25 mcg PO 0700 03/05/19 07/30/20 multivitamin 1 cap PO DAILY 03/05/19 07/30/20 vitamin A & D 1 PO DAILY 03/05/19 07/30/20 rosuvastatin 5 mg tablet 5 mg PO DAILY 07/30/20 07/30/20 Previous Rx's Medication Instructions Recorded albuterol sulfate 90 mcg/actuation 2 puff INHALATION Q4-6H PRN #8.5 05/10/19 aerosol inhaler gram inhalational spacing device #1 each 05/10/19 (Aerochamber Plus Z Stat) hydrocodone 5 mg-acetaminophen 325 1 tab PO Q4-6H PRN #10 tab 07/30/20 mg tablet ondansetron 4 mg disintegrating 4 mg PO TID-QID PRN #10 tab 07/30/20 tablet ciprofloxacin HCl 500 mg tablet 500 mg PO BID #20 tab 04/07/21 (Cipro) metronidazole 500 mg tablet 500 mg PO TID #30 tab 04/07/21 oxycodone-acetaminophen 5 mg-325 1 tab PO Q6H PRN #12 tab 04/07/21 mg tablet Allergies Allergy/AdvReac Type Severity Reaction Status Date / Time DEEDEE Inhibitors Allergy Severe ANGIOEDEMA Verified 07/30/20 15:50 [DEEDEE INHIBITORS] Sulfa (Sulfonamide Allergy Severe RASH Verified 07/30/20 15:50 Antibiotics) [SULFA (SULFONAMIDE ANTIBIOTICS)] hydromorphone [From DILAUDID] Allergy Mild HALLUCINATI Verified 07/30/20 15:50 ONS codeine [CODEINE] AdvReac Mild FEELING Verified 07/30/20 15:50 OF DROP IN BP/WEAKNESS pseudoephedrine AdvReac Mild FEELS LIKE Verified 07/30/20 15:50 [PSEUDOEPHEDRINE] BP GOES OUT FROM UNDERNEATH ME. Review of Systems Constitutional Constitutional: Denies fever(s) Cardiovascular Cardiovascular: Denies chest pain and Denies dyspnea Respiratory Respiratory: Denies dyspnea Gastrointestinal Gastrointestinal: Reports as per HPI and Reports system reviewed and no additional complaints, except as documented Genitourinary Genitourinary: Reports system reviewed and no additional complaints, except as documented and Reports as per HPI Musculoskeletal Musculoskeletal: Reports system reviewed and no additional complaints, except as documented and Reports as per HPI Integumentary/Breasts Comments: She does report bruising easily Hematologic/Lymphatic On Anticoagulants: No Patient History Medical History Anxiety Aortic stenosis Chronic edema Chronic renal insufficiency Chronic sinusitis Diverticulosis Facet arthropathy, lumbar Gastroesophageal reflux disease Greater trochanteric bursitis of left hip History of anemia History of colon cancer History of diverticulitis Hypercholesterolemia Hypertension Osteoarthritis Peripheral neuropathy Renal insufficiency Trigeminal neuralgia of right side of face Surgical History History of carpal tunnel release of both wrists History of hysterectomy History of left hip replacement History of left knee replacement History of right hip replacement History of tonsillectomy Hx of appendectomy S/P left colectomy S/P right colectomy S/P tendon repair Family History Father Heart attack Hypertension Heart disease Brother Heart attack Mother Hypertension Ovarian cancer Social History (Reviewed 04/21/22 @ 05:01 by BINU Fox marital status: unknown household members: none occupational status: previously employed Smoking Status: Former smoker Tobacco: How many years used: 8 Smoking Status: Former smoker alcohol intake frequency: holidays/special occasions only Substance Use Type: does not use Exam Initial Vital Signs Initial Vital Signs: Vital Signs Temperature 98.2 F 06/17/21 21:20 Pulse Rate 65 06/17/21 21:20 Respiratory Rate 20 06/17/21 21:20 Blood Pressure 178/79 H 06/17/21 21:20 Pulse Oximetry 98 06/17/21 21:20 Const General: cooperative, comfortable and well developed HENMT Head: normal to inspection and normocephalic Resp Effort & Inspection: normal respiratory effort Auscultation: clear to auscultation bilaterally Cardio Rate: regular rate Rhythm: abnormal rhythm GI Other: Soft abdomen. No pain in the right or left upper quadrants no in the epigastric region. She does have some mild discomfort with palpation to the right-sided abdomen in the right CVA/flank region. No rebound. No guarding. Skin General: no rashes or lesions noted Neuro General: patient alert, patient awake and moves all extremities Extrem General: normal to inspection and capillary refill normal Psych Appearance: grossly normal and well kempt Course Orders Ordered: ED Orders 06/17/21 21:27 EKG-12 Lead Stat 06/17/21 21:55 Complete Blood Count AUTO DIFF Stat Comprehensive Metabolic Panel Stat Lipase Stat 06/17/21 22:44 CT abdomen pelvis wo con Stat 06/18/21 00:20 US abdomen limited Stat Discontinued Medications Morphine Sulfate (Morphine 4 Mg/Ml Inj) 4 mg IV NOW ONE Stop: 06/17/21 22:45 Last Admin: 06/17/21 22:51 Dose: 4 mg Documented by: CHANTE Ondansetron HCl (Ondansetron 4 Mg/2 Ml Inj) 4 mg IV NOW ONE Stop: 06/17/21 22:45 Last Admin: 06/17/21 22:51 Dose: 4 mg Documented by: CHANTE Vital Signs Vital signs: Vital Signs - 8 hr 06/17/21 21:20 06/17/21 22:50 06/17/21 23:12 Temperature 98.2 F Pulse Rate 65 66 Respiratory Rate 20 Blood Pressure 178/79 H Pulse Oximetry 98 97 96 06/17/21 23:14 06/17/21 23:30 06/18/21 00:00 Temperature Pulse Rate 63 65 70 Respiratory Rate Blood Pressure 161/73 H 165/77 H Pulse Oximetry 95 94 06/18/21 00:01 06/18/21 00:30 06/18/21 00:31 Temperature Pulse Rate 65 80 75 Respiratory Rate Blood Pressure 145/81 H 140/110 H Pulse Oximetry 94 96 95 06/18/21 01:00 06/18/21 01:01 06/18/21 01:30 Temperature Pulse Rate 74 73 72 Respiratory Rate Blood Pressure 137/68 Pulse Oximetry 96 96 94 06/18/21 01:31 Temperature Pulse Rate 70 Respiratory Rate Blood Pressure 131/59 L Pulse Oximetry 94 Medical Decision Making Lab Data Lab results reviewed: Yes I reviewed the patient's lab results. Result diagrams: 06/17/21 21:55 06/17/21 21:55 Labs: Lab Results 06/17/21 06/17/21 Range/Units 21:55 21:55 WBC 9.2 (4.5-11.0) X10^3/uL RBC 3.93 L (4.0-5.2) X10^6/uL Hgb 11.3 L (12.0-16.0) g/dL Hct 33.9 L (36-46) % MCV 86.2 (80-100) fL MCH 28.7 (26-34) PG MCHC 33.3 (30-36) % RDW 15.5 H (11.6-14.8) % Plt Count 161 (150-400) X10^3/uL Neut % (Auto) 81.8 H (50-75) % Lymph % (Auto) 10.5 L (25-40) % [place] % (Auto) 6.2 (3-14) % Eos % (Auto) 1.0 L (2-4) % Baso % (Auto) 0.5 (0-2) % Neut # (Auto) 7600 H (8115-2688) /uL Lymph # (Auto) 1000 L (4841-5201) /uL [place] # (Auto) 600 (0-900) /uL Eos # (Auto) 100 (0-450) /uL Baso # (Auto) 0 (0-100) /uL Sodium 141 (137-145) mmol/L Potassium 4.7 (3.4-5.1) mmol/L Chloride 111 H (98-107) mmol/L Carbon Dioxide 19 L (22-32) mmol/L BUN 38 H (7-17) mg/dL Creatinine 1.57 H (0.52-1.04) mg/dL Estimated GFR 33 L (>60) mL/min BUN/Creatinine Ratio 24.2 H (6-22) Glucose 127 H (80-110) mg/dL Calcium 8.9 (8.4-10.2) mg/dL Total Bilirubin 0.5 (0.2-1.3) mg/dL AST 34 (14-36) IU/L ALT 22 (<35) IU/L Alkaline Phosphatase 189 H (38-126) U/L Total Protein 7.6 (6.3-8.2) g/dL Albumin 4.3 (3.5-5.0) g/dL Globulin 3.3 (1.7-4.1) g/dL Albumin/Globulin Ratio 1.3 (1.0-2.8) Lipase 3752 H (23-300) U/L Urine Dip Bedside Urine Glucose Negative Bedside Urine Bilirubin - Negative Bedside Urine Ketone - Negative Urine Specific [place] 1.025 Bedside Urine Occult Blood - Negative Bedside Urine pH 6.0 Bedside Urine Protein - Negative Bedside Urine Urobilinogen - Negative Bedside Urine Nitrite - Negative Bedside Urine Leukocytes - Negative Esterase Point of care testing: Urine Dip Bedside Urine Glucose Negative Bedside Urine Bilirubin - Negative Bedside Urine Ketone - Negative Urine Specific [place] 1.025 Bedside Urine Occult Blood - Negative Bedside Urine pH 6.0 Bedside Urine Protein - Negative Bedside Urine Urobilinogen - Negative Bedside Urine Nitrite - Negative Bedside Urine Leukocytes - Negative Esterase Imaging Data CT scan - abdomen/pelvis: Radiologist's Impression: [address] [address] [address] Scan Report Signed Patient: Clara Delatorre MR#: [id number] : 1935 Acct:[id number] Age/Sex: 85 / F Date of Service: 06/17/21 Loc: ED Accession Number: [id number] ?? Procedure: CT abdomen pelvis wo con Ordering Provider: Jamel Grider D.O. PROCEDURE:? CT ABDOMEN PELVIS WO CON ? INDICATIONS:? Right flank pain ? TECHNIQUE:? Axial sections were acquired from the lung bases to the pubic symphysis.? Coronal and sagittal reformats were performed.? For radiation dose reduction, the following was used: ?automated exposure control, adjustment of mA and/or kV according to patient size.? ? COMPARISON:? CT, CT ABDOMEN PELVIS [facility], 05/30/2019, 1:49.? [facility], CT, CT ABDOMEN PELVIS [facility], 04/07/2021, 0:35. ? FINDINGS:? Image quality:? Excellent.? Evaluation of the solid parenchymal organs is limited without IV contrast.? ? Lung bases:? No pleural effusion.? ? Heart:? TAVR stent. Small hiatal hernia. URINARY: Right Kidney: ? No stones or hydronephrosis.? Atrophic with cysts.? 1 of the cysts is mildly complex with a thin septation which is calcified, unchanged since 2019.? Right Ureter:? No hydroureter.? ? Left Kidney: ? No stones or hydronephrosis.? Atrophic with benign cysts.? Largest cyst measures 5.9 cm. Left Ureter:? No hydroureter.? ? Bladder:? Normal wall thickness. No stones. ? ? ? ABDOMEN: Liver:? Unremarkable.? ? Gallbladder:? Distended with layering gallstones.? ? Biliary ducts:? Prominent.? There are calcified intraluminal filling defects consistent with choledocholithiasis.? No pneumobilia. ? Pancreas:? Atrophic appearing.? Increased density at the head of the pancreas, ().? Subtle hypodensity at the body and tail the pancreas.? Suboptimally evaluated on this noncontrast exam. Spleen:? No splenomegaly. Adrenal Glands:? No nodule. ? Stomach and Bowel:? Diverticulosis.? No diverticulitis demonstrated.? Sigmoid colon anastomosis.? Small bowel anastomosis in the left lower quadrant.? The appendix is absent. Peritoneum:? No abnormal intraperitoneal fluid.? No free air.? ? Ventral Wall: ? No hernia.? Abdominal Nodes:? No enlarged retroperitoneal or mesenteric lymph nodes.? Vessels:? Aorta and inferior vena cava are normal in size.? ? PELVIS: Pelvic Organs:? Uterus is absent.? Presacral clips.? ? Pelvic Nodes: Unremarkable. Miscellaneous: No inguinal hernias are seen. ? ? ? Bones:? No suspicious lesion.? Bilateral hip arthroplasties.? Multilevel DDD. ? IMPRESSION:? Evaluation of the solid parenchymal organs is limited without IV contrast. ? 1. No kidney stones.? No hydronephrosis.? Kidneys are atrophic. ? 2. Choledocholithiasis.? The bile ducts are prominent. ? 3. Distended gallbladder.? Cholelithiasis. ? 4. No diverticulitis demonstrated.? No free fluid.? No small bowel obstruction. ? Recommend MRCP and MRI pancreas with contrast if renal function is adequate. ? Comment: Findings were discussed with Jamel Grider at the time of dictation. ? Dictated by: Vargas Cobb M.D. on 06/18/2021 at 0:02 ? ? Approved by: Vargas Cobb M.D. on 06/18/2021 at 0:18? US - abdomen: Radiologist's Impression: [place] [address] Ultrasound Report Signed Patient: Clara Delatorre MR#: [id number] : 1935 Acct:[id number] Age/Sex: 85 / F Date of Service: 06/18/21 Loc: ED Accession Number: [id number] ?? Procedure: US abdomen limited Ordering Provider: Jamel Grider D.O. PROCEDURE:? US ABDOMEN LIMITED ? INDICATIONS:? ABNORMAL GALLBLADDER ON CT ? TECHNIQUE:? Real-time scanning was performed of the right upper quadrant, with image documentation.? ? COMPARISON:? [facility], CT, CT ABDOMEN PELVIS WO CON, 06/17/2021, 23:07.? [facility], US, US ABDOMEN LIMITED, 07/30/2020, 4:56. ? FINDINGS:? ? Liver:? Prominent size.? Echogenicity is within normal limits.? Left lobe of the liver is suboptimally evaluated due to bowel gas. ? Gallbladder:? Distended.? Gallstones are present.? A gallstone measuring 2.3 cm.? Normal gallbladder wall thickness. No pericholecystic fluid. Negative sonographic Sneed's sign. ? ? Biliary ducts:? Intrahepatic bile ducts are not appreciated.? There is a stone in the CBD measuring 1.6 cm.? CBD measures 1.2 cm in diameter.? ? Pancreas:? Not visualized due to bowel gas. ? IMPRESSION:? 1. Choledocholithiasis.? CBD is mildly dilated measuring 1.2 cm.? -Recommend ERCP.? ? 2. Pancreas is not evaluated due to overlying bowel gas.? -Recommend further evaluation of the pancreas with MRI pancreas with IV contrast and MRCP. ? 3. Distended gallbladder.? No acute cholecystitis.? Gallstone measuring 2.3 cm. ? ? ? Dictated by: Vargas Cobb M.D. on 06/18/2021 at 1:17 ? ? Approved by: Vargas Cobb M.D. on 06/18/2021 at 1:21? ECG Data Attestation: I personally reviewed and interpreted this ECG as follows: Interpretation: Atrial fibrillation Ventricular rate is 65 Left axis deviation QRS 140 milliseconds Left bundle branch block No ST T wave changes MDM Narrative Medical decision making narrative: Patient is nontoxic appearing. After 1 dose of pain and nausea medication she states her symptoms have greatly improved. CT scan of the abdomen pelvis does not show any signs of bowel obstruction. No signs of diverticulitis. No signs of abscess or appendicitis. She does have choly toe cool lithiasis and cholelithiasis without signs of acute cholecystitis noted on the CT scan. This is confirmed by the right upper quadrant ultrasound. Patient does have an elevation in her lipase but she is not having any discomfort in her left upper quadrant. She has no prior history of known gallbladder pathology. Afebrile. Unsure if the choledocholithiasis that she presents with today is the cause of her discomfort. When she initially presented her pain was more in the CVA/flank/right lower quadrant rather than the right upper quadrant and epigastric region and her presenting location the symptoms would be unlikely related to any gallbladder pathology however, I do not have any other specific reason for the cause of her pain. I did discuss the case with Dr. Gates he would be happy to see the patient as outpatient. I did discuss the findings of the ultrasound and the CT scan with the patient. She will eat a bland diet for the next couple days and return if her symptoms worsen. She expressed understanding and agreement this plan. Discharge Plan Departure Patient Disposition: Home Clinical Impression: Choledocholithiasis, Cholelithiasis Instructions: Gallstones Activity Restrictions/Additional Instructions: I do recommend that you continue all of your medications as directed. They also recommend that over the next couple days you eat a bland diet and avoid foods that are high in fat. I also recommend that you follow-up with Dr. Gates at the number provided below. Return to the emergency department for any new or worsening symptoms. Prescriptions: No Action albuterol sulfate 90 mcg/actuation HFA aerosol inhaler 2 puff INHALATION Q4-6H PRN (Reason: shortness of breath or wheezing) Qty: 8.5 0RF (DME) Aerochamber Plus Z Stat Spacer See Rx Instructions .ROUTE .MEDSUPPLY Qty: 1 0RF Rx Instructions: As directed spironolactone 25 MG tablet 25 mg PO QDAY Qty: 0 0RF oxcarbazepine [Trileptal] 300 MG tablet 300 mg PO BID Qty: 0 0RF Label Comments: Takes 1 tab. in Am & half in the afternnon rosuvastatin 5 mg tablet 5 mg PO DAILY 0RF diltiazem HCl 180 mg Capsule,Extended Release 24 Hr 180 mg PO DAILY 0RF hydrocodone-acetaminophen 5-325 mg tablet 1 tab PO Q4-6H PRN (Reason: pain) Qty: 10 0RF ondansetron 4 mg tablet,disintegrating 4 mg PO TID-QID PRN (Reason: nausea and vomiting) Qty: 10 0RF ciprofloxacin HCl [Cipro] 500 mg tablet 500 mg PO BID Qty: 20 0RF metronidazole 500 mg tablet 500 mg PO TID Qty: 30 0RF oxycodone-acetaminophen 5-325 mg tablet 1 tab PO Q6H PRN (Reason: pain) Qty: 12 0RF vitamin A & D gel 1 PO DAILY 0RF multivitamin Capsule 1 cap PO DAILY 0RF levothyroxine 25 mcg PO 0700 0RF Referrals: Candido Minaya MD [Primary Care Provider] - Dimas Gates MD [Physician] -
--- NOTE | 2021-06-17 22:44 | DI.CT.S_ITS ---
PROCEDURE: CT ABDOMEN PELVIS WO [facility] INDICATIONS: Right flank pain TECHNIQUE: Axial sections were acquired from the lung bases to the pubic symphysis. Coronal and sagittal reformats were performed. For radiation dose reduction, the following was used: automated exposure control, adjustment of mA and/or kV according to patient size. COMPARISON: CT, CT ABDOMEN PELVIS [facility], 05/30/2019, 1:49. [facility], CT, CT ABDOMEN PELVIS [facility], 04/07/2021, 0:35. FINDINGS: Image quality: Excellent. Evaluation of the solid parenchymal organs is limited without IV contrast. Lung bases: No pleural effusion. Heart: TAVR stent. Small hiatal hernia. URINARY: Right Kidney: No stones or hydronephrosis. Atrophic with cysts. 1 of the cysts is mildly complex with a thin septation which is calcified, unchanged since 2019. Right Ureter: No hydroureter. Left Kidney: No stones or hydronephrosis. Atrophic with benign cysts. Largest cyst measures 5.9 cm. Left Ureter: No hydroureter. Bladder: Normal wall thickness. No stones. ABDOMEN: Liver: Unremarkable. Gallbladder: Distended with layering gallstones. Biliary ducts: Prominent. There are calcified intraluminal filling defects consistent with choledocholithiasis. No pneumobilia. Pancreas: Atrophic appearing. Increased density at the head of the pancreas, (2/36). Subtle hypodensity at the body and tail the pancreas. Suboptimally evaluated on this noncontrast exam. Spleen: No splenomegaly. Adrenal Glands: No nodule. Stomach and Bowel: Diverticulosis. No diverticulitis demonstrated. Sigmoid colon anastomosis. Small bowel anastomosis in the left lower quadrant. The appendix is absent. Peritoneum: No abnormal intraperitoneal fluid. No free air. Ventral Wall: No hernia. Abdominal Nodes: No enlarged retroperitoneal or mesenteric lymph nodes. Vessels: Aorta and inferior vena cava are normal in size. PELVIS: Pelvic Organs: Uterus is absent. Presacral clips. Pelvic Nodes: Unremarkable. Miscellaneous: No inguinal hernias are seen. Bones: No suspicious lesion. Bilateral hip arthroplasties. Multilevel DDD. IMPRESSION: Evaluation of the solid parenchymal organs is limited without IV contrast. 1. No kidney stones. No hydronephrosis. Kidneys are atrophic. 2. Choledocholithiasis. The bile ducts are prominent. 3. Distended gallbladder. Cholelithiasis. 4. No diverticulitis demonstrated. No free fluid. No small bowel obstruction. Recommend MRCP and MRI pancreas with contrast if renal function is adequate. Comment: Findings were discussed with Jamel Grider at the time of dictation. Dictated by: Vargas Cobb M.D. on 06/18/2021 at 0:02 Approved by: Vargas Cobb M.D. on 06/18/2021 at 0:18
[2021-06-17 22:49] LABS: Lipase 3752 U/L (23-300)
[2021-06-17 22:50] VITALS: PULSE 66; O2SAT 97
[2021-06-17] MEDS: ONDANSETRON 4 MG/2 ML INJ IV (22:51)
[2021-06-17] MEDS: MORPHINE 4 MG/ML INJ IV (22:51)
[2021-06-17 23:12] VITALS: O2SAT 96
[2021-06-17 23:14] VITALS: BP 161/73; PULSE 63; O2SAT 95
[2021-06-17 23:30] VITALS: BP 165/77; PULSE 65
[2021-06-18] VITALS (8 sets, daily range): BP systolic 131–145; BP diastolic 59–110; PULSE 65–80; O2SAT 94–96
--- NOTE | 2021-06-18 00:20 | DI.US.S_ITS ---
PROCEDURE: US ABDOMEN LIMITED INDICATIONS: ABNORMAL GALLBLADDER ON CT TECHNIQUE: Real-time scanning was performed of the right upper quadrant, with image documentation. COMPARISON: [facility], CT, CT ABDOMEN PELVIS WO CON, 06/17/2021, 23:07. [facility], US, US ABDOMEN LIMITED, 07/30/2020, 4:56. FINDINGS: Liver: Prominent size. Echogenicity is within normal limits. Left lobe of the liver is suboptimally evaluated due to bowel gas. Gallbladder: Distended. Gallstones are present. A gallstone measuring 2.3 cm. Normal gallbladder wall thickness. No pericholecystic fluid. Negative sonographic Sneed's sign. Biliary ducts: Intrahepatic bile ducts are not appreciated. There is a stone in the CBD measuring 1.6 cm. CBD measures 1.2 cm in diameter. Pancreas: Not visualized due to bowel gas. IMPRESSION: 1. Choledocholithiasis. CBD is mildly dilated measuring 1.2 cm. -Recommend ERCP. 2. Pancreas is not evaluated due to overlying bowel gas. -Recommend further evaluation of the pancreas with MRI pancreas with IV contrast and MRCP. 3. Distended gallbladder. No acute cholecystitis. Gallstone measuring 2.3 cm. Dictated by: Vargas Cobb M.D. on 06/18/2021 at 1:17 Approved by: Vargas Cobb M.D. on 06/18/2021 at 1:21
== END 2021-06-18 02:06 | disposition home or self-care (01) ==
PROVIDERS: Emergency Provider Emergency Medicine; PCP Internal Medicine
DX: K80.50 Calculus of bile duct without cholangitis or cholecystitis without obstruction (principal); K80.20 Calculus of gallbladder without cholecystitis without obstruction; Z87.891 Personal history of nicotine dependence; Z88.5 Allergy status to narcotic agent
CPT/HCPCS: 36415; 74176; 76705; 80053; 81003; 83690; 85025; 93005; 96374; 96375; 99284; J2270; J2405

== ENCOUNTER → 2021-08-17 10:29 | Outpatient (CLI) | payer MEDICARE, SELFPAY ==
[2021-06-25 11:37] VITALS: PULSE 88; RESP 9; O2SAT 96; BMI 32.4
[2021-08-17 11:51] LABS: HEMOLYSIS < 15 (0-50); Iron 68 ug/dL (37-170)
[2021-08-17 11:55] LABS: Alanine Aminotransferase 22 IU/L (<35); Albumin 4.2 g/dL (3.5-5.0); Albumin Globulin Ratio 1.4 (1.0-2.8); Alkaline Phosphatase 219 U/L (38-126); Aspartate Aminotransferase 39 IU/L (14-36); BUN Creatinine Ratio 24.4 (6-22); Bilirubin Total 0.4 mg/dL (0.2-1.3); Blood Urea Nitrogen 41 mg/dL (7-17); Calcium 9.2 mg/dL (8.4-10.2); Carbon Dioxide 27 mmol/L (22-32); Chloride 108 mmol/L (98-107); Estimated Glomerular Filt Rate 30 mL/min (>60); Glucose 103 mg/dL (80-110); HEMOLYSIS < 15 (0-50); Potassium 4.7 mmol/L (3.4-5.1); Sodium 141 mmol/L (137-145); Total Protein 7.2 g/dL (6.3-8.2)
[2021-08-17 12:02] LABS: Percent Iron Saturation 19 % (15-50); Total Iron Binding Capacity 357 ug/dL (265-497); Transferrin 272 mg/dL (206-381)
[2021-08-17 12:26] LABS: Ferritin 50 ng/mL (11-264)
[2021-08-17 12:40] LABS: Vitamin B12 728 pg/mL (239-931)
== END ==
PROVIDERS: PCP Internal Medicine; Referring Provider Internal Medicine; Visit Provider Internal Medicine
DX: D64.9 Anemia, unspecified (principal); E53.8 Deficiency of other specified B group vitamins; E78.2 Mixed hyperlipidemia; I10 Essential (primary) hypertension; I25.10 Atherosclerotic heart disease of native coronary artery without angina pectoris
CPT/HCPCS: 36415; 80053; 82607; 82728; 83540; 83550

== ENCOUNTER → 2021-08-20 15:36 | Outpatient (CLI) | payer MEDICARE, SELFPAY ==
[2021-06-25 11:37] VITALS: PULSE 88; RESP 9; O2SAT 96; BMI 32.4
[2021-08-20 18:22] LABS: Add Manual Diff / Slide Review NO; Basophils Absolute Auto 100 /uL (0-100); Basophils Percent Auto 0.9 % (0-2); Eosinophils Absolute Auto 100 /uL (0-450); Eosinophils Percent Auto 1.9 % (2-4); Hematocrit 30.9 % (36-46); Hemoglobin 10.5 g/dL (12.0-16.0); Lymphocytes Absolute Auto 1100 /uL (1100-4500); Lymphocytes Percent Auto 14.2 % (25-40); Mean Corpuscular Hemoglobin 29.5 PG (26-34); Mean Corpuscular Volume 86.7 fL (80-100); Monocytes Absolute Auto 600 /uL (0-900); Monocytes Percent Auto 8.3 % (3-14); Neutrophils Absolute Auto 5700 /uL (1500-7000); Neutrophils Percent Auto 74.7 % (50-75); Platelet Count 177 X10^3/uL (150-400); Red Blood Cell Count 3.56 X10^6/uL (4.0-5.2); Red Cell Distribution Width 15.1 % (11.6-14.8); White Blood Cell Count 7.6 X10^3/uL (4.5-11.0)
[2021-08-20 18:56] LABS: HEMOLYSIS < 15 (0-50); Iron 69 ug/dL (37-170)
[2021-08-20 19:09] LABS: Percent Iron Saturation 19 % (15-50); Total Iron Binding Capacity 360 ug/dL (265-497); Transferrin 270 mg/dL (206-381)
[2021-08-20 19:28] LABS: TSH w/ Reflex to FT4 2.65 uIU/mL (0.47-4.68)
[2021-08-20 19:37] LABS: Alanine Aminotransferase 24 IU/L (<35); Albumin 4.1 g/dL (3.5-5.0); Albumin Globulin Ratio 1.4 (1.0-2.8); Alkaline Phosphatase 215 U/L (38-126); Aspartate Aminotransferase 40 IU/L (14-36); BUN Creatinine Ratio 24.8 (6-22); Bilirubin Total 0.4 mg/dL (0.2-1.3); Blood Urea Nitrogen 40 mg/dL (7-17); Calcium 9.2 mg/dL (8.4-10.2); Carbon Dioxide 23 mmol/L (22-32); Chloride 109 mmol/L (98-107); Cholesterol 116 mg/dL (140-199); Estimated Glomerular Filt Rate 31 mL/min (>60); Glucose 89 mg/dL (80-110); HDL Cholesterol 41 mg/dL (40-60); HEMOLYSIS < 15 (0-50); LDL Cholesterol Calculated 51 mg/dL (<100); Potassium 5.1 mmol/L (3.4-5.1); Sodium 139 mmol/L (137-145); Total Protein 7.1 g/dL (6.3-8.2); Triglycerides 118 mg/dL (35-150)
[2021-08-20 20:11] LABS: Ferritin 56 ng/mL (11-264)
[2021-08-20 20:25] LABS: Vitamin B12 700 pg/mL (239-931)
== END ==
PROVIDERS: PCP Internal Medicine; Referring Provider Internal Medicine; Visit Provider Internal Medicine
DX: D64.9 Anemia, unspecified (principal); E03.9 Hypothyroidism, unspecified; E78.2 Mixed hyperlipidemia; N18.32 Chronic kidney disease, stage 3b; E53.8 Deficiency of other specified B group vitamins
CPT/HCPCS: 36415; 80053; 80061; 82607; 82728; 83540; 83550; 84443; 85025

== ENCOUNTER → 2021-10-20 10:31 | Outpatient (CLI) | payer MEDICARE, SELFPAY ==
[2021-06-25 11:37] VITALS: PULSE 88; RESP 9; O2SAT 96; BMI 32.4
--- NOTE | 2021-10-20 10:35 | DI.RAD.S_ITS ---
PROCEDURE: XR FOOT RT MIN 3V INDICATIONS: Ankle pain TECHNIQUE: 3 views of the foot were acquired. COMPARISON: [facility], , FOOT 3V RIGHT, 06/28/2006, 11:34. FINDINGS: Bones: Diffuse osteopenia. No fractures or dislocations. No suspicious bony lesions. Soft tissues: No tibiotalar joint effusion. Achilles tendon appears normal. IMPRESSION: No evidence acute bony abnormality of the right foot. If clinical suspicion and/or symptoms persist, further assessment with repeat plain films, or advanced imaging (e.g., CT, MRI, or bone scan) may be helpful for further assessment. Dictated by: Milan Cobos M.D. on 10/20/2021 at 11:04 Approved by: Milan Cobos M.D. on 10/20/2021 at 11:05
--- NOTE | 2021-10-20 10:35 | DI.RAD.S_ITS ---
PROCEDURE: XR ANKLE RT MIN 3V INDICATIONS: Ankle pain TECHNIQUE: 3 views of the ankle were acquired. COMPARISON: [facility], , ANKLE 3 VIEWS RIGHT, 08/22/2012, 9:55. FINDINGS: Bones: No fractures or dislocations. Ankle mortise is normally aligned. No suspicious bony lesions. Soft tissues: No tibiotalar joint effusion. Achilles tendon appears normal. IMPRESSION: No evidence acute bony abnormality of the right ankle. If clinical suspicion and/or symptoms persist, further assessment with repeat plain films, or advanced imaging (e.g., CT, MRI, or bone scan) may be helpful for further assessment. Dictated by: Milan Cobos M.D. on 10/20/2021 at 11:05 Approved by: Milan Cobos M.D. on 10/20/2021 at 11:06
== END ==
PROVIDERS: PCP Internal Medicine; Referring Provider Student in an Organized Health Care Education/Training Program; Visit Provider Student in an Organized Health Care Education/Training Program
DX: M25.571 Pain in right ankle and joints of right foot (principal); M79.671 Pain in right foot
CPT/HCPCS: 73610; 73630

== ENCOUNTER → 2021-11-03 12:01 | Outpatient (CLI) | payer MEDICARE, SELFPAY ==
[2021-06-25 11:37] VITALS: PULSE 88; RESP 9; O2SAT 96; BMI 32.4
[2021-11-03 13:25] LABS: Add Manual Diff / Slide Review NO; Basophils Absolute Auto 100 /uL (0-100); Basophils Percent Auto 0.7 % (0-2); Eosinophils Absolute Auto 200 /uL (0-450); Eosinophils Percent Auto 2.9 % (2-4); Hemoglobin 10.5 g/dL (12.0-16.0); Lymphocytes Absolute Auto 1300 /uL (1100-4500); Lymphocytes Percent Auto 15.7 % (25-40); Mean Corpuscular HGB Conc 33.9 % (30-36); Mean Corpuscular Hemoglobin 29.3 PG (26-34); Mean Corpuscular Volume 86.4 fL (80-100); Monocytes Absolute Auto 1000 /uL (0-900); Monocytes Percent Auto 11.9 % (3-14); Neutrophils Absolute Auto 5900 /uL (1500-7000); Neutrophils Percent Auto 68.8 % (50-75); Platelet Count 185 X10^3/uL (150-400); Red Blood Cell Count 3.59 X10^6/uL (4.0-5.2); Red Cell Distribution Width 13.8 % (11.6-14.8); White Blood Cell Count 8.5 X10^3/uL (4.5-11.0)
[2021-11-03 13:45] LABS: Alanine Aminotransferase 27 IU/L (<35); Albumin 3.9 g/dL (3.5-5.0); Albumin Globulin Ratio 1.2 (1.0-2.8); Alkaline Phosphatase 213 U/L (38-126); Aspartate Aminotransferase 32 IU/L (14-36); Bilirubin Total 0.3 mg/dL (0.2-1.3); Blood Urea Nitrogen 46 mg/dL (7-17); Calcium 8.8 mg/dL (8.4-10.2); Carbon Dioxide 25 mmol/L (22-32); Chloride 107 mmol/L (98-107); Estimated Glomerular Filt Rate 28 mL/min (>60); Globulin 3.2 g/dL (1.7-4.1); Glucose 84 mg/dL (80-110); HEMOLYSIS < 15 (0-50); Potassium 5.2 mmol/L (3.4-5.1); Sodium 139 mmol/L (137-145); Total Protein 7.1 g/dL (6.3-8.2)
[2021-11-03 14:01] LABS: Lipase 7981 U/L (23-300)
== END ==
PROVIDERS: PCP Internal Medicine; Referring Provider Surgery; Visit Provider Surgery
DX: K80.50 Calculus of bile duct without cholangitis or cholecystitis without obstruction (principal)
CPT/HCPCS: 80053; 83690; 85025

== ENCOUNTER → 2021-11-03 12:05 | Outpatient (CLI) | payer MEDICARE, SELFPAY ==
[2021-06-25 11:37] VITALS: PULSE 88; RESP 9; O2SAT 96; BMI 32.4
== END ==
PROVIDERS: PCP Internal Medicine; Referring Provider Surgery; Visit Provider Surgery
DX: K80.40 Calculus of bile duct with cholecystitis, unspecified, without obstruction (principal); Z53.8 Procedure and treatment not carried out for other reasons

== ENCOUNTER → 2021-11-30 09:50 | Outpatient (CLI) | payer MEDICARE, SELFPAY ==
[2021-06-25 11:37] VITALS: PULSE 88; RESP 9; O2SAT 96; BMI 32.4
[2021-11-30 12:10] LABS: COVID19 -Nasal RAPID Negative (Negative)
== END ==
PROVIDERS: PCP Internal Medicine; Visit Provider Surgery
DX: Z20.822 Contact with and (suspected) exposure to COVID-19 (principal); Z01.812 Encounter for preprocedural laboratory examination
CPT/HCPCS: 87635; C9803

== ENCOUNTER 2021-12-01 12:00 | Day surgery (SDC) | payer MEDICARE, SELFPAY ==
[2021-06-25 11:37] VITALS: PULSE 88; RESP 9; O2SAT 96; BMI 32.4
[2021-11-26 15:36] VITALS: BMI 30.8
[2021-12-01] VITALS (11 sets, daily range): BP systolic 114–159; BP diastolic 47–86; PULSE 60–61; RESP 16–23; TEMP 36.1–36.6; O2SAT 92–100; BMI 30.8
--- NOTE | 2021-12-01 | PATH_ITS ---
[facility] Accession Number: [id number] . 01 Material submitted: . gallbladder - GALLBLADDER . 01 Diagnosis: Gallbladder, Cholecystectomy: Chronic cholecystitis with cholelithiasis. Negative for dysplasia and malignancy. MRV 12/07/2021 1331 Local . 01 Electronically signed: . Olga Arreola MD, Pathologist NPI- [id number] . 01 Gross description: . The specimen is received in formalin labeled with the patient's name and gallbladder, and consists of an intact gallbladder measuring 9.0 x 3.6 x 2.3 cm with green smooth serosa and a rough and unremarkable hepatic surface. The cystic duct is received closed with a clamp, is inked blue, and no pericystic lymph node is identified. Opening the specimen reveals the lumen to be filled with green viscous bile and a single dark brown faceted calculus measuring 1.9 cm in greatest dimension. The mucosa is green and velvety with no areas of discoloration, polyps, or lesions identified, and the flynn average 0.2 cm thick. Procurement Clerk sections to include the cystic duct margin and full-thickness sections are submitted in cassette A1. ([id number]) /MRV 12/03/2021 1421 Local . 01 Pathologist provided ICD-10: K80.20 . 01 CPT . 842212 Specimen Comment: A courtesy copy of this report has been sent to [phone] Performed at: 01 [facility] [address] [place] [address] [id number] MD Joseph Liz MD Phone: [phone]
[2021-12-01] MEDS: LACTATED RINGERS 1,000 ML 100 ML IV (12:36)
--- NOTE | 2021-12-01 15:01 | PM.PREOP ---
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 She was started on torsemide with good results. ASA Class (for procedural sedation): III
[2021-12-01] MEDS: CEFAZOLIN 2 GM/100 ML PREMIX 100 ML IV (15:53)
[2021-12-01] MEDS: BUPIVACAINE 0.5% W/ EPI (PF) 30 ML VIAL INJ (16:00)
--- NOTE | 2021-12-01 16:21 | SUR.OPER ---
Supine on padded OR bed, head on pillow, arms secured on padded arm boards at <90 degrees abduction, legs uncrossed, safety belt at thigh, tape over blanket over lower legs, foot board in place.
[2021-12-01] MEDS: ACETAMINOPHEN IV 1,000 MG/100 ML VIAL 400 MG IV (16:48)
--- NOTE | 2021-12-01 18:03 | PM.OP.1 ---
Operative Date/Time/Diagnoses Date of procedure: 12/01/21 Time of procedure: 18:03 Pre-op diagnosis: Gallstones Post-op diagnosis: same Procedure & Clinicians Procedure: Laparoscopic cholecystectomy and extensive lysis of adhesions Same procedure as scheduled: Yes Surgeon: Kannan Watkins Anesthesia Type: General Operative Notes Procedure in detail: The patient was given preoperative antibiotic. The patient was brought to the operating room, placed on the table in the supine position. General endotracheal anesthesia was induced. The abdomen was prepped and draped. A time-out was performed. The patient had extensive midline scar tissue from prior exploratory laparotomy. We made a 1 cm supraumbilical incision and dissected down to the fascia. We scored the fascia with cautery. We dissected through few thin layers of tissue and saw bowel. The bowel was on injured. There were dense adhesions preventing placement of a port at this location. We then performed a cutdown in the right upper quadrant. We scored the anterior sheath and divided the rectus muscle bluntly. We grasped the posterior sheath and divided it sharply with scissors. Here we were able to establish access using a 5 mm port. The abdomen was insufflated and a camera was inserted through this 5 mm port to look back towards the midline. We then placed a 5 minimal a port in the subxiphoid position under direct vision. We then started to carefully take down adhesions of omentum to the anterior abdominal wall in the upper midline. We ventrally placed additional 5 mm ports in the right upper quadrant. We looked back towards the supraumbilical port and were able to bluntly clear away adhesions to establish a placement of [place] port. The patient was then positioned in reverse Trendelenburg and the table was tilted to the left. The gallbladder was grasped at the dome and retracted cephalad. There were a few adhesions to the right lobe of the liver that were taken down under direct vision with cautery. We then dissected the cystic structures with a combination of hook cautery and blunt dissection. We obtained a critical view. We placed clips on the cystic duct and artery and divided the cystic duct and artery sharply between the clips. The gallbladder was then dissected off the liver and placed in a specimen retrieval bag. We irrigated the right upper quadrant and all the aspirate returned clear. We then removed the 5 mm ports under direct vision we removed the [place] port. We then injected some local into the fascia and closed the fascia with 2 interrupted 0 Vicryl sutures. The skin incisions were closed with 4-0 Monocryl and Steri-Strips were applied. Band-Aids were applied over the Steri-Strips. EBL: 30 mL Specimen: Gallbladder Post-operative Condition: stable Disposition: PACU
[2021-12-01] MEDS: ONDANSETRON 4 MG/2 ML INJ IV (18:22)
--- NOTE | 2021-12-01 19:28 | SUR.PHASEII ---
Patient able to stand and pivot into wheelchair. States will help her to house. Provided written and verbal discharge instructions. Patient stated understanding. tolerated fluids. discharged by wheelchair to private vehicle in stable condition. see flowsheet for assessment details.
== END 2021-12-01 19:30 | disposition home or self-care (01) ==
PROVIDERS: PCP Internal Medicine; Referring Provider Surgery; Visit Provider Surgery
PROC: 0FT44ZZ Resection of Gallbladder, Percutaneous Endoscopic Approach (ICD-10-PCS; CPT 47562; principal; 2021-12-01 13:45)
DX: K80.10 Calculus of gallbladder with chronic cholecystitis without obstruction (principal); K66.0 Peritoneal adhesions (postprocedural) (postinfection); Z95.0 Presence of cardiac pacemaker; I49.5 Sick sinus syndrome; I10 Essential (primary) hypertension; I48.91 Unspecified atrial fibrillation; E03.9 Hypothyroidism, unspecified; I25.2 Old myocardial infarction
CPT/HCPCS: 47562; J0131; J0330; J0690; J1100; J2250; J2405; J2704; J3010

== ENCOUNTER 2021-12-18 20:04 | Emergency (ER) | payer MEDICARE, SELFPAY ==
[2021-06-25 11:37] VITALS: PULSE 88; RESP 9; O2SAT 96; BMI 32.4
[2021-12-18] VITALS (9 sets, daily range): BP systolic 149–162; BP diastolic 66–75; PULSE 60–63; RESP 18; TEMP 36.9; O2SAT 96–100; BMI 30.1
--- NOTE | 2021-12-18 21:13 | ED_ITS ---
HPI - General Adult General Chief complaint: Abdominal Pain Stated complaint: Acute ABD pain Time Seen by Provider: 12/18/21 20:06 Source: patient Mode of arrival: Wheelchair Limitations: no limitations History of Present Illness HPI narrative: Patient is an 86-year-old female who is here for evaluation of lower abdominal pain that has now moved to lower back pain. She had her gallbladder removed approximately 2 weeks ago. This is after she had a procedure to remove a stone from her common bile duct. She is been told that she has an issue with her pancreas and has followed up with General surgery however did not want to proceed with a CT scan with contrast because she has known issues with her kidneys. She is a follow-up with General surgery on Tuesday. She states she did have a bowel movement today. She does have a history of diverticulitis. Has had bowel obstructions and also bowel resections in the past because of diverticulitis. She feels bloated. No vomiting. No urinary symptoms. No fev ers. Related Data Home Medications Medication Instructions Recorded Confirmed spironolactone 25 mg tablet 25 mg PO QDAY ##0 05/26/11 12/16/21 multivitamin 1 cap PO DAILY 03/05/19 12/16/21 apixaban 2.5 mg tablet (Eliquis) 2.5 mg PO BID 06/25/21 12/16/21 clopidogrel 75 mg tablet 75 mg PO DAILY 06/25/21 12/16/21 cholecalciferol (vitamin D3) 25 25 mcg PO DAILY 10/01/21 12/16/21 mcg (1,000 unit) capsule levothyroxine 25 mcg tablet 25 mcg PO DAILY 10/01/21 12/16/21 metoprolol succinate 25 mg 25 mg PO DAILY 11/26/21 12/16/21 tablet,extended release 24 hr torsemide 5 mg tablet 5 mg PO DAILY 12/01/21 12/16/21 L. acidophilus/Bifid. animalis 1 cap PO DAILY 12/16/21 12/16/21 [Daily Probiotic] aspirin 81 mg tablet,delayed 81 mg PO DAILY 12/16/21 12/16/21 release Previous Rx's Medication Instructions Recorded lorazepam 0.5 mg tablet 0.5 mg PO BID PRN anxiety #20 tabs 09/21/21 oxcarbazepine 300 mg tablet 300 mg PO DAILY #180 tabs 10/26/21 (Trileptal) rosuvastatin 5 mg tablet 5 mg PO DAILY #90 tabs 10/26/21 hydrocodone 5 mg-acetaminophen 325 1 tab PO Q8H PRN pain #10 tabs 12/01/21 mg tablet Allergies Allergy/AdvReac Type Severity Reaction Status Date / Time DEEDEE Inhibitors Allergy Severe ANGIOEDEMA Verified 12/16/21 09:36 [DEEDEE INHIBITORS] Sulfa (Sulfonamide Allergy Severe RASH Verified 12/16/21 09:36 Antibiotics) [SULFA (SULFONAMIDE ANTIBIOTICS)] hydromorphone [From DILAUDID] Allergy Mild HALLUCINATI Verified 12/16/21 09:36 ONS atorvastatin Allergy Verified 12/16/21 09:36 niacin Allergy Verified 12/16/21 09:36 [From Niaspan Extended-Release] rofecoxib Allergy Verified 12/16/21 09:36 simvastatin Allergy Verified 12/16/21 09:36 tiotropium Allergy Verified 12/16/21 09:36 codeine [CODEINE] AdvReac Mild FEELING Verified 12/16/21 09:36 OF DROP IN BP/WEAKNESS pseudoephedrine AdvReac Mild FEELS LIKE Verified 12/16/21 09:36 [PSEUDOEPHEDRINE] BP GOES OUT FROM UNDERNEATH ME. colchicine AdvReac Gastrointestinal Verified 12/16/21 09:36 Upset hydrocodone AdvReac Gastrointestinal Verified 12/16/21 09:36 Upset NSAIDS (Non-Steroidal AdvReac Elevated Verified 12/16/21 09:36 Anti-Inflamma creatinine Review of Systems Review of Systems ROS Unobtainable: All systems reviewed & are unremarkable except as noted in HPI and below Patient History Medical History Acquired hypothyroidism Adhesive capsulitis of right shoulder Advanced directives, counseling/discussion Anemia Anesthesia complication Anxiety Aortic stenosis Chronic anticoagulation Chronic edema Chronic renal insufficiency Chronic sinusitis Coronary artery disease Diverticulosis Essential hypertension Facet arthropathy, lumbar Gastroesophageal reflux disease Greater trochanteric bursitis of left hip History of anemia History of colon cancer History of diverticulitis Hospital discharge follow-up Hypercholesterolemia Hypertension LBBB (left bundle branch block) Medicare annual wellness visit, initial Mixed hyperlipidemia NSTEMI (non-ST elevated myocardial infarction) (02/25/21) Osteoarthritis Paroxysmal atrial fibrillation Peripheral neuropathy Right rotator cuff tendonitis Sick sinus syndrome Stage 3b chronic kidney disease (CKD) Trigeminal neuralgia of right side of face Surgical History History of carpal tunnel release of both wrists History of hysterectomy History of left hip replacement History of left knee replacement History of right hip replacement History of tonsillectomy Hx of appendectomy Hx of heart artery stent S/P left colectomy S/P right colectomy 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) S/P tendon repair Status cardiac pacemaker (~08/17/21) Family History Father Heart attack Hypertension Heart disease Brother Heart attack Mother Hypertension Ovarian cancer Social History marital status: unknown household members: spouse and none occupational status: previously employed Smoking Status: Former smoker Tobacco: How many years used: 8 alcohol intake: current Smoking Status: Former smoker alcohol intake frequency: holidays/special occasions only Substance Use Type: does not use Exam Initial Vital Signs Initial Vital Signs: Vital Signs Temperature 98.4 F 12/18/21 20:24 Pulse Rate 63 12/18/21 20:24 Respiratory Rate 18 12/18/21 20:24 Blood Pressure 149/66 H 12/18/21 20:24 Pulse Oximetry 98 12/18/21 20:24 Oxygen Delivery Method 12/18/21 20:24 Const General: cooperative and healthy appearing [facility] Head: normal to inspection and normocephalic Resp Effort & Inspection: normal respiratory effort Auscultation: clear to auscultation bilaterally Cardio Rate: regular rate Rhythm: regular rhythm GI Inspection: normal to inspection Palpation: soft, No firm and No tender Skin General: no rashes or lesions noted Neuro General: patient alert, patient awake, patient oriented x3 and moves all extremities Extrem General: normal to inspection and capillary refill normal Psych Appearance: grossly normal and well kempt Course Orders Ordered: ED Orders 12/18/21 21:05 Complete Blood Count AUTO DIFF Stat Comprehensive Metabolic Panel Stat Lipase Stat 12/18/21 21:31 CT abdomen pelvis wo con Stat Discontinued Medications Morphine Sulfate (Morphine 4 Mg/Ml Inj) 4 mg IV NOW ONE Stop: 12/18/21 21:15 Last Admin: 12/18/21 22:09 Dose: 2 mg Documented By: NR Vital Signs Vital signs: Vital Signs - 8 hr 12/18/21 20:24 12/18/21 20:57 12/18/21 21:00 Temperature 98.4 F Pulse Rate 63 60 Respiratory Rate 18 Blood Pressure 149/66 H 162/72 H Pulse Oximetry 98 100 Oxygen Delivery Method Room Air 12/18/21 21:00 12/18/21 21:30 12/18/21 22:00 Temperature Pulse Rate 60 61 63 Respiratory Rate Blood Pressure Pulse Oximetry 100 97 98 Oxygen Delivery Method 12/18/21 22:30 12/18/21 23:00 12/18/21 23:01 Temperature Pulse Rate 61 61 62 Respiratory Rate Blood Pressure Pulse Oximetry 97 97 96 Oxygen Delivery Method 12/18/21 23:13 Temperature Pulse Rate Respiratory Rate Blood Pressure 151/75 H Pulse Oximetry Oxygen Delivery Method Medical Decision Making Medical Records Medical records reviewed: Yes I reviewed the patient's medical records. Lab Data Lab results reviewed: Yes I reviewed the patient's lab results. Result diagrams: 12/18/21 21:05 12/18/21 21:05 Labs: Lab Results 12/18/21 12/18/21 Range/Units 21:05 21:05 WBC 10.0 (4.5-11.0) X10^3/uL RBC 3.05 L (4.0-5.2) X10^6/uL Hgb 9.0 L (12.0-16.0) g/dL Hct 26.3 L (36-46) % MCV 86.2 (80-100) fL MCH 29.6 (26-34) PG MCHC 34.3 (30-36) % RDW 14.9 H (11.6-14.8) % Plt Count 170 (150-400) X10^3/uL Neut % (Auto) 80.0 H (50-75) % Lymph % (Auto) 7.0 L (25-40) % [place] % (Auto) 8.2 (3-14) % Eos % (Auto) 4.1 H (2-4) % Baso % (Auto) 0.7 (0-2) % Neut # (Auto) 8000 H (3436-6274) /uL Lymph # (Auto) 700 L (7069-7449) /uL [place] # (Auto) 800 (0-900) /uL Eos # (Auto) 400 (0-450) /uL Baso # (Auto) 100 (0-100) /uL Sodium 141 (137-145) mmol/L Potassium 4.3 (3.4-5.1) mmol/L Chloride 108 H (98-107) mmol/L Carbon Dioxide 21 L (22-32) mmol/L BUN 54 H (7-17) mg/dL Creatinine 1.88 H (0.52-1.04) mg/dL Estimated GFR 26 L (>60) mL/min BUN/Creatinine Ratio 28.7 H (6-22) Glucose 111 H (80-110) mg/dL Calcium 8.7 (8.4-10.2) mg/dL Total Bilirubin 0.2 (0.2-1.3) mg/dL AST 25 (14-36) IU/L ALT 22 (<35) IU/L Alkaline Phosphatase 216 H (38-126) U/L Total Protein 7.0 (6.3-8.2) g/dL Albumin 3.9 (3.5-5.0) g/dL Globulin 3.1 (1.7-4.1) g/dL Albumin/Globulin Ratio 1.3 (1.0-2.8) Lipase 3364 H (23-300) U/L Urine Dip Bedside Urine Glucose Negative Bedside Urine Bilirubin - Negative Bedside Urine Ketone - Negative Urine Specific [place] 1.015 Bedside Urine Occult Blood - Negative Bedside Urine pH 6.0 Bedside Urine Protein +/- 15 Bedside Urine Urobilinogen - Negative Bedside Urine Nitrite - Negative Point of care testing: Urine Dip Bedside Urine Glucose Negative Bedside Urine Bilirubin - Negative Bedside Urine Ketone - Negative Urine Specific [place] 1.015 Bedside Urine Occult Blood - Negative Bedside Urine pH 6.0 Bedside Urine Protein +/- 15 Bedside Urine Urobilinogen - Negative Bedside Urine Nitrite - Negative Imaging Data CT scan - abdomen/pelvis: Radiologist's Impression: [address] [address] [address] Scan Report Signed Patient: Clara Delatorre MR#: [id number] : 1935 Acct:[id number] Age/Sex: 86 / F Date of Service: 12/18/21 Loc: ED Accession Number: [id number] ?? Procedure: CT abdomen pelvis wo con Ordering Provider: Jamel Grider D.O. PROCEDURE:? CT ABDOMEN PELVIS WO CON ? INDICATIONS:? Lower abdominal and lower back pain ? TECHNIQUE:? Noncontrast 5 mm thick sections acquired from the diaphragms to the symphysis.? 5 mm coronal and sagittal reformats were then performed.? For radiation dose reduction, the following was used:? automated exposure control, adjustment of mA and/or kV according to patient size.? ? COMPARISON:? [facility], CT, CT ABDOMEN PELVIS WO CON, 06/17/2021, 23:07. ? FINDINGS:? Image quality:? Excellent.? ? ABDOMEN:? Lung bases:? Lung bases are clear.? Heart size is enlarged, no pericardial effusion.? Pacemaker leads and prosthetic aortic valve is again seen and unchanged. ? Solid organs:? Liver is normal in size.? Gallbladder is surgically absent.? Hyperdense area involving pancreatic head is again seen measures approximately 2.6 x 2.5 cm in size series 2, image 36 not significantly changed from prior study.? Spleen is normal in size. ?No adrenal nodules.? Atrophic appearing bilateral kidneys are seen with bilateral renal cysts not significantly changed from prior studies.? No hydronephrosis or hydroureter.? No renal stones. ? Peritoneum and bowel:? Unenhanced bowel loops demonstrate normal wall thickness and caliber.? No free fluid or air.? Postsurgical changes are again seen in sigmoid colon.? Sigmoid diverticulosis is again seen without sigmoid colon wall thickening or mesenteric fat stranding.? No abscess collection. ? Nodes and vessels:? No retroperitoneal or mesenteric adenopathy by size criteria.? Aorta and inferior vena cava are normal in caliber.? ? Miscellaneous:? No ventral hernias.? ? ? PELVIS:? Genitourinary:? Bladder wall thickness is normal.? ? Miscellaneous:? No inguinal hernias or adenopathy.? ? Bones:? There is prior bilateral total hip arthroplasty.? No suspicious bony lesions.? No vertebral body compression fractures.? Degenerative disc disease throughout lower thoracic and lumbar spine is seen. ? IMPRESSION:? 1. No significant changes from previous study. 2. Postsurgical changes in sigmoid colon.? No bowel obstruction or abnormal bowel wall thickening.? No abscess collection.? No free fluid or free air. 3. Prior cholecystectomy.? No significant biliary ductal dilatation is seen on the current study. 4. Hyperdense area involving pancreatic head, a pancreatic head mass cannot be excluded.? This is not significantly changed from prior study. 5. Atrophic bilateral kidneys with multiple bilateral renal cysts unchanged from prior study.? No stones or hydronephrosis. ? ? Dictated by: Orlin Doherty M.D. on 12/18/2021 at 21:56 ? ? Approved by: Orlin Doherty M.D. on 12/18/2021 at 22:06 MDM Narrative Medical decision making narrative: Vital signs are unremarkable. Labs are unremarkable or baseline. She does have an elevated lipase but this is actually lower than what it has been in the past. The CT scan shows no signs of acute pathology. There is hyperdense area in the head of the pancreas and the patient states that she knows about this. She declined to get further workup of this because she does not to cause injury to her kidneys. Kidney function is baseline. There is no signs of diverticulitis or other infectious etiology or other surgical etiology. I discussed this with her. We will hold on further workup for now. Patient expressed the understanding that there was not a definitive diagnosis of her di [place]. Discuss strict return precautions. She expressed understanding and agreement. Discharge Plan Departure Patient Disposition: Home Clinical Impression: Abdominal pain, Elevated lipase Instructions: DI for Abdominal Pain-Adult Activity Restrictions/Additional Instructions: I recommend you continue to take all of your medications as directed. Keep scheduled follow-up appointment with the general surgeon that you have on Tuesday. I do recommend that you talk with him about the elevation in your pancreas enzyme called the lipase and also the abnormality seen on the CT scan around your pancreas. Return to the emergency department for any new or worsening symptoms. Prescriptions: No Action spironolactone 25 MG tablet 25 mg PO QDAY Qty: 0 lorazepam 0.5 mg tablet 0.5 mg PO BID PRN (Reason: anxiety) Qty: 20 2RF oxcarbazepine [Trileptal] 300 mg tablet 300 mg PO DAILY Qty: 180 0RF rosuvastatin 5 mg tablet 5 mg PO DAILY Qty: 90 0RF Eliquis 2.5 mg tablet 2.5 mg PO BID clopidogrel 75 mg tablet 75 mg PO DAILY cholecalciferol (vitamin D3) 25 mcg (1,000 unit) capsule 25 mcg PO DAILY levothyroxine 25 mcg tablet 25 mcg PO DAILY Label Comments: TAKE 1 TABLET BY MOUTH DAILY aspirin 81 mg tablet,delayed release (DR/EC) 81 mg PO DAILY L. acidophilus/Bifid. animalis [Daily Probiotic] 1 cap PO DAILY metoprolol succinate 25 mg Tablet Extended Release 24 Hr 25 mg PO DAILY torsemide 5 mg tablet 5 mg PO DAILY hydrocodone-acetaminophen 5-325 mg tablet 1 tab PO Q8H PRN (Reason: pain) Qty: 10 0RF multivitamin Capsule 1 cap PO DAILY Referrals: Candido Minaya MD [Primary Care Provider] - Visit Report Forms: Patient Portal/API
[2021-12-18 21:21] LABS: Add Manual Diff / Slide Review NO; Basophils Absolute Auto 100 /uL (0-100); Basophils Percent Auto 0.7 % (0-2); Eosinophils Absolute Auto 400 /uL (0-450); Eosinophils Percent Auto 4.1 % (2-4); Hematocrit 26.3 % (36-46); Lymphocytes Absolute Auto 700 /uL (1100-4500); Mean Corpuscular HGB Conc 34.3 % (30-36); Mean Corpuscular Hemoglobin 29.6 PG (26-34); Mean Corpuscular Volume 86.2 fL (80-100); Monocytes Absolute Auto 800 /uL (0-900); Monocytes Percent Auto 8.2 % (3-14); Neutrophils Absolute Auto 8000 /uL (1500-7000); Platelet Count 170 X10^3/uL (150-400); Red Blood Cell Count 3.05 X10^6/uL (4.0-5.2); Red Cell Distribution Width 14.9 % (11.6-14.8)
[2021-12-18 21:24] LABS: Alanine Aminotransferase 22 IU/L (<35); Albumin 3.9 g/dL (3.5-5.0); Albumin Globulin Ratio 1.3 (1.0-2.8); Alkaline Phosphatase 216 U/L (38-126); Aspartate Aminotransferase 25 IU/L (14-36); BUN Creatinine Ratio 28.7 (6-22); Bilirubin Total 0.2 mg/dL (0.2-1.3); Blood Urea Nitrogen 54 mg/dL (7-17); Calcium 8.7 mg/dL (8.4-10.2); Carbon Dioxide 21 mmol/L (22-32); Chloride 108 mmol/L (98-107); Estimated Glomerular Filt Rate 26 mL/min (>60); Globulin 3.1 g/dL (1.7-4.1); Glucose 111 mg/dL (80-110); HEMOLYSIS < 15 (0-50); Potassium 4.3 mmol/L (3.4-5.1); Sodium 141 mmol/L (137-145)
--- NOTE | 2021-12-18 21:31 | DI.CT.S_ITS ---
PROCEDURE: CT ABDOMEN PELVIS WO CON INDICATIONS: Lower abdominal and lower back pain TECHNIQUE: Noncontrast 5 mm thick sections acquired from the diaphragms to the symphysis. 5 mm coronal and sagittal reformats were then performed. For radiation dose reduction, the following was used: automated exposure control, adjustment of mA and/or kV according to patient size. COMPARISON: [facility], CT, CT ABDOMEN PELVIS WO CON, 06/17/2021, 23:07. FINDINGS: Image quality: Excellent. ABDOMEN: Lung bases: Lung bases are clear. Heart size is enlarged, no pericardial effusion. Pacemaker leads and prosthetic aortic valve is again seen and unchanged. Solid organs: Liver is normal in size. Gallbladder is surgically absent. Hyperdense area involving pancreatic head is again seen measures approximately 2.6 x 2.5 cm in size series 2, image 36 not significantly changed from prior study. Spleen is normal in size. No adrenal nodules. Atrophic appearing bilateral kidneys are seen with bilateral renal cysts not significantly changed from prior studies. No hydronephrosis or hydroureter. No renal stones. Peritoneum and bowel: Unenhanced bowel loops demonstrate normal wall thickness and caliber. No free fluid or air. Postsurgical changes are again seen in sigmoid colon. Sigmoid diverticulosis is again seen without sigmoid colon wall thickening or mesenteric fat stranding. No abscess collection. Nodes and vessels: No retroperitoneal or mesenteric adenopathy by size criteria. Aorta and inferior vena cava are normal in caliber. Miscellaneous: No ventral hernias. PELVIS: Genitourinary: Bladder wall thickness is normal. Miscellaneous: No inguinal hernias or adenopathy. Bones: There is prior bilateral total hip arthroplasty. No suspicious bony lesions. No vertebral body compression fractures. Degenerative disc disease throughout lower thoracic and lumbar spine is seen. IMPRESSION: 1. No significant changes from previous study. 2. Postsurgical changes in sigmoid colon. No bowel obstruction or abnormal bowel wall thickening. No abscess collection. No free fluid or free air. 3. Prior cholecystectomy. No significant biliary ductal dilatation is seen on the current study. 4. Hyperdense area involving pancreatic head, a pancreatic head mass cannot be excluded. This is not significantly changed from prior study. 5. Atrophic bilateral kidneys with multiple bilateral renal cysts unchanged from prior study. No stones or hydronephrosis. Dictated by: Orlin Doherty M.D. on 12/18/2021 at 21:56 Approved by: Orlin Doherty M.D. on 12/18/2021 at 22:06
[2021-12-18 21:45] LABS: Lipase 3364 U/L (23-300)
[2021-12-18] MEDS: MORPHINE 4 MG/ML INJ IV (22:09)
--- NOTE | 2022-01-31 13:52 | PM.CALLCOV.1 ---
Call Coverage Note Note Narrative of Care Provided: Pt states She had gallbladder surgery on December 01. She was doing fine and even went on a trip to [place]. She got some antibiotics in the interim for what she was told was an infection causing pain in her foot, so wasnt sure if that had an effect. But in anycase, she noticed for kush firts time today in a bath that there was drainage from her umbilicus. she describes it as kind of puss like. Shes had some pain since the surgery but figured it was normal. She has no fever but feels kind of under the weather. I told her she needs to be seen, but today on tuesday afternoon, the only option is the ER. I called ER and wait time is about 2-3 hours. I called her back and told her this, but she thinks she will wait and call the office tomorrow to see if she can be seen then. Ill send a workload message to the staff.
== END 2021-12-18 23:49 | disposition home or self-care (01) ==
PROVIDERS: Emergency Provider Emergency Medicine; PCP Internal Medicine
DX: R10.30 Lower abdominal pain, unspecified (principal); M54.50 Low back pain, unspecified; R74.8 Abnormal levels of other serum enzymes
CPT/HCPCS: 36415; 74176; 80053; 81003; 83690; 85025; 96374; 99284; J2270

== ENCOUNTER → 2022-02-03 11:11 | Outpatient (CLI) | payer MEDICARE, SELFPAY ==
[2022-02-01 09:17] VITALS: PULSE 88; RESP 9; O2SAT 96; BMI 32.4
[2022-02-03 12:27] LABS: Hematocrit 29.2 % (36-46); Hemoglobin 9.9 g/dL (12.0-16.0); Mean Corpuscular Hemoglobin 30.1 PG (26-34); Mean Corpuscular Volume 88.4 fL (80-100); Platelet Count 150 X10^3/uL (150-400); Red Blood Cell Count 3.31 X10^6/uL (4.0-5.2); Red Cell Distribution Width 14.7 % (11.6-14.8); White Blood Cell Count 7.1 X10^3/uL (4.5-11.0)
[2022-02-03 12:47] LABS: Alanine Aminotransferase 20 IU/L (<35); Albumin 3.9 g/dL (3.5-5.0); Albumin Globulin Ratio 1.4 (1.0-2.8); Alkaline Phosphatase 197 U/L (38-126); Aspartate Aminotransferase 27 IU/L (14-36); BUN Creatinine Ratio 22.8 (6-22); Bilirubin Total 0.3 mg/dL (0.2-1.3); Blood Urea Nitrogen 52 mg/dL (7-17); Calcium 9.1 mg/dL (8.4-10.2); Carbon Dioxide 21 mmol/L (22-32); Chloride 106 mmol/L (98-107); Estimated Glomerular Filt Rate 21 mL/min (>60); Globulin 2.8 g/dL (1.7-4.1); Glucose 144 mg/dL (80-110); HEMOLYSIS < 15 (0-50); Potassium 4.5 mmol/L (3.4-5.1); Sodium 142 mmol/L (137-145); Total Protein 6.7 g/dL (6.3-8.2); Uric Acid 10.3 mg/dL (2.5-6.2)
== END ==
PROVIDERS: PCP Internal Medicine; Referring Provider Internal Medicine; Visit Provider Internal Medicine
DX: N18.32 Chronic kidney disease, stage 3b (principal); M1A.3710 Chronic gout due to renal impairment, right ankle and foot, without tophus (tophi)
CPT/HCPCS: 36415; 80053; 84550; 85027

== ENCOUNTER → 2022-02-11 10:48 | Outpatient (CLI) | payer MEDICARE, SELFPAY ==
[2022-02-01 09:17] VITALS: PULSE 88; RESP 9; O2SAT 96; BMI 32.4
[2022-02-11 12:52] LABS: Blood Urea Nitrogen 44 mg/dL (7-17); Calcium 9.2 mg/dL (8.4-10.2); Carbon Dioxide 22 mmol/L (22-32); Chloride 111 mmol/L (98-107); Estimated Glomerular Filt Rate 26 mL/min (>60); Glucose 67 mg/dL (80-110); HEMOLYSIS < 15 (0-50); Sodium 142 mmol/L (137-145)
[2022-02-11 13:07] LABS: Potassium 5.6 mmol/L (3.4-5.1)
== END ==
PROVIDERS: PCP Internal Medicine; Referring Provider Internal Medicine; Visit Provider Internal Medicine
DX: N18.32 Chronic kidney disease, stage 3b (principal)
CPT/HCPCS: 36415; 80048

== ENCOUNTER → 2022-02-25 09:22 | Outpatient (CLI) | payer MEDICARE, SELFPAY ==
[2022-02-01 09:17] VITALS: PULSE 88; RESP 9; O2SAT 96; BMI 32.4
[2022-02-25 11:07] LABS: BUN Creatinine Ratio 23.1 (6-22); Blood Urea Nitrogen 39 mg/dL (7-17); Calcium 8.8 mg/dL (8.4-10.2); Carbon Dioxide 20 mmol/L (22-32); Chloride 107 mmol/L (98-107); Estimated Glomerular Filt Rate 30 mL/min (>60); Glucose 86 mg/dL (80-110); HEMOLYSIS < 15 (0-50); Sodium 140 mmol/L (137-145)
== END ==
PROVIDERS: PCP Internal Medicine; Referring Provider Internal Medicine; Visit Provider Internal Medicine
DX: N18.32 Chronic kidney disease, stage 3b (principal)
CPT/HCPCS: 36415; 80048

== ENCOUNTER → 2022-03-23 16:25 | Outpatient (CLI) | payer MEDICARE, SELFPAY ==
[2022-02-01 09:17] VITALS: PULSE 88; RESP 9; O2SAT 96; BMI 32.4
--- NOTE | 2022-03-23 16:29 | DI.RAD.S_ITS ---
PROCEDURE: XR HIP W PEL IF DONE HEIDI MIN 4V INDICATIONS: BILATERAL HIP PAIN TECHNIQUE: AP pelvis with lateral views of each hip. COMPARISON: [facility], CR, XR HIP W PEL IF DONE HEIDI 3TO4V, 05/07/2020, 14:27. FINDINGS: Bones: Postsurgical changes are seen from bilateral hip arthroplasties. Hardware components are in stable positions without signs of loosening. No perihardware fracture. Pelvic ring appears intact. No suspicious bony lesions. Degenerative changes are seen in the included spine. Soft tissues: The visualized bowel gas pattern is normal. No suspicious soft tissue calcifications. Surgical clips are seen projecting over the pelvis. Bowel gas partially obscures the sacrum. IMPRESSION: 1. Stable appearance of bilateral hip arthroplasties without acute hardware complication identified. 2. No acute osseous abnormality. If clinical suspicion and/or symptoms persist, additional imaging with repeat plain films, or advanced imaging (e.g. CT, MRI) may be helpful for further assessment. 3. Degenerative changes in the included lumbar spine. Approved by: Lazarus Hoff M.D. on 03/24/2022 at 8:36
== END ==
PROVIDERS: PCP Internal Medicine; Referring Provider Internal Medicine; Visit Provider Internal Medicine
DX: M25.551 Pain in right hip (principal); M25.552 Pain in left hip; M47.816 Spondylosis without myelopathy or radiculopathy, lumbar region; Z96.643 Presence of artificial hip joint, bilateral
CPT/HCPCS: 73522

== ENCOUNTER → 2022-05-10 12:40 | Outpatient (CLI) | payer MEDICARE, SELFPAY ==
[2022-02-01 09:17] VITALS: PULSE 88; RESP 9; O2SAT 96; BMI 32.4
--- NOTE | 2022-05-10 12:42 | DI.US.S_ITS ---
PROCEDURE: US CAROTID DOPPLER BI INDICATIONS: VISUAL DISTRUBANCE R/O CAROTID STENOSIS TECHNIQUE: Color and pulse Doppler interrogation was performed of both carotid systems, with image documentation and velocity measurements. COMPARISON: None. FINDINGS: Stenosis calculations are based on SRU (Society of Radi[employer] in Ultrasound) criteria. Right side: Brachial blood pressure: 131/65 mm Hg. Common carotid artery peak systolic velocity: 86.4 cm/sec. Internal carotid artery peak systolic velocity: 82.3 cm/sec. Internal carotid artery end diastolic velocity: 94.6 cm/sec. External carotid artery peak systolic velocity: 96.7 cm/sec. ICA/CCA peak systolic ratio: 1.09 . Arias scale imaging description: Small foci of polypoid mixed calcified and noncalcified plaque at the ICA origin which does not cause significant luminal stenosis. Waveforms remain normal. Percent internal carotid artery stenosis: Less than 50% . Vertebral artery: Flow direction is antegrade. Left side: Brachial blood pressure: 123/64 mm Hg. Common carotid artery peak systolic velocity: 97.7 cm/sec. Internal carotid artery peak systolic velocity: 64.8 cm/sec. Internal carotid artery end diastolic velocity: 83.8 cm/sec. External carotid artery peak systolic velocity: 51.5 cm/sec. ICA/CCA peak systolic ratio: 0.86 . Arias scale imaging description: Mild sessile partially circumferential calcification at the carotid bulb without causing significant luminal stenosis of internal or external carotid arteries. The waveforms remain normal. Percent internal carotid artery stenosis: Less than 50% . Vertebral artery: Flow direction is antegrade. IMPRESSION: 1. Mild quantity of calcified and noncalcified plaque at the right ICA origin and left carotid bulb. This does not cause a hemodynamically significant stenosis on either side. 2. Antegrade vertebral artery flow bilaterally. Dictated by: Flakita Shaffer M.D. on 05/10/2022 at 14:30 Approved by: Flakita Shaffer M.D. on 05/10/2022 at 14:36
[2022-05-10 14:21] LABS: Alanine Aminotransferase 28 IU/L (<35); Albumin 3.9 g/dL (3.5-5.0); Albumin Globulin Ratio 1.3 (1.0-2.8); Alkaline Phosphatase 205 U/L (38-126); Aspartate Aminotransferase 32 IU/L (14-36); BUN Creatinine Ratio 23.7 (6-22); Bilirubin Total 0.3 mg/dL (0.2-1.3); Blood Urea Nitrogen 44 mg/dL (7-17); Calcium 8.9 mg/dL (8.4-10.2); Carbon Dioxide 22 mmol/L (22-32); Chloride 110 mmol/L (98-107); Estimated Glomerular Filt Rate 26 mL/min (>60); Globulin 3.1 g/dL (1.7-4.1); Glucose 91 mg/dL (80-110); HEMOLYSIS < 15 (0-50); Potassium 4.9 mmol/L (3.4-5.1); Sodium 140 mmol/L (137-145)
[2022-05-12 13:27] LABS: Calcium 9.1 mg/dL (8.7-10.3); Parathyroid Hormone, Intact 68 pg/mL (15-65)
== END ==
PROVIDERS: PCP Internal Medicine; Referring Provider Internal Medicine; Visit Provider Internal Medicine
DX: I65.23 Occlusion and stenosis of bilateral carotid arteries (principal); H53.9 Unspecified visual disturbance; N18.32 Chronic kidney disease, stage 3b; D63.1 Anemia in chronic kidney disease
CPT/HCPCS: 36415; 80053; 82310; 83970; 93880

== ENCOUNTER → 2022-08-09 11:32 | Outpatient (CLI) | payer MEDICARE, SELFPAY ==
[2022-02-01 09:17] VITALS: PULSE 88; RESP 9; O2SAT 96; BMI 32.4
[2022-08-09 13:04] LABS: Hematocrit 27.6 % (36-46); Hemoglobin 9.4 g/dL (12.0-16.0); Mean Corpuscular Hemoglobin 30.8 PG (26-34); Mean Corpuscular Volume 90.7 fL (80-100); Platelet Count 136 X10^3/uL (150-400); Red Blood Cell Count 3.04 X10^6/uL (4.0-5.2); Red Cell Distribution Width 13.2 % (11.6-14.8); White Blood Cell Count 6.3 X10^3/uL (4.5-11.0)
[2022-08-09 13:19] LABS: HEMOLYSIS < 15 (0-50); Iron 78 ug/dL (37-170)
[2022-08-09 13:22] LABS: Alanine Aminotransferase 27 IU/L (<35); Albumin 3.9 g/dL (3.5-5.0); Albumin Globulin Ratio 1.3 (1.0-2.8); Alkaline Phosphatase 229 U/L (38-126); Aspartate Aminotransferase 28 IU/L (14-36); BUN Creatinine Ratio 24.9 (6-22); Bilirubin Total 0.2 mg/dL (0.2-1.3); Blood Urea Nitrogen 50 mg/dL (7-17); Calcium 8.8 mg/dL (8.4-10.2); Carbon Dioxide 22 mmol/L (22-32); Chloride 110 mmol/L (98-107); Estimated Glomerular Filt Rate 24 mL/min (>60); Globulin 2.9 g/dL (1.7-4.1); Glucose 94 mg/dL (80-110); HEMOLYSIS < 15 (0-50); Potassium 4.7 mmol/L (3.4-5.1); Sodium 140 mmol/L (137-145); Total Protein 6.8 g/dL (6.3-8.2)
[2022-08-09 13:29] LABS: Percent Iron Saturation 20 % (15-50); Total Iron Binding Capacity 385 ug/dL (265-497); Transferrin 260 mg/dL (206-381)
[2022-08-09 13:54] LABS: Ferritin 55 ng/mL (11-264)
[2022-08-09 16:40] LABS: Vitamin D 25 Hydroxy (D3) 51.3 ng/mL (30.0-100.0)
[2022-08-12 10:55] LABS: Calcium 8.1 mg/dL (8.7-10.3); Parathyroid Hormone, Intact 89 pg/mL (15-65)
== END ==
PROVIDERS: PCP Internal Medicine; Referring Provider Internal Medicine; Visit Provider Internal Medicine
DX: E55.9 Vitamin D deficiency, unspecified (principal); N18.32 Chronic kidney disease, stage 3b; N18.9 Chronic kidney disease, unspecified; D63.1 Anemia in chronic kidney disease
CPT/HCPCS: 36415; 80053; 82306; 82310; 82728; 83540; 83550; 83970; 85027

== ENCOUNTER 2022-08-21 04:21 | Inpatient (IN) | payer MEDICARE, SELFPAY ==
[2022-02-01 09:17] VITALS: PULSE 88; RESP 9; O2SAT 96; BMI 32.4
[2022-08-21] VITALS (19 sets, daily range): BP systolic 112–156; BP diastolic 45–83; PULSE 60–67; RESP 18–20; TEMP 36.3–36.9; O2SAT 97–100; BMI 29.5
[2022-08-21 04:53] LABS: Add Manual Diff / Slide Review NO; Basophils Absolute Auto 0 /uL (0-100); Basophils Percent Auto 0.3 % (0-2); Eosinophils Absolute Auto 100 /uL (0-450); Hemoglobin 9.2 g/dL (12.0-16.0); Lymphocytes Absolute Auto 1000 /uL (1100-4500); Mean Corpuscular HGB Conc 34.1 % (30-36); Monocytes Absolute Auto 1100 /uL (0-900); Monocytes Percent Auto 11.1 % (3-14); Neutrophils Absolute Auto 7600 /uL (1500-7000); Neutrophils Percent Auto 77.6 % (50-75); Platelet Count 130 X10^3/uL (150-400); Red Blood Cell Count 2.97 X10^6/uL (4.0-5.2); Red Cell Distribution Width 13.6 % (11.6-14.8); White Blood Cell Count 9.8 X10^3/uL (4.5-11.0)
[2022-08-21] MEDS: MORPHINE 2 MG/ML INJ IV (04:57)
[2022-08-21] MEDS: SODIUM CHLORIDE 0.9% 1,000 ML 150 ML IV ×2 (04:57→11:50)
[2022-08-21 05:02] LABS: Lactate (Lactic Acid) 0.7 mmol/L (0.7-2.1)
[2022-08-21 05:03] LABS: Alanine Aminotransferase 32 IU/L (<35); Albumin 3.9 g/dL (3.5-5.0); Albumin Globulin Ratio 1.3 (1.0-2.8); Alkaline Phosphatase 228 U/L (38-126); Aspartate Aminotransferase 30 IU/L (14-36); BUN Creatinine Ratio 24.7 (6-22); Bilirubin Total 0.4 mg/dL (0.2-1.3); Blood Urea Nitrogen 55 mg/dL (7-17); Calcium 8.8 mg/dL (8.4-10.2); Carbon Dioxide 16 mmol/L (22-32); Chloride 113 mmol/L (98-107); Creatine Kinase 89 U/L (30-135); Estimated Glomerular Filt Rate 21 mL/min (>60); Globulin 2.9 g/dL (1.7-4.1); Glucose 116 mg/dL (80-110); HEMOLYSIS < 15 (0-50); Sodium 140 mmol/L (137-145); Total Protein 6.8 g/dL (6.3-8.2)
[2022-08-21 05:10] LABS: Lipase 2502 U/L (23-300)
--- NOTE | 2022-08-21 05:31 | DI.CT.S_ITS ---
PROCEDURE: CT ABDOMEN PELVIS WO CON INDICATIONS: periumbilical pain TECHNIQUE: Noncontrast 5 mm thick sections acquired from the diaphragms to the symphysis. 5 mm coronal and sagittal reformats were then performed. For radiation dose reduction, the following was used: automated exposure control, adjustment of mA and/or kV according to patient size. COMPARISON: [facility], CT, CT ABDOMEN PELVIS WO CON, 12/18/2021, 21:41. FINDINGS: Image quality: Excellent. ABDOMEN: Lung bases: Clear lung bases. Mildly enlarged heart. 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 Solid organs: The unenhanced appearance of the liver, spleen, and adrenal glands is normal. Both kidneys are slightly diminutive and contains several cortical cysts, stable. No hydronephrosis. The pancreas is diminutive and ill-defined. There is mild peripancreatic inflammation surrounding the neck and body. A relatively hyperdense region involving the pancreatic head measures about 2.4 x 3.1 cm. The gallbladder is surgically absent and the biliary tree is prominent, expected post cholecystectomy. Peritoneum and bowel: The stomach is decompressed. Small bowel loops are mainly nondistended. Surgical changes small bowel anastomosis in the left abdomen and probable appendectomy. Surgical change sigmoid resection and anastomosis. Increased quantity of retained solid stool. No free fluid or free air. Nodes and vessels: No retroperitoneal or mesenteric adenopathy by size criteria. Aorta and inferior vena cava are normal in caliber. Miscellaneous: No ventral hernias. PELVIS: Genitourinary: Bladder wall thickness is normal. The uterus is absent. Miscellaneous: No inguinal hernias or adenopathy. Several surgical clips in the perirectal/presacral region. Bones: No suspicious bony lesions. No vertebral body compression fractures. Bilateral hip arthroplasties. IMPRESSION: 1. Mild inflammatory changes around the neck and body of the pancreas raising the possibility of pancreatitis. 2. Relative hyperdensity in the pancreatic head region. This may be normal pancreas with relatively diminutive distal pancreas versus pancreatic mass. This focal area has slightly increased in size since the prior study and could be further characterized by MRI if not previously performed. 3. Mild colonic obstipation. 4. Final interpretation is concordant with preliminary report. Dictated by: Flakita Shaffer M.D. on 08/21/2022 at 8:03 Approved by: Flakita Shaffer M.D. on 08/21/2022 at 8:12
--- NOTE | 2022-08-21 05:31 | ED_ITS ---
HPI - Abdominal Pain <Poppy Vizcarra DO - Last Filed: 08/22/22 02:03> General Chief Complaint: Abdominal Pain Stated Complaint: abd pain and back pain Time Seen by Provider: 08/21/22 04:35 Source: patient Mode of arrival: Ambulatory History of Present Illness HPI narrative: Patient is an 82 male history of aortic stenosis with TAVR, atrial fibrillation, sick sinus syndrome with bradycardia and pacemaker, coronary artery disease, chronic kidney disease, peripheral neuropathy presenting today with abdominal pain. She says it started roughly around 1:00 p.m. in the afternoon. It is radiating straight through to her back. She denies any nausea or vomiting. No changes in bladder habits. She is not had any fever or chills. She denies any chest pain. No shortness of breath. She is been unable to sleep because it hurts to lay down. Related Data Home Medications Medication Instructions Recorded Confirmed multivitamin 1 cap PO DAILY 03/05/19 08/09/22 apixaban 2.5 mg tablet (Eliquis) 2.5 mg PO BID 06/25/21 08/09/22 cholecalciferol (vitamin D3) 25 25 mcg PO DAILY 10/01/21 08/09/22 mcg (1,000 unit) capsule metoprolol succinate 25 mg 25 mg PO DAILY 11/26/21 08/09/22 tablet,extended release 24 hr torsemide 5 mg tablet 5 mg PO DAILY 12/01/21 08/09/22 L. acidophilus/Bifid. animalis 1 cap PO DAILY 12/16/21 08/09/22 [Daily Probiotic] aspirin 81 mg capsule 81 mg PO DAILY 08/09/22 08/09/22 levothyroxine 25 mcg tablet 25 mcg PO DAILY 08/09/22 08/09/22 Previous Rx's Medication Instructions Recorded rosuvastatin 5 mg tablet 5 mg PO DAILY #90 tabs 12/23/21 spironolactone 25 mg tablet 25 mg PO QDAY #90 tabs 02/03/22 oxcarbazepine 300 mg tablet 300 mg PO DAILY #180 tabs 02/23/22 (Trileptal) lorazepam 0.5 mg tablet 0.5 mg PO BID PRN anxiety #20 tabs 05/31/22 colesevelam 625 mg tablet 625 mg PO DAILY #90 tabs 08/09/22 Allergies Allergy/AdvReac Type Severity Reaction Status Date / Time DEEDEE Inhibitors Allergy Severe ANGIOEDEMA Verified 08/21/22 04:46 [DEEDEE INHIBITORS] Sulfa (Sulfonamide Allergy Severe RASH Verified 08/21/22 04:46 Antibiotics) [SULFA (SULFONAMIDE ANTIBIOTICS)] hydromorphone [From DILAUDID] Allergy Mild HALLUCINATI Verified 08/21/22 04:46 ONS atorvastatin Allergy Verified 08/21/22 04:46 niacin Allergy Verified 08/21/22 04:46 [From Niaspan Extended-Release] rofecoxib Allergy Verified 08/21/22 04:46 simvastatin Allergy Verified 08/21/22 04:46 tiotropium Allergy Verified 08/21/22 04:46 codeine [CODEINE] AdvReac Mild FEELING Verified 08/21/22 04:46 OF DROP IN BP/WEAKNESS pseudoephedrine AdvReac Mild FEELS LIKE Verified 08/21/22 04:46 [PSEUDOEPHEDRINE] BP GOES OUT FROM UNDERNEATH ME. colchicine AdvReac Gastrointestinal Verified 08/09/22 10:14 Upset hydrocodone AdvReac Gastrointestinal Verified 08/09/22 10:14 Upset NSAIDS (Non-Steroidal AdvReac Elevated Verified 08/09/22 10:14 Anti-Inflamma creatinine Review of Systems <Poppy Vizcarra DO - Last Filed: 08/22/22 02:03> Review of Systems ROS Unobtainable: All systems reviewed & are unremarkable except as noted in HPI and below Patient History <Poppy Vzicarra DO - Last Filed: 08/22/22 02:03> Medical History Acquired hypothyroidism Adhesive capsulitis of right shoulder Anemia in chronic kidney disease Anesthesia complication Anxiety Aortic stenosis Chronic anticoagulation Chronic edema Chronic renal insufficiency Chronic sinusitis Coronary artery disease Diverticulosis Do not resuscitate Essential hypertension Facet arthropathy, lumbar Gastroesophageal reflux disease Gout Greater trochanteric bursitis of left hip History of anemia History of colon cancer History of diverticulitis Hypercholesterolemia Hypertension Iliotibial band syndrome, left leg LBBB (left bundle branch block) Mixed hyperlipidemia NSTEMI (non-ST elevated myocardial infarction) (02/25/21) Osteoarthritis Pancreatic mass Paroxysmal atrial fibrillation Peripheral neuropathy Right rotator cuff tendonitis Sick sinus syndrome Stage 3b chronic kidney disease (CKD) Trigeminal neuralgia of right side of face Surgical History History of carpal tunnel release of both wrists History of hysterectomy History of left hip replacement History of left knee replacement History of right hip replacement History of tonsillectomy Hx of appendectomy Hx of heart artery stent S/P left colectomy S/P right colectomy 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) S/P tendon repair Status cardiac pacemaker (~08/17/21) Family History (Updated 08/21/22 @ 15:44 by Khoi Huddleston MD) Father Heart attack Hypertension Heart disease Brother Heart attack Mother Hypertension Ovarian cancer Other Cancer Social History marital status: unknown details: (Jj) household members: spouse and none occupational status: previously employed Smoking Status: Former smoker Tobacco: How many years used: 8 alcohol intake: current Smoking Status: Former smoker alcohol intake frequency: holidays/special occasions only Substance Use Type: does not use Exam <Poppy Vizcarra DO - Last Filed: 08/22/22 02:03> Initial Vital Signs Initial Vital Signs: Vital Signs Temperature 98.4 F 08/21/22 04:39 Pulse Rate 67 08/21/22 04:39 Respiratory Rate 20 08/21/22 04:39 Blood Pressure 150/64 H 08/21/22 04:39 Pulse Oximetry 98 08/21/22 04:39 Oxygen Delivery Method Room Air 08/21/22 04:39 GENERAL: Alert 87-year-old female appears uncomfortable and in no acute distress. HEENT: Head atraumatic,EOMI, pupils reactive, face symmetric, moist mucous membranes CARDIOVASCULAR: Regular rate and rhythm without murmurs, rubs or gallops. RESPIRATORY: Breath sounds equal bilaterally, no wheezes rales or rhonchi. ABDOMEN: Soft, mild epigastric and periumbilical pain no right quadrant pain negative Sneed sign : No CVA tenderness EXTREMITIES: Normal range of motion, no clubbing or edema. Neurovascularly intact NEUROLOGICAL: Alert and oriented x4.Normal gait and speech. SKIN: Warm, dry, no laceration, no petechiae, no rashes or lesions. <Sylvie Kat DO - Last Filed: 08/21/22 18:33> Initial Vital Signs Initial Vital Signs: Vital Signs Temperature 98.4 F 08/21/22 04:39 Pulse Rate 67 08/21/22 04:39 Respiratory Rate 20 08/21/22 04:39 Blood Pressure 150/64 H 08/21/22 04:39 Pulse Oximetry 98 08/21/22 04:39 Oxygen Delivery Method Room Air 08/21/22 04:39 Course <Poppy Vizcarra, DO - Last Filed: 08/22/22 02:03> Orders Ordered: Apixaban (Apixaban 5 Mg Tablet) 2.5 mg PO BID [facility] Last Admin: 08/21/22 21:13 Dose: 2.5 mg Documented By: PORSCHE Aspirin (Aspirin Ec 81 Mg Tablet) 81 mg PO DAILY [facility] Dextrose/Sodium Chloride (Dextrose 5%-0.9% Ns) 1,000 mls @ 100 mls/hr IV CONT [facility] Last Admin: 08/22/22 00:27 Dose: 100 mls/hr Documented By: Infusion: 08/22/22 00:27 Dose: 0 mls/hr Documented By: Admin: 08/21/22 14:51 Dose: 100 mls/hr Documented By: NELLY Levothyroxine Sodium (Levothyroxine 25 Mcg Tablet) 25 mcg PO DAILY@0600 [facility] Lorazepam (Lorazepam 0.5 Mg Tablet) 0.5 mg PO BID PRN PRN Reason: anxiety Last Admin: 08/21/22 14:19 Dose: 0.5 mg Documented By: CAITLYN Metoprolol Succinate (Metoprolol Er 25 Mg Tablet) 25 mg PO DAILY [facility] Morphine Sulfate (Morphine 4 Mg/Ml Inj) 3 mg IV Q4HR PRN PRN Reason: Pain, Moderate (4-6) Last Admin: 08/21/22 17:28 Dose: 3 mg Documented By: NELLY Naloxone HCl (Naloxone 0.4 Mg/Ml Vial) 0.2 mg IV Q2MIN PRN PRN Reason: Opiate Reversal Rosuvastatin 5 Mg (Tablet) 5 mg PO DAILY [facility] Oxcarbazepine (Oxcarbazepine 150 Mg Tablet) 300 mg PO DAILY [facility] Spironolactone (Spironolactone 25 Mg Tablet) 25 mg PO DAILY [facility] Torsemide (Torsemide 10 Mg Tablet) 5 mg PO DAILY [facility] Discontinued Medications Sodium Chloride (Normal Saline 0.9%) 1,000 mls @ 150 mls/hr IV CONT [facility] Last Infusion: 08/21/22 14:27 Dose: 0 mls/hr Documented By: Admin: 08/21/22 11:50 Dose: 150 mls/hr Documented By: Infusion: 08/21/22 11:38 Dose: 150 mls/hr Documented By: Admin: 08/21/22 04:57 Dose: 150 mls/hr Documented By: RAYMUNDO Sodium Chloride (Normal Saline 0.9%) 1,000 mls @ 1,000 mls/hr IV BOLUS ONE Stop: 08/21/22 06:31 Last Admin: 08/21/22 11:10 Dose: Not Given Documented By: CAITLYN Sodium Chloride (Normal Saline 0.9%) 1,000 mls @ 150 mls/hr IV CONT [facility] Last Admin: 08/21/22 15:12 Dose: Not Given Documented By: NELLY Morphine Sulfate (Morphine 2 Mg/Ml Inj) 2 mg IV NOW ONE Stop: 08/21/22 04:49 Last Admin: 08/21/22 04:57 Dose: 2 mg Documented By: RAYMUNDO Naloxone HCl (Naloxone 0.4 Mg/Ml Vial) 0.2 mg IV Q2MIN PRN PRN Reason: Opiate Reversal Vital Signs Vital signs: Vital Signs - 8 hr 08/21/22 11:00 08/21/22 11:00 Pulse Rate 60 Blood Pressure 117/56 L Pulse Oximetry 99 <Sylvie Kat, - Last Filed: 08/21/22 18:33> Orders Ordered: Apixaban (Apixaban 5 Mg Tablet) 2.5 mg PO BID [facility] Last Admin: 08/21/22 21:13 Dose: 2.5 mg Documented By: PORSCHE Aspirin (Aspirin Ec 81 Mg Tablet) 81 mg PO DAILY [facility] Dextrose/Sodium Chloride (Dextrose 5%-0.9% Ns) 1,000 mls @ 100 mls/hr IV CONT [facility] Last Admin: 08/22/22 00:27 Dose: 100 mls/hr Documented By: Infusion: 08/22/22 00:27 Dose: 0 mls/hr Documented By: Admin: 08/21/22 14:51 Dose: 100 mls/hr Documented By: NELLY Levothyroxine Sodium (Levothyroxine 25 Mcg Tablet) 25 mcg PO DAILY@0600 [facility] Lorazepam (Lorazepam 0.5 Mg Tablet) 0.5 mg PO BID PRN PRN Reason: anxiety Last Admin: 08/21/22 14:19 Dose: 0.5 mg Documented By: CAITLYN Metoprolol Succinate (Metoprolol Er 25 Mg Tablet) 25 mg PO DAILY [facility] Morphine Sulfate (Morphine 4 Mg/Ml Inj) 3 mg IV Q4HR PRN PRN Reason: Pain, Moderate (4-6) Last Admin: 08/21/22 17:28 Dose: 3 mg Documented By: NELLY Naloxone HCl (Naloxone 0.4 Mg/Ml Vial) 0.2 mg IV Q2MIN PRN PRN Reason: Opiate Reversal Rosuvastatin 5 Mg (Tablet) 5 mg PO DAILY [facility] Oxcarbazepine (Oxcarbazepine 150 Mg Tablet) 300 mg PO DAILY [facility] Spironolactone (Spironolactone 25 Mg Tablet) 25 mg PO DAILY [facility] Torsemide (Torsemide 10 Mg Tablet) 5 mg PO DAILY [facility] Discontinued Medications Sodium Chloride (Normal Saline 0.9%) 1,000 mls @ 150 mls/hr IV CONT [facility] Last Infusion: 08/21/22 14:27 Dose: 0 mls/hr Documented By: Admin: 08/21/22 11:50 Dose: 150 mls/hr Documented By: Infusion: 08/21/22 11:38 Dose: 150 mls/hr Documented By: Admin: 08/21/22 04:57 Dose: 150 mls/hr Documented By: RAYMUNDO Sodium Chloride (Normal Saline 0.9%) 1,000 mls @ 1,000 mls/hr IV BOLUS ONE Stop: 08/21/22 06:31 Last Admin: 08/21/22 11:10 Dose: Not Given Documented By: CAITLYN Sodium Chloride (Normal Saline 0.9%) 1,000 mls @ 150 mls/hr IV CONT [facility] Last Admin: 08/21/22 15:12 Dose: Not Given Documented By: NELLY Morphine Sulfate (Morphine 2 Mg/Ml Inj) 2 mg IV NOW ONE Stop: 08/21/22 04:49 Last Admin: 08/21/22 04:57 Dose: 2 mg Documented By: RAYMUNDO Naloxone HCl (Naloxone 0.4 Mg/Ml Vial) 0.2 mg IV Q2MIN PRN PRN Reason: Opiate Reversal Vital Signs Vital signs: Vital Signs - 8 hr 06/24/23 11:00 08/21/22 11:00 Pulse Rate 60 Blood Pressure 117/56 L Pulse Oximetry 99 MDM - Abdominal Pain <Poppy Vizcarra DO - Last Filed: 08/22/22 02:03> Lab Data 08/21/22 04:45 08/21/22 04:45 Labs: Lab Results 08/21/22 08/21/22 08/21/22 Range/Units 04:45 04:45 04:50 WBC 9.8 (4.5-11.0) X10^3/uL RBC 2.97 L (4.0-5.2) X10^6/uL Hgb 9.2 L (12.0-16.0) g/dL Hct 27.0 L (36-46) % MCV 91.0 (80-100) fL MCH 31.0 (26-34) PG MCHC 34.1 (30-36) % RDW 13.6 (11.6-14.8) % Plt Count 130 L (150-400) X10^3/uL Neut % (Auto) 77.6 H (50-75) % Lymph % (Auto) 10.0 L (25-40) % Carson % (Auto) 11.1 (3-14) % Eos % (Auto) 1.0 L (2-4) % Baso % (Auto) 0.3 (0-2) % Neut # (Auto) 7600 H (7925-0256) /uL Lymph # (Auto) 1000 L (8626-9442) /uL Carson # (Auto) 1100 H (0-900) /uL Eos # (Auto) 100 (0-450) /uL Baso # (Auto) 0 (0-100) /uL Sodium 140 (137-145) mmol/L Potassium 5.0 (3.4-5.1) mmol/L Chloride 113 H (98-107) mmol/L Carbon Dioxide 16 L (22-32) mmol/L BUN 55 H (7-17) mg/dL Creatinine 2.23 H (0.52-1.04) mg/dL Estimated GFR 21 L (>60) mL/min BUN/Creatinine Ratio 24.7 H (6-22) Glucose 116 H (80-110) mg/dL Lactate 0.7 (0.7-2.1) mmol/L Calcium 8.8 (8.4-10.2) mg/dL Total Bilirubin 0.4 (0.2-1.3) mg/dL AST 30 (14-36) IU/L ALT 32 (<35) IU/L Alkaline Phosphatase 228 H (38-126) U/L Total Creatine Kinase 89 (30-135) U/L CK-MB (CK-2) TNP CK-MB (CK-2) Rel Index TNP Troponin I 0.040 H (0.01-0.034) ng/mL Total Protein 6.8 (6.3-8.2) g/dL Albumin 3.9 (3.5-5.0) g/dL Globulin 2.9 (1.7-4.1) g/dL Albumin/Globulin Ratio 1.3 (1.0-2.8) Lipase 2502 H (23-300) U/L // Range/Units 07:12 WBC (4.5-11.0) X10^3/uL RBC (4.0-5.2) X10^6/uL Hgb (12.0-16.0) g/dL Hct (36-46) % MCV (80-100) fL MCH (26-34) PG MCHC (30-36) % RDW (11.6-14.8) % Plt Count (150-400) X10^3/uL Neut % (Auto) (50-75) % Lymph % (Auto) (25-40) % Carson % (Auto) (3-14) % Eos % (Auto) (2-4) % Baso % (Auto) (0-2) % Neut # (Auto) (7122-3420) /uL Lymph # (Auto) (7388-4868) /uL Carson # (Auto) (0-900) /uL Eos # (Auto) (0-450) /uL Baso # (Auto) (0-100) /uL Sodium (137-145) mmol/L Potassium (3.4-5.1) mmol/L Chloride (98-107) mmol/L Carbon Dioxide (22-32) mmol/L BUN (7-17) mg/dL Creatinine (0.52-1.04) mg/dL Estimated GFR (>60) mL/min BUN/Creatinine Ratio (6-22) Glucose (80-110) mg/dL Lactate (0.7-2.1) mmol/L Calcium (8.4-10.2) mg/dL Total Bilirubin (0.2-1.3) mg/dL AST (14-36) IU/L ALT (<35) IU/L Alkaline Phosphatase (38-126) U/L Total Creatine Kinase (30-135) U/L CK-MB (CK-2) CK-MB (CK-2) Rel Index Troponin I 0.039 H (0.01-0.034) ng/mL Total Protein (6.3-8.2) g/dL Albumin (3.5-5.0) g/dL Globulin (1.7-4.1) g/dL Albumin/Globulin Ratio (1.0-2.8) Lipase (23-300) U/L ECG Data Interpretation: Paced rhythm rate 60 no Sgarbossa criteria no ST changes MDM Narrative Medical decision making narrative: Patient 87-year-old female coming today with periumbilical pain radiating to her back. She reports that she is had pancreatitis previously but was less secondary to call a lithiasis and she is since had a cholecystectomy. Today she again has pancreatitis mild elevation of lipase 2500 with a normal bilirubin and liver enzymes. She does have chronic kidney disease with baseline creatinine of 1.9-2 today it is 2.23, with bicarb of 16 and a normal lactic acid. Patient's symptoms consistent with pancreatitis however causes unknown. She can not CT with contrast secondary to chronic kidney disease she reports that she has a damage to her kidneys with cardiac catheterizations and IV contrast. At this time suspect pancreatitis causing her pain unlikely to be dissection. Troponin indeterminate 0.04 with repeat pending Patient had CT results of this also pending. Patient signed out to Dr. Kat for further disposition <Sylvie Kat, - Last Filed: 08/21/22 18:33> Lab Data Labs: Lab Results 08/21/22 08/21/22 08/21/22 Range/Units 04:45 04:45 04:50 WBC 9.8 (4.5-11.0) X10^3/uL RBC 2.97 L (4.0-5.2) X10^6/uL Hgb 9.2 L (12.0-16.0) g/dL Hct 27.0 L (36-46) % MCV 91.0 (80-100) fL MCH 31.0 (26-34) PG MCHC 34.1 (30-36) % RDW 13.6 (11.6-14.8) % Plt Count 130 L (150-400) X10^3/uL Neut % (Auto) 77.6 H (50-75) % Lymph % (Auto) 10.0 L (25-40) % Carson % (Auto) 11.1 (3-14) % Eos % (Auto) 1.0 L (2-4) % Baso % (Auto) 0.3 (0-2) % Neut # (Auto) 7600 H (1271-9956) /uL Lymph # (Auto) 1000 L (1473-8382) /uL Carson # (Auto) 1100 H (0-900) /uL Eos # (Auto) 100 (0-450) /uL Baso # (Auto) 0 (0-100) /uL Sodium 140 (137-145) mmol/L Potassium 5.0 (3.4-5.1) mmol/L Chloride 113 H (98-107) mmol/L Carbon Dioxide 16 L (22-32) mmol/L BUN 55 H (7-17) mg/dL Creatinine 2.23 H (0.52-1.04) mg/dL Estimated GFR 21 L (>60) mL/min BUN/Creatinine Ratio 24.7 H (6-22) Glucose 116 H (80-110) mg/dL Lactate 0.7 (0.7-2.1) mmol/L Calcium 8.8 (8.4-10.2) mg/dL Total Bilirubin 0.4 (0.2-1.3) mg/dL AST 30 (14-36) IU/L ALT 32 (<35) IU/L Alkaline Phosphatase 228 H (38-126) U/L Total Creatine Kinase 89 (30-135) U/L CK-MB (CK-2) TNP CK-MB (CK-2) Rel Index TNP Troponin I 0.040 H (0.01-0.034) ng/mL Total Protein 6.8 (6.3-8.2) g/dL Albumin 3.9 (3.5-5.0) g/dL Globulin 2.9 (1.7-4.1) g/dL Albumin/Globulin Ratio 1.3 (1.0-2.8) Lipase 2502 H (23-300) U/L // Range/Units 07:12 WBC (4.5-11.0) X10^3/uL RBC (4.0-5.2) X10^6/uL Hgb (12.0-16.0) g/dL Hct (36-46) % MCV (80-100) fL MCH (26-34) PG MCHC (30-36) % RDW (11.6-14.8) % Plt Count (150-400) X10^3/uL Neut % (Auto) (50-75) % Lymph % (Auto) (25-40) % Carson % (Auto) (3-14) % Eos % (Auto) (2-4) % Baso % (Auto) (0-2) % Neut # (Auto) (2983-3583) /uL Lymph # (Auto) (9215-3970) /uL Carson # (Auto) (0-900) /uL Eos # (Auto) (0-450) /uL Baso # (Auto) (0-100) /uL Sodium (137-145) mmol/L Potassium (3.4-5.1) mmol/L Chloride (98-107) mmol/L Carbon Dioxide (22-32) mmol/L BUN (7-17) mg/dL Creatinine (0.52-1.04) mg/dL Estimated GFR (>60) mL/min BUN/Creatinine Ratio (6-22) Glucose (80-110) mg/dL Lactate (0.7-2.1) mmol/L Calcium (8.4-10.2) mg/dL Total Bilirubin (0.2-1.3) mg/dL AST (14-36) IU/L ALT (<35) IU/L Alkaline Phosphatase (38-126) U/L Total Creatine Kinase (30-135) U/L CK-MB (CK-2) CK-MB (CK-2) Rel Index Troponin I 0.039 H (0.01-0.034) ng/mL Total Protein (6.3-8.2) g/dL Albumin (3.5-5.0) g/dL Globulin (1.7-4.1) g/dL Albumin/Globulin Ratio (1.0-2.8) Lipase (23-300) U/L MDM Narrative Medical decision making narrative: Patient 87-year-old female coming today with periumbilical pain radiating to her back. She reports that she is had pancreatitis previously but was less se condary to call a lithiasis and she is since had a cholecystectomy. Today she again has pancreatitis mild elevation of lipase 2500 with a normal bilirubin and liver enzymes. She does have chronic kidney disease with baseline creatinine of 1.9-2 today it is 2.23, with bicarb of 16 and a normal lactic acid. Patient's symptoms consistent with pancreatitis however causes unknown. She can not CT with contrast secondary to chronic kidney disease she reports that she has a damage to her kidneys with cardiac catheterizations and IV contrast. At this time suspect pancreatitis causing her pain unlikely to be dissection. Troponin indeterminate 0.04 with repeat pending Patient had CT results of this also pending. Patient signed out to Dr. Kat for further disposition 08/21/22 Mank: This is a 87-year-old female with cardiac history, prior history of pancreatitis reported common bile duct stone which was removed in [place] and cholecystectomy performed locally with Dr. Watkins. Patient has chronic kidney disease, anticoagulated on apixaban. Patient notes sudden onset of abdominal pain about 1300 the radiation her back, no fevers or chills. Patient is feeling much more comfortable after some fluids and dose of morphine. Patient's labs are consistent with pancreatitis. Patient's hemoglobin is 9.2 appears stable to priors, INR is elevated 1.5 not unexpected with the apixaban, creatinine is 2.23 she is ranged from 1.8-2.28 in the past and patient notes she is had multiple procedures and imaging with contrast in the past year. Troponin was indeterminate 0.04 and on repeat is 0.039 with no chest pain, shortness of breath or other cardiac equivalents. Lipase was 2500, bilirubin otherwise appropriate alk-phos has been persistently elevated as well. CT abdomen pelvis overnight read showed some haziness, no clear common common bile duct. Discussed with Dr. Castro; he requests ultrasound right upper quadrant to delineate little bit more. We discussed also that patient noted Dr. Watkins had wanted an MRI of her pancreas but she had deferred out of concerns for her kidney. Patient has pacemaker and we do not have pacer compatible MRI here so US ordered after discussion with Dr. Castro hospitalist to evaluate further for mass vs other and CBD. Spoke with gastroenterology 3 Samantha. Reviewed patient's labs imaging and workup today. They recommend allowing patient's pancreas to cool down with typical treatment fluids, NPO status or clear liquids and pain management for the next several days if patient improves clinically would recommend follow up outpatient with them for ER US in her ERCP to evaluate for possible pancreatic mass. They note that without contrast pancreatitis can sometimes look like mass so would recommend either QRS are MRI when able does not need to be done today. If patient is not improving or having worsening of symptoms over the next 2-3 days and pancreatic enzymes would be willing to accept patient in for transfer for additional workup possible MR as they have pacemaker compatible MR Singh and treatment as needed. Spoke with Dr. Castro, hospitalist: Discussed recommendations from Gastroenterology, accepts for admission. Discharge Plan Departure Patient Disposition: Admitted As Inpatient Clinical Impression: Pancreatitis Admit Date/Time: 08/21/22 12:59 Admit Provider: Akash Castro
[2022-08-21 07:42] LABS: Troponin I 0.039 ng/mL (0.01-0.034)
--- NOTE | 2022-08-21 07:57 | DI.US.S_ITS ---
PROCEDURE: US ABDOMEN LIMITED INDICATIONS: pancreatitis TECHNIQUE: Real-time scanning was performed of the abdominal and retroperitoneal organs, with image documentation. COMPARISON: [facility], CT, CT ABDOMEN PELVIS WO CON, 08/21/2022, 6:22. [facility], US, US ABDOMEN LIMITED, 06/18/2021, 0:50. FINDINGS: Liver: Liver is normal in size and homogeneous in echotexture. The main portal vein has hepatopetal flow. Mild intrahepatic biliary ductal dilatation. Gallbladder: Status post cholecystectomy. Biliary ducts: Intrahepatic bile ducts are non-dilated. Extrahepatic bile duct is enlarged in caliber measuring 0.9 cm. Normal is 6-7 mm or less in diameter, or 10 mm or less post-cholecystectomy. Pancreas: There is a possible pancreatic head mass measuring 2.8 x 2.4 x 1.5 cm. The pancreatic duct is dilated in the head, body, and tail measuring 10.7 mm. Spleen: Spleen is normal in size and homogeneous in echotexture. Kidneys: No hydronephrosis or nephrolithiasis. Multiple simple anechoic cysts, the largest measuring 4.0 x 3.2 x 2.8 cm. Aorta: Visualized aorta is normal in caliber at less than 3 cm. Iliacs: Proximal common iliac arteries are normal in caliber at less than 2.5 cm. IVC: Intrahepatic inferior vena cava is patent. Miscellaneous: No free abdominal fluid. IMPRESSION: 1. Possible pancreatic head mass and pancreatic ductal dilatation. 2. Simple renal cysts. 3. Mild intrahepatic biliary ductal dilatation. Dictated by: Asa Herron M.D. on 08/21/2022 at 9:33 Approved by: Asa Herron M.D. on 08/21/2022 at 9:41
--- NOTE | 2022-08-21 13:10 | PM.HP.1 ---
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 She had her 1st episode of pancreatitis about 1 year ago while visiting [facility]. She says that she was treated with an ERCP to remove stone in the bile duct and eventually had a cholecystectomy here with Dr. Watkins. She was told at that time that there was ?a shadow? on the pancreas and an MRI was recommended. She declined the MRI out of concern that the contrast use would affect her kidney function. Last year she had 6 procedures that included IV contrast including a TAVR so has significant chronic kidney disease. She says that she has been unaware that gadolinium contrast has a different kidney risk than standard IV contrast. This episode of abdominal pain began 5 days ago. She at 1st blamed it on coffee but continued to have postprandial pain that was manageable until yesterday when it became much worse. Her ultrasound today shows a pancreatic head mass with duct dilatation. This was discussed with Gastroenterology in [place] who recommended treatment for pancreatitis in the standard fashion and transfer if worsening and/or outpatient follow-up if she stabilizes. Her lipase is 2502 with a troponin of 0.039, a white blood count 9.8, hemoglobin of 9.2, and alkaline phosphatase of 228 and creatinine within her usual range at 2.23. FOR[facility]LY [facility] Medical History Acquired hypothyroidism Adhesive capsulitis of right shoulder Anemia in chronic kidney disease Anesthesia complication Anxiety Aortic stenosis Chronic anticoagulation Chronic edema Chronic renal insufficiency Chronic sinusitis Coronary artery disease Diverticulosis Do not resuscitate Essential hypertension Facet arthropathy, lumbar Gastroesophageal reflux disease Gout Greater trochanteric bursitis of left hip History of anemia History of colon cancer History of diverticulitis Hypercholesterolemia Hypertension Iliotibial band syndrome, left leg LBBB (left bundle branch block) Mixed hyperlipidemia NSTEMI (non-ST elevated myocardial infarction) (02/25/21) Osteoarthritis Pancreatic mass Paroxysmal atrial fibrillation Peripheral neuropathy Right rotator cuff tendonitis Sick sinus syndrome Stage 3b chronic kidney disease (CKD) Trigeminal neuralgia of right side of face Surgical History History of carpal tunnel release of both wrists History of hysterectomy History of left hip replacement History of left knee replacement History of right hip replacement History of tonsillectomy Hx of appendectomy Hx of heart artery stent S/P left colectomy S/P right colectomy 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 Meds Home Medications and Allergies Home Medications Medication Instructions Recorded Confirmed Type multivitamin 1 cap PO DAILY 03/05/19 08/09/22 History apixaban 2.5 mg tablet (Eliquis) 2.5 mg PO BID 06/25/21 08/09/22 History cholecalciferol (vitamin D3) 25 25 mcg PO DAILY 10/01/21 08/09/22 History mcg (1,000 unit) capsule metoprolol succinate 25 mg 25 mg PO DAILY 11/26/21 08/09/22 History tablet,extended release 24 hr torsemide 5 mg tablet 5 mg PO DAILY 12/01/21 08/09/22 History L. acidophilus/Bifid. animalis 1 cap PO DAILY 12/16/21 08/09/22 History [Daily Probiotic] rosuvastatin 5 mg tablet 5 mg PO DAILY #90 tabs 12/23/21 08/09/22 Rx spironolactone 25 mg tablet 25 mg PO QDAY #90 tabs 02/03/22 08/09/22 Rx oxcarbazepine 300 mg tablet 300 mg PO DAILY #180 tabs 02/23/22 08/09/22 Rx (Trileptal) lorazepam 0.5 mg tablet 0.5 mg PO BID PRN anxiety #20 tabs 05/31/22 08/09/22 Rx aspirin 81 mg capsule 81 mg PO DAILY 08/09/22 08/09/22 History colesevelam 625 mg tablet 625 mg PO DAILY #90 tabs 08/09/22 08/09/22 Rx levothyroxine 25 mcg tablet 25 mcg PO DAILY 08/09/22 08/09/22 History Allergies Allergy/AdvReac Type Severity Reaction Status Date / Time DEEDEE Inhibitors Allergy Severe ANGIOEDEMA Verified 08/21/22 04:46 [DEEDEE INHIBITORS] Sulfa (Sulfonamide Allergy Severe RASH Verified 08/21/22 04:46 Antibiotics) [SULFA (SULFONAMIDE ANTIBIOTICS)] hydromorphone [From DILAUDID] Allergy Mild HALLUCINATI Verified 08/21/22 04:46 ONS atorvastatin Allergy Verified 08/21/22 04:46 niacin Allergy Verified 08/21/22 04:46 [From Niaspan Extended-Release] rofecoxib Allergy Verified 08/21/22 04:46 simvastatin Allergy Verified 08/21/22 04:46 tiotropium Allergy Verified 08/21/22 04:46 codeine [CODEINE] AdvReac Mild FEELING Verified 08/21/22 04:46 OF DROP IN BP/WEAKNESS pseudoephedrine AdvReac Mild FEELS LIKE Verified 08/21/22 04:46 [PSEUDOEPHEDRINE] BP GOES OUT FROM UNDERNEATH ME. colchicine AdvReac Gastrointestinal Verified 08/09/22 10:14 Upset hydrocodone AdvReac Gastrointestinal Verified 08/09/22 10:14 Upset NSAIDS (Non-Steroidal AdvReac Elevated Verified 08/09/22 10:14 Anti-Inflamma creatinine Review of Systems Review of Systems Narrative: Positive for abdominal pain. Negative for fevers, chills, sweats, chest pain, shortness breast, coughing, bleeding, rashes, dysuria, seizures, new allergies, sore throat. Exam Vital Signs (past 8 hours): - 08/21/22 05:54 08/21/22 06:01 08/21/22 06:30 Pulse Rate 67 60 60 Respiratory Rate 20 20 Blood Pressure 156/66 H 140/83 Pulse Oximetry 100 100 99 Oxygen Delivery Method Room Air Room Air 08/21/22 07:00 08/21/22 07:30 08/21/22 08:00 Pulse Rate 60 60 61 Respiratory Rate Blood Pressure Pulse Oximetry 97 97 100 Oxygen Delivery Method 08/21/22 08:30 08/21/22 09:00 08/21/22 09:13 Pulse Rate 60 61 60 Respiratory Rate Blood Pressure Pulse Oximetry 99 99 98 Oxygen Delivery Method 08/21/22 09:13 08/21/22 09:30 08/21/22 09:30 Pulse Rate 62 Respiratory Rate Blood Pressure 112/56 L 128/62 Pulse Oximetry 98 Oxygen Delivery Method 08/21/22 10:00 08/21/22 10:01 08/21/22 10:01 Pulse Rate 60 60 Respiratory Rate Blood Pressure 128/60 Pulse Oximetry 100 100 Oxygen Delivery Method 08/21/22 10:30 08/21/22 10:30 08/21/22 11:00 Pulse Rate 60 Respiratory Rate Blood Pressure 117/56 L 117/56 L Pulse Oximetry 99 Oxygen Delivery Method 08/21/22 11:00 Pulse Rate 60 Respiratory Rate Blood Pressure Pulse Oximetry 99 Oxygen Delivery Method Oxygen Delivery Method Room Air Narrative Exam Narrative: Alert and oriented x3. No apparent distress. Pupils are equally round and reactive to light and accommodation. Extraocular muscles are intact. Sclerae are pink and nonicteric Throat looks normal No lymph nodes are felt head, neck, supraclavicular area There is no thyromegaly JVD is less than 6 cm There is no carotid bruits heard. Heart is regular rate and rhythm without murmur Lungs are clear to auscultation bilaterally Abdomen is soft, bowel sounds positive, significant scarring, only mild diffuse tenderness is present. Extremities have no ankle edema Skin has no rash or jaundice Neurological exam: There is no tremor. Cranial nerves 2-12 test intact, motor function is 4/5 throughout except for bilateral mild footdrop. Objective Labs 08/21/22 04:45 08/21/22 04:45 Labs: Laboratory Results - last 24 hr 08/21/22 08/21/22 08/21/22 04:45 04:45 04:50 WBC 9.8 RBC 2.97 L Hgb 9.2 L Hct 27.0 L MCV 91.0 MCH 31.0 MCHC 34.1 RDW 13.6 Plt Count 130 L Neut % (Auto) 77.6 H Lymph % (Auto) 10.0 L [place] % (Auto) 11.1 Eos % (Auto) 1.0 L Baso % (Auto) 0.3 Neut # (Auto) 7600 H Lymph # (Auto) 1000 L [place] # (Auto) 1100 H Eos # (Auto) 100 Baso # (Auto) 0 Sodium 140 Potassium 5.0 Chloride 113 H Carbon Dioxide 16 L BUN 55 H Creatinine 2.23 H Estimated GFR 21 L BUN/Creatinine Ratio 24.7 H Glucose 116 H Lactate 0.7 Calcium 8.8 Total Bilirubin 0.4 AST 30 ALT 32 Alkaline Phosphatase 228 H Total Creatine Kinase 89 CK-MB (CK-2) TNP CK-MB (CK-2) Rel Index TNP Troponin I 0.040 H Total Protein 6.8 Albumin 3.9 Globulin 2.9 Albumin/Globulin Ratio 1.3 Lipase 2502 H 08/21/22 07:12 WBC RBC Hgb Hct MCV MCH MCHC RDW Plt Count Neut % (Auto) Lymph % (Auto) [place] % (Auto) Eos % (Auto) Baso % (Auto) Neut # (Auto) Lymph # (Auto) [place] # (Auto) Eos # (Auto) Baso # (Auto) Sodium Potassium Chloride Carbon Dioxide BUN Creatinine Estimated GFR BUN/Creatinine Ratio Glucose Lactate Calcium Total Bilirubin AST ALT Alkaline Phosphatase Total Creatine Kinase CK-MB (CK-2) CK-MB (CK-2) Rel Index Troponin I 0.039 H Total Protein Albumin Globulin Albumin/Globulin Ratio Lipase Assessment & Plan Assessment & Plan narrative: This is an 87-year-old female with recurrent pancreatitis and possible pancreatic mass. Due to her CKD she has declined MRCP several times (and has a Pacemaker). She has been following this issue with a GI doctor in [place]. She now has pancreatitis. Phone conversation with GI in [place] suggests standard pancreatic inflammation treatment and referral for further interventions if not improving. Acute recurrent pancreatitis, present on admission. Active. -NPO with ice chips and IV fluid support -IV morphine which has been well tolerated despite her Dilaudid intolerance. -referral to GI either in [place] or in [place] if symptoms worsen or does not improve. -otherwise follow-up outpatient with her GI in [place] or with Dr. Barnard in [place] for further discussions of MRCP (in the context of Pacemaker and CKD). Normocytic anemia, present on admission. Active. -admission hemoglobin 9.8, follow daily. Possible pancreatic mass, present on admission. Active. -discussed with GI in the context of acute pancreatitis. See plan described above. -she has previously declined MRCP when suggested by Dr. Watkins at the time of her gallbladder surgery, because of her CKD. Discussed that IV gadolinium does not have the same renal toxicity as standard IV contrast, which she says she was not aware of. She also has a pacemaker. CKD 3b, present on admission. Chronic. -follow daily and supplement IV fluids while NPO. Trigeminal neuralgia, present on admission. Chronic. -continue oxcarbazepine. Hypothyroidism, present on admission. Chronic. -continue levothyroxine Atrial fibrillation, present on admission. Chronic. -continue metoprolol and Eliquis Hypertension, present on admission. Chronic. -continue spironolactone, Lasix and metoprolol. DVT prophylaxis with Eliquis. Add when Binu DOOLEY
[2022-08-21] MEDS: LORazepam 0.5 MG TABLET PO (14:19)
[2022-08-21] MEDS: DEXTROSE 5%-0.9% NS 1,000 ML 100 ML IV (14:51)
--- NOTE | 2022-08-21 15:15 | PC.NURSE ---
Day shift: In room from ED at approx 1445. ABD pain 05/07. Agrees to not get OOB w/o help from staff. Tolerating ice chips. Dr Huddleston aware Pt in room 203. Oriented to room and call light. Call light in reach. VS WNL. RA 98%.
[2022-08-21] MEDS: MORPHINE 4 MG/ML INJ 3 MG IV (17:28)
[2022-08-21] MEDS: APIXABAN 5 MG TABLET 2.5 MG PO (21:13)
[2022-08-22] VITALS (8 sets, daily range): BP systolic 112–149; BP diastolic 36–58; PULSE 60–63; RESP 16–60; TEMP 35.8–36.6; O2SAT 97–100
[2022-08-22] MEDS: DEXTROSE 5%-0.9% NS 1,000 ML 100 ML IV ×3 (00:27→20:15)
[2022-08-22] MEDS: LEVOTHYROXINE 25 MCG TABLET PO (05:44)
[2022-08-22 07:07] LABS: Add Manual Diff / Slide Review NO; Basophils Absolute Auto 0 /uL (0-100); Basophils Percent Auto 0.9 % (0-2); Eosinophils Absolute Auto 100 /uL (0-450); Eosinophils Percent Auto 2.7 % (2-4); Hematocrit 21.8 % (36-46); Hemoglobin 7.3 g/dL (12.0-16.0); Lymphocytes Absolute Auto 900 /uL (1100-4500); Lymphocytes Percent Auto 18.7 % (25-40); Mean Corpuscular HGB Conc 33.6 % (30-36); Mean Corpuscular Volume 92.3 fL (80-100); Monocytes Absolute Auto 600 /uL (0-900); Monocytes Percent Auto 11.8 % (3-14); Neutrophils Absolute Auto 3200 /uL (1500-7000); Neutrophils Percent Auto 65.9 % (50-75); Platelet Count 98 X10^3/uL (150-400); Red Blood Cell Count 2.36 X10^6/uL (4.0-5.2); Red Cell Distribution Width 13.4 % (11.6-14.8); White Blood Cell Count 4.8 X10^3/uL (4.5-11.0)
[2022-08-22 07:19] LABS: Alanine Aminotransferase 24 IU/L (<35); Albumin Globulin Ratio 1.1 (1.0-2.8); Alkaline Phosphatase 157 U/L (38-126); Aspartate Aminotransferase 23 IU/L (14-36); BUN Creatinine Ratio 22.8 (6-22); Bilirubin Total 0.1 mg/dL (0.2-1.3); Blood Urea Nitrogen 41 mg/dL (7-17); Carbon Dioxide 16 mmol/L (22-32); Chloride 120 mmol/L (98-107); Estimated Glomerular Filt Rate 27 mL/min (>60); Globulin 2.7 g/dL (1.7-4.1); Glucose 107 mg/dL (80-110); HEMOLYSIS < 15 (0-50); Lipase 337 U/L (23-300); Potassium 4.6 mmol/L (3.4-5.1); Sodium 141 mmol/L (137-145); Total Protein 5.7 g/dL (6.3-8.2)
[2022-08-22 07:20] LABS: Magnesium 1.9 mg/dL (1.6-2.3)
[2022-08-22 07:29] LABS: Troponin I 0.058 ng/mL (0.01-0.034)
[2022-08-22] MEDS: TORSEMIDE 10 MG TABLET 5 MG PO (08:46)
[2022-08-22] MEDS: APIXABAN 5 MG TABLET 2.5 MG PO ×2 (08:47→20:14)
[2022-08-22] MEDS: METOPROLOL ER 25 MG TABLET PO (08:47)
[2022-08-22] MEDS: SPIRONOLACTONE 25 MG TABLET PO (08:47)
[2022-08-22] MEDS: ASPIRIN EC 81 MG TABLET PO (08:47)
[2022-08-22] MEDS: OXcarbazepine 150 MG TABLET 300 MG PO (08:48)
--- NOTE | 2022-08-22 11:36 | CM.DANOTE ---
Initial Discharge Assessment Note: Case reviewed, met with patient and spouse. Introduced self and role. Payer: Medicare and [employer] PCP: Dr Candido Minaya 87 year old female with recurrent pancreatitis. She has had recent choleycystectomy and ERCP for a stone. Patient lives with supportive spouse Jj in [place]. She has children locally. She is independent in ADLs and spouse can assist as needed. Plan: When medically cleared, discharge home to 's care. Follow up outpatient with lace inspector. JUSTIN Discharge Planning/Care Management CM Discharge Assessment Start: 08/22/22 11:32 Freq: Status: Active Protocol: Document 08/22/22 11:32 (Rec: 08/22/22 11:33 [id number]) Discharge Planning Assessment Assigned Meter Readers Supervisor Laura Deras RN/VANESSAP Advance Directives? Yes Advance Directives on File Yes History Provided By Patient,Medical Record Prior Living Arrangements House Household Members spouse,none Type of transporation used prior to Relies on Others admit Comment spouse drives Independent with ADL's Yes Is patient alert and oriented? Yes Needs Assistance With Home Chores / Shopping Caregiver for Another No Barriers to Discharge No Discharge Plan Home Transportation Arrangement Family, or facility, if patient needs mcc. Referrals Initiated None needed Whiteboard Updated in Patient Room with Yes name and ext. # of Meter Readers Supervisor Review Status In Process Next Review Type Continued Stay Review
--- NOTE | 2022-08-22 13:52 | PM.PN.1 ---
Subjective Subjective Date Patient Seen: 08/22/22 Interval history: She says that she feels much better. She is thirsty but not hungry yet. She confirms that she is DNR. The white blood count is 4.8 with a hemoglobin of 7.3 and platelets of 98. The creatinine is 1.8. The chloride is 120 with a CO2 level of 16. The troponin is 0.058 and the lipase is down, now at 3:37 a.m.. Exam Vital Signs (past 8 hours): - 08/22/22 08:47 08/22/22 08:00 08/22/22 10:14 Temperature 97.3 F L Pulse Rate 60 60 61 Respiratory Rate 60 H Blood Pressure 131/50 L 131/50 L Pulse Oximetry 97 Oxygen Flow Rate 0 08/22/22 12:00 Temperature 96.4 F L Pulse Rate 60 Respiratory Rate 17 Blood Pressure 134/52 L Pulse Oximetry 100 Oxygen Flow Rate 0 Oxygen Delivery Method Room Air Oxygen Flow Rate 0 Narrative Exam Narrative: Alert and oriented x3. No apparent distress. Sitting in the chair next to her bed reading a book Heart is regular rate and rhythm without murmur Lungs are clear to auscultation bilaterally Extremities have no ankle edema Abdomen is soft, bowel sounds positive, nontender, no organomegaly. Objective Labs 08/22/22 06:50 08/22/22 06:50 Labs: Laboratory Results - last 24 hr 08/22/22 08/22/22 08/22/22 06:50 06:50 06:50 WBC 4.8 D RBC 2.36 L Hgb 7.3 L Hct 21.8 L MCV 92.3 MCH 31.0 MCHC 33.6 RDW 13.4 Plt Count 98 L Neut % (Auto) 65.9 Lymph % (Auto) 18.7 L [place] % (Auto) 11.8 Eos % (Auto) 2.7 Baso % (Auto) 0.9 Neut # (Auto) 3200 Lymph # (Auto) 900 L [place] # (Auto) 600 Eos # (Auto) 100 Baso # (Auto) 0 Sodium 141 Potassium 4.6 Chloride 120 H Carbon Dioxide 16 L BUN 41 H Creatinine 1.80 H Estimated GFR 27 L BUN/Creatinine Ratio 22.8 H Glucose 107 Calcium 8.0 L Magnesium 1.9 Total Bilirubin 0.1 L AST 23 ALT 24 Alkaline Phosphatase 157 H Troponin I 0.058 H Total Protein 5.7 L Albumin 3.0 L Globulin 2.7 Albumin/Globulin Ratio 1.1 Lipase 337 [facility] Medical History Acquired hypothyroidism Adhesive capsulitis of right shoulder Anemia in chronic kidney disease Anesthesia complication Anxiety Aortic stenosis Chronic anticoagulation Chronic edema Chronic renal insufficiency Chronic sinusitis Coronary artery disease Diverticulosis Do not resuscitate Essential hypertension Facet arthropathy, lumbar Gastroesophageal reflux disease Gout Greater trochanteric bursitis of left hip History of anemia History of colon cancer History of diverticulitis Hypercholesterolemia Hypertension Iliotibial band syndrome, left leg LBBB (left bundle branch block) Mixed hyperlipidemia NSTEMI (non-ST elevated myocardial infarction) (02/25/21) Osteoarthritis Pancreatic mass Paroxysmal atrial fibrillation Peripheral neuropathy Right rotator cuff tendonitis Sick sinus syndrome Stage 3b chronic kidney disease (CKD) Trigeminal neuralgia of right side of face Surgical History History of carpal tunnel release of both wrists History of hysterectomy History of left hip replacement History of left knee replacement History of right hip replacement History of tonsillectomy Hx of appendectomy Hx of heart artery stent S/P left colectomy S/P right colectomy 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) S/P tendon repair Status cardiac pacemaker (~08/17/21) Family History (Updated 08/21/22 @ 15:44 by Khoi Huddleston MD) Father Heart attack Hypertension Heart disease Brother Heart attack Mother Hypertension Ovarian cancer Other Cancer Social History marital status: unknown details: (Jj) household members: spouse and none occupational status: previously employed Smoking Status: Former smoker Tobacco: How many years used: 8 alcohol intake: current Assessment & Plan Assessment & Plan narrative: This is an 87-year-old female with recurrent pancreatitis and possible pancreatic mass.? Due to her CKD she has declined MRCP several times (and she also has a Pacemaker).? She has been following this issue with a GI doctor in [place].? She now has pancreatitis.? Phone conversation with GI in [place] suggests standard pancreatic inflammation treatment and referral for further interventions if not improving. Acute recurrent pancreatitis, present on admission.? Active.? -08/22/2022 rapid improvement with 24 hours of NPO. Progress to full liquid diet and anticipate further dietary challenges within 24 hours if this trend continues. -IV morphine well tolerated despite her Dilaudid intolerance.? -referral to GI either in [place] or in [place] if symptoms worsen or does not improve. -otherwise follow-up outpatient with her GI in [place] or with Dr. Barnard in [place] for further discussions of MRCP (in the context of Pacemaker and CKD). Normocytic anemia, present on admission.? Active.? -admission hemoglobin 9.8, follow daily.? -also following platelets with mild thrombocytopenia. -08/22 hemoglobin down to 7.3, not unexpectedly, will probably transfuse if continues to drop below 7 Possible pancreatic mass, present on admission.? Active.? -discussed with GI in the context of acute pancreatitis.? See plan described above.? -she has previously declined MRCP when suggested by Dr. Watkins at the time of her gallbladder surgery, because of her CKD.? Discussed that IV gadolinium does not have the same renal toxicity as standard IV contrast, which she says she was not aware of.? She also has a pacemaker. CKD 3b, present on admission.? Chronic.? -follow daily and supplement IV fluids while NPO.? Troponin leak, present on admission. Active. -likely not an actual NSTEMI, likely related to the acute illness. Follow trend. Trigeminal neuralgia, present on admission.? Chronic.? -continue oxcarbazepine.? Hypothyroidism, present on admission.? Chronic.? -continue levothyroxine Atrial fibrillation, present on admission.? Chronic.? -continue metoprolol and Eliquis Hypertension, present on admission.? Chronic.? -continue spironolactone, Lasix and metoprolol.? DVT prophylaxis with Eliquis.
[2022-08-23 00:08] VITALS: BP 142/50; PULSE 60; RESP 18; TEMP 36.3; O2SAT 97
[2022-08-23 04:15] VITALS: BP 150/51; PULSE 64; RESP 18; TEMP 37.1; O2SAT 96
[2022-08-23] MEDS: LORazepam 0.5 MG TABLET PO (04:54)
[2022-08-23] MEDS: LEVOTHYROXINE 25 MCG TABLET PO (04:54)
[2022-08-23 06:42] LABS: Add Manual Diff / Slide Review NO; Basophils Absolute Auto 0 /uL (0-100); Basophils Percent Auto 0.8 % (0-2); Eosinophils Absolute Auto 200 /uL (0-450); Eosinophils Percent Auto 3.7 % (2-4); Hematocrit 22.3 % (36-46); Hemoglobin 7.4 g/dL (12.0-16.0); Lymphocytes Absolute Auto 800 /uL (1100-4500); Lymphocytes Percent Auto 17.5 % (25-40); Mean Corpuscular HGB Conc 33.1 % (30-36); Mean Corpuscular Hemoglobin 30.5 PG (26-34); Mean Corpuscular Volume 92.1 fL (80-100); Monocytes Absolute Auto 500 /uL (0-900); Monocytes Percent Auto 10.2 % (3-14); Neutrophils Absolute Auto 3200 /uL (1500-7000); Neutrophils Percent Auto 67.8 % (50-75); Platelet Count 98 X10^3/uL (150-400); Red Blood Cell Count 2.42 X10^6/uL (4.0-5.2); Red Cell Distribution Width 13.8 % (11.6-14.8); White Blood Cell Count 4.7 X10^3/uL (4.5-11.0)
[2022-08-23 07:08] LABS: Alanine Aminotransferase 24 IU/L (<35); Albumin 3.2 g/dL (3.5-5.0); Albumin Globulin Ratio 1.1 (1.0-2.8); Alkaline Phosphatase 172 U/L (38-126); Aspartate Aminotransferase 26 IU/L (14-36); BUN Creatinine Ratio 21.6 (6-22); Bilirubin Total 0.2 mg/dL (0.2-1.3); Blood Urea Nitrogen 36 mg/dL (7-17); Calcium 8.3 mg/dL (8.4-10.2); Carbon Dioxide 14 mmol/L (22-32); Chloride 119 mmol/L (98-107); Estimated Glomerular Filt Rate 30 mL/min (>60); Globulin 2.8 g/dL (1.7-4.1); Glucose 87 mg/dL (80-110); HEMOLYSIS < 15 (0-50); Potassium 4.7 mmol/L (3.4-5.1); Sodium 141 mmol/L (137-145)
[2022-08-23 07:16] LABS: Troponin I 0.058 ng/mL (0.01-0.034)
[2022-08-23 08:00] VITALS: BP 148/46; PULSE 61; RESP 18; TEMP 36.7; O2SAT 98
[2022-08-23] MEDS: ASPIRIN EC 81 MG TABLET PO (08:34)
[2022-08-23 08:35] VITALS: BP 148/46; PULSE 61
[2022-08-23] MEDS: APIXABAN 5 MG TABLET 2.5 MG PO (08:35)
[2022-08-23] MEDS: METOPROLOL ER 25 MG TABLET PO (08:35)
[2022-08-23] MEDS: TORSEMIDE 10 MG TABLET 5 MG PO (08:35)
[2022-08-23] MEDS: SPIRONOLACTONE 25 MG TABLET PO (08:35)
[2022-08-23] MEDS: OXcarbazepine 150 MG TABLET 300 MG PO (08:36)
[2022-08-23 10:11] VITALS: PULSE 61
[2022-08-23 12:00] VITALS: BP 140/53; PULSE 60; RESP 18; TEMP 36.9; O2SAT 100
--- NOTE | 2022-08-23 12:47 | PM.PN.1 ---
Subjective Subjective Date Patient Seen: 08/23/22 Exam Vital Signs (past 8 hours): - 08/23/22 08:00 08/23/22 08:35 08/23/22 07:00 Temperature 98.1 F Pulse Rate 61 61 Respiratory Rate 18 Blood Pressure 148/46 H 148/46 H Pulse Oximetry 98 Oxygen Delivery Method Room Air Oxygen Flow Rate 0 08/23/22 10:11 08/23/22 12:00 Temperature 98.5 F Pulse Rate 61 60 Respiratory Rate 18 Blood Pressure 140/53 L Pulse Oximetry 100 Oxygen Delivery Method Oxygen Flow Rate 0 Oxygen Delivery Method Room Air Oxygen Flow Rate 0 Objective Labs 08/23/22 06:20 08/23/22 06:20 Labs: Laboratory Results - last 24 hr 08/23/22 08/23/22 06:20 06:20 WBC 4.7 RBC 2.42 L Hgb 7.4 L Hct 22.3 L MCV 92.1 MCH 30.5 MCHC 33.1 RDW 13.8 Plt Count 98 L Neut % (Auto) 67.8 Lymph % (Auto) 17.5 L [place] % (Auto) 10.2 Eos % (Auto) 3.7 Baso % (Auto) 0.8 Neut # (Auto) 3200 Lymph # (Auto) 800 L [place] # (Auto) 500 Eos # (Auto) 200 Baso # (Auto) 0 Sodium 141 Potassium 4.7 Chloride 119 H Carbon Dioxide 14 L BUN 36 H Creatinine 1.67 H Estimated GFR 30 L BUN/Creatinine Ratio 21.6 Glucose 87 Calcium 8.3 L Total Bilirubin 0.2 AST 26 ALT 24 Alkaline Phosphatase 172 H Troponin I 0.058 H Total Protein 6.0 L Albumin 3.2 L Globulin 2.8 Albumin/Globulin Ratio 1.1 [facility] Medical History Acquired hypothyroidism Adhesive capsulitis of right shoulder Anemia in chronic kidney disease Anesthesia complication Anxiety Aortic stenosis Chronic anticoagulation Chronic edema Chronic renal insufficiency Chronic sinusitis Coronary artery disease Diverticulosis Do not resuscitate Essential hypertension Facet arthropathy, lumbar Gastroesophageal reflux disease Gout Greater trochanteric bursitis of left hip History of anemia History of colon cancer History of diverticulitis Hypercholesterolemia Hypertension Iliotibial band syndrome, left leg LBBB (left bundle branch block) Mixed hyperlipidemia NSTEMI (non-ST elevated myocardial infarction) (02/25/21) Osteoarthritis Pancreatic mass Paroxysmal atrial fibrillation Peripheral neuropathy Right rotator cuff tendonitis Sick sinus syndrome Stage 3b chronic kidney disease (CKD) Trigeminal neuralgia of right side of face Surgical History History of carpal tunnel release of both wrists History of hysterectomy History of left hip replacement History of left knee replacement History of right hip replacement History of tonsillectomy Hx of appendectomy Hx of heart artery stent S/P left colectomy S/P right colectomy 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) S/P tendon repair Status cardiac pacemaker (~08/17/21) Family History (Updated 08/21/22 @ 15:44 by Khoi Huddleston MD) Father Heart attack Hypertension Heart disease Brother Heart attack Mother Hypertension Ovarian cancer Other Cancer Social History marital status: unknown details: (Jj) household members: spouse and none occupational status: previously employed Smoking Status: Former smoker Tobacco: How many years used: 8 alcohol intake: current Assessment & Plan Assessment & Plan narrative: 87-year-old female with recurrent pancreatitis and possible pancreatic mass.? Due to her CKD she has declined MRCP several times (and she also has a Pacemaker).? She has been following this issue with a GI doctor in [place].? She now has pancreatitis.? Phone conversation with GI in [place] suggests standard pancreatic inflammation treatment and referral for further interventions if not improving. Acute recurrent pancreatitis, present on admission.? Active.? -08/22/2022 rapid improvement with 24 hours of NPO.? Progress to full liquid diet and anticipate further dietary challenges within 24 hours if this trend continues. -IV morphine well tolerated despite her Dilaudid intolerance.? -referral to GI either in [place] or in [place] if symptoms worsen or does not improve. -otherwise follow-up outpatient with her GI in [place] or with Dr. Barnard in [place] for further discussions of MRCP (in the context of Pacemaker and CKD). Normocytic anemia, present on admission.? Active.? -admission hemoglobin 9.8, follow daily.? -also following platelets with mild thrombocytopenia. -08/22 hemoglobin down to 7.3, not unexpectedly, will probably transfuse if continues to drop below 7 Possible pancreatic mass, present on admission.? Active.? -discussed with GI in the context of acute pancreatitis.? See plan described above.? -she has previously declined MRCP when suggested by Dr. Watkins at the time of her gallbladder surgery, because of her CKD.? Discussed that IV gadolinium does not have the same renal toxicity as standard IV contrast, which she says she was not aware of.? She also has a pacemaker. CKD 3b, present on admission.? Chronic.? -follow daily and supplement IV fluids while NPO.? Troponin leak, present on admission.? Active.? -likely not an actual NSTEMI, likely related to the acute illness.? Follow trend. Trigeminal neuralgia, present on admission.? Chronic.? -continue oxcarbazepine.? Hypothyroidism, present on admission.? Chronic.? -continue levothyroxine Atrial fibrillation, present on admission.? Chronic.? -continue metoprolol and Eliquis Hypertension, present on admission.? Chronic.? -continue spironolactone, Lasix and metoprolol.? DVT prophylaxis with Eliquis.
--- NOTE | 2022-08-23 13:07 | PM.DS.1 ---
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 She had her 1st episode of pancreatitis about 1 year ago while visiting [facility].? She says that she was treated with an ERCP to remove stone in the bile duct and eventually had a cholecystectomy here with Dr. Watkins.? She was told at that time that there was ?a shadow? on the pancreas and an MRI was recommended.? She declined the MRI out of concern that the contrast use would affect her kidney function.? Last year she had 6 procedures that included IV contrast including a TAVR so has significant chronic kidney disease.? She says that she has been unaware that gadolinium contrast has a different kidney risk than standard IV contrast.? This episode of abdominal pain began 5 days ago.? She at 1st blamed it on coffee but continued to have postprandial pain that was manageable until yesterday when it became much worse.? Her ultrasound today shows a pancreatic head mass with duct dilatation.? This was discussed with Gastroenterology in [place] who recommended treatment for pancreatitis in the standard fashion and transfer if worsening and/or outpatient follow-up if she stabilizes.? Her lipase is 2502 with a troponin of 0.039, a white blood count 9.8, hemoglobin of 9.2, and alkaline phosphatase of 228 and creatinine within her usual range at 2.23. Discharge Providers Provider Date of admission: 08/21/22 12:59 Discharge Date: 08/23/22 Primary care physician: Candido Minaya MD Discharge provider: Fercho Queen MD Summary Hospital Course Discharge Diagnosis: 1. Acute recurrent pancreatitis 2. Possible mass head of pancreas 3. Acute on chronic anemia 4. CKD 3b 5. Atrial fibrillation 6. Hypertension 7. H/o cholecystectomy Abd/pelvic CT: 1. Mild inflammatory changes around the neck and body of the pancreas raising the possibility of pancreatitis. ? 2. Relative hyperdensity in the pancreatic head region.? This may be normal pancreas with relatively diminutive distal pancreas versus pancreatic mass.? This focal area has slightly increased in size since the prior study and could be further characterized by MRI if not previously performed. Abd US: 1. Possible pancreatic head mass and pancreatic ductal dilatation. 2. Simple renal cysts. 3. Mild intrahepatic biliary ductal dilatation.? Hospital Course: Pt was admitted and treated with bowel rest, morphine, IV fluids. She had rapid improvement, tolerating diet pain free today. Imaging finding of likely mass in head of pancreas, and concern for malignancy, was reviewed more than once with patient. She intends to f/u with her GI doc in [place] or with GI at [facility]. Status at Discharge Cognitive/behavioral status at discharge: oriented Functional status at discharge: independent ambulation Overall status at discharge: patient is progressing back to baseline Time Spent with Patient Time spent: Greater than 30 minutes Exam Vital Signs (past 8 hours): - 08/23/22 08:00 08/23/22 08:35 08/23/22 07:00 Temperature 98.1 F Pulse Rate 61 61 Respiratory Rate 18 Blood Pressure 148/46 H 148/46 H Pulse Oximetry 98 Oxygen Delivery Method Room Air Oxygen Flow Rate 0 08/23/22 10:11 08/23/22 12:00 Temperature 98.5 F Pulse Rate 61 60 Respiratory Rate 18 Blood Pressure 140/53 L Pulse Oximetry 100 Oxygen Delivery Method Oxygen Flow Rate 0 Oxygen Delivery Method Room Air Oxygen Flow Rate 0 Narrative Exam Narrative: Gen: aleert, NAD Lungs: clear Abd: soft, nt Ext: no edema Neuro: nl affect and speech Objective Labs 08/23/22 06:20 08/23/22 06:20 Labs: Laboratory Results - last 24 hr 08/23/22 08/23/22 06:20 06:20 WBC 4.7 RBC 2.42 L Hgb 7.4 L Hct 22.3 L MCV 92.1 MCH 30.5 MCHC 33.1 RDW 13.8 Plt Count 98 L Neut % (Auto) 67.8 Lymph % (Auto) 17.5 L Walker % (Auto) 10.2 Eos % (Auto) 3.7 Baso % (Auto) 0.8 Neut # (Auto) 3200 Lymph # (Auto) 800 L Walker # (Auto) 500 Eos # (Auto) 200 Baso # (Auto) 0 Sodium 141 Potassium 4.7 Chloride 119 H Carbon Dioxide 14 L BUN 36 H Creatinine 1.67 H Estimated GFR 30 L BUN/Creatinine Ratio 21.6 Glucose 87 Calcium 8.3 L Total Bilirubin 0.2 AST 26 ALT 24 Alkaline Phosphatase 172 H Troponin I 0.058 H Total Protein 6.0 L Albumin 3.2 L Globulin 2.8 Albumin/Globulin Ratio 1.1 [facility] Medical History Acquired hypothyroidism Adhesive capsulitis of right shoulder Anemia in chronic kidney disease Anesthesia complication Anxiety Aortic stenosis Chronic anticoagulation Chronic edema Chronic renal insufficiency Chronic sinusitis Coronary artery disease Diverticulosis Do not resuscitate Essential hypertension Facet arthropathy, lumbar Gastroesophageal reflux disease Gout Greater trochanteric bursitis of left hip History of anemia History of colon cancer History of diverticulitis Hypercholesterolemia Hypertension Iliotibial band syndrome, left leg LBBB (left bundle branch block) Mixed hyperlipidemia NSTEMI (non-ST elevated myocardial infarction) (02/25/21) Osteoarthritis Pancreatic mass Paroxysmal atrial fibrillation Peripheral neuropathy Right rotator cuff tendonitis Sick sinus syndrome Stage 3b chronic kidney disease (CKD) Trigeminal neuralgia of right side of face Surgical History History of carpal tunnel release of both wrists History of hysterectomy History of left hip replacement History of left knee replacement History of right hip replacement History of tonsillectomy Hx of appendectomy Hx of heart artery stent S/P left colectomy S/P right colectomy 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) S/P tendon repair Status cardiac pacemaker (~08/17/21) Family History (Updated 08/21/22 @ 15:44 by Khoi Huddleston MD) Father Heart attack Hypertension Heart disease Brother Heart attack Mother Hypertension Ovarian cancer Other Cancer Social History marital status: unknown details: (Jj) household members: spouse and none occupational status: previously employed Smoking Status: Former smoker Tobacco: How many years used: 8 alcohol intake: current Discharge Plan Discharge Plan Patient Disposition: Home Provider Discharge Comment: You were admitted due to acute pancreatitis. Abdominal imaging shows possible mass in the head of the pancreas. Please follow up with your GI doctor on further evaluation of this abnormality. It is best to maintain low fat diet for the next couple of weeks. Discharge orders & Medications Prescriptions: Continued rosuvastatin 5 mg tablet 5 mg PO DAILY Qty: 90 2RF oxcarbazepine [Trileptal] 300 mg tablet 300 mg PO DAILY Qty: 180 0RF lorazepam 0.5 mg tablet 0.5 mg PO BID PRN (Reason: anxiety) Qty: 20 2RF Eliquis 2.5 mg tablet 2.5 mg PO BID cholecalciferol (vitamin D3) 25 mcg (1,000 unit) capsule 25 mcg PO DAILY spironolactone 25 mg tablet 25 mg PO QDAY Qty: 90 3RF L. acidophilus/Bifid. animalis [Daily Probiotic] 1 cap PO DAILY aspirin 81 mg capsule 81 mg PO DAILY levothyroxine 25 mcg tablet 25 mcg PO DAILY colesevelam 625 mg tablet 625 mg PO DAILY Qty: 90 3RF metoprolol succinate 25 mg Tablet Extended Release 24 Hr 25 mg PO DAILY torsemide 5 mg tablet 5 mg PO DAILY multivitamin Capsule 1 cap PO DAILY Follow up/Referrals: Candido Minaya MD [Primary Care Provider] - Diet/Activity/Treatments Diet: Low-fat Visit Report/Discharge Packet Stand Alone Forms: Patient Portal/API, Stroke Signs & Symptoms Discharge Data Primary Care Provider: Candido Minaya V
== END 2022-08-23 14:00 | disposition home or self-care (01) | DRG 440 ==
LOC: ED 12:59 → AC 12:59
PROVIDERS: Emergency Medicine; Family Medicine; Admitting Provider Student in an Organized Health Care Education/Training Program; Emergency Provider Emergency Medicine; PCP Internal Medicine; Referring Provider Emergency Medicine; Visit Provider Student in an Organized Health Care Education/Training Program
DX: K85.90 Acute pancreatitis without necrosis or infection, unspecified (principal); I12.9 Hypertensive chronic kidney disease with stage 1 through stage 4 chronic kidney disease, or unspecified chronic kidney disease; N18.32 Chronic kidney disease, stage 3b; G50.0 Trigeminal neuralgia; E03.9 Hypothyroidism, unspecified; D64.9 Anemia, unspecified; D69.6 Thrombocytopenia, unspecified; K86.89 Other specified diseases of pancreas; I48.91 Unspecified atrial fibrillation; E78.00 Pure hypercholesterolemia, unspecified; F41.9 Anxiety disorder, unspecified; Z95.0 Presence of cardiac pacemaker; Z66 Do not resuscitate; Z87.891 Personal history of nicotine dependence; Z20.822 Contact with and (suspected) exposure to COVID-19; Z79.01 Long term (current) use of anticoagulants
CPT/HCPCS: 36415; 74176; 76705; 80053; 82550; 83605; 83690; 83735; 84484; 85025; 93005; 96374; 99284; 99285; J2270

== ENCOUNTER → 2022-08-26 09:07 | Outpatient (CLI) | payer MEDICARE, SELFPAY ==
[2022-02-01 09:17] VITALS: PULSE 88; RESP 9; O2SAT 96
[2022-08-21 17:58] VITALS: BMI 29.5
[2022-08-26 10:09] LABS: Hematocrit 23.8 % (36-46); Hemoglobin 8.1 g/dL (12.0-16.0); Mean Corpuscular Hemoglobin 30.5 PG (26-34); Mean Corpuscular Volume 89.6 fL (80-100); Platelet Count 137 X10^3/uL (150-400); Red Blood Cell Count 2.65 X10^6/uL (4.0-5.2); White Blood Cell Count 4.6 X10^3/uL (4.5-11.0)
[2022-08-26 10:12] LABS: Alanine Aminotransferase 28 IU/L (<35); Albumin 3.3 g/dL (3.5-5.0); Albumin Globulin Ratio 1.2 (1.0-2.8); Alkaline Phosphatase 191 U/L (38-126); Amylase 53 U/L (30-110); Aspartate Aminotransferase 26 IU/L (14-36); BUN Creatinine Ratio 18.8 (6-22); Bilirubin Total 0.3 mg/dL (0.2-1.3); Blood Urea Nitrogen 35 mg/dL (7-17); Calcium 8.7 mg/dL (8.4-10.2); Carbon Dioxide 20 mmol/L (22-32); Chloride 112 mmol/L (98-107); Estimated Glomerular Filt Rate 26 mL/min (>60); Globulin 2.7 g/dL (1.7-4.1); Glucose 162 mg/dL (80-110); HEMOLYSIS < 15 (0-50); Lipase 36 U/L (23-300); Potassium 4.6 mmol/L (3.4-5.1); Sodium 139 mmol/L (137-145)
== END ==
PROVIDERS: PCP Internal Medicine; Referring Provider Internal Medicine; Visit Provider Internal Medicine
DX: K85.90 Acute pancreatitis without necrosis or infection, unspecified; K86.89 Other specified diseases of pancreas; N18.9 Chronic kidney disease, unspecified; D63.1 Anemia in chronic kidney disease
CPT/HCPCS: 36415; 80053; 82150; 83690; 85027

== ENCOUNTER → 2022-09-03 15:04 | Outpatient (CLI) | payer MEDICARE, SELFPAY ==
[2022-09-01 16:16] VITALS: PULSE 88; RESP 9; O2SAT 96; BMI 29.5
[2022-09-03 17:36] LABS: Occult Blood 1 Negative (Negative); Occult Blood 2 Negative (Negative); Occult Blood 3 Negative (Negative)
== END ==
PROVIDERS: PCP Internal Medicine; Referring Provider Internal Medicine; Visit Provider Internal Medicine
DX: K92.1 Melena (principal)
CPT/HCPCS: 82270

== ENCOUNTER 2022-10-21 02:42 | Emergency (ER) | payer MEDICARE, SELFPAY ==
[2022-09-01 16:16] VITALS: PULSE 88; RESP 9; O2SAT 96; BMI 29.5
[2022-10-21] VITALS (50 sets, daily range): BP systolic 103–162; BP diastolic 51–79; PULSE 57–89; RESP 16–19; TEMP 36.6–36.8; O2SAT 94–100; BMI 29.4
--- NOTE | 2022-10-21 03:06 | ED.GIBLEED ---
HPI - GI Bleed <Jamel Grider, DO - Last Filed: 10/21/22 19:04> General Chief complaint: GI Bleed Stated complaint: rectal bleeding Time Seen by Provider: 10/21/22 02:45 Source: patient Mode of arrival: Ambulatory Limitations: no limitations History of Present Illness HPI Narrative: 87-year-old female. His on anticoagulation. Just recently had a endoscopic biopsy of a mass on her pancreas. Does have history of colon cancer. Is here for evaluation of rectal bleeding. Her symptoms started yesterday and it was just a small amount. She contacted the operative provider who did her biopsy who told her that she should get her hemoglobin and hematocrit checked. She stated that overnight she had a large episode of rectal bleeding. No abdominal pain. No vomiting. No fevers. No urinary symptoms. Related Data Home Medications Medication Instructions Recorded Confirmed multivitamin 1 cap PO DAILY 03/05/19 09/03/22 apixaban 2.5 mg tablet (Eliquis) 2.5 mg PO BID 06/25/21 09/03/22 cholecalciferol (vitamin D3) 25 25 mcg PO DAILY 10/01/21 09/03/22 mcg (1,000 unit) capsule metoprolol succinate 25 mg 25 mg PO DAILY 11/26/21 09/03/22 tablet,extended release 24 hr torsemide 5 mg tablet 5 mg PO DAILY 12/01/21 09/03/22 L. acidophilus/Bifid. animalis 1 cap PO DAILY 12/16/21 09/03/22 [Daily Probiotic] aspirin 81 mg capsule 81 mg PO DAILY 08/09/22 09/03/22 levothyroxine 25 mcg tablet 25 mcg PO DAILY 08/09/22 09/03/22 nitroglycerin 0.4 mg sublingual 0.4 mg sublingual Q5-15M PRN chest 09/03/22 09/03/22 tablet pain Previous Rx's Medication Instructions Recorded spironolactone 25 mg tablet 25 mg PO QDAY #90 tabs 02/03/22 oxcarbazepine 300 mg tablet 300 mg PO DAILY #180 tabs 02/23/22 (Trileptal) lorazepam 0.5 mg tablet 0.5 mg PO BID PRN anxiety #20 tabs 05/31/22 colesevelam 625 mg tablet 625 mg PO DAILY #90 tabs 08/09/22 isosorbide mononitrate 30 mg 30 mg PO DAILY #90 tabs 09/03/22 tablet,extended release 24 hr rosuvastatin 5 mg tablet 5 mg PO DAILY #90 tabs 09/20/22 Allergies Allergy/AdvReac Type Severity Reaction Status Date / Time DEEDEE Inhibitors Allergy Severe ANGIOEDEMA Verified 09/03/22 14:08 [DEEDEE INHIBITORS] Sulfa (Sulfonamide Allergy Severe RASH Verified 09/03/22 14:08 Antibiotics) [SULFA (SULFONAMIDE ANTIBIOTICS)] hydromorphone [From DILAUDID] Allergy Mild HALLUCINATI Verified 09/03/22 14:08 ONS atorvastatin Allergy Verified 09/03/22 14:08 niacin Allergy Verified 09/03/22 14:08 [From Niaspan Extended-Release] rofecoxib Allergy Verified 09/03/22 14:08 simvastatin Allergy Verified 09/03/22 14:08 tiotropium Allergy Verified 09/03/22 14:08 codeine [CODEINE] AdvReac Mild FEELING Verified 09/03/22 14:08 OF DROP IN BP/WEAKNESS pseudoephedrine AdvReac Mild FEELS LIKE Verified 09/03/22 14:08 [PSEUDOEPHEDRINE] BP GOES OUT FROM UNDERNEATH ME. colchicine AdvReac Gastrointestinal Verified 09/03/22 14:08 Upset hydrocodone AdvReac Gastrointestinal Verified 09/03/22 14:08 Upset NSAIDS (Non-Steroidal AdvReac Elevated Verified 09/03/22 14:08 Anti-Inflamma creatinine Review of Systems <Jamel Grider DO - Last Filed: 10/21/22 19:04> Constitutional Constitutional: Reports system reviewed and no additional complaints, except as documented Cardiovascular Cardiovascular: Reports system reviewed and no additional complaints, except as documented Respiratory Respiratory: Reports system reviewed and no additional complaints, except as documented Gastrointestinal Gastrointestinal: Reports system reviewed and no additional complaints, except as documented Hematologic/Lymphatic On Anticoagulants: Yes Patient History <Jamel Grider DO - Last Filed: 10/21/22 19:04> Medical History Acquired hypothyroidism Adhesive capsulitis of right shoulder Anemia in chronic kidney disease Anesthesia complication Anxiety Aortic stenosis Chronic anticoagulation Chronic edema Chronic renal insufficiency Chronic sinusitis Coronary artery disease Diverticulosis Do not resuscitate Essential hypertension Facet arthropathy, lumbar Gastroesophageal reflux disease Gout Greater trochanteric bursitis of left hip History of anemia History of colon cancer History of diverticulitis Hypercholesterolemia Hypertension Iliotibial band syndrome, left leg LBBB (left bundle branch block) Mass of head of pancreas Mixed hyperlipidemia NSTEMI (non-ST elevated myocardial infarction) (02/25/21) Osteoarthritis Paroxysmal atrial fibrillation Peripheral neuropathy Right rotator cuff tendonitis Sick sinus syndrome Stage 3b chronic kidney disease (CKD) Trigeminal neuralgia of right side of face Surgical History History of carpal tunnel release of both wrists History of hysterectomy History of left hip replacement History of left knee replacement History of right hip replacement History of tonsillectomy Hx of appendectomy Hx of heart artery stent S/P left colectomy S/P right colectomy 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) S/P tendon repair Status cardiac pacemaker (~08/17/21) Family History Father Heart attack Hypertension Heart disease Brother Heart attack Mother Hypertension Ovarian cancer Other Cancer Social History marital status: unknown details: (Jj) household members: spouse and none occupational status: previously employed Smoking Status: Former smoker Tobacco: How many years used: 8 alcohol intake: current Smoking Status: Former smoker alcohol intake frequency: holidays/special occasions only Substance Use Type: does not use Exam <Jamel Grider DO - Last Filed: 10/21/22 19:04> Initial Vital Signs Initial Vital Signs: Vital Signs Pulse Rate 60 10/21/22 02:58 Pulse Oximetry 99 10/21/22 02:58 Const General: cooperative, healthy appearing and No ill appearing Resp Effort & Inspection: normal respiratory effort Cardio Rate: regular rate GI Inspection: normal to inspection and non-distended Palpation: soft and No tender Neuro General: patient alert, patient awake and moves all extremities Extrem General: normal to inspection <Sylvie Corona MD - Last Filed: 10/21/22 14:11> Initial Vital Signs Initial Vital Signs: Vital Signs Pulse Rate 60 10/21/22 02:58 Pulse Oximetry 99 10/21/22 02:58 Course <Jamel Grider DO - Last Filed: 10/21/22 19:04> Orders Ordered: ED Orders 10/21/22 13:07 HH [Hemoglobin and Hematocrit] Stat Discontinued Medications Pantoprazole Sodium (Pantoprazole 40 Mg Vial) 40 mg IV NOW ONE Stop: 10/21/22 05:25 Last Admin: 10/21/22 06:29 Dose: 40 mg Documented By: JL Vital Signs Vital signs: Vital Signs - 8 hr 10/21/22 11:30 10/21/22 11:31 10/21/22 11:31 Temperature Pulse Rate 59 L 60 Respiratory Rate Blood Pressure 110/51 L Pulse Oximetry 100 100 10/21/22 12:00 10/21/22 12:00 10/21/22 12:30 Temperature Pulse Rate 60 60 Respiratory Rate Blood Pressure 103/79 Pulse Oximetry 100 100 10/21/22 12:31 10/21/22 12:31 10/21/22 13:00 Temperature Pulse Rate 60 60 Respiratory Rate Blood Pressure 144/59 H Pulse Oximetry 100 99 10/21/22 13:01 10/21/22 13:01 10/21/22 13:19 Temperature Pulse Rate 60 61 Respiratory Rate Blood Pressure 127/60 Pulse Oximetry 100 98 10/21/22 13:19 10/21/22 13:20 10/21/22 13:20 Temperature Pulse Rate 61 Respiratory Rate Blood Pressure 156/65 H 141/65 H Pulse Oximetry 96 10/21/22 13:30 10/21/22 13:31 10/21/22 13:31 Temperature Pulse Rate 60 60 Respiratory Rate Blood Pressure 132/60 Pulse Oximetry 94 100 10/21/22 14:00 10/21/22 14:00 10/21/22 14:50 Temperature 98.3 F Pulse Rate 60 60 Respiratory Rate 18 Blood Pressure 142/62 H 136/58 L Pulse Oximetry 99 10/21/22 14:30 10/21/22 14:31 10/21/22 14:31 Temperature Pulse Rate 60 60 Respiratory Rate Blood Pressure 130/58 L Pulse Oximetry 100 100 10/21/22 14:50 10/21/22 14:51 10/21/22 15:07 Temperature 97.8 F Pulse Rate 59 L 89 Respiratory Rate 19 Blood Pressure 136/58 L 118/56 L Pulse Oximetry 98 10/21/22 14:51 10/21/22 15:00 10/21/22 15:01 Temperature Pulse Rate 57 L 60 Respiratory Rate Blood Pressure 118/56 L Pulse Oximetry 97 10/21/22 15:01 10/21/22 15:30 10/21/22 15:30 Temperature Pulse Rate 60 59 L Respiratory Rate Blood Pressure 121/57 L Pulse Oximetry 100 100 10/21/22 15:57 10/21/22 15:59 10/21/22 15:59 Temperature 97.9 F Pulse Rate 61 60 Respiratory Rate 16 Blood Pressure 130/57 L 130/57 L Pulse Oximetry 100 10/21/22 16:00 10/21/22 16:01 10/21/22 16:01 Temperature Pulse Rate 60 60 Respiratory Rate Blood Pressure 135/62 Pulse Oximetry 100 100 10/21/22 16:30 10/21/22 16:31 10/21/22 16:31 Temperature Pulse Rate 60 60 Respiratory Rate Blood Pressure 134/61 Pulse Oximetry 100 99 <Sylvie Corona MD - Last Filed: 10/21/22 14:11> Orders Ordered: ED Orders 10/21/22 13:07 HH [Hemoglobin and Hematocrit] Stat Discontinued Medications Pantoprazole Sodium (Pantoprazole 40 Mg Vial) 40 mg IV NOW ONE Stop: 10/21/22 05:25 Last Admin: 10/21/22 06:29 Dose: 40 mg Documented By: JL Vital Signs Vital signs: Vital Signs - 8 hr 10/21/22 11:30 10/21/22 11:31 10/21/22 11:31 Temperature Pulse Rate 59 L 60 Respiratory Rate Blood Pressure 110/51 L Pulse Oximetry 100 100 10/21/22 12:00 10/21/22 12:00 10/21/22 12:30 Temperature Pulse Rate 60 60 Respiratory Rate Blood Pressure 103/79 Pulse Oximetry 100 100 10/21/22 12:31 10/21/22 12:31 10/21/22 13:00 Temperature Pulse Rate 60 60 Respiratory Rate Blood Pressure 144/59 H Pulse Oximetry 100 99 10/21/22 13:01 10/21/22 13:01 10/21/22 13:19 Temperature Pulse Rate 60 61 Respiratory Rate Blood Pressure 127/60 Pulse Oximetry 100 98 10/21/22 13:19 10/21/22 13:20 10/21/22 13:20 Temperature Pulse Rate 61 Respiratory Rate Blood Pressure 156/65 H 141/65 H Pulse Oximetry 96 10/21/22 13:30 10/21/22 13:31 10/21/22 13:31 Temperature Pulse Rate 60 60 Respiratory Rate Blood Pressure 132/60 Pulse Oximetry 94 100 10/21/22 14:00 10/21/22 14:00 10/21/22 14:50 Temperature 98.3 F Pulse Rate 60 60 Respiratory Rate 18 Blood Pressure 142/62 H 136/58 L Pulse Oximetry 99 10/21/22 14:30 10/21/22 14:31 10/21/22 14:31 Temperature Pulse Rate 60 60 Respiratory Rate Blood Pressure 130/58 L Pulse Oximetry 100 100 10/21/22 14:50 10/21/22 14:51 10/21/22 15:07 Temperature 97.8 F Pulse Rate 59 L 89 Respiratory Rate 19 Blood Pressure 136/58 L 118/56 L Pulse Oximetry 98 10/21/22 14:51 10/21/22 15:00 10/21/22 15:01 Temperature Pulse Rate 57 L 60 Respiratory Rate Blood Pressure 118/56 L Pulse Oximetry 97 10/21/22 15:01 10/21/22 15:30 10/21/22 15:30 Temperature Pulse Rate 60 59 L Respiratory Rate Blood Pressure 121/57 L Pulse Oximetry 100 100 10/21/22 15:57 10/21/22 15:59 10/21/22 15:59 Temperature 97.9 F Pulse Rate 61 60 Respiratory Rate 16 Blood Pressure 130/57 L 130/57 L Pulse Oximetry 100 10/21/22 16:00 10/21/22 16:01 10/21/22 16:01 Temperature Pulse Rate 60 60 Respiratory Rate Blood Pressure 135/62 Pulse Oximetry 100 100 10/21/22 16:30 10/21/22 16:31 10/21/22 16:31 Temperature Pulse Rate 60 60 Respiratory Rate Blood Pressure 134/61 Pulse Oximetry 100 99 MDM - GI Bleed <Jamel Grider, DO - Last Filed: 10/21/22 19:04> Lab Data Attestation: I reviewed the patient's lab results. 10/21/22 13:07 10/21/22 03:00 Labs: Lab Results 10/21/22 10/21/22 10/21/22 Range/Units 03:00 03:00 03:00 WBC 6.5 (4.5-11.0) X10^3/uL RBC 2.67 L (4.0-5.2) X10^6/uL Hgb 7.9 L (12.0-16.0) g/dL Hct 23.5 L (36-46) % MCV 88.1 (80-100) fL MCH 29.6 (26-34) PG MCHC 33.6 (30-36) % RDW 13.8 (11.6-14.8) % Plt Count 137 L (150-400) X10^3/uL Neut % (Auto) 60.7 (50-75) % Lymph % (Auto) 23.8 L (25-40) % [place] % (Auto) 9.7 (3-14) % Eos % (Auto) 4.9 H (2-4) % Baso % (Auto) 0.9 (0-2) % Neut # (Auto) 3900 (8415-5625) /uL Lymph # (Auto) 1500 (9066-9192) /uL [place] # (Auto) 600 (0-900) /uL Eos # (Auto) 300 (0-450) /uL Baso # (Auto) 100 (0-100) /uL Sodium 140 (137-145) mmol/L Potassium 4.6 (3.4-5.1) mmol/L Chloride 115 H (98-107) mmol/L Carbon Dioxide 19 L (22-32) mmol/L BUN 43 H (7-17) mg/dL Creatinine 1.65 H (0.52-1.04) mg/dL Estimated GFR 30 L (>60) mL/min BUN/Creatinine Ratio 26.1 H (6-22) Glucose 99 (80-110) mg/dL Calcium 8.7 (8.4-10.2) mg/dL Total Bilirubin (0.2-1.3) mg/dL Conjugated Bilirubin (0.0-0.3) md/dL Unconjugated Bilirubin (0.0-1.1) mg/dL AST (14-36) IU/L ALT (<35) IU/L Alkaline Phosphatase (38-126) U/L Total Protein (6.3-8.2) g/dL Albumin (3.5-5.0) g/dL Globulin (1.7-4.1) g/dL Albumin/Globulin Ratio (1.0-2.8) Lipase (23-300) U/L Blood Type O Positive Antibody Screen Negative Crossmatch See Detail 10/21/22 10/21/22 10/21/22 Range/Units 05:00 08:10 08:10 WBC (4.5-11.0) X10^3/uL RBC (4.0-5.2) X10^6/uL Hgb 7.3 L 7.3 L (12.0-16.0) g/dL Hct 21.9 L 21.7 L (36-46) % MCV (80-100) fL MCH (26-34) PG MCHC (30-36) % RDW (11.6-14.8) % Plt Count (150-400) X10^3/uL Neut % (Auto) (50-75) % Lymph % (Auto) (25-40) % [place] % (Auto) (3-14) % Eos % (Auto) (2-4) % Baso % (Auto) (0-2) % Neut # (Auto) (4602-5966) /uL Lymph # (Auto) (2709-1164) /uL [place] # (Auto) (0-900) /uL Eos # (Auto) (0-450) /uL Baso # (Auto) (0-100) /uL Sodium (137-145) mmol/L Potassium (3.4-5.1) mmol/L Chloride (98-107) mmol/L Carbon Dioxide (22-32) mmol/L BUN (7-17) mg/dL Creatinine (0.52-1.04) mg/dL Estimated GFR (>60) mL/min BUN/Creatinine Ratio (6-22) Glucose (80-110) mg/dL Calcium (8.4-10.2) mg/dL Total Bilirubin 0.2 (0.2-1.3) mg/dL Conjugated Bilirubin 0.0 (0.0-0.3) md/dL Unconjugated Bilirubin 0.1 (0.0-1.1) mg/dL AST 31 (14-36) IU/L ALT 28 (<35) IU/L Alkaline Phosphatase 190 H (38-126) U/L Total Protein 5.9 L (6.3-8.2) g/dL Albumin 3.3 L (3.5-5.0) g/dL Globulin 2.6 (1.7-4.1) g/dL Albumin/Globulin Ratio 1.3 (1.0-2.8) Lipase 162 (23-300) U/L Blood Type Antibody Screen Crossmatch 10/21/22 Range/Units 13:07 WBC (4.5-11.0) X10^3/uL RBC (4.0-5.2) X10^6/uL Hgb 7.1 L (12.0-16.0) g/dL Hct 21.2 L (36-46) % MCV (80-100) fL MCH (26-34) PG MCHC (30-36) % RDW (11.6-14.8) % Plt Count (150-400) X10^3/uL Neut % (Auto) (50-75) % Lymph % (Auto) (25-40) % [place] % (Auto) (3-14) % Eos % (Auto) (2-4) % Baso % (Auto) (0-2) % Neut # (Auto) (1174-1603) /uL Lymph # (Auto) (9122-4857) /uL [place] # (Auto) (0-900) /uL Eos # (Auto) (0-450) /uL Baso # (Auto) (0-100) /uL Sodium (137-145) mmol/L Potassium (3.4-5.1) mmol/L Chloride (98-107) mmol/L Carbon Dioxide (22-32) mmol/L BUN (7-17) mg/dL Creatinine (0.52-1.04) mg/dL Estimated GFR (>60) mL/min BUN/Creatinine Ratio (6-22) Glucose (80-110) mg/dL Calcium (8.4-10.2) mg/dL Total Bilirubin (0.2-1.3) mg/dL Conjugated Bilirubin (0.0-0.3) md/dL Unconjugated Bilirubin (0.0-1.1) mg/dL AST (14-36) IU/L ALT (<35) IU/L Alkaline Phosphatase (38-126) U/L Total Protein (6.3-8.2) g/dL Albumin (3.5-5.0) g/dL Globulin (1.7-4.1) g/dL Albumin/Globulin Ratio (1.0-2.8) Lipase (23-300) U/L Blood Type Antibody Screen Crossmatch Imaging Data CT scan - abdomen/pelvis: Radiologist's Impression: No evidence of colitis, diverticulitis, bowel obstruction or obstructive uropathy Atrophy of the pancreas with questionable pancreatic ductal dilation. If further evaluation is required, consider contrast enhanced MRI of the abdomen/MRCP MDM Narrative Medical decision making narrative: Patient has had a history of a GI bleed in the past but this is secondary to a malignancy. She is on anticoagulation. She recently had a pancreatic mass biopsy (within the past 24-36 hours). She did have some rectal bleeding yesterday and then last evening had quite a bit of painless bright red blood per rectum. She is not tachycardic and not hypotensive. Her initial H&H does have a degree of anemia however she is been anemic in the past. A repeat H&H does show decreasing this. This was without any fluids administered. I did discuss the case with Dr. Fitzpatrick on-call with General surgery who recommended a CT scan to evaluate for any bleeding around the pancreas. The CT scan does not show any acute hematoma. Because of her decreasing hemoglobin hematocrit plan will be is to admit to the hospital for further evaluation and treatment. Discussed the case with Dr. Hernandez who recommended repeat labs. Care turned over to Dr. Corona to follow-up and disposition. <Sylvie Corona MD - Last Filed: 10/21/22 14:11> Lab Data Labs: Lab Results 10/21/22 10/21/22 10/21/22 Range/Units 03:00 03:00 03:00 WBC 6.5 (4.5-11.0) X10^3/uL RBC 2.67 L (4.0-5.2) X10^6/uL Hgb 7.9 L (12.0-16.0) g/dL Hct 23.5 L (36-46) % MCV 88.1 (80-100) fL MCH 29.6 (26-34) PG MCHC 33.6 (30-36) % RDW 13.8 (11.6-14.8) % Plt Count 137 L (150-400) X10^3/uL Neut % (Auto) 60.7 (50-75) % Lymph % (Auto) 23.8 L (25-40) % [place] % (Auto) 9.7 (3-14) % Eos % (Auto) 4.9 H (2-4) % Baso % (Auto) 0.9 (0-2) % Neut # (Auto) 3900 (3979-5236) /uL Lymph # (Auto) 1500 (7681-8094) /uL [place] # (Auto) 600 (0-900) /uL Eos # (Auto) 300 (0-450) /uL Baso # (Auto) 100 (0-100) /uL Sodium 140 (137-145) mmol/L Potassium 4.6 (3.4-5.1) mmol/L Chloride 115 H (98-107) mmol/L Carbon Dioxide 19 L (22-32) mmol/L BUN 43 H (7-17) mg/dL Creatinine 1.65 H (0.52-1.04) mg/dL Estimated GFR 30 L (>60) mL/min BUN/Creatinine Ratio 26.1 H (6-22) Glucose 99 (80-110) mg/dL Calcium 8.7 (8.4-10.2) mg/dL Total Bilirubin (0.2-1.3) mg/dL Conjugated Bilirubin (0.0-0.3) md/dL Unconjugated Bilirubin (0.0-1.1) mg/dL AST (14-36) IU/L ALT (<35) IU/L Alkaline Phosphatase (38-126) U/L Total Protein (6.3-8.2) g/dL Albumin (3.5-5.0) g/dL Globulin (1.7-4.1) g/dL Albumin/Globulin Ratio (1.0-2.8) Lipase (23-300) U/L Blood Type O Positive Antibody Screen Negative Crossmatch See Detail 10/21/22 10/21/22 10/21/22 Range/Units 05:00 08:10 08:10 WBC (4.5-11.0) X10^3/uL RBC (4.0-5.2) X10^6/uL Hgb 7.3 L 7.3 L (12.0-16.0) g/dL Hct 21.9 L 21.7 L (36-46) % MCV (80-100) fL MCH (26-34) PG MCHC (30-36) % RDW (11.6-14.8) % Plt Count (150-400) X10^3/uL Neut % (Auto) (50-75) % Lymph % (Auto) (25-40) % [place] % (Auto) (3-14) % Eos % (Auto) (2-4) % Baso % (Auto) (0-2) % Neut # (Auto) (6339-0676) /uL Lymph # (Auto) (6959-5312) /uL [place] # (Auto) (0-900) /uL Eos # (Auto) (0-450) /uL Baso # (Auto) (0-100) /uL Sodium (137-145) mmol/L Potassium (3.4-5.1) mmol/L Chloride (98-107) mmol/L Carbon Dioxide (22-32) mmol/L BUN (7-17) mg/dL Creatinine (0.52-1.04) mg/dL Estimated GFR (>60) mL/min BUN/Creatinine Ratio (6-22) Glucose (80-110) mg/dL Calcium (8.4-10.2) mg/dL Total Bilirubin 0.2 (0.2-1.3) mg/dL Conjugated Bilirubin 0.0 (0.0-0.3) md/dL Unconjugated Bilirubin 0.1 (0.0-1.1) mg/dL AST 31 (14-36) IU/L ALT 28 (<35) IU/L Alkaline Phosphatase 190 H (38-126) U/L Total Protein 5.9 L (6.3-8.2) g/dL Albumin 3.3 L (3.5-5.0) g/dL Globulin 2.6 (1.7-4.1) g/dL Albumin/Globulin Ratio 1.3 (1.0-2.8) Lipase 162 (23-300) U/L Blood Type Antibody Screen Crossmatch 10/21/22 Range/Units 13:07 WBC (4.5-11.0) X10^3/uL RBC (4.0-5.2) X10^6/uL Hgb 7.1 L (12.0-16.0) g/dL Hct 21.2 L (36-46) % MCV (80-100) fL MCH (26-34) PG MCHC (30-36) % RDW (11.6-14.8) % Plt Count (150-400) X10^3/uL Neut % (Auto) (50-75) % Lymph % (Auto) (25-40) % [place] % (Auto) (3-14) % Eos % (Auto) (2-4) % Baso % (Auto) (0-2) % Neut # (Auto) (9192-8021) /uL Lymph # (Auto) (2055-4511) /uL [place] # (Auto) (0-900) /uL Eos # (Auto) (0-450) /uL Baso # (Auto) (0-100) /uL Sodium (137-145) mmol/L Potassium (3.4-5.1) mmol/L Chloride (98-107) mmol/L Carbon Dioxide (22-32) mmol/L BUN (7-17) mg/dL Creatinine (0.52-1.04) mg/dL Estimated GFR (>60) mL/min BUN/Creatinine Ratio (6-22) Glucose (80-110) mg/dL Calcium (8.4-10.2) mg/dL Total Bilirubin (0.2-1.3) mg/dL Conjugated Bilirubin (0.0-0.3) md/dL Unconjugated Bilirubin (0.0-1.1) mg/dL AST (14-36) IU/L ALT (<35) IU/L Alkaline Phosphatase (38-126) U/L Total Protein (6.3-8.2) g/dL Albumin (3.5-5.0) g/dL Globulin (1.7-4.1) g/dL Albumin/Globulin Ratio (1.0-2.8) Lipase (23-300) U/L Blood Type Antibody Screen Crossmatch [facility] Narrative Medical decision making narrative: Patient has had a history of a GI bleed in the past but this is secondary to a malignancy. She is on anticoagulation. She recently had a pancreatic mass biopsy (within the past 24-36 hours). She did have some rectal bleeding yesterday and then last evening had quite a bit of painless bright red blood per rectum. She is not tachycardic and not hypotensive. Her initial H&H does have a degree of anemia however she is been anemic in the past. A repeat H&H does show decreasing this. This was without any fluids administered. I did discuss the case with Dr. Fitzpatrick on-call with General surgery who recommended a CT scan to evaluate for any bleeding around the pancreas. The CT scan does not show any acute hematoma. Because of her decreasing hemoglobin hematocrit plan will be is to admit to the hospital for further evaluation and treatment. Discussed the case with Dr. Hernandez who recommended repeat labs. Care turned over to Dr. Corona to follow-up and disposition. Repeat H and H stable. I discussed case with hospitalist, however because we do not have GI services and there is concern that there may be bleeding from the EUS site around the pancreas patient needs to be transferred to a hospital with GI Services. I personally discussed the patient's case with her GI doctor, Dr. Swanson, who states that he is extremely unlikely that there is bleeding from the pancreas, or biopsy site, however hospitalist declines admission insisting on hospital with GI capacity. Will initiate steps to transfer patient. HH continues to downtrend, however no further episodes of bleeding witnessed for several hours. Patient declines transfer to outside hospital stating that her was recently diagnosed with cancer and she does not want to leave him at home alone. Extensive conversation had a bedside, patient understands the risks of leaving against medical advice including bleeding out or worsening of condition including . Patient states that if anything happens at home she will call 911 to be brought back to the emergency department and will consider transfer at that time. We will transfuse the patient 1 unit of blood and then patient will sign out against medical advice. 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 Patient was informed of her biopsy results. She will call her GI doctor's office for follow-up. <Sylvie Corona MD - Last Filed: 10/21/22 14:11> Critical Care Time Critical Care Time: Yes Total Critical Care Time: 62 Attestation: Critical care including transfusion of blood products, discussion with GI specialists, consult with hospitalist service, frequent reassessments. Discharge Plan Departure Patient Disposition: Left Against Medical Advice Clinical Impression: GI bleed, Anemia, Upper gastrointestinal hemorrhage Activity Restrictions/Additional Instructions: WE RECEIVE THE RESULTS FROM YOUR BIOPSY, IT DOES APPEAR THAT YOU HAVE A PANCREATIC NEOPLASM. FURTHER TESTING SHOULD BE DONE AT THE DISCRETION OF YOUR GI DOCTOR. RETURN IMMEDIATELY TO THE EMERGENCY DEPARTMENT FOR NEW OR WORSENING BLEEDING. Prescriptions: No Action oxcarbazepine [Trileptal] 300 mg tablet 300 mg PO DAILY Qty: 180 0RF lorazepam 0.5 mg tablet 0.5 mg PO BID PRN (Reason: anxiety) Qty: 20 2RF rosuvastatin 5 mg tablet 5 mg PO DAILY Qty: 90 2RF Eliquis 2.5 mg tablet 2.5 mg PO BID nitroglycerin 0.4 mg tablet, sublingual 0.4 mg sublingual Q5-15M PRN (Reason: chest pain) isosorbide mononitrate 30 mg tablet extended release 24 hr 30 mg PO DAILY Qty: 90 3RF cholecalciferol (vitamin D3) 25 mcg (1,000 unit) capsule 25 mcg PO DAILY spironolactone 25 mg tablet 25 mg PO QDAY Qty: 90 3RF L. acidophilus/Bifid. animalis [Daily Probiotic] 1 cap PO DAILY aspirin 81 mg capsule 81 mg PO DAILY levothyroxine 25 mcg tablet 25 mcg PO DAILY colesevelam 625 mg tablet 625 mg PO DAILY Qty: 90 3RF metoprolol succinate 25 mg Tablet Extended Release 24 Hr 25 mg PO DAILY torsemide 5 mg tablet 5 mg PO DAILY multivitamin Capsule 1 cap PO DAILY Stand Alone Forms: Against Medical Advice
[2022-10-21 03:13] LABS: Add Manual Diff / Slide Review NO; Basophils Absolute Auto 100 /uL (0-100); Basophils Percent Auto 0.9 % (0-2); Eosinophils Absolute Auto 300 /uL (0-450); Eosinophils Percent Auto 4.9 % (2-4); Hematocrit 23.5 % (36-46); Hemoglobin 7.9 g/dL (12.0-16.0); Lymphocytes Absolute Auto 1500 /uL (1100-4500); Lymphocytes Percent Auto 23.8 % (25-40); Mean Corpuscular HGB Conc 33.6 % (30-36); Mean Corpuscular Hemoglobin 29.6 PG (26-34); Mean Corpuscular Volume 88.1 fL (80-100); Monocytes Absolute Auto 600 /uL (0-900); Monocytes Percent Auto 9.7 % (3-14); Neutrophils Absolute Auto 3900 /uL (1500-7000); Neutrophils Percent Auto 60.7 % (50-75); Platelet Count 137 X10^3/uL (150-400); Red Blood Cell Count 2.67 X10^6/uL (4.0-5.2); Red Cell Distribution Width 13.8 % (11.6-14.8); White Blood Cell Count 6.5 X10^3/uL (4.5-11.0)
[2022-10-21 03:22] LABS: BUN Creatinine Ratio 26.1 (6-22); Blood Urea Nitrogen 43 mg/dL (7-17); Calcium 8.7 mg/dL (8.4-10.2); Carbon Dioxide 19 mmol/L (22-32); Chloride 115 mmol/L (98-107); Estimated Glomerular Filt Rate 30 mL/min (>60); Glucose 99 mg/dL (80-110); HEMOLYSIS < 15 (0-50); Potassium 4.6 mmol/L (3.4-5.1); Sodium 140 mmol/L (137-145)
[2022-10-21 05:08] LABS: Hematocrit 21.9 % (36-46); Hemoglobin 7.3 g/dL (12.0-16.0)
--- NOTE | 2022-10-21 05:32 | DI.CT.S_ITS ---
PROCEDURE: CT ABDOMEN PELVIS WO CON INDICATIONS: recent pancreatic biopsy now with rectal bleeding TECHNIQUE: Noncontrast 5 mm thick sections acquired from the diaphragms to the symphysis. 5 mm coronal and sagittal reformats were then performed. For radiation dose reduction, the following was used: automated exposure control, adjustment of mA and/or kV according to patient size. COMPARISON: [facility], CT, CT ABDOMEN PELVIS WO CON, 08/21/2022, 6:22. FINDINGS: Image quality: Excellent. ABDOMEN: Lung bases: Lung bases are clear. Cardiomegaly. Percutaneous aortic valve. Pacemaker. Solid organs: Liver is normal in size. Gallbladder surgically absent . Again noted is a hyperdensity present in the region of the uncinate process of the pancreas suspicious for mass measuring approximately 2.1 x 2.3 cm. It is difficult to evaluate without contrast. Spleen is normal in size. No adrenal nodules. Kidneys are normal in size, without hydronephrosis or nephrolithiasis. Multiple renal cysts bilaterally. Peritoneum and bowel: Appendectomy clips. Probable partial colectomy clips. Extensive pelvic surgical clips. Unenhanced bowel loops demonstrate normal wall thickness and caliber. Scattered diverticulosis. No free fluid or air. Nodes and vessels: No retroperitoneal or mesenteric adenopathy by size criteria. Aorta and inferior vena cava are normal in caliber. Miscellaneous: No ventral hernias. PELVIS: Genitourinary: Bladder wall thickness is normal. Miscellaneous: No inguinal hernias or adenopathy. Bones: No suspicious bony lesions. No vertebral body compression fractures. Lumbar degenerative change with canal stenosis at L4-L5. Bilateral total hip arthroplasties. IMPRESSION: 1. Findings suspicious for a pancreatic mass in the region of the uncinate process of the pancreas. 2. No evidence of acute abdominal process. Comment: Consider MRCP with and without contrast for further evaluation of the pancreas. Comment: Final report is concordant with preliminary interpretation provided by [facility]. Dictated by: Milan Cobos M.D. on 10/21/2022 at 8:10 Approved by: Milan Cobos M.D. on 10/21/2022 at 8:17
[2022-10-21] MEDS: PANTOPRAZOLE 40 MG VIAL IV (06:29)
--- NOTE | 2022-10-21 08:16 | PM.CALLCOV.1 ---
Call Coverage Note Note Narrative of Care Provided: 87 F with PMH of aortic stenosis s/p AVR, CAD with recent NSTEMI 08/2022, SSS s/p PPM placement, HTN, persistent atrial fibillation, CKD, anemia, hypothyroidism and recent diagnosis of pancreatic head mass with recent EUS who presented with rectal bleeding. Medicine was asked to evaluate for admission. Her previous abdominal imaging showed pancreatic ductal dilatation, and has had elevated lipase levels in the past. General surgery was called, but I am not sure of their exact plan at this time with regards to her bleeding, their initial recommendation was to get an CT to rule out hematoma which did not show a hematoma. Concern for admission here is that her differential includes bleeding as a result of her recent EUS, and/or her current pancreatic mass she will likely need the consultation of specialties or procedures (embolization, GI, etc) not available at [facility] to definitively manage her bleeding. At this time, I recommend getting hepatic panel and lipase to start current evaluation for her ductal dilatation, continue to hold home eliquis. It would be beneficial to see the EUS report as well to see if there can be additional information gained to the source of her bleeding. At this time I do recommend transfer to higher level of care given her complex underlying cardiac history, ongoing evaluation of her pancreatic mass, with active GI bleed. Should the patient not desire any further evaluation of her pancreatic mass, and at this time only desires transfusion support while awaiting to see if her bleeding stops, we can at that time consider admission at that time.
[2022-10-21 08:23] LABS: Hematocrit 21.7 % (36-46); Hemoglobin 7.3 g/dL (12.0-16.0)
[2022-10-21 08:43] LABS: Alanine Aminotransferase 28 IU/L (<35); Albumin 3.3 g/dL (3.5-5.0); Albumin Globulin Ratio 1.3 (1.0-2.8); Alkaline Phosphatase 190 U/L (38-126); Aspartate Aminotransferase 31 IU/L (14-36); Bilirubin Total 0.2 mg/dL (0.2-1.3); Bilirubin Unconjugated 0.1 mg/dL (0.0-1.1); Globulin 2.6 g/dL (1.7-4.1); HEMOLYSIS < 15 (0-50); Lipase 162 U/L (23-300); Total Protein 5.9 g/dL (6.3-8.2)
--- NOTE | 2022-10-21 12:58 | P.CONS_ITS ---
History of Present Illness Consult details Date Patient Seen: 10/21/22 Time Patient Seen: 12:30 Chief complaint: rectal bleeding Narrative: 87 F with PMH of aortic stenosis s/p AVR, CAD with recent NSTEMI 08/2022, SSS s/p PPM placement, HTN, persistent atrial fibillation, CKD, anemia, hypothyroidism and diagnosis of pancreatic head mass with recent EUS who presen ralph with rectal bleeding. Medicine was asked to evaluate for admission. Her previous abdominal imaging showed pancreatic ductal dilatation, and has had elevated lipase levels in the past. The patient had an EUS with biopsy on 10/18/22, and was started on PPI by her GI physician per patient for gastropathy. Endoscopy report is not available for review at this time. She restarted her eliquis the following day, but then developed hematochezia on tuesday and stopped taking it. She called her GI physician office whom referred her to the ER. She has had a few more episodes of hematochezia in the ER, but more recent bowel movements have been melenotic. She denies chest pain, shortness of breath, she maybe gets a bit light headed when standing. She has chronic anemia and recently started oral iron from PCP which she could not tolerate. In the emergency room, CT was done initially to evaluate for possible hematoma given recent EUS, none was seen. Medicine has been called multiple times to evaluate for admission which is further discussed below in A&P and previous air route traffic controller note. Labs are notable for an initial Hg of 7.9 which declined to 7.3 on repeat, stable on 3rd h/h most recently at 8AM. Creatinine is at baseline. CMP shows no elevated bilirubin. Meds Home Medications and Allergies Home Medications Medication Instructions Recorded Confirmed Type multivitamin 1 cap PO DAILY 03/05/19 09/03/22 History apixaban 2.5 mg tablet (Eliquis) 2.5 mg PO BID 06/25/21 09/03/22 History cholecalciferol (vitamin D3) 25 25 mcg PO DAILY 10/01/21 09/03/22 History mcg (1,000 unit) capsule metoprolol succinate 25 mg 25 mg PO DAILY 11/26/21 09/03/22 History tablet,extended release 24 hr torsemide 5 mg tablet 5 mg PO DAILY 12/01/21 09/03/22 History L. acidophilus/Bifid. animalis 1 cap PO DAILY 12/16/21 09/03/22 History [Daily Probiotic] spironolactone 25 mg tablet 25 mg PO QDAY #90 tabs 02/03/22 09/03/22 Rx oxcarbazepine 300 mg tablet 300 mg PO DAILY #180 tabs 02/23/22 09/03/22 Rx (Trileptal) lorazepam 0.5 mg tablet 0.5 mg PO BID PRN anxiety #20 tabs 05/31/22 09/03/22 Rx aspirin 81 mg capsule 81 mg PO DAILY 08/09/22 09/03/22 History colesevelam 625 mg tablet 625 mg PO DAILY #90 tabs 08/09/22 09/03/22 Rx levothyroxine 25 mcg tablet 25 mcg PO DAILY 08/09/22 09/03/22 History isosorbide mononitrate 30 mg 30 mg PO DAILY #90 tabs 09/03/22 09/03/22 Rx tablet,extended release 24 hr nitroglycerin 0.4 mg sublingual 0.4 mg sublingual Q5-15M PRN chest 09/03/22 09/03/22 History tablet pain rosuvastatin 5 mg tablet 5 mg PO DAILY #90 tabs 09/20/22 Rx Allergies Allergy/AdvReac Type Severity Reaction Status Date / Time DEEDEE Inhibitors Allergy Severe ANGIOEDEMA Verified 09/03/22 14:08 [DEEDEE INHIBITORS] Sulfa (Sulfonamide Allergy Severe RASH Verified 09/03/22 14:08 Antibiotics) [SULFA (SULFONAMIDE ANTIBIOTICS)] hydromorphone [From DILAUDID] Allergy Mild HALLUCINATI Verified 09/03/22 14:08 ONS atorvastatin Allergy Verified 09/03/22 14:08 niacin Allergy Verified 09/03/22 14:08 [From Niaspan Extended-Release] rofecoxib Allergy Verified 09/03/22 14:08 simvastatin Allergy Verified 09/03/22 14:08 tiotropium Allergy Verified 09/03/22 14:08 codeine [CODEINE] AdvReac Mild FEELING Verified 09/03/22 14:08 OF DROP IN BP/WEAKNESS pseudoephedrine AdvReac Mild FEELS LIKE Verified 09/03/22 14:08 [PSEUDOEPHEDRINE] BP GOES OUT FROM UNDERNEATH ME. colchicine AdvReac Gastrointestinal Verified 09/03/22 14:08 Upset hydrocodone AdvReac Gastrointestinal Verified 09/03/22 14:08 Upset NSAIDS (Non-Steroidal AdvReac Elevated Verified 09/03/22 14:08 Anti-Inflamma creatinine Review of Systems Review of Systems Narrative: All other systems reviewed with the patient and are negative unless otherwise stated. Exam Vital Signs (past 8 hours): - 10/21/22 05:00 10/21/22 05:30 10/21/22 06:11 Pulse Rate 60 60 60 Blood Pressure Pulse Oximetry 98 97 98 Oxygen Delivery Method 10/21/22 06:12 10/21/22 06:12 10/21/22 06:30 Pulse Rate 60 Blood Pressure 142/65 H 148/67 H Pulse Oximetry 99 Oxygen Delivery Method Room Air 10/21/22 06:30 10/21/22 07:00 10/21/22 07:00 Pulse Rate 60 59 L Blood Pressure 144/66 H Pulse Oximetry 95 98 Oxygen Delivery Method Room Air 10/21/22 07:33 10/21/22 07:33 10/21/22 08:00 Pulse Rate 60 63 Blood Pressure 136/62 Pulse Oximetry 100 94 Oxygen Delivery Method 10/21/22 08:30 10/21/22 09:05 10/21/22 09:05 Pulse Rate 60 60 Blood Pressure 130/63 Pulse Oximetry 98 99 Oxygen Delivery Method 10/21/22 09:30 10/21/22 09:31 10/21/22 09:31 Pulse Rate 60 60 Blood Pressure 109/53 L Pulse Oximetry 99 98 Oxygen Delivery Method 10/21/22 10:00 10/21/22 10:01 10/21/22 10:01 Pulse Rate 60 60 Blood Pressure 121/58 L Pulse Oximetry 100 100 Oxygen Delivery Method 10/21/22 10:30 10/21/22 10:31 10/21/22 10:31 Pulse Rate 60 60 Blood Pressure 113/54 L Pulse Oximetry 100 100 Oxygen Delivery Method 10/21/22 11:00 10/21/22 11:00 10/21/22 11:30 Pulse Rate 60 59 L Blood Pressure 121/57 L Pulse Oximetry 100 100 Oxygen Delivery Method 10/21/22 11:31 10/21/22 11:31 10/21/22 12:00 Pulse Rate 60 Blood Pressure 110/51 L 103/79 Pulse Oximetry 100 Oxygen Delivery Method 10/21/22 12:00 Pulse Rate 60 Blood Pressure Pulse Oximetry 100 Oxygen Delivery Method Oxygen Delivery Method Room Air Narrative Exam Narrative: General:? Patient is well developed and well nourished, in no distress at this time. Lungs:? CTA b/l Cardio:?RRR no m/r/g. Abdomen: S NT ND. Rectal: melenotic stool around her anus, skin tags without external or protruding hemorrhoids. No bright red blood. Musculoskeletal:? Muscle strength and tone are equal within normal limits, no deformity. Extremities: No edema or joint effusions. No cyanosis or clubbing. Neuro:? Alert and orientated x3,?no gross deficits noted of cranial nerves. Psych:? Patient has a well-kept appearance, appropriate affect, mental status attitude thought context and judgment are appropriate for age. Objective Labs 10/21/22 08:10 10/21/22 03:00 Labs: Laboratory Results - last 24 hr 10/21/22 10/21/22 10/21/22 03:00 03:00 03:00 WBC 6.5 RBC 2.67 L Hgb 7.9 L Hct 23.5 L MCV 88.1 MCH 29.6 MCHC 33.6 RDW 13.8 Plt Count 137 L Neut % (Auto) 60.7 Lymph % (Auto) 23.8 L [place] % (Auto) 9.7 Eos % (Auto) 4.9 H Baso % (Auto) 0.9 Neut # (Auto) 3900 Lymph # (Auto) 1500 [place] # (Auto) 600 Eos # (Auto) 300 Baso # (Auto) 100 Sodium 140 Potassium 4.6 Chloride 115 H Carbon Dioxide 19 L BUN 43 H Creatinine 1.65 H Estimated GFR 30 L BUN/Creatinine Ratio 26.1 H Glucose 99 Calcium 8.7 Total Bilirubin Conjugated Bilirubin Unconjugated Bilirubin AST ALT Alkaline Phosphatase Total Protein Albumin Globulin Albumin/Globulin Ratio Lipase Blood Type O Positive Antibody Screen Negative 10/21/22 10/21/22 10/21/22 05:00 08:10 08:10 WBC RBC Hgb 7.3 L 7.3 L Hct 21.9 L 21.7 L MCV MCH MCHC RDW Plt Count Neut % (Auto) Lymph % (Auto) [place] % (Auto) Eos % (Auto) Baso % (Auto) Neut # (Auto) Lymph # (Auto) [place] # (Auto) Eos # (Auto) Baso # (Auto) Sodium Potassium Chloride Carbon Dioxide BUN Creatinine Estimated GFR BUN/Creatinine Ratio Glucose Calcium Total Bilirubin 0.2 Conjugated Bilirubin 0.0 Unconjugated Bilirubin 0.1 AST 31 ALT 28 Alkaline Phosphatase 190 H Total Protein 5.9 L Albumin 3.3 L Globulin 2.6 Albumin/Globulin Ratio 1.3 Lipase 162 Blood Type Antibody Screen [facility] Medical History Acquired hypothyroidism Adhesive capsulitis of right shoulder Anemia in chronic kidney disease Anesthesia complication Anxiety Aortic stenosis Chronic anticoagulation Chronic edema Chronic renal insufficiency Chronic sinusitis Coronary artery disease Diverticulosis Do not resuscitate Essential hypertension Facet arthropathy, lumbar Gastroesophageal reflux disease Gout Greater trochanteric bursitis of left hip History of anemia History of colon cancer History of diverticulitis Hypercholesterolemia Hypertension Iliotibial band syndrome, left leg LBBB (left bundle branch block) Mass of head of pancreas Mixed hyperlipidemia NSTEMI (non-ST elevated myocardial infarction) (02/25/21) Osteoarthritis Paroxysmal atrial fibrillation Peripheral neuropathy Right rotator cuff tendonitis Sick sinus syndrome Stage 3b chronic kidney disease (CKD) Trigeminal neuralgia of right side of face Surgical History History of carpal tunnel release of both wrists History of hysterectomy History of left hip replacement History of left knee replacement History of right hip replacement History of tonsillectomy Hx of appendectomy Hx of heart artery stent S/P left colectomy S/P right colectomy 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) S/P tendon repair Status cardiac pacemaker (~08/17/21) Family History Father Heart attack Hypertension Heart disease Brother Heart attack Mother Hypertension Ovarian cancer Other Cancer Social History marital status: unknown details: (Jj) household members: spouse and none occupational status: previously employed Tobacco & Substance Use Smoking Status: Former smoker Tobacco: How many years used: 8 alcohol intake: current Assessment & Plan Assessment & Plan narrative: 87 F with PMH of aortic stenosis s/p AVR, CAD with recent NSTEMI 08/2022, SSS s/p PPM placement, HTN, persistent atrial fibillation, CKD, anemia, hypot hyroidism, prior bowel resection for diverticulae, and diagnosis of pancreatic head mass with recent EUS who presented with rectal bleeding, with suspected chronic melena based on GI provider documentation and patient. She has no evidence of hemorrhoids on exam. The concern for her bleeding at this time is bleeding from her EUS done earlier this week, exacerbated by eliquis. Eliquis has been held since Tuesday. She is starting to show improvement with no further hematochezia at the time of consultation, but she continues to have melena, suspected to be chronic but likely with an acute component as well. I discussed this case with the general surgeon air route traffic controller last night and this morning. They are in agreement for transfer to higher level of care for either GI consultation or the possibility for IR should she continue to bleed. It is also unclear if her pancreatic mass is contributing at this time. However, the patient is reluctant to transfer to another facility. She would like to go to a center with her GI physician but I explained logistically this is quite difficult given current bed situation. She appeared to be open to another facility after discussing this. Her baseline h/h is between 7-8 since 07/2022 based on lab reports here. Her presenting complaint has subsided and she has no overt symptoms of an acute anemia at this moment. Discussed with patient that should her h/h remain stable, she may be able to be discharged home and follow up with her GI physician as an outpatient for further evaluation including endoscopy. She should continue to hold eliquis and continue her PPI BID that was prescribed to her. I do not see benefit to admission for monitoring at [facility] as we lack the capability to ultimately stop her bleeding should it continue, and should she re-bleed or h/h fall she should transfer to a higher level facility as discussed above. Code: DNR, spouse / daughter is surrogate Diagnoses: 1. Acute, possibly on chronic blood loss anemia due to gastrointestinal bleeding. 2. Pancreatic mass 3. CAD with recent NSTEMI 4. SSS s/p PPM placement 5. HTN 6. Persistent atrail fibrillation on chronic anticoagulation. 7. CKD stage III 8. hypothyroidism.
[2022-10-21 13:40] LABS: Hematocrit 21.2 % (36-46); Hemoglobin 7.1 g/dL (12.0-16.0)
--- NOTE | 2022-10-21 14:22 | PC.NURSE ---
This RN presented patient with blood consent form. Patient reviewed the form entirely. This RN asked if she had any additional questions and patient stated no. This RN signed as witness to consent form and placed consent in patient chart.
--- NOTE | 2022-10-21 16:41 | PC.NURSE ---
Patient is choosing to leave AMA. Provider had extensive conversation with patient. Patient still chooses to leave AMA. This RN got refusal of consent to treatment form and Provider filled it out. Patient signed paper and this RN witnessed the signature and signed as witness. This RN placed document in medical records.
== END 2022-10-21 16:46 | disposition left against medical advice (07) ==
PROVIDERS: Emergency Medicine; Emergency Provider Emergency Medicine; PCP Internal Medicine
DX: K92.2 Gastrointestinal hemorrhage, unspecified (principal); D64.9 Anemia, unspecified; Z79.01 Long term (current) use of anticoagulants; Z79.899 Other long term (current) drug therapy
CPT/HCPCS: 36415; 36430; 74176; 80048; 80076; 83690; 85014; 85018; 85025; 86850; 86900; 86901; 96374; 99285; 99291; P9016; C9113; Q9967

== ENCOUNTER 2022-12-20 13:06 | Day surgery (SDC) | payer MEDICARE, SELFPAY ==
[2022-09-01 16:16] VITALS: PULSE 88; RESP 9; O2SAT 96; BMI 29.5
--- NOTE | 2022-12-20 | PATH_ITS ---
[facility] Accession Number: [id number] No. of containers..02 Tissue . 01 Material submitted: . PART A: colon - POLYP @ 55/60 PART B: colon - RECTO SIGMOID POLYP . 01 Diagnosis: A. Colon, Polyp at 5560: Tubular adenoma. . B. Rectosigmoid Colon, Polyp: Hyperplastic polyp. MRV 12/28/2022 1656 Local . 01 Electronically signed: . Olga Arreola MD, Pathologist NPI- [id number] . 01 Gross description: . Part A: POLYP @ 55/60: Received in formalin is 1 fragment(s) of nascimento, soft tissue measuring 0.7 x 0.6 x 0.4 cm which is bisected and submitted entirely in 1 cassette(s) Part B: RECTO SIGMOID POLYP: Received in formalin are 2 fragment(s) of nascimento, soft tissue measuring 0.2 x 0.2 x 0.1 cm to 0.6 x 0.6 x 0.2 cm submitted entirely in 1 cassette(s) /MARIA E 12/22/2022 0019 Local . 01 Pathologist provided ICD-10: D12.6 . 01 CPT . 867549, [id number] Specimen Comment: A courtesy copy of this report has been sent to [phone] Performed at: [facility] [address] [place] [address] [id number] MD Jospeh Liz MD Phone: [phone]
[2022-12-20 13:38] VITALS: BMI 27.8
[2022-12-20 13:51] VITALS: BP 108/56; PULSE 59; RESP 16; TEMP 36.4; O2SAT 97
[2022-12-20] MEDS: LACTATED RINGERS 1,000 ML 42 ML IV (14:07)
--- NOTE | 2022-12-20 14:57 | PM.HP.1 ---
History of Present Illness History of Present Illness Date Patient Seen: 12/20/22 Time Patient Seen: 14:57 Chief complaint: Colonoscopy Narrative: Here for colonoscopy. She had some rectal bleeding requiring blood transfusion in September. She is off of her Eliquis for the last few days. No bleeding since September. She has a personal history of colon cancer. She is being worked up for IPMN with high-grade dysplasia. [facility] Medical History IPMN (intraductal papillary mucinous neoplasm) Do not resuscitate Anemia in chronic kidney disease Iliotibial band syndrome, left leg Gout LBBB (left bundle branch block) NSTEMI (non-ST elevated myocardial infarction) (02/25/21) Anesthesia complication Adhesive capsulitis of right shoulder Right rotator cuff tendonitis Sick sinus syndrome Coronary artery disease Stage 3b chronic kidney disease (CKD) Paroxysmal atrial fibrillation Acquired hypothyroidism Mixed hyperlipidemia Essential hypertension Chronic anticoagulation Aortic stenosis Greater trochanteric bursitis of left hip Trigeminal neuralgia of right side of face Facet arthropathy, lumbar Anxiety History of anemia Chronic renal insufficiency Chronic edema Gastroesophageal reflux disease Peripheral neuropathy History of diverticulitis Diverticulosis Osteoarthritis Chronic sinusitis Hypercholesterolemia Hypertension History of colon cancer Surgical History Hx of heart artery stent Status cardiac pacemaker (~08/17/21) 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) Hx of appendectomy S/P tendon repair History of tonsillectomy History of carpal tunnel release of both wrists History of hysterectomy History of left knee replacement History of right hip replacement History of left hip replacement S/P right colectomy S/P left colectomy Family History Father Heart attack Hypertension Heart disease Brother Heart attack Mother Hypertension Ovarian cancer Other Cancer Social History marital status: unknown details: (Jj) household members: spouse and none occupational status: previously employed Smoking Status: Former smoker Tobacco: How many years used: 8 alcohol intake: current Meds Home Medications and Allergies Home Medications Medication Instructions Recorded Confirmed Type apixaban 2.5 mg tablet (Eliquis) 2.5 mg PO BID 06/25/21 12/20/22 History cholecalciferol (vitamin D3) 25 25 mcg PO DAILY 10/01/21 12/20/22 History mcg (1,000 unit) capsule metoprolol succinate 25 mg 25 mg PO DAILY 11/26/21 12/20/22 History tablet,extended release 24 hr torsemide 5 mg tablet 5 mg PO Q OTHER DAY 12/01/21 12/20/22 History L. acidophilus/Bifid. animalis 1 cap PO DAILY 12/16/21 10/26/22 History [Daily Probiotic] spironolactone 25 mg tablet 25 mg PO QDAY #90 tabs 02/03/22 12/20/22 Rx lorazepam 0.5 mg tablet 0.5 mg PO BID PRN anxiety #20 tabs 05/31/22 12/20/22 Rx colesevelam 625 mg tablet 625 mg PO DAILY #90 tabs 08/09/22 12/20/22 Rx levothyroxine 25 mcg tablet 25 mcg PO DAILY 08/09/22 12/20/22 History isosorbide mononitrate 30 mg 30 mg PO DAILY #90 tabs 09/03/22 12/20/22 Rx tablet,extended release 24 hr nitroglycerin 0.4 mg sublingual 0.4 mg sublingual Q5-15M PRN chest 09/03/22 12/20/22 History tablet pain rosuvastatin 5 mg tablet 5 mg PO DAILY #90 tabs 09/20/22 12/20/22 Rx aspirin 81 mg tablet,delayed 81 mg PO DAILY 10/26/22 12/20/22 History release sodium bicarbonate 650 mg tablet 1,300 mg PO BID 10/26/22 12/20/22 History oxcarbazepine 300 mg tablet 300 mg PO DAILY #180 tabs 11/02/22 12/20/22 Rx (Trileptal) Allergies Allergy/AdvReac Type Severity Reaction Status Date / Time DEEDEE Inhibitors Allergy Severe ANGIOEDEMA Verified 12/20/22 13:32 [DEEDEE INHIBITORS] Sulfa (Sulfonamide Allergy Severe RASH Verified 12/20/22 13:32 Antibiotics) [SULFA (SULFONAMIDE ANTIBIOTICS)] hydromorphone [From DILAUDID] Allergy Mild HALLUCINATI Verified 12/20/22 13:32 ONS atorvastatin Allergy Unknown unknown Verified 12/20/22 13:32 niacin Allergy Unknown flushed Verified 12/20/22 13:32 [From Niaspan Extended-Release] rofecoxib Allergy unknown Verified 12/20/22 13:32 simvastatin Allergy unknown Verified 12/20/22 13:32 tiotropium Allergy unknown Verified 12/20/22 13:32 codeine [CODEINE] AdvReac Mild FEELING Verified 12/20/22 13:32 OF DROP IN BP/WEAKNESS pseudoephedrine AdvReac Mild FEELS LIKE Verified 12/20/22 13:32 [PSEUDOEPHEDRINE] BP GOES OUT FROM UNDERNEATH ME. colchicine AdvReac Gastrointestinal Verified 12/20/22 13:32 Upset hydrocodone AdvReac Gastrointestinal Verified 12/20/22 13:32 Upset NSAIDS (Non-Steroidal AdvReac Elevated Verified 12/20/22 13:32 Anti-Inflamma creatinine Review of Systems Review of Systems ROS: Yes All systems reviewed with the patient and are negative except as otherwise documented Exam Vital Signs (past 8 hours): - 12/20/22 13:51 Temperature 97.5 F L Pulse Rate 59 L Respiratory Rate 16 Blood Pressure 108/56 L Pulse Oximetry 97 Oxygen Delivery Method Room Air Oxygen Delivery Method Room Air Const General: cooperative HENMT Head: normal to inspection Eyes General: appearance normal, both eyes and all related structures Neck Neck: normal visual inspection Chest Chest: normal inspection of the chest Resp Effort & Inspection: normal respiratory effort Cardio Rate: regular rate GI Inspection: normal to inspection Skin General: no rashes or lesions noted Neuro General: patient alert and patient awake Extrem General: normal to inspection and no pedal edema Psych Appearance: grossly normal Assessment & Plan Assessment & Plan narrative: 87-year-old female with multiple cardiac comorbidities off Eliquis for 3+ days for evaluation of rectal bleeding in the face of prior history of colon cancer. Colonoscopy is pursued today.
--- NOTE | 2022-12-20 14:59 | PM.PREOP ---
Pre-operative Note Interval Note History & Physical reviewed/Exam performed by Physician: Yes Changes to H&P: No ASA Class (for procedural sedation): III
--- NOTE | 2022-12-20 15:59 | PM.OP.COLON ---
Operative Date/Time/Diagnoses Date of procedure: 12/20/22 Time of procedure: 16:00 Pre-op diagnosis: Rectal bleeding. Personal history of colon cancer. Post-op diagnosis: same Procedure & Clinicians Study performed: Colonoscopy with hot snare polypectomy, submucosal saline injection, and Endoclip deployment Same procedure as scheduled: Yes Indications: Rectal bleeding and personal history of colon cancer Surgeon: Vishal Martinez Procedure Notes SCOAP/Timeout: Done Procedure in detail: After the risks and benefits were explained, written and verbal informed consent was obtained. The patient was brought into the procedure room and placed into the left lateral decubitus position. Please see anesthesia notes for sedation details. Digital rectal examination was accomplished. The scope was introduced into the patient and advanced under direct visualization to the cecum as identified by the appendiceal orifice and ileocecal valve. The scope was slowly withdrawn to carefully examine the mucosa for any defects or lesions. Comprehensive imaging was accomplished throughout the rectum including the dentate line. The colon was decompressed, the scope was then removed from the patient who tolerated the procedure well. Pediatric colonoscope Bowel prep fair; with copious irrigation and suction this was rendered adequate. Scope withdrawal time: Not applicable Sedation minutes: 26 Complications: none Impression: The patient had grade 2-3 internal nonbleeding nonthrombosed hemorrhoids. There was some mild diverticulosis in the left colon. The right hemicolectomy anastomosis was widely patent and appeared normal. There was no suggestion of any colitis throughout. In the rectosigmoid there was a diminutive 5-6 mm polyp removed with hot snare. At approximately 55-60 cm from the anal verge likely in the transverse colon there was a sessile 12 mm polyp identified. I lifted this lesion with an approximate 2 mL saline submucosal injection. I was then able to resect the polyp with a single polypectomy snare excision. We closed the defect with 2 Endoclips. Endoscopic diagnosis 1. Grade 2-3 hemorrhoids (? September bleeding source) 2. Mild diverticulosis (? September bleeding source) 3. Colon polyps 4. Normal right hemicolectomy anastomosis Post-procedure Plan for aftercare: 1. Await histopathology. 2. Okay to resume Eliquis starting tomorrow. Disposition: PACU
[2022-12-20 16:06] VITALS: BP 117/60; PULSE 67; RESP 16; TEMP 36.1; O2SAT 98
[2022-12-20 16:11] VITALS: BP 117/60; PULSE 74; RESP 16; O2SAT 97
[2022-12-20 16:21] VITALS: BP 112/70; PULSE 59; RESP 16; TEMP 36.8; O2SAT 100
== END 2022-12-20 16:32 | disposition home or self-care (01) ==
PROVIDERS: PCP Internal Medicine; Referring Provider Internal Medicine Gastroenterology; Visit Provider Internal Medicine Gastroenterology
PROC: 0DJD8ZZ Inspection of Lower Intestinal Tract, Via Natural or Artificial Opening Endoscopic (ICD-10-PCS; CPT 45378; principal; 2022-12-20 14:00)
DX: K62.5 Hemorrhage of anus and rectum (principal); Z85.038 Personal history of other malignant neoplasm of large intestine; K57.30 Diverticulosis of large intestine without perforation or abscess without bleeding; K64.2 Third degree hemorrhoids; Z90.49 Acquired absence of other specified parts of digestive tract; D12.6 Benign neoplasm of colon, unspecified; K63.5 Polyp of colon
CPT/HCPCS: 45381; 45385; J2704

== ENCOUNTER → 2023-05-19 10:22 | Outpatient (CLI) | payer MEDICARE, SELFPAY ==
[2022-09-01 16:16] VITALS: PULSE 88; RESP 9; O2SAT 96; BMI 29.5
[2023-05-19 10:47] LABS: Hematocrit 28.2 % (36-46); Hemoglobin 9.5 g/dL (12.0-16.0); Mean Corpuscular HGB Conc 33.6 % (30-36); Mean Corpuscular Hemoglobin 30.4 PG (26-34); Mean Corpuscular Volume 90.4 fL (80-100); Platelet Count 160 X10^3/uL (150-400); Red Blood Cell Count 3.12 X10^6/uL (4.0-5.2); Red Cell Distribution Width 13.4 % (11.6-14.8); White Blood Cell Count 5.4 X10^3/uL (4.5-11.0)
[2023-05-19 11:32] LABS: Blood Urea Nitrogen 58 mg/dL (7-17); Carbon Dioxide 25 mmol/L (22-32); Chloride 109 mmol/L (98-107); Estimated Glomerular Filt Rate 23 mL/min (>60); Glucose 102 mg/dL (80-110); HEMOLYSIS < 15 (0-50); Potassium 4.8 mmol/L (3.4-5.1); Sodium 140 mmol/L (137-145)
== END ==
PROVIDERS: PCP Internal Medicine; Referring Provider Internal Medicine; Visit Provider Internal Medicine
DX: N18.9 Chronic kidney disease, unspecified (principal); N18.32 Chronic kidney disease, stage 3b; D63.1 Anemia in chronic kidney disease
CPT/HCPCS: 36415; 80048; 85027

== ENCOUNTER → 2023-10-18 10:15 | Outpatient (CLI) | payer MEDICARE, SELFPAY ==
[2022-09-01 16:16] VITALS: PULSE 88; RESP 9; O2SAT 96; BMI 29.5
--- NOTE | 2023-10-18 10:17 | DI.MG.S_ITS ---
BILATERAL DIGITAL DIAGNOSTIC MAMMOGRAM 3D/2D: 10/18/2023 CLINICAL: Breast pain. Comparison is made to exams dated: 02/16/2020 mammogram - [facility], 04/28/2017 mammogram, and 11/17/2012 mammogram - [facility]. There are scattered areas of fibroglandular density in both breasts (category b / 25%-50% glandular tissue). A BB marker was placed in the area of clinical concern in the right breast, and no mammographic abnormality is identified. No significant masses, calcifications, or other findings are seen in either breast. IMPRESSION: INCOMPLETE: NEEDS ADDITIONAL IMAGING EVALUATION No mammographic abnormality in the area of clinical concern. Recommend further evaluation with targeted breast ultrasound, which will immediately follow this exam. This exam was interpreted at Station ID: [id number]. NOTE: For mammograms, a report in lay terms will be sent to the patient. Approximately 15% of breast malignancies will not be visualized mammographically. In the management of a palpable breast mass, a negative mammogram must not discourage biopsy of a clinically suspicious lesion. Electronically Signed By: Shannon Orosco M.D., Ph.D. eb/:10/18/2023 12:12:12 ACR BI-RADS Category 0: Incomplete [id number]
--- NOTE | 2023-10-18 10:17 | DI.US.S_ITS ---
LIMITED ULTRASOUND OF RIGHT BREAST AND AXILLA: 10/18/2023 CLINICAL: Pt c/o pulling sensation rt breast 02:00 11cmfn. Comparison is made to exams dated: 10/18/2023 mammogram, 02/16/2020 mammogram - [facility], 04/28/2017 mammogram, 11/17/2012 mammogram, 05/10/2008 mammogram, and 03/01/2007 mammogram - [facility]. Real-time ultrasound of the right breast 1-3 o'clock, and axilla regions was performed. Arias scale images of the real-time examination were reviewed. No sonographic abnormality in the areas of clinical concern in the right breast at 1, 2, and 3 o'clock at a distance of 7-12 cm from the nipple. IMPRESSION: NEGATIVE No sonographic abnormality in the areas of clinical concern. No mammographic or sonographic evidence of malignancy. Recommend routine annual mammogram screening in 1 year. Clinical follow-up is also recommended, and further management of palpable abnormalities or other focal signs or symptoms should be based on the results of clinical evaluation. If palpable abnormality or other concerning symptom persists or progresses, further clinical evaluation should be considered. Findings and recommendations were conveyed to the patient during today's evaluation. This exam was interpreted at Station ID: [id number]. Electronically Signed By: Shannon Orosco M.D., Ph.D. eb/:10/18/2023 12:14:03 letter sent: Clinical Evaluation Ultrasound BI-RADS: 1 Negative
== END ==
PROVIDERS: PCP Internal Medicine; Referring Provider Internal Medicine; Visit Provider Internal Medicine
DX: R92.2 Inconclusive mammogram (principal); N64.4 Mastodynia; R92.333 Mammographic heterogeneous density, bilateral breasts
CPT/HCPCS: 76642; 77066; G0279

== ENCOUNTER → 2024-02-02 14:09 | Outpatient (CLI) | payer MEDICARE, SELFPAY ==
[2022-09-01 16:16] VITALS: PULSE 88; RESP 9; O2SAT 96; BMI 29.5
[2024-02-02 20:48] LABS: Influenza A - CEPHEID Flu A NEGATIVE (NEGATIVE); Influenza B - CEPHEID Flu B NEGATIVE (NEGATIVE); Respiratory Syncytial Virus Negative (Negative)
[2024-02-02 21:18] LABS: COVID-19 CEPHEID 4-PLEX PCR POSITIVE (Negative)
== END ==
PROVIDERS: PCP Internal Medicine; Visit Provider Physician Assistant
DX: R05.1 Acute cough (principal)
CPT/HCPCS: 0241U

== ENCOUNTER → 2024-02-02 14:11 | Outpatient (CLI) | payer MEDICARE, SELFPAY ==
[2022-09-01 16:16] VITALS: PULSE 88; RESP 9; O2SAT 96; BMI 29.5
[2024-02-02 15:47] LABS: Alanine Aminotransferase 23 IU/L (<35); Albumin 3.6 g/dL (3.5-5.0); Albumin Globulin Ratio 1.4 (1.0-2.8); Alkaline Phosphatase 212 U/L (38-126); Aspartate Aminotransferase 31 IU/L (14-36); BUN Creatinine Ratio 19.9 (6-22); Bilirubin Total 0.3 mg/dL (0.2-1.3); Blood Urea Nitrogen 39 mg/dL (7-17); Carbon Dioxide 26 mmol/L (22-32); Chloride 107 mmol/L (98-107); Estimated Glomerular Filt Rate 24 mL/min (>60); Globulin 2.5 g/dL (1.7-4.1); Glucose 109 mg/dL (80-110); HEMOLYSIS < 15 (0-50); Potassium 5.1 mmol/L (3.4-5.1); Sodium 139 mmol/L (137-145); Total Protein 6.1 g/dL (6.3-8.2)
== END ==
PROVIDERS: PCP Internal Medicine; Referring Provider Physician Assistant; Visit Provider Physician Assistant
DX: N18.32 Chronic kidney disease, stage 3b (principal); R05.1 Acute cough
CPT/HCPCS: 0241U; 36415; 80053

== ENCOUNTER → 2024-05-02 11:33 | Outpatient (CLI) | payer MEDICARE, SELFPAY ==
[2022-09-01 16:16] VITALS: PULSE 88; RESP 9; O2SAT 96; BMI 29.5
[2024-05-02 12:18] LABS: Hematocrit 30.4 % (36-46); Hemoglobin 10.2 g/dL (12.0-16.0); Mean Corpuscular HGB Conc 33.5 % (30-36); Mean Corpuscular Hemoglobin 30.4 PG (26-34); Mean Corpuscular Volume 90.6 fL (80-100); Platelet Count 157 X10^3/uL (150-400); Red Blood Cell Count 3.36 X10^6/uL (4.0-5.2); Red Cell Distribution Width 14.8 % (11.6-14.8)
[2024-05-02 12:49] LABS: Alanine Aminotransferase 34 IU/L (<35); Albumin 4.1 g/dL (3.5-5.0); Albumin Globulin Ratio 1.6 (1.0-2.8); Alkaline Phosphatase 193 U/L (38-126); Aspartate Aminotransferase 35 IU/L (14-36); BUN Creatinine Ratio 21.2 (6-22); Bilirubin Total 0.3 mg/dL (0.2-1.3); Blood Urea Nitrogen 44 mg/dL (7-17); Calcium 8.8 mg/dL (8.4-10.2); Carbon Dioxide 20 mmol/L (22-32); Chloride 111 mmol/L (98-107); Cholesterol 82 mg/dL (140-199); Estimated Glomerular Filt Rate 23 mL/min (>60); Globulin 2.6 g/dL (1.7-4.1); Glucose 70 mg/dL (80-110); HDL Cholesterol 43 mg/dL (40-60); HEMOLYSIS < 15 (0-50); LDL Cholesterol Calculated 19 mg/dL (<100); Potassium 5.1 mmol/L (3.4-5.1); Sodium 142 mmol/L (137-145); Total Protein 6.7 g/dL (6.3-8.2); Triglycerides 101 mg/dL (35-150)
[2024-05-02 14:03] LABS: TSH w/ Reflex to FT4 3.44 uIU/mL (0.47-4.68)
== END ==
PROVIDERS: PCP Internal Medicine; Referring Provider Internal Medicine; Visit Provider Internal Medicine
DX: R00.0 Tachycardia, unspecified (principal); N18.32 Chronic kidney disease, stage 3b; I48.0 Paroxysmal atrial fibrillation
CPT/HCPCS: 36415; 80053; 80061; 84443; 85027